=== PATIENT | female | born 1975 | race Caucasian/White ===

== ENCOUNTER 2018-06-08 06:22 | Inpatient (IN) | payer MEDICARE, OTHER ==
[2018-06-08] VITALS (9 sets, daily range): BP systolic 112–142; BP diastolic 70–86
[~2018-06-08] VITALS: Ht 154.9 cm; Wt 56.7 kg
[~2018-06-08 06:22] MED LIST: ERYT250C8 PO; FLUO40CA9 PO; HYDR-2761 PO; INSU100I13 SQ; INSU100I17 SQ; INSU100V11 IJ; INSU100V31 SQ; INSU100V8 SQ; LACT1CAP6 PO; LISI-334 PO; LORA-434 PO; LORA0.5T96 PO; METO5TAB55 PO; ONDA4TAB10 SL; ONDA4TAB7 PO; POTA10TA12 PO; RANI-376 PO; SIMV40TA3 PO
[2018-06-08] MEDS ORDERED: PIPERACILLIN/TAZOBACTAM 3.375 GM in IV NORMAL SALINE 50ML 50 ML IV ONE (08:15)
[2018-06-08] MEDS ORDERED: IV NORMAL SALINE 1000ML BAG 1,000 ML IV ONE (08:15)
[2018-06-08] MEDS ORDERED: ONDANSETRON PF 4 MG/2 ML VIAL. ONE ×2 (08:41→17:23)
[2018-06-08] MEDS ORDERED: ONDANSETRON PF 4 MG/2 ML VIAL. IV ONE (08:42)
[2018-06-08] MEDS ORDERED: VANCOMYCIN 1.5 GM in IV NORMAL SALINE 500ML BAG 500 ML IV ONE (08:45)
[2018-06-08] MEDS ORDERED: MORPHINE SULFATE 4 MG/ML VIAL. IV ONE (08:45)
[2018-06-08] MEDS ORDERED: ONDANSETRON ODT 4 MG TAB.RAPDIS. PO ONE (08:45)
[2018-06-08] MEDS ORDERED: IOHEXOL 300 MG/ML 100ML VIAL. IV ONE (08:45)
[2018-06-08 08:52] LABS: BASO # 0.1 x10^3/uL (0.0-0.2); BASO % 1 % (0-3); EOS # 0.2 x10^3/uL (0.0-0.7); EOS % 1 % (0-3); HEMATOCRIT 32.3 % (36.0-47.0); HEMOGLOBIN 10.7 g/dL (12.0-15.5); LYMPH # 2.1 x10^3/uL (1.0-4.8); LYMPH % 15 % (24-48); MEAN CORPUSCULAR HEMOGLOBIN 29 pg (25-35); MEAN CORPUSCULAR HGB CONC 33 g/dL (31-37); MEAN CORPUSCULAR VOLUME 88 fL (79-100); MONO # 1.2 x10^3/uL (0.0-1.1); MONO % 8 % (0-9); NEUT # 10.9 x10^3uL (1.8-7.7); NEUT % 75 % (31-73); PLATELET COUNT 490 x10^3/uL (140-400); RED BLOOD COUNT 3.68 x10^6/uL (3.50-5.40); RED CELL DISTRIBUTION WIDTH 14.1 % (11.5-14.5); WHITE BLOOD COUNT 14.4 x10^3/uL (4.0-11.0)
[2018-06-08 08:56] LABS: CREATININE 0.8 mg/dL (0.6-1.0); GFR 78.7
[2018-06-08] MEDS ORDERED: CONTRAST GIVEN. MC PRN (09:00)
--- NOTE | 2018-06-08 09:04 | PHYS DOC ---
Past Medical History Past Medical History: Anxiety, Cyclic Vomiting, Diabetes-Type I, High Cholesterol, Other Additional Past Medical Histor: gastroparesis, Past Surgical History: Cholecystectomy, Hysterectomy, Tubal ligation Alcohol Use: None Drug Use: Marijuana Adult General Chief Complaint Chief Complaint: ABSCESS HPI HPI Patient is a 43 year old female who presents with left thigh infection. This is been present for several weeks and seem to be responding to home, care with rihi-igy-yjrxyow medicines, but it became worse over the past 3 days. There is purulent drainage. Patient has been feeling a fever.[] Review of Systems Review of Systems Constitutional: History of present illness[] Eyes: Denies change in visual acuity, redness, or eye pain [] HENT: Denies nasal congestion or sore throat [] Respiratory: Denies cough or shortness of breath [] Cardiovascular: See history of present illness[] GI: Denies abdominal pain, nausea, vomiting, bloody stools or diarrhea [] : Denies dysuria or hematuria [] Musculoskeletal: Denies back pain or joint pain [] Integument: See history of present illness[] Neurologic: Denies headache, focal weakness or sensory changes [] Endocrine: Denies polyuria or polydipsia [] All other systems were reviewed and found to be within normal limits, except as documented in this note. Current Medications Current Medications Current Medications Medications (Trade) Dose Ordered Sig/Lori Start Time Stop Time Status Last Admin Dose Admin Info (CONTRAST GIVEN -- Rx MONITORING) 1 each PRN DAILY PRN 06/08/18 09:00 06/10/18 08:59 Iohexol (Omnipaque 300 Mg/ml) 75 ml 1X ONCE 06/08/18 08:45 06/08/18 08:46 DC 06/08/18 09:13 75 ML Morphine Sulfate (Morphine Sulfate) 4 mg 1X ONCE 06/08/18 08:45 06/08/18 08:46 DC 06/08/18 08:48 4 MG Ondansetron HCl (Zofran Odt) 4 mg 1X ONCE 06/08/18 08:45 06/08/18 09:32 DC Ondansetron HCl (Zofran) 4 mg 1X ONCE 06/08/18 08:42 06/08/18 09:34 DC 06/08/18 08:42 4 MG Piperacillin Sod/ Tazobactam Sod 3.375 gm/Sodium Chloride 50 ml @ 100 mls/hr 1X ONCE 06/08/18 08:15 06/08/18 08:44 DC 06/08/18 08:51 100 MLS/HR Sodium Chloride 1,000 ml @ 1,000 mls/hr 1X ONCE 06/08/18 08:15 06/08/18 09:14 DC 06/08/18 08:44 1,000 MLS/HR Vancomycin HCl 1.5 gm/Sodium Chloride 500 ml @ 250 mls/hr 1X ONCE 06/08/18 08:45 06/08/18 10:44 Allergies Allergies Allergies Coded Allergies Type Severity Reaction Last Updated Verified No Known Drug Allergies 03/10/13 No Physical Exam Physical Exam Constitutional: Well developed, well nourished, mild to moderate distress, ill- appearing. [] HENT: Normocephalic, atraumatic, bilateral external ears normal, oropharynx moist, no oral exudates, nose normal. [] Eyes: PERRLA, EOMI, conjunctiva normal, no discharge. [] Neck: Normal range of motion, no tenderness, supple, no stridor. [] Cardiovascular:Heart rate is tachycardic with a regular rhythm, no murmur [] Lungs & Thorax: Bilateral breath sounds clear to auscultation [] Abdomen: Bowel sounds normal, soft, no tenderness, no masses, no pulsatile masses. [] Skin: Warm, dry, erythema, induration, fluctuance medial to posterior left thigh approximately 15 cm in diameter. [] Back: No tenderness, no CVA tenderness. [] Extremities: No tenderness, no cyanosis, no clubbing, ROM intact, no edema. [] Neurologic: Alert and oriented X 3, normal motor function, normal sensory function, no focal deficits noted. [] Psychologic: Affect normal, judgement normal, mood normal. [] Current Patient Data Vital Signs Vital Signs Date Time Temp Pulse Resp B/P (MAP) Pulse Ox O2 Delivery O2 Flow Rate FiO2 06/08/18 08:48 20 97 Room Air 06/08/18 06:27 100.1 126 119/64 (82) 100.1 Lab Values Laboratory Tests Test 06/08/18 08:30 White Blood Count 14.4 x10^3/uL (4.0-11.0) H Red Blood Count 3.68 x10^6/uL (3.50-5.40) Hemoglobin 10.7 g/dL (12.0-15.5) L Hematocrit 32.3 % (36.0-47.0) L Mean Corpuscular Volume 88 fL (79-100) Mean Corpuscular Hemoglobin 29 pg (25-35) Mean Corpuscular Hemoglobin Concent 33 g/dL (31-37) Red Cell Distribution Width 14.1 % (11.5-14.5) Platelet Count 490 x10^3/uL (140-400) H Neutrophils (%) (Auto) 75 % (31-73) H Lymphocytes (%) (Auto) 15 % (24-48) L Monocytes (%) (Auto) 8 % (0-9) Eosinophils (%) (Auto) 1 % (0-3) Basophils (%) (Auto) 1 % (0-3) Neutrophils # (Auto) 10.9 x10^3uL (1.8-7.7) H Lymphocytes # (Auto) 2.1 x10^3/uL (1.0-4.8) Monocytes # (Auto) 1.2 x10^3/uL (0.0-1.1) H Eosinophils # (Auto) 0.2 x10^3/uL (0.0-0.7) Basophils # (Auto) 0.1 x10^3/uL (0.0-0.2) Sodium Level 133 mmol/L (136-145) L Potassium Level 4.0 mmol/L (3.5-5.1) Chloride Level 95 mmol/L (98-107) L Carbon Dioxide Level 26 mmol/L (21-32) Anion Gap 12 (6-14) Blood Urea Nitrogen 10 mg/dL (7-20) Creatinine 0.8 mg/dL (0.6-1.0) Estimated GFR (Cockcroft-Gault) 78.7 Glucose Level 208 mg/dL (70-99) H Lactic Acid Level 1.3 mmol/L (0.4-2.0) Calcium Level 9.0 mg/dL (8.5-10.1) Laboratory Tests 06/08/18 08:30 Laboratory Tests 06/08/18 08:30 EKG EKG [] Radiology/Procedures Radiology/Procedures CT pelvis with contrast. HISTORY: Abscess left upper thigh CT scan of the pelvis was done using 75 mL Omnipaque 300 contrast. Bowel pattern in the pelvis is normal. Appendix is normal. Patient's had surgery at the rectum. There is a 3.8 x 3.4 cm left ovarian cyst. Bony pelvis is unremarkable. There is soft tissue swelling of the lower buttocks and perineum on the left. A definitive abscess is not identified. IMPRESSION: 1. Soft tissue swelling and soft tissue inflammation of the buttocks and perineum on the left side without a defined abscess. 2. Left ovarian cyst[] Course & Med Decision Making Course & Med Decision Making Pertinent Labs and Imaging studies reviewed. (See chart for details) ED course: Patient arrived, was placed in bed, and tolerated exam well. She had IV access established was given IV fluids for the tachycardia as well as antibiotics due to concern for sepsis due to a skin source. The exam of her thigh was performed with network specialist due to proximity to her genitals. Patient was transported to and from [place] without any complications. Due to concern for early sepsis from a skin source, consultation was made with the hospitalist service for admission and they graciously admitted her. Laboratory and imaging findings were discussed with the patient who voiced understanding. Patient was admitted in improved condition. Medical decision making: While there does not appear to be a large abscess on CT scan, concerned about the infection/sepsis. This does not appear to be toxic epidermal necrolysis nor staph scalded skin syndrome. Patient is being admitted[ ] Dragon Disclaimer Dragon Disclaimer This electronic medical record was generated, in whole or in part, using a voice recognition dictation system. Departure Departure Impression: Primary Impression: Abrasion of thigh, left, infected Additional Impression: Sepsis Disposition: ADMITTED INPATIENT Admitting Physician: Zi Ashraf Condition: IMPROVED Referrals: NO PCP (PCP) Problem Qualifiers Primary Impression: Abrasion of thigh, left, infected Encounter type: initial encounter Qualified Codes: S70.312A - Abrasion, left thigh, initial encounter; L08.9 - Local infection of the skin and subcutaneous tissue, unspecified Additional Impression: Sepsis Sepsis type: sepsis due to unspecified organism Qualified Codes: A41.9 - Sepsis, unspecified organism SALO GIRON DO Jun 08, 2018 09:04
[2018-06-08 09:18] LABS: PROTHROMBIN TIME PATIENT 13.6 SEC (11.7-14.0)
--- NOTE | 2018-06-08 09:31 | RAD ---
CT pelvis with contrast. HISTORY: Abscess left upper thigh CT scan of the pelvis was done using 75 mL Omnipaque 300 contrast. Bowel pattern in the pelvis is normal. Appendix is normal. Patient's had surgery at the rectum. There is a 3.8 x 3.4 cm left ovarian cyst. Bony pelvis is unremarkable. There is soft tissue swelling of the lower buttocks and perineum on the left. A definitive abscess is not identified. IMPRESSION: 1. Soft tissue swelling and soft tissue inflammation of the buttocks and perineum on the left side without a defined abscess. 2. Left ovarian cyst Electronically signed by: Lucius Sandra MD (06/08/2018 9:28 AM) [facility]
[2018-06-08 10:13] LABS: BILIRUBIN,URINE NEGATIVE (NEG); CLARITY,URINE CLEAR; COLOR,URINE YELLOW; NITRITE,URINE NEGATIVE (NEG); PH,URINE 6.5; PROTEIN,URINE 30 mg/dL (NEG-TRACE); UROBILINOGEN,URINE 0.2 mg/dL (0.2 mg/dL)
[2018-06-08] MEDS ORDERED: ACETAMINOPHEN 325 MG TABLET. PO PRN (10:15)
[2018-06-08] MEDS ORDERED: ONDANSETRON PF 4 MG/2 ML VIAL. IV PRN ×2 (10:15→18:00)
[2018-06-08] MEDS: MORPHINE SULFATE 4 MG/ML VIAL. IV PRN ×3 (10:43→19:48)
[2018-06-08 10:49] LABS: BACTERIA,URINE 0 /HPF (0-FEW); RBC,URINE 0 /HPF (0-2); SQUAMOUS EPITHELIAL CELL,UR MOD /LPF; YEAST,URINE PRESENT /HPF
[2018-06-08] MEDS: FAMOTIDINE 20 MG TABLET. PO SCH (10:51)
[2018-06-08] MEDS: IV NORMAL SALINE 1000ML BAG 1,000 ML IV SCH ×3 (10:51→23:21)
[2018-06-08] MEDS: ERYTHROMYCIN BASE 250 MG TABLET PO SCH ×2 (11:03→16:30)
[2018-06-08] MEDS: INSULIN LISPRO 300 UNITS/3 ML INSULN.PEN. SQ SCH ×2 (12:00→17:00)
[2018-06-08] MEDS ORDERED: ONDANSETRON ODT 4 MG TAB.RAPDIS. PO SCH (12:00)
--- NOTE | 2018-06-08 12:03 | HP ---
ADMIT DATE: 06/08/2018 CHIEF COMPLAINT: Left buttock and left posterior thigh pain and abscess. HISTORY OF PRESENT ILLNESS: The patient is a pleasant middle-aged white female who presents with the above chief complaints. Basically, she has a large abscess on the left posterior aspect of her upper thigh right near the buttock, right near the perineal region as well. It is quite large, very painful, rated at 10/10. She has associated depression. She is crying. Tried to take some home meds, but that did not seem to work. It is worse with moving, better with sitting still. I discussed the case with ER physician. It appears she is also septic. We are going to admit the patient and give her IV antibiotics and consult General Surgery and Infectious Disease. PAST MEDICAL HISTORY: Anxiety, cyclic vomiting, hypertension, hyperlipidemia, gastroparesis, cholecystectomy, hysterectomy, tubal ligation. ALLERGIES: None. FAMILY HISTORY: Diabetes. SOCIAL HISTORY: She does not drink, smoke or take drugs. MEDICATIONS: Reviewed, please refer to the MRAD. She is on erythromycin, hydrocodone, Zofran, Zantac and NovoLog. REVIEW OF SYSTEMS: GENERAL: No history of weight change, weakness or fevers. SKIN: She complains of left upper posterior thigh severe pain from her abscess. EYES: No blurred, double or loss of vision. NOSE AND THROAT: No history of nosebleeds, hoarseness or sore throat. HEART: No history of palpitations, chest pain or shortness of breath on exertion. LUNGS: Denies cough, hemoptysis, wheezing or shortness of breath. GASTROINTESTINAL: Denies changes in appetite, nausea, vomiting, diarrhea or constipation. GENITOURINARY: No history of frequency, urgency, hesitancy or nocturia. NEUROLOGIC: Denies history of numbness, tingling, tremor or weakness. PSYCHIATRIC: No history of panic, anxiety or depression. ENDOCRINE: No history of heat or cold intolerance, polyuria or polydipsia. EXTREMITIES: Denies muscle weakness, joint pain, pain on walking or stiffness. PHYSICAL EXAMINATION: VITAL SIGNS: Temperature 100.1, pulse 105, respirations 20, blood pressure 119/84, O2 sat 96%. GENERAL: She is alert, crying, complaining of severe pain. HEART: Normal S1, S2. LUNGS: Clear. ABDOMEN: Soft. EXTREMITIES: No edema. ENDOCRINE: No thyromegaly. LYMPHATICS: No cervical nodes. HEMATOPOIETIC: No bruising. PSYCHIATRIC: She is depressed. SKIN: She has a large abscess in the left posterior aspect of her thigh, right near the buttocks and perineal region. LABORATORY DATA: White count is 14, hemoglobin 10.7, platelets 490. Electrolytes: Sodium 133, potassium 4.0, chloride 95, bicarbonate 26, BUN 10, creatinine 0.8, glucose 208. test is negative. INR is 1.1. Pelvic CT showed a soft tissue swelling and inflammation of the buttock and perineum and a left ovarian cyst. ASSESSMENT AND PLAN: Left perineal/buttock abscess. The patient will be admitted. We will start IV antibiotics. Consult ID, consult General Surgery. PRN morphine. Continue home medicines, frequent labs, deep vein thrombosis prophylaxis. Full code. PRN Emily. EVERTON PRICE DO DR: PARMINDER/ellie JOB#: [id number] / [id number]
[2018-06-08] MEDS: VANCOMYCIN PER PHARMACY MC PRN (12:20)
--- NOTE | 2018-06-08 12:25 | PDOC ---
Infectious Disease Note Vital Sign Vital Signs Vital Signs Date Time Temp Pulse Resp B/P (MAP) Pulse Ox O2 Delivery O2 Flow Rate FiO2 06/08/18 11:13 Room Air 06/08/18 10:00 108 118/60 (79) 97 06/08/18 08:48 20 06/08/18 06:27 100.1 100.1 Labs Lab Laboratory Tests Test 06/08/18 08:30 06/08/18 09:02 06/08/18 09:50 06/08/18 11:19 White Blood Count 14.4 x10^3/uL (4.0-11.0) Red Blood Count 3.68 x10^6/uL (3.50-5.40) Hemoglobin 10.7 g/dL (12.0-15.5) Hematocrit 32.3 % (36.0-47.0) Mean Corpuscular Volume 88 fL (79-100) Mean Corpuscular Hemoglobin 29 pg (25-35) Mean Corpuscular Hemoglobin Concent 33 g/dL (31-37) Red Cell Distribution Width 14.1 % (11.5-14.5) Platelet Count 490 x10^3/uL (140-400) Neutrophils (%) (Auto) 75 % (31-73) Lymphocytes (%) (Auto) 15 % (24-48) Monocytes (%) (Auto) 8 % (0-9) Eosinophils (%) (Auto) 1 % (0-3) Basophils (%) (Auto) 1 % (0-3) Neutrophils # (Auto) 10.9 x10^3uL (1.8-7.7) Lymphocytes # (Auto) 2.1 x10^3/uL (1.0-4.8) Monocytes # (Auto) 1.2 x10^3/uL (0.0-1.1) Eosinophils # (Auto) 0.2 x10^3/uL (0.0-0.7) Basophils # (Auto) 0.1 x10^3/uL (0.0-0.2) Prothrombin Time 13.6 SEC (11.7-14.0) Prothromb Time International Ratio 1.1 (0.8-1.1) Sodium Level 133 mmol/L (136-145) Potassium Level 4.0 mmol/L (3.5-5.1) Chloride Level 95 mmol/L (98-107) Carbon Dioxide Level 26 mmol/L (21-32) Anion Gap 12 (6-14) Blood Urea Nitrogen 10 mg/dL (7-20) Creatinine 0.8 mg/dL (0.6-1.0) Estimated GFR (Cockcroft-Gault) 78.7 Glucose Level 208 mg/dL (70-99) Lactic Acid Level 1.3 mmol/L (0.4-2.0) Calcium Level 9.0 mg/dL (8.5-10.1) Bedside Urine HCG, Qualitative Hcg negative (Negative) Urine Collection Type Unknown Urine Color Yellow Urine Clarity Clear Urine pH 6.5 Urine Specific [place] >=1.030 Urine Protein 30 mg/dL (NEG-TRACE) Urine Glucose (UA) 500 mg/dL (NEG) Urine Ketones (Stick) Negative mg/dL (NEG) Urine Blood Negative (NEG) Urine Nitrite Negative (NEG) Urine Bilirubin Negative (NEG) Urine Urobilinogen Dipstick 0.2 mg/dL (0.2 mg/dL) Urine Leukocyte Esterase Trace (NEG) Urine RBC 0 /HPF (0-2) Urine WBC 5-10 /HPF (0-4) Urine Squamous Epithelial Cells Mod /LPF Urine Bacteria 0 /HPF (0-FEW) Urine Yeast Present /HPF Glucose (Fingerstick) 228 mg/dL (70-99) CT scan of the pelvis was done using 75 mL Omnipaque 300 contrast. Bowel pattern in the pelvis is normal. Appendix is normal. Patient's had surgery at the rectum. There is a 3.8 x 3.4 cm left ovarian cyst. Bony pelvis is unremarkable. There is soft tissue swelling of the lower buttocks and perineum on the left. A definitive abscess is not identified. IMPRESSION: 1. Soft tissue swelling and soft tissue inflammation of the buttocks and perineum on the left side without a defined abscess. 2. Left ovarian cyst Objective Assessment Cellulitis left upper posterior thigh area Fever Leukocytosis Yeast in urine Type I diabetes. -Recently admitted to for DKA in May. h/o seizure HTN Plan Plan of Care Continue Zosyn and vanc, Micafungin d/w pharmacy f/u am labs and cultures Gen surg has been consulted Monitor progression Pain management per primary D/w RN Thank you [phone] Patient seen, examined, I agree with above. Assessment and plan was formulated with REGISTERED NURSE FIRST ASSISTANT. RACHEL SAHA APRN Jun 08, 2018 12:25 YESICA JUSTICE MD Jun 08, 2018 14:38
--- NOTE | 2018-06-08 12:30 | NUR ---
Pharmacy Vancomycin Dosing Note S:Consulted to monitor and dose vancomycin started 06/08/18. O:LATHA CHAVEZ is a 43 year old F with Abscess, poss Sepsis Height: 5 feet, 1 inches Weight: 56.7 kg [place] Body Weight: 47.80 Adjusted Body Weight: 51.40 Dosing Weight: Actual Other Antibiotics: Zosyn LABS: Last BUN: 10 Last Creatinine: 0.8 Creatinine Clearance: 74 mL/min Last WBC: 14.4 Last Procalcitonin: Tmax (past 24 hours): 100.1 Microbiology: - I/O: - Last dose given 06/08/18 at 0958 Vancomycin Dosing: Loading Dose: 1500 mg x1 Dosing Weight: Actual Target Trough: 15-20 A: Based on: weight and renal function P: 1. Begin Vancomycin 1000 mg IV q12hrs 2. Follow up Trough level on 06/09/18 at 2130 3. Pharmacy will continue to monitor, follow and adjust therapy as needed. Trini Wang Roney, 06/08/18 [id number]
[2018-06-08] MEDS: PIPERACILLIN/TAZOBACTAM 3.375 GM in IV NORMAL SALINE 50ML 50 ML IV SCH ×2 (13:15→19:09)
[2018-06-08] MEDS: HYDROcodone/APAP 5/325MG 1 TAB TABLET PO PRN ×2 (13:15→21:37)
--- NOTE | 2018-06-08 15:51 | PDOC2 ---
CONSULT Date of Consult Date of Consult DATE: 06/08/18 TIME: 15:44 Reason for Consult Reason for Consult: gluteal abscess Referring Physician Referring Physician: Dr Ashraf Identification/Chief Complaint Chief Complaint gluteal pain, drainage Source Source: Chart review, Patient History of Present Illness Reason for Visit: Pedro is a 43 yo diabetic female with a three to four days or pain, redness, swelling in her proximal left thigh and buttocks. No similar episodes Past Medical History GI: Other Hepatobiliary: Other Endocrine: Diabetes Past Surgical History Past Surgical History: Cholecystectomy, Hysterectomy Family History Family History: Chronic Bronchitis Social History <1 pack per day ALCOHOL: none Drugs: Marijuana Current Problem List Problem List Problems Medical Problems: (1) Sepsis Status: Acute Current Medications Current Medications Current Medications Sodium Chloride 1,000 ml @ 1,000 mls/hr 1X ONCE IV Last administered on at 08:44; Start 06/08/18 at 08:15; Stop 06/08/18 at 09:14; Status DC Piperacillin Sod/ Tazobactam Sod 3.375 gm/Sodium Chloride 50 ml @ 100 mls/hr 1X ONCE IV Last administered on 06/08/18at 08:51; Start 06/08/18 at 08:15; Stop 06/08/18 at 08:44; Status DC Vancomycin HCl 1.5 gm/Sodium Chloride 500 ml @ 250 mls/hr 1X ONCE IV Last administered on 06/08/18at 09:58; Start 06/08/18 at 08:45; Stop 06/08/18 at 10:44 ; Status DC Morphine Sulfate (Morphine Sulfate) 4 mg 1X ONCE IV Last administered on at 08:48; Start 06/08/18 at 08:45; Stop 06/08/18 at 08:46; Status DC Ondansetron HCl (Zofran Odt) 4 mg 1X ONCE PO ; Start 06/08/18 at 08:45; Stop at 09:32; Status DC Ondansetron HCl (Zofran) 4 mg STK-MED ONCE .ROUTE ; Start 06/08/18 at 08:41; Stop 06/08/18 at 08:42; Status DC Iohexol (Omnipaque 300 Mg/ml) 75 ml 1X ONCE IV Last administered on 06/08/18at 09:13; Start 06/08/18 at 08:45; Stop 06/08/18 at 08:46; Status DC Info (CONTRAST GIVEN -- Rx MONITORING) 1 each PRN DAILY PRN MC SEE COMMENTS; Start 06/08/18 at 09:00; Stop 06/10/18 at 08:59 Ondansetron HCl (Zofran) 4 mg 1X ONCE IV Last administered on 06/08/18at 08:42 ; Start 06/08/18 at 08:42; Stop 06/08/18 at 09:34; Status DC Ondansetron HCl (Zofran) 4 mg PRN Q8HRS PRN IV NAUSEA/VOMITING; Start 06/08/18 at 10:15; Stop 06/09/18 at 10:14 Morphine Sulfate (Morphine Sulfate) 4 mg PRN Q2HR PRN IV PAIN Last administered on 06/08/18at 14:51; Start 06/08/18 at 10:15; Stop 06/09/18 at 10:14 Sodium Chloride 1,000 ml @ 150 mls/hr Q6H40M IV Last administered on at 10:51; Start 06/08/18 at 10:01; Stop 06/09/18 at 10:00 Acetaminophen (Tylenol) 650 mg PRN Q4HRS PRN PO FEVER; Start 06/08/18 at 10:15 ; Stop 06/09/18 at 10:14 Piperacillin Sod/ Tazobactam Sod 3.375 gm/Sodium Chloride 50 ml @ 100 mls/hr Q6HRS IV Last administered on 06/08/18at 13:15; Start 06/08/18 at 13:00 Acetaminophen/ Hydrocodone Bitart (Lortab 5/325) 1 tab PRN Q4HRS PRN PO MODERATE PAIN Last administered on 06/08/18at 13:15; Start 06/08/18 at 10:30 Insulin Human Lispro (HumaLOG) 8 units TIDWMEALS SQ ; Start 06/08/18 at 12:00 Insulin Glargine (Lantus) 16 units QHS SQ ; Start 06/08/18 at 21:00 Ondansetron HCl (Zofran Odt) 4 mg Q6HRS PO ; Start 06/08/18 at 12:00; Stop 06/08 at 13:42; Status DC Famotidine (Pepcid) 20 mg DAILY PO ; Start 06/08/18 at 11:00 Erythromycin (E-Mycin) 250 mg TIDAC PO Last administered on 06/08/18at 11:03; Start 06/08/18 at 11:30 Vancomycin HCl (Vanco Per Pharmacy) 1 each PRN DAILY PRN MC SEE COMMENTS Last administered on 06/08/18at 12:20; Start 06/08/18 at 12:15 Vancomycin HCl 1 gm/Sodium Chloride 250 ml @ 250 mls/hr Q12H IV ; Start at 22:00 Vancomycin HCl (Vancomycin Trough Level) 1 each 1X ONCE MC ; Start 06/09/18 at 21:30; Stop 06/09/18 at 21:31 Ondansetron HCl (Zofran Odt) 4 mg PRN Q6HRS PRN PO NAUSEA; Start 06/08/18 at 13 :45 Active Scripts Active Reported Novolog Flexpen (Insulin Aspart) 100 Unit/1 Ml Insuln.pen 10 Unit SQ TIDWMEALS Lantus (Insulin Glargine,Hum.rec.anlog) 100 Unit/1 Ml Vial 26 Unit SQ HS Allergies Allergies: Coded Allergies: No Known Drug Allergies (Unverified , 03/10/13) ROS Review of System negative with exception of present complaints Physical Exam General: Alert, Oriented X3, No acute distress HEENT: Atraumatic Lungs: Normal air movement Heart: Regular rate Abdomen: Soft Skin: Other (redness, warmth and TTP over the proximal left thigh, left buttocks with some purulent drainage from the center) Neuro: Normal speech Vitals VITALS Vital Signs Date Time Temp Pulse Resp B/P (MAP) Pulse Ox O2 Delivery O2 Flow Rate FiO2 06/08/18 15:00 98.3 99 17 116/70 (85) 95 98.3 06/08/18 14:51 Room Air Labs Labs Laboratory Tests Test 06/08/18 08:30 06/08/18 09:02 06/08/18 09:50 06/08/18 11:19 White Blood Count 14.4 x10^3/uL (4.0-11.0) Red Blood Count 3.68 x10^6/uL (3.50-5.40) Hemoglobin 10.7 g/dL (12.0-15.5) Hematocrit 32.3 % (36.0-47.0) Mean Corpuscular Volume 88 fL (79-100) Mean Corpuscular Hemoglobin 29 pg (25-35) Mean Corpuscular Hemoglobin Concent 33 g/dL (31-37) Red Cell Distribution Width 14.1 % (11.5-14.5) Platelet Count 490 x10^3/uL (140-400) Neutrophils (%) (Auto) 75 % (31-73) Lymphocytes (%) (Auto) 15 % (24-48) Monocytes (%) (Auto) 8 % (0-9) Eosinophils (%) (Auto) 1 % (0-3) Basophils (%) (Auto) 1 % (0-3) Neutrophils # (Auto) 10.9 x10^3uL (1.8-7.7) Lymphocytes # (Auto) 2.1 x10^3/uL (1.0-4.8) Monocytes # (Auto) 1.2 x10^3/uL (0.0-1.1) Eosinophils # (Auto) 0.2 x10^3/uL (0.0-0.7) Basophils # (Auto) 0.1 x10^3/uL (0.0-0.2) Prothrombin Time 13.6 SEC (11.7-14.0) Prothromb Time International Ratio 1.1 (0.8-1.1) Sodium Level 133 mmol/L (136-145) Potassium Level 4.0 mmol/L (3.5-5.1) Chloride Level 95 mmol/L (98-107) Carbon Dioxide Level 26 mmol/L (21-32) Anion Gap 12 (6-14) Blood Urea Nitrogen 10 mg/dL (7-20) Creatinine 0.8 mg/dL (0.6-1.0) Estimated GFR (Cockcroft-Gault) 78.7 Glucose Level 208 mg/dL (70-99) Lactic Acid Level 1.3 mmol/L (0.4-2.0) Calcium Level 9.0 mg/dL (8.5-10.1) Bedside Urine HCG, Qualitative Hcg negative (Negative) Urine Collection Type Unknown Urine Color Yellow Urine Clarity Clear Urine pH 6.5 Urine Specific [place] >=1.030 Urine Protein 30 mg/dL (NEG-TRACE) Urine Glucose (UA) 500 mg/dL (NEG) Urine Ketones (Stick) Negative mg/dL (NEG) Urine Blood Negative (NEG) Urine Nitrite Negative (NEG) Urine Bilirubin Negative (NEG) Urine Urobilinogen Dipstick 0.2 mg/dL (0.2 mg/dL) Urine Leukocyte Esterase Trace (NEG) Urine RBC 0 /HPF (0-2) Urine WBC 5-10 /HPF (0-4) Urine Squamous Epithelial Cells Mod /LPF Urine Bacteria 0 /HPF (0-FEW) Urine Yeast Present /HPF Glucose (Fingerstick) 228 mg/dL (70-99) Laboratory Tests Test 06/08/18 08:30 06/08/18 09:02 06/08/18 09:50 06/08/18 11:19 White Blood Count 14.4 x10^3/uL (4.0-11.0) Red Blood Count 3.68 x10^6/uL (3.50-5.40) Hemoglobin 10.7 g/dL (12.0-15.5) Hematocrit 32.3 % (36.0-47.0) Mean Corpuscular Volume 88 fL (79-100) Mean Corpuscular Hemoglobin 29 pg (25-35) Mean Corpuscular Hemoglobin Concent 33 g/dL (31-37) Red Cell Distribution Width 14.1 % (11.5-14.5) Platelet Count 490 x10^3/uL (140-400) Neutrophils (%) (Auto) 75 % (31-73) Lymphocytes (%) (Auto) 15 % (24-48) Monocytes (%) (Auto) 8 % (0-9) Eosinophils (%) (Auto) 1 % (0-3) Basophils (%) (Auto) 1 % (0-3) Neutrophils # (Auto) 10.9 x10^3uL (1.8-7.7) Lymphocytes # (Auto) 2.1 x10^3/uL (1.0-4.8) Monocytes # (Auto) 1.2 x10^3/uL (0.0-1.1) Eosinophils # (Auto) 0.2 x10^3/uL (0.0-0.7) Basophils # (Auto) 0.1 x10^3/uL (0.0-0.2) Prothrombin Time 13.6 SEC (11.7-14.0) Prothromb Time International Ratio 1.1 (0.8-1.1) Sodium Level 133 mmol/L (136-145) Potassium Level 4.0 mmol/L (3.5-5.1) Chloride Level 95 mmol/L (98-107) Carbon Dioxide Level 26 mmol/L (21-32) Anion Gap 12 (6-14) Blood Urea Nitrogen 10 mg/dL (7-20) Creatinine 0.8 mg/dL (0.6-1.0) Estimated GFR (Cockcroft-Gault) 78.7 Glucose Level 208 mg/dL (70-99) Lactic Acid Level 1.3 mmol/L (0.4-2.0) Calcium Level 9.0 mg/dL (8.5-10.1) Bedside Urine HCG, Qualitative Hcg negative (Negative) Urine Collection Type Unknown Urine Color Yellow Urine Clarity Clear Urine pH 6.5 Urine Specific [place] >=1.030 Urine Protein 30 mg/dL (NEG-TRACE) Urine Glucose (UA) 500 mg/dL (NEG) Urine Ketones (Stick) Negative mg/dL (NEG) Urine Blood Negative (NEG) Urine Nitrite Negative (NEG) Urine Bilirubin Negative (NEG) Urine Urobilinogen Dipstick 0.2 mg/dL (0.2 mg/dL) Urine Leukocyte Esterase Trace (NEG) Urine RBC 0 /HPF (0-2) Urine WBC 5-10 /HPF (0-4) Urine Squamous Epithelial Cells Mod /LPF Urine Bacteria 0 /HPF (0-FEW) Urine Yeast Present /HPF Glucose (Fingerstick) 228 mg/dL (70-99) Images Images CT done on admission is reviewed Assessment/Plan Assessment/Plan left gluteal abscess/cellulitis to OR for I and D explained that she would have an open wound requiring dressing changes post op she understands and will proceed Thanks for consult IVONNE KNIGHT MD Jun 08, 2018 15:51
[2018-06-08] MEDS ORDERED: IV RINGERS,LACTATED 1000ML 1,000 ML IV SCH (15:58)
[2018-06-08] MEDS ORDERED: HYDROmorphone 2 MG/ML VIAL IV PRN ×2 (16:00→18:00)
[2018-06-08] MEDS ORDERED: PROCHLORPERAZINE 10 MG/2 ML VIAL. IV PRN (16:00)
[2018-06-08] MEDS ORDERED: LIDOCAINE 1% PF 2 ML VIAL. ID PRN (16:00)
[2018-06-08] MEDS ORDERED: LIDOCAINE 2% PF 5 ML VIAL. ONE (16:19)
[2018-06-08] MEDS ORDERED: PROPOFOL 20 ML IV ONE (16:19)
[2018-06-08] MEDS ORDERED: fentaNYL PF VIAL 100 MCG/2 ML VIAL ONE (16:19)
[2018-06-08] MEDS ORDERED: metroNIDAZOLE 500mg PREMIX 500 MG/100 ML BAG IV ONE (17:00)
[2018-06-08] MEDS ORDERED: DEXAMETHASONE SOD PHOS 20 MG/5 ML VIAL. ONE (17:23)
[2018-06-08] MEDS ORDERED: SEVOFLURANE 16 TO 30 MINUTES. IH ONE (17:23)
[2018-06-08] MEDS: MORPHINE SULFATE 2 MG/ML VIAL. IV PRN ×4 (17:55→18:48)
--- NOTE | 2018-06-08 17:56 | PDOC ---
BRIEF OPERATIVE NOTE Date: Jun 08, 2018 Pre-Op Diagnosis left gluteal abscess Post-Op Diagnosis same Procedure Performed Incision and drainage Surgeon Umesh Anesthesia Type: General Blood Loss 10cc IV Fluid 600cc Specimens Obtained cultures Findings abscess tracked superiorly toward mons Complications none Operative Note Wk # [id number] IVONNE KNIGHT MD Jun 08, 2018 17:56
[2018-06-08] MEDS ORDERED: 0.9 % SODIUM CHLORIDE 10 ML DISP.SYRIN. IV PRN (18:00)
[2018-06-08] MEDS ORDERED: MORPHINE SULFATE 2 MG/ML VIAL. ONE (18:16)
[2018-06-08] MEDS ORDERED: INSULIN LISPRO 100 UNIT/ML 3ML VIAL. SQ PRN (18:30)
[2018-06-08] MEDS ORDERED: POTASSIUM CL 20MEQ-0.45% NACL 1,000 ML IV SCH (21:00)
[2018-06-08] MEDS: VANCOMYCIN 1 GM in IV NORMAL SALINE 250ML 250 ML IV SCH (21:52)
[2018-06-08] MEDS: INSULIN GLARGINE 300 UNITS/3 ML INSULN.PEN. SQ SCH (21:58)
--- NOTE | 2018-06-08 22:30 | OP ---
DATE OF SURGERY: 06/08/2018 PREOPERATIVE DIAGNOSIS: Left gluteal abscess. POSTOPERATIVE DIAGNOSIS: Left gluteal abscess. PROCEDURE: Incision and drainage. SURGEON: Minor Knight MD ANESTHESIA: General LMA. ESTIMATED BLOOD LOSS: 10 mL. INTRAVENOUS: 600. INDICATIONS: The patient is a 43-year-old diabetic with pain, redness, tenderness and drainage of left buttocks brought for incision and drainage. DESCRIPTION OF PROCEDURE: The patient was brought to the operating suite, given a general LMA, placed in the dorsal lithotomy position and the perianal and simón-gluteal area was prepped and draped in the usual sterile fashion. The point of drainage was used as an entry point and opened slightly. Digital exploration broke up loculations and showed that the process moved superomedially toward the mons. A second incision was made superiorly and the wound was cultured and then irrigated with saline. A Laury drain was placed in the wound and secured with a silk stitch. Good hemostasis was present. Wound was dressed with 4 x 4s. The patient was taken out of lithotomy, awakened from her anesthetic and taken to the recovery room in satisfactory condition. MINOR KNIGHT MD DR: KEILA/ellie JOB#: [id number] / [id number]
[2018-06-09] MEDS: MORPHINE SULFATE 4 MG/ML VIAL. IV PRN ×3 (00:08→09:52)
[2018-06-09] MEDS: PIPERACILLIN/TAZOBACTAM 3.375 GM in IV NORMAL SALINE 50ML 50 ML IV SCH ×4 (00:08→17:12)
[2018-06-09 03:00] VITALS: BP 160/87
[2018-06-09] MEDS: oxyCODONE/APAP 5/325 1 TAB TABLET PO PRN ×4 (03:05→17:12)
[2018-06-09 06:00] LABS: BASO % 0 % (0-3); EOS % 0 % (0-3); HEMATOCRIT 31.8 % (36.0-47.0); HEMOGLOBIN 10.4 g/dL (12.0-15.5); LYMPH # 0.4 x10^3/uL (1.0-4.8); LYMPH % 4 % (24-48); MEAN CORPUSCULAR HEMOGLOBIN 30 pg (25-35); MEAN CORPUSCULAR HGB CONC 33 g/dL (31-37); MEAN CORPUSCULAR VOLUME 92 fL (79-100); MONO # 0.3 x10^3/uL (0.0-1.1); MONO % 3 % (0-9); NEUT # 8.7 x10^3uL (1.8-7.7); NEUT % 92 % (31-73); PLATELET COUNT 400 x10^3/uL (140-400); RED BLOOD COUNT 3.47 x10^6/uL (3.50-5.40); RED CELL DISTRIBUTION WIDTH 14.8 % (11.5-14.5); WHITE BLOOD COUNT 9.4 x10^3/uL (4.0-11.0)
[2018-06-09] MEDS: ERYTHROMYCIN BASE 250 MG TABLET PO SCH ×3 (06:22→15:33)
[2018-06-09] MEDS: HYDROcodone/APAP 5/325MG 1 TAB TABLET PO PRN ×3 (06:25→20:26)
[2018-06-09 06:47] LABS: CALCIUM 8.4 mg/dL (8.5-10.1); CREATININE 0.9 mg/dL (0.6-1.0); GFR 68.7; POTASSIUM 5.6 mmol/L (3.5-5.1)
[2018-06-09 07:00] VITALS: BP 153/72
[2018-06-09] MEDS ORDERED: DEXTROSE 50% 25 GM / 50ML DISP.SYRIN. IV PRN (07:00)
[2018-06-09] MEDS: IV NORMAL SALINE 1000ML BAG 1,000 ML IV SCH ×2 (07:06→20:27)
[2018-06-09] MEDS: NICOTINE 14MG PATCH. TD PRN (07:07)
[2018-06-09] MEDS ORDERED: INSULIN LISPRO 300 UNITS/3 ML INSULN.PEN. SQ ONE ×2 (07:30→08:00)
[2018-06-09 07:44] LABS: % BANDS 3 % (0-9); % LYMPHS 2 % (24-48); % MONOS 2 % (0-10); % SEGS 93 % (35-66); PLT ESTIMATE ADEQUATE (ADEQUATE)
[2018-06-09] MEDS: ENOXAPARIN 30 MG/0.3 ML SYRINGE. SQ SCH (08:05)
[2018-06-09] MEDS: FAMOTIDINE 20 MG TABLET. PO SCH (08:05)
[2018-06-09] MEDS ORDERED: IV NORMAL SALINE 1000ML BAG 1,000 ML IV SCH ×2 (08:06→08:09)
[2018-06-09] MEDS ORDERED: IV DEXTROSE 5 %-0.45 % NACL 1,000 ML IV SCH (08:09)
[2018-06-09] MEDS: INSULIN LISPRO 300 UNITS/3 ML INSULN.PEN. SQ SCH ×7 (08:13→21:17)
[2018-06-09] MEDS ORDERED: POTASSIUM CHLORIDE 10MEQ 100 ML IV PRN ×3 (08:15)
[2018-06-09] MEDS ORDERED: SODIUM PHOSPHATE 10 MMOL in IV DEXTROSE 5% 250 ML IV PRN (08:15)
[2018-06-09] MEDS ORDERED: SODIUM PHOSPHATE 20 MMOL in IV DEXTROSE 5% 250 ML IV PRN (08:15)
[2018-06-09] MEDS ORDERED: SODIUM PHOSPHATE 40 MMOL in IV NORMAL SALINE 500ML BAG 500 ML IV PRN (08:15)
[2018-06-09] MEDS ORDERED: INSULIN REGULAR VIAL 150 UNIT in 0.9 % SODIUM CHLORIDE 150ML 150 ML IV PRN (08:15)
[2018-06-09] MEDS ORDERED: ENOXAPARIN 40 MG/0.4 ML SYRINGE. SQ SCH (09:00)
[2018-06-09] MEDS ORDERED: MAGNESIUM SULFATE 4GM 100 ML IV PRN (09:00)
[2018-06-09 09:08] LABS: CALCIUM 8.1 mg/dL (8.5-10.1); CREATININE 1.1 mg/dL (0.6-1.0); GFR 54.5; POTASSIUM 4.2 mmol/L (3.5-5.1)
--- NOTE | 2018-06-09 09:19 | PDOC ---
LENCHO BALES [employer]INE[employer] 06/09/1819: SURGICAL PROGRESS NOTE Subjective some improvement in pain changing dressing as needed Vital Signs Vital Signs Date Time Temp Pulse Resp B/P (MAP) Pulse Ox O2 Delivery O2 Flow Rate FiO2 06/09/18 08:14 Room Air 06/09/18 07:27 20 97 06/09/18 07:00 97.7 87 153/72 (99) 97.7 06/09/18 04:47 2.0 I&O Intake and Output 06/09/18 07:00 Intake Total 1950 ml Output Total 10 ml Balance 1940 ml Intake IV Total 1950 ml Output Estimated Blood Loss 10 ml # Voids 7 General: Alert, Oriented X3, Cooperative, No acute distress Skin: Other (erythema to perineal area , drain in place, some drainage ) Labs Laboratory Tests Test 06/08/18 08:30 06/08/18 09:02 06/08/18 09:50 06/08/18 11:19 White Blood Count 14.4 x10^3/uL (4.0-11.0) Red Blood Count 3.68 x10^6/uL (3.50-5.40) Hemoglobin 10.7 g/dL (12.0-15.5) Hematocrit 32.3 % (36.0-47.0) Mean Corpuscular Volume 88 fL (79-100) Mean Corpuscular Hemoglobin 29 pg (25-35) Mean Corpuscular Hemoglobin Concent 33 g/dL (31-37) Red Cell Distribution Width 14.1 % (11.5-14.5) Platelet Count 490 x10^3/uL (140-400) Neutrophils (%) (Auto) 75 % (31-73) Lymphocytes (%) (Auto) 15 % (24-48) Monocytes (%) (Auto) 8 % (0-9) Eosinophils (%) (Auto) 1 % (0-3) Basophils (%) (Auto) 1 % (0-3) Neutrophils # (Auto) 10.9 x10^3uL (1.8-7.7) Lymphocytes # (Auto) 2.1 x10^3/uL (1.0-4.8) Monocytes # (Auto) 1.2 x10^3/uL (0.0-1.1) Eosinophils # (Auto) 0.2 x10^3/uL (0.0-0.7) Basophils # (Auto) 0.1 x10^3/uL (0.0-0.2) Prothrombin Time 13.6 SEC (11.7-14.0) Prothromb Time International Ratio 1.1 (0.8-1.1) Sodium Level 133 mmol/L (136-145) Potassium Level 4.0 mmol/L (3.5-5.1) Chloride Level 95 mmol/L (98-107) Carbon Dioxide Level 26 mmol/L (21-32) Anion Gap 12 (6-14) Blood Urea Nitrogen 10 mg/dL (7-20) Creatinine 0.8 mg/dL (0.6-1.0) Estimated GFR (Cockcroft-Gault) 78.7 Glucose Level 208 mg/dL (70-99) Lactic Acid Level 1.3 mmol/L (0.4-2.0) Calcium Level 9.0 mg/dL (8.5-10.1) Bedside Urine HCG, Qualitative Hcg negative (Negative) Urine Collection Type Unknown Urine Color Yellow Urine Clarity Clear Urine pH 6.5 Urine Specific [place] >=1.030 Urine Protein 30 mg/dL (NEG-TRACE) Urine Glucose (UA) 500 mg/dL (NEG) Urine Ketones (Stick) Negative mg/dL (NEG) Urine Blood Negative (NEG) Urine Nitrite Negative (NEG) Urine Bilirubin Negative (NEG) Urine Urobilinogen Dipstick 0.2 mg/dL (0.2 mg/dL) Urine Leukocyte Esterase Trace (NEG) Urine RBC 0 /HPF (0-2) Urine WBC 5-10 /HPF (0-4) Urine Squamous Epithelial Cells Mod /LPF Urine Bacteria 0 /HPF (0-FEW) Urine Yeast Present /HPF Glucose (Fingerstick) 228 mg/dL (70-99) Test 06/08/18 18:29 06/08/18 20:33 06/09/18 05:30 06/09/18 07:54 Glucose (Fingerstick) 310 mg/dL (70-99) 281 mg/dL (70-99) 523 mg/dL (70-99) White Blood Count 9.4 x10^3/uL (4.0-11.0) Red Blood Count 3.47 x10^6/uL (3.50-5.40) Hemoglobin 10.4 g/dL (12.0-15.5) Hematocrit 31.8 % (36.0-47.0) Mean Corpuscular Volume 92 fL (79-100) Mean Corpuscular Hemoglobin 30 pg (25-35) Mean Corpuscular Hemoglobin Concent 33 g/dL (31-37) Red Cell Distribution Width 14.8 % (11.5-14.5) Platelet Count 400 x10^3/uL (140-400) Neutrophils (%) (Auto) 92 % (31-73) Lymphocytes (%) (Auto) 4 % (24-48) Monocytes (%) (Auto) 3 % (0-9) Eosinophils (%) (Auto) 0 % (0-3) Basophils (%) (Auto) 0 % (0-3) Neutrophils # (Auto) 8.7 x10^3uL (1.8-7.7) Lymphocytes # (Auto) 0.4 x10^3/uL (1.0-4.8) Monocytes # (Auto) 0.3 x10^3/uL (0.0-1.1) Eosinophils # (Auto) 0.0 x10^3/uL (0.0-0.7) Basophils # (Auto) 0.0 x10^3/uL (0.0-0.2) Segmented Neutrophils % 93 % (35-66) Band Neutrophils % 3 % (0-9) Lymphocytes % 2 % (24-48) Monocytes % 2 % (0-10) Platelet Estimate Adequate (ADEQUATE) Sodium Level 129 mmol/L (136-145) Potassium Level 5.6 mmol/L (3.5-5.1) Chloride Level 92 mmol/L (98-107) Carbon Dioxide Level 18 mmol/L (21-32) Anion Gap 19 (6-14) Blood Urea Nitrogen 16 mg/dL (7-20) Creatinine 0.9 mg/dL (0.6-1.0) Estimated GFR (Cockcroft-Gault) 68.7 Glucose Level 677 mg/dL (70-99) Calcium Level 8.4 mg/dL (8.5-10.1) Phosphorus Level 3.9 mg/dL (2.6-4.7) Magnesium Level 2.3 mg/dL (1.8-2.4) Test 06/09/18 08:50 06/09/18 09:02 Sodium Level 128 mmol/L (136-145) Potassium Level 4.2 mmol/L (3.5-5.1) Chloride Level 93 mmol/L (98-107) Carbon Dioxide Level 16 mmol/L (21-32) Anion Gap 19 (6-14) Blood Urea Nitrogen 15 mg/dL (7-20) Creatinine 1.1 mg/dL (0.6-1.0) Estimated GFR (Cockcroft-Gault) 54.5 Glucose Level 424 mg/dL (70-99) Calcium Level 8.1 mg/dL (8.5-10.1) Glucose (Fingerstick) 334 mg/dL (70-99) Laboratory Tests Test 06/08/18 09:50 06/08/18 11:19 06/08/18 18:29 06/08/18 20:33 Urine Collection Type Unknown Urine Color Yellow Urine Clarity Clear Urine pH 6.5 Urine Specific [place] >=1.030 Urine Protein 30 mg/dL (NEG-TRACE) Urine Glucose (UA) 500 mg/dL (NEG) Urine Ketones (Stick) Negative mg/dL (NEG) Urine Blood Negative (NEG) Urine Nitrite Negative (NEG) Urine Bilirubin Negative (NEG) Urine Urobilinogen Dipstick 0.2 mg/dL (0.2 mg/dL) Urine Leukocyte Esterase Trace (NEG) Urine RBC 0 /HPF (0-2) Urine WBC 5-10 /HPF (0-4) Urine Squamous Epithelial Cells Mod /LPF Urine Bacteria 0 /HPF (0-FEW) Urine Yeast Present /HPF Glucose (Fingerstick) 228 mg/dL (70-99) 310 mg/dL (70-99) 281 mg/dL (70-99) Test 06/09/18 05:30 06/09/18 07:54 06/09/18 08:50 06/09/18 09:02 White Blood Count 9.4 x10^3/uL (4.0-11.0) Red Blood Count 3.47 x10^6/uL (3.50-5.40) Hemoglobin 10.4 g/dL (12.0-15.5) Hematocrit 31.8 % (36.0-47.0) Mean Corpuscular Volume 92 fL (79-100) Mean Corpuscular Hemoglobin 30 pg (25-35) Mean Corpuscular Hemoglobin Concent 33 g/dL (31-37) Red Cell Distribution Width 14.8 % (11.5-14.5) Platelet Count 400 x10^3/uL (140-400) Neutrophils (%) (Auto) 92 % (31-73) Lymphocytes (%) (Auto) 4 % (24-48) Monocytes (%) (Auto) 3 % (0-9) Eosinophils (%) (Auto) 0 % (0-3) Basophils (%) (Auto) 0 % (0-3) Neutrophils # (Auto) 8.7 x10^3uL (1.8-7.7) Lymphocytes # (Auto) 0.4 x10^3/uL (1.0-4.8) Monocytes # (Auto) 0.3 x10^3/uL (0.0-1.1) Eosinophils # (Auto) 0.0 x10^3/uL (0.0-0.7) Basophils # (Auto) 0.0 x10^3/uL (0.0-0.2) Segmented Neutrophils % 93 % (35-66) Band Neutrophils % 3 % (0-9) Lymphocytes % 2 % (24-48) Monocytes % 2 % (0-10) Platelet Estimate Adequate (ADEQUATE) Sodium Level 129 mmol/L (136-145) 128 mmol/L (136-145) Potassium Level 5.6 mmol/L (3.5-5.1) 4.2 mmol/L (3.5-5.1) Chloride Level 92 mmol/L (98-107) 93 mmol/L (98-107) Carbon Dioxide Level 18 mmol/L (21-32) 16 mmol/L (21-32) Anion Gap 19 (6-14) 19 (6-14) Blood Urea Nitrogen 16 mg/dL (7-20) 15 mg/dL (7-20) Creatinine 0.9 mg/dL (0.6-1.0) 1.1 mg/dL (0.6-1.0) Estimated GFR (Cockcroft-Gault) 68.7 54.5 Glucose Level 677 mg/dL (70-99) 424 mg/dL (70-99) Calcium Level 8.4 mg/dL (8.5-10.1) 8.1 mg/dL (8.5-10.1) Phosphorus Level 3.9 mg/dL (2.6-4.7) Magnesium Level 2.3 mg/dL (1.8-2.4) Glucose (Fingerstick) 523 mg/dL (70-99) 334 mg/dL (70-99) Problem List Problems Medical Problems: (1) Sepsis Status: Acute Assessment/Plan continue abx, kin drain, wound care IVONNE KNIGHT MD 06/09/18 1943: SURGICAL PROGRESS NOTE Assessment/Plan pt seen as above LENCHO BALES APRN Jun 09, 2018 09:19 IVONNE KNIGHT MD Jun 09, 2018 19:43
--- NOTE | 2018-06-09 09:45 | CONS ---
DATE OF CONSULTATION: 06/08/2018 Kt Valdes, nurse practitioner, dictating for Dr. Aury Justice, Infectious Disease. REFERRING PHYSICIAN: Dr. Barton. REASON FOR CONSULTATION: Sepsis and left thigh infection. HISTORY OF PRESENT ILLNESS: This patient is a 43-year-old female with a past medical history of type 1 diabetes who was admitted to a [facility] around the second week of May for diabetic ketoacidosis. She had developed a bedsore on the lower aspect of her left gluteal thigh area. She self-treated with bacitracin and an adhesive bandage. She says the wound was healing well. However, about 3 days ago, she developed a pimple nearby the wound. After taking a shower last night, it started to drain and since developed increased swelling, redness and pain associated with fevers and body aches. On arrival to the ER, she had a temperature of 100.1 and was tachycardic. She had an elevated white blood cell count of 14,400, with a lactic acid of 1.3. A pelvis CT revealed soft tissue swelling at the lower buttocks and perineum on the left. A definite abscess not identified. Blood cultures have been ordered. She was given a one-time dose of vancomycin and started on Zosyn. ID has been asked to consult for further evaluation and antibiotic management. The patient says she is not feeling well. She continues to complain of body aches, especially hip and lower back pain. She denies headache, nasal/sinus congestion or sore throat. Denies cough, shortness of air, chest discomfort. Denies nausea, vomiting or diarrhea. Denies dysuria or rash. The patient denies antibiotics within the last several months. PAST MEDICAL HISTORY: Type 1 diabetes. Gastroparesis. DKA. Hypertension, hypercholesterolemia, history of seizures, gastroesophageal reflux, depression, anxiety. PAST SURGICAL HISTORY: Cholecystectomy, tubal ligation, partial hysterectomy. SOCIAL HISTORY: Smokes marijuana. FAMILY HISTORY: Chronic bronchitis. ALLERGIES: No known drug allergies. MEDICATIONS: One time dose of vancomycin. Zosyn. Erythromycin base. Pepcid. Other medications are available and have been reviewed on the MAY. REVIEW OF SYSTEMS: Per HPI. Otherwise, all other review of systems are negative. PHYSICAL EXAMINATION: VITAL SIGNS: Temperature 100.0. Blood pressure 118/60, heart rate 108, respiratory rate 20, pulse oximetry is 97% on room air. GENERAL: The patient is propped up in bed, alert, no apparent distress. HEENT: Pupils equally round, reactive. Normal conjunctivae. Oral cavity: Pharynx pink and moist. NECK: Supple. LUNGS: Clear to auscultation. CARDIOVASCULAR: S1 and S2. ABDOMEN: Obese, soft and nontender with bowel sounds present. EXTREMITIES: No gross edema or cyanosis. SKIN: Warm without generalized rash. Tattoos. She has a fairly large inundated area, left lower buttock/posterior thigh with mild erythema and is tender. NEUROLOGIC: Alert and oriented x 3. LABORATORY DATA: Today, WBC 14.4, hemoglobin 10.7, platelets 490,000. Sodium 133, potassium 4.0, creatinine 0.8, BUN 10, glucose 208. Lactic acid 1.3. Urinalysis shows yeast. Urine and blood cultures pending. CT pelvis per HPI. IMPRESSION: 1. Cellulitis of left upper posterior thigh area. 2. Fever. 3. Leukocytosis. 4. Yeast in urine. 5. Type 1 diabetes. 6. History of seizure. 7. Hypertension. PLAN: Continue the vancomycin and Zosyn. Labs have been ordered for the morning. We will follow up on culture results. General Surgery has been consulted as well. Awaiting evaluation. Continue to monitor progression of the induration and redness. Discussed with nursing staff. Pain management per primary. Thank you Dr. Barton for asking us to participate in this patient's care. Should you have further questions or concerns, please call. AURY JUSTICE MD DR: MABEL/ellie JOB#: [id number] / [id number]
[2018-06-09] MEDS: VANCOMYCIN 1 GM in IV NORMAL SALINE 250ML 250 ML IV SCH ×2 (09:52→22:09)
--- NOTE | 2018-06-09 10:49 | PDOC ---
Infectious Disease Note Subjective Subjective Getting better. Less pain No F/C/S/N/V/D/SOA/Rash ROS ROS o/w neg Vital Sign Vital Signs Vital Signs Date Time Temp Pulse Resp B/P (MAP) Pulse Ox O2 Delivery O2 Flow Rate FiO2 06/09/18 09:52 Room Air 06/09/18 07:27 20 97 06/09/18 07:00 97.7 87 153/72 (99) 97.7 06/09/18 04:47 2.0 Physical Exam PHYSICAL EXAM GENERAL: The patient is propped up in bed, alert, no apparent distress. Was ambulating well. HEENT: Pupils equally round, reactive. Normal conjunctivae. Oral cavity: Pharynx pink and moist. NECK: Supple. LUNGS: Clear to auscultation. CARDIOVASCULAR: S1 and S2. ABDOMEN: Obese, soft and nontender with bowel sounds present. EXTREMITIES: No gross edema or cyanosis. SKIN: Warm without generalized rash. Tattoos. wound is dressed NEUROLOGIC: Alert and oriented x 3. Labs Lab Laboratory Tests Test 06/08/18 11:19 06/08/18 18:29 06/08/18 20:33 06/09/18 05:30 Glucose (Fingerstick) 228 mg/dL (70-99) 310 mg/dL (70-99) 281 mg/dL (70-99) White Blood Count 9.4 x10^3/uL (4.0-11.0) Red Blood Count 3.47 x10^6/uL (3.50-5.40) Hemoglobin 10.4 g/dL (12.0-15.5) Hematocrit 31.8 % (36.0-47.0) Mean Corpuscular Volume 92 fL (79-100) Mean Corpuscular Hemoglobin 30 pg (25-35) Mean Corpuscular Hemoglobin Concent 33 g/dL (31-37) Red Cell Distribution Width 14.8 % (11.5-14.5) Platelet Count 400 x10^3/uL (140-400) Neutrophils (%) (Auto) 92 % (31-73) Lymphocytes (%) (Auto) 4 % (24-48) Monocytes (%) (Auto) 3 % (0-9) Eosinophils (%) (Auto) 0 % (0-3) Basophils (%) (Auto) 0 % (0-3) Neutrophils # (Auto) 8.7 x10^3uL (1.8-7.7) Lymphocytes # (Auto) 0.4 x10^3/uL (1.0-4.8) Monocytes # (Auto) 0.3 x10^3/uL (0.0-1.1) Eosinophils # (Auto) 0.0 x10^3/uL (0.0-0.7) Basophils # (Auto) 0.0 x10^3/uL (0.0-0.2) Segmented Neutrophils % 93 % (35-66) Band Neutrophils % 3 % (0-9) Lymphocytes % 2 % (24-48) Monocytes % 2 % (0-10) Platelet Estimate Adequate (ADEQUATE) Sodium Level 129 mmol/L (136-145) Potassium Level 5.6 mmol/L (3.5-5.1) Chloride Level 92 mmol/L (98-107) Carbon Dioxide Level 18 mmol/L (21-32) Anion Gap 19 (6-14) Blood Urea Nitrogen 16 mg/dL (7-20) Creatinine 0.9 mg/dL (0.6-1.0) Estimated GFR (Cockcroft-Gault) 68.7 Glucose Level 677 mg/dL (70-99) Calcium Level 8.4 mg/dL (8.5-10.1) Phosphorus Level 3.9 mg/dL (2.6-4.7) Magnesium Level 2.3 mg/dL (1.8-2.4) Test 06/09/18 07:54 06/09/18 08:50 06/09/18 09:02 06/09/18 10:10 Glucose (Fingerstick) 523 mg/dL (70-99) 334 mg/dL (70-99) 322 mg/dL (70-99) Sodium Level 128 mmol/L (136-145) Potassium Level 4.2 mmol/L (3.5-5.1) Chloride Level 93 mmol/L (98-107) Carbon Dioxide Level 16 mmol/L (21-32) Anion Gap 19 (6-14) Blood Urea Nitrogen 15 mg/dL (7-20) Creatinine 1.1 mg/dL (0.6-1.0) Estimated GFR (Cockcroft-Gault) 54.5 Glucose Level 424 mg/dL (70-99) Calcium Level 8.1 mg/dL (8.5-10.1) Micro Microbiology 06/08/18 Blood Culture - Preliminary, Resulted NO GROWTH AFTER 1 DAY Objective Assessment Cellulitis/abscess left upper posterior thigh area s/p I and D 06/08 Fever - better Leukocytosis - better Yeast in urine Type I diabetes. -Recently admitted to for DKA in May. h/o seizure HTN Plan Plan of Care Continue Zosyn and vanc Add Fluconazole f/u am labs and cultures Pain management per primary LARA ROJAS MD Jun 09, 2018 10:49
[2018-06-09 11:00] VITALS: BP 103/52
[2018-06-09] MEDS: FLUCONAZOLE 100 MG TABLET. PO SCH (12:04)
[2018-06-09 12:18] LABS: CALCIUM 8.4 mg/dL (8.5-10.1); CREATININE 0.9 mg/dL (0.6-1.0); GFR 68.7; POTASSIUM 4.1 mmol/L (3.5-5.1)
[2018-06-09 15:00] VITALS: BP 137/73
--- NOTE | 2018-06-09 15:22 | NUR ---
SW following pt for anticipated dc needs. Chart reviewed and Discussed with RN. Pt lives at home with spouse. ID following pt. Per RN, pt is independent with ADL's. No dc recommendations noted at this time. SW will continue to follow pt to assess dc needs. Discussed with RN.
[2018-06-09 19:00] VITALS: BP 149/98
[2018-06-09] MEDS: MORPHINE SULFATE 2 MG/ML VIAL. IV PRN (19:01)
[2018-06-09] MEDS: INSULIN GLARGINE 300 UNITS/3 ML INSULN.PEN. SQ SCH (21:18)
--- NOTE | 2018-06-09 21:21 | PDOC ---
PROGRESS NOTES Chief Complaint Chief Complaint Cellulitis/abscess left upper posterior thigh area s/p I and D 06/08 Acute febrile illness Leukocytosis - better Yeast in urine Type I diabetes. -Recently admitted to for DKA in May. h/o seizure HTN Plan: Continue Zosyn and vanc Add Fluconazole f/u am labs and cultures supportive measures History of Present Illness History of Present Illness Patient with laboratory data concerning for dka but patent relates that she is a very brittle diabetic. She has a good appetitie no nausea or vomiting. Vitals Vitals Vital Signs Date Time Temp Pulse Resp B/P (MAP) Pulse Ox O2 Delivery O2 Flow Rate FiO2 06/09/18 20:26 18 98 Room Air 2.0 06/09/18 19:00 98.4 83 149/98 (115) 98.4 Physical Exam Physical Exam GENERAL: The patient is propped up in bed, alert, no apparent distress. Was ambulating well. HEENT: Pupils equally round, reactive. Normal conjunctivae. Oral cavity: Pharynx pink and moist. NECK: Supple. LUNGS: Clear to auscultation. CARDIOVASCULAR: S1 and S2. ABDOMEN: Obese, soft and nontender with bowel sounds present. EXTREMITIES: No gross edema or cyanosis. SKIN: Warm without generalized rash. Tattoos. wound is dressed NEUROLOGIC: Alert and oriented x 3. General: Alert, Oriented X3, Cooperative, No acute distress Heart: Regular rate Lungs: Clear, Other Abdomen: Soft Skin: Other (erythema to perineal area , drain in place, some drainage ) Labs LABS Laboratory Tests Test 06/09/18 05:30 06/09/18 07:54 06/09/18 08:50 06/09/18 09:02 White Blood Count 9.4 x10^3/uL (4.0-11.0) Red Blood Count 3.47 x10^6/uL (3.50-5.40) Hemoglobin 10.4 g/dL (12.0-15.5) Hematocrit 31.8 % (36.0-47.0) Mean Corpuscular Volume 92 fL (79-100) Mean Corpuscular Hemoglobin 30 pg (25-35) Mean Corpuscular Hemoglobin Concent 33 g/dL (31-37) Red Cell Distribution Width 14.8 % (11.5-14.5) Platelet Count 400 x10^3/uL (140-400) Neutrophils (%) (Auto) 92 % (31-73) Lymphocytes (%) (Auto) 4 % (24-48) Monocytes (%) (Auto) 3 % (0-9) Eosinophils (%) (Auto) 0 % (0-3) Basophils (%) (Auto) 0 % (0-3) Neutrophils # (Auto) 8.7 x10^3uL (1.8-7.7) Lymphocytes # (Auto) 0.4 x10^3/uL (1.0-4.8) Monocytes # (Auto) 0.3 x10^3/uL (0.0-1.1) Eosinophils # (Auto) 0.0 x10^3/uL (0.0-0.7) Basophils # (Auto) 0.0 x10^3/uL (0.0-0.2) Segmented Neutrophils % 93 % (35-66) Band Neutrophils % 3 % (0-9) Lymphocytes % 2 % (24-48) Monocytes % 2 % (0-10) Platelet Estimate Adequate (ADEQUATE) Sodium Level 129 mmol/L (136-145) 128 mmol/L (136-145) Potassium Level 5.6 mmol/L (3.5-5.1) 4.2 mmol/L (3.5-5.1) Chloride Level 92 mmol/L (98-107) 93 mmol/L (98-107) Carbon Dioxide Level 18 mmol/L (21-32) 16 mmol/L (21-32) Anion Gap 19 (6-14) 19 (6-14) Blood Urea Nitrogen 16 mg/dL (7-20) 15 mg/dL (7-20) Creatinine 0.9 mg/dL (0.6-1.0) 1.1 mg/dL (0.6-1.0) Estimated GFR (Cockcroft-Gault) 68.7 54.5 Glucose Level 677 mg/dL (70-99) 424 mg/dL (70-99) Calcium Level 8.4 mg/dL (8.5-10.1) 8.1 mg/dL (8.5-10.1) Phosphorus Level 3.9 mg/dL (2.6-4.7) Magnesium Level 2.3 mg/dL (1.8-2.4) Glucose (Fingerstick) 523 mg/dL (70-99) 334 mg/dL (70-99) Test 06/09/18 10:10 06/09/18 11:06 06/09/18 11:55 06/09/18 12:06 Glucose (Fingerstick) 322 mg/dL (70-99) 250 mg/dL (70-99) 217 mg/dL (70-99) Sodium Level 132 mmol/L (136-145) Potassium Level 4.1 mmol/L (3.5-5.1) Chloride Level 98 mmol/L (98-107) Carbon Dioxide Level 21 mmol/L (21-32) Anion Gap 13 (6-14) Blood Urea Nitrogen 13 mg/dL (7-20) Creatinine 0.9 mg/dL (0.6-1.0) Estimated GFR (Cockcroft-Gault) 68.7 Glucose Level 261 mg/dL (70-99) Lactic Acid Level 1.3 mmol/L (0.4-2.0) Calcium Level 8.4 mg/dL (8.5-10.1) Test 06/09/18 14:27 06/09/18 15:30 06/09/18 17:03 06/09/18 20:39 Glucose (Fingerstick) 195 mg/dL (70-99) 248 mg/dL (70-99) 201 mg/dL (70-99) Urine Ketones (Stick) 40 mg/dL (NEG) Assessment and Plan Assessmemt and Plan Problems Medical Problems: (1) Sepsis Status: Acute Comment Review of Relevant I have reviewed the following items sheryl (where applicable) has been applied. Labs Laboratory Tests Test 06/08/18 08:30 06/08/18 09:02 06/08/18 09:50 06/08/18 11:19 White Blood Count 14.4 x10^3/uL (4.0-11.0) Red Blood Count 3.68 x10^6/uL (3.50-5.40) Hemoglobin 10.7 g/dL (12.0-15.5) Hematocrit 32.3 % (36.0-47.0) Mean Corpuscular Volume 88 fL (79-100) Mean Corpuscular Hemoglobin 29 pg (25-35) Mean Corpuscular Hemoglobin Concent 33 g/dL (31-37) Red Cell Distribution Width 14.1 % (11.5-14.5) Platelet Count 490 x10^3/uL (140-400) Neutrophils (%) (Auto) 75 % (31-73) Lymphocytes (%) (Auto) 15 % (24-48) Monocytes (%) (Auto) 8 % (0-9) Eosinophils (%) (Auto) 1 % (0-3) Basophils (%) (Auto) 1 % (0-3) Neutrophils # (Auto) 10.9 x10^3uL (1.8-7.7) Lymphocytes # (Auto) 2.1 x10^3/uL (1.0-4.8) Monocytes # (Auto) 1.2 x10^3/uL (0.0-1.1) Eosinophils # (Auto) 0.2 x10^3/uL (0.0-0.7) Basophils # (Auto) 0.1 x10^3/uL (0.0-0.2) Prothrombin Time 13.6 SEC (11.7-14.0) Prothromb Time International Ratio 1.1 (0.8-1.1) Sodium Level 133 mmol/L (136-145) Potassium Level 4.0 mmol/L (3.5-5.1) Chloride Level 95 mmol/L (98-107) Carbon Dioxide Level 26 mmol/L (21-32) Anion Gap 12 (6-14) Blood Urea Nitrogen 10 mg/dL (7-20) Creatinine 0.8 mg/dL (0.6-1.0) Estimated GFR (Cockcroft-Gault) 78.7 Glucose Level 208 mg/dL (70-99) Lactic Acid Level 1.3 mmol/L (0.4-2.0) Calcium Level 9.0 mg/dL (8.5-10.1) Bedside Urine HCG, Qualitative Hcg negative (Negative) Urine Collection Type Unknown Urine Color Yellow Urine Clarity Clear Urine pH 6.5 Urine Specific [place] >=1.030 Urine Protein 30 mg/dL (NEG-TRACE) Urine Glucose (UA) 500 mg/dL (NEG) Urine Ketones (Stick) Negative mg/dL (NEG) Urine Blood Negative (NEG) Urine Nitrite Negative (NEG) Urine Bilirubin Negative (NEG) Urine Urobilinogen Dipstick 0.2 mg/dL (0.2 mg/dL) Urine Leukocyte Esterase Trace (NEG) Urine RBC 0 /HPF (0-2) Urine WBC 5-10 /HPF (0-4) Urine Squamous Epithelial Cells Mod /LPF Urine Bacteria 0 /HPF (0-FEW) Urine Yeast Present /HPF Glucose (Fingerstick) 228 mg/dL (70-99) Test 06/08/18 18:29 06/08/18 20:33 06/09/18 05:30 06/09/18 07:54 Glucose (Fingerstick) 310 mg/dL (70-99) 281 mg/dL (70-99) 523 mg/dL (70-99) White Blood Count 9.4 x10^3/uL (4.0-11.0) Red Blood Count 3.47 x10^6/uL (3.50-5.40) Hemoglobin 10.4 g/dL (12.0-15.5) Hematocrit 31.8 % (36.0-47.0) Mean Corpuscular Volume 92 fL (79-100) Mean Corpuscular Hemoglobin 30 pg (25-35) Mean Corpuscular Hemoglobin Concent 33 g/dL (31-37) Red Cell Distribution Width 14.8 % (11.5-14.5) Platelet Count 400 x10^3/uL (140-400) Neutrophils (%) (Auto) 92 % (31-73) Lymphocytes (%) (Auto) 4 % (24-48) Monocytes (%) (Auto) 3 % (0-9) Eosinophils (%) (Auto) 0 % (0-3) Basophils (%) (Auto) 0 % (0-3) Neutrophils # (Auto) 8.7 x10^3uL (1.8-7.7) Lymphocytes # (Auto) 0.4 x10^3/uL (1.0-4.8) Monocytes # (Auto) 0.3 x10^3/uL (0.0-1.1) Eosinophils # (Auto) 0.0 x10^3/uL (0.0-0.7) Basophils # (Auto) 0.0 x10^3/uL (0.0-0.2) Segmented Neutrophils % 93 % (35-66) Band Neutrophils % 3 % (0-9) Lymphocytes % 2 % (24-48) Monocytes % 2 % (0-10) Platelet Estimate Adequate (ADEQUATE) Sodium Level 129 mmol/L (136-145) Potassium Level 5.6 mmol/L (3.5-5.1) Chloride Level 92 mmol/L (98-107) Carbon Dioxide Level 18 mmol/L (21-32) Anion Gap 19 (6-14) Blood Urea Nitrogen 16 mg/dL (7-20) Creatinine 0.9 mg/dL (0.6-1.0) Estimated GFR (Cockcroft-Gault) 68.7 Glucose Level 677 mg/dL (70-99) Calcium Level 8.4 mg/dL (8.5-10.1) Phosphorus Level 3.9 mg/dL (2.6-4.7) Magnesium Level 2.3 mg/dL (1.8-2.4) Test 06/09/18 08:50 06/09/18 09:02 06/09/18 10:10 06/09/18 11:06 Sodium Level 128 mmol/L (136-145) Potassium Level 4.2 mmol/L (3.5-5.1) Chloride Level 93 mmol/L (98-107) Carbon Dioxide Level 16 mmol/L (21-32) Anion Gap 19 (6-14) Blood Urea Nitrogen 15 mg/dL (7-20) Creatinine 1.1 mg/dL (0.6-1.0) Estimated GFR (Cockcroft-Gault) 54.5 Glucose Level 424 mg/dL (70-99) Calcium Level 8.1 mg/dL (8.5-10.1) Glucose (Fingerstick) 334 mg/dL (70-99) 322 mg/dL (70-99) 250 mg/dL (70-99) Test 06/09/18 11:55 06/09/18 12:06 06/09/18 14:27 06/09/18 15:30 Sodium Level 132 mmol/L (136-145) Potassium Level 4.1 mmol/L (3.5-5.1) Chloride Level 98 mmol/L (98-107) Carbon Dioxide Level 21 mmol/L (21-32) Anion Gap 13 (6-14) Blood Urea Nitrogen 13 mg/dL (7-20) Creatinine 0.9 mg/dL (0.6-1.0) Estimated GFR (Cockcroft-Gault) 68.7 Glucose Level 261 mg/dL (70-99) Lactic Acid Level 1.3 mmol/L (0.4-2.0) Calcium Level 8.4 mg/dL (8.5-10.1) Glucose (Fingerstick) 217 mg/dL (70-99) 195 mg/dL (70-99) Urine Ketones (Stick) 40 mg/dL (NEG) Test 06/09/18 17:03 06/09/18 20:39 Glucose (Fingerstick) 248 mg/dL (70-99) 201 mg/dL (70-99) Laboratory Tests Test 06/09/18 05:30 06/09/18 07:54 06/09/18 08:50 06/09/18 09:02 White Blood Count 9.4 x10^3/uL (4.0-11.0) Red Blood Count 3.47 x10^6/uL (3.50-5.40) Hemoglobin 10.4 g/dL (12.0-15.5) Hematocrit 31.8 % (36.0-47.0) Mean Corpuscular Volume 92 fL (79-100) Mean Corpuscular Hemoglobin 30 pg (25-35) Mean Corpuscular Hemoglobin Concent 33 g/dL (31-37) Red Cell Distribution Width 14.8 % (11.5-14.5) Platelet Count 400 x10^3/uL (140-400) Neutrophils (%) (Auto) 92 % (31-73) Lymphocytes (%) (Auto) 4 % (24-48) Monocytes (%) (Auto) 3 % (0-9) Eosinophils (%) (Auto) 0 % (0-3) Basophils (%) (Auto) 0 % (0-3) Neutrophils # (Auto) 8.7 x10^3uL (1.8-7.7) Lymphocytes # (Auto) 0.4 x10^3/uL (1.0-4.8) Monocytes # (Auto) 0.3 x10^3/uL (0.0-1.1) Eosinophils # (Auto) 0.0 x10^3/uL (0.0-0.7) Basophils # (Auto) 0.0 x10^3/uL (0.0-0.2) Segmented Neutrophils % 93 % (35-66) Band Neutrophils % 3 % (0-9) Lymphocytes % 2 % (24-48) Monocytes % 2 % (0-10) Platelet Estimate Adequate (ADEQUATE) Sodium Level 129 mmol/L (136-145) 128 mmol/L (136-145) Potassium Level 5.6 mmol/L (3.5-5.1) 4.2 mmol/L (3.5-5.1) Chloride Level 92 mmol/L (98-107) 93 mmol/L (98-107) Carbon Dioxide Level 18 mmol/L (21-32) 16 mmol/L (21-32) Anion Gap 19 (6-14) 19 (6-14) Blood Urea Nitrogen 16 mg/dL (7-20) 15 mg/dL (7-20) Creatinine 0.9 mg/dL (0.6-1.0) 1.1 mg/dL (0.6-1.0) Estimated GFR (Cockcroft-Gault) 68.7 54.5 Glucose Level 677 mg/dL (70-99) 424 mg/dL (70-99) Calcium Level 8.4 mg/dL (8.5-10.1) 8.1 mg/dL (8.5-10.1) Phosphorus Level 3.9 mg/dL (2.6-4.7) Magnesium Level 2.3 mg/dL (1.8-2.4) Glucose (Fingerstick) 523 mg/dL (70-99) 334 mg/dL (70-99) Test 06/09/18 10:10 06/09/18 11:06 06/09/18 11:55 06/09/18 12:06 Glucose (Fingerstick) 322 mg/dL (70-99) 250 mg/dL (70-99) 217 mg/dL (70-99) Sodium Level 132 mmol/L (136-145) Potassium Level 4.1 mmol/L (3.5-5.1) Chloride Level 98 mmol/L (98-107) Carbon Dioxide Level 21 mmol/L (21-32) Anion Gap 13 (6-14) Blood Urea Nitrogen 13 mg/dL (7-20) Creatinine 0.9 mg/dL (0.6-1.0) Estimated GFR (Cockcroft-Gault) 68.7 Glucose Level 261 mg/dL (70-99) Lactic Acid Level 1.3 mmol/L (0.4-2.0) Calcium Level 8.4 mg/dL (8.5-10.1) Test 06/09/18 14:27 06/09/18 15:30 06/09/18 17:03 06/09/18 20:39 Glucose (Fingerstick) 195 mg/dL (70-99) 248 mg/dL (70-99) 201 mg/dL (70-99) Urine Ketones (Stick) 40 mg/dL (NEG) Microbiology 06/08/18 Blood Culture - Preliminary, Resulted NO GROWTH AFTER 1 DAY Medications Current Medications Sodium Chloride 1,000 ml @ 1,000 mls/hr 1X ONCE IV Last administered on at 08:44; Start 06/08/18 at 08:15; Stop 06/08/18 at 09:14; Status DC Piperacillin Sod/ Tazobactam Sod 3.375 gm/Sodium Chloride 50 ml @ 100 mls/hr 1X ONCE IV Last administered on 06/08/18at 08:51; Start 06/08/18 at 08:15; Stop 06/08/18 at 08:44; Status DC Vancomycin HCl 1.5 gm/Sodium Chloride 500 ml @ 250 mls/hr 1X ONCE IV Last administered on 06/08/18at 09:58; Start 06/08/18 at 08:45; Stop 06/08/18 at 10:44 ; Status DC Morphine Sulfate (Morphine Sulfate) 4 mg 1X ONCE IV Last administered on at 08:48; Start 06/08/18 at 08:45; Stop 06/08/18 at 08:46; Status DC Ondansetron HCl (Zofran Odt) 4 mg 1X ONCE PO ; Start 06/08/18 at 08:45; Stop at 09:32; Status DC Ondansetron HCl (Zofran) 4 mg STK-MED ONCE .ROUTE ; Start 06/08/18 at 08:41; Stop 06/08/18 at 08:42; Status DC Iohexol (Omnipaque 300 Mg/ml) 75 ml 1X ONCE IV Last administered on 06/08/18at 09:13; Start 06/08/18 at 08:45; Stop 06/08/18 at 08:46; Status DC Info (CONTRAST GIVEN -- Rx MONITORING) 1 each PRN DAILY PRN MC SEE COMMENTS; Start 06/08/18 at 09:00; Stop 06/10/18 at 08:59 Ondansetron HCl (Zofran) 4 mg 1X ONCE IV Last administered on 06/08/18at 08:42 ; Start 06/08/18 at 08:42; Stop 06/08/18 at 09:34; Status DC Ondansetron HCl (Zofran) 4 mg PRN Q8HRS PRN IV NAUSEA/VOMITING; Start 06/08/18 at 10:15; Stop 06/08/18 at 18:15; Status DC Morphine Sulfate (Morphine Sulfate) 4 mg PRN Q2HR PRN IV PAIN Last administered on 06/09/18at 09:52; Start 06/08/18 at 10:15; Stop 06/09/18 at 10:14 ; Status DC Sodium Chloride 1,000 ml @ 150 mls/hr Q6H40M IV Last administered on at 10:51; Start 06/08/18 at 10:01; Stop 06/09/18 at 07:11; Status DC Acetaminophen (Tylenol) 650 mg PRN Q4HRS PRN PO FEVER; Start 06/08/18 at 10:15 ; Stop 06/09/18 at 10:14; Status DC Piperacillin Sod/ Tazobactam Sod 3.375 gm/Sodium Chloride 50 ml @ 100 mls/hr Q6HRS IV Last administered on 06/09/18at 17:12; Start 06/08/18 at 13:00 Acetaminophen/ Hydrocodone Bitart (Lortab 5/325) 1 tab PRN Q4HRS PRN PO MODERATE PAIN Last administered on 06/09/18at 20:26; Start 06/08/18 at 10:30 Insulin Human Lispro (HumaLOG) 8 units TIDWMEALS SQ Last administered on at 17:25; Start 06/08/18 at 12:00 Insulin Glargine (Lantus) 16 units QHS SQ Last administered on 06/09/18at 21:18 ; Start 06/08/18 at 21:00 Ondansetron HCl (Zofran Odt) 4 mg Q6HRS PO ; Start 06/08/18 at 12:00; Stop 06/08 at 13:42; Status DC Famotidine (Pepcid) 20 mg DAILY PO Last administered on 06/09/18at 08:05; Start 06/08/18 at 11:00 Erythromycin (E-Mycin) 250 mg TIDAC PO Last administered on 06/09/18at 15:33; Start 06/08/18 at 11:30 Vancomycin HCl (Vanco Per Pharmacy) 1 each PRN DAILY PRN MC SEE COMMENTS Last administered on 06/08/18at 12:20; Start 06/08/18 at 12:15 Vancomycin HCl 1 gm/Sodium Chloride 250 ml @ 250 mls/hr Q12H IV Last administered on 06/09/18at 09:52; Start 06/08/18 at 22:00 Vancomycin HCl (Vancomycin Trough Level) 1 each 1X ONCE MC ; Start 06/09/18 at 21:30; Stop 06/09/18 at 21:31 Ondansetron HCl (Zofran Odt) 4 mg PRN Q6HRS PRN PO NAUSEA; Start 06/08/18 at 13 :45 Morphine Sulfate (Morphine Sulfate) 1 mg PRN Q10MIN PRN IV SEVERE PAIN Last administered on 06/08/18at 18:48; Start 06/08/18 at 16:00; Stop 06/08/18 at 22:00 ; Status DC Ringer's Solution 1,000 ml @ 30 mls/hr Q24H IV ; Start 06/08/18 at 15:58; Stop 06/09/18 at 03:57; Status DC Lidocaine HCl (Xylocaine-Mpf 1% 2ml Vial) 2 ml PRN 1X PRN ID PRIOR TO IV START ; Start 06/08/18 at 16:00; Stop 06/08/18 at 22:00; Status DC Hydromorphone HCl (Dilaudid) 0.5 mg PRN Q10MIN PRN IV SEV PAIN, Second choice; Start 06/08/18 at 16:00; Stop 06/08/18 at 22:00; Status DC Prochlorperazine Edisylate (Compazine) 5 mg PACU PRN PRN IV NAUSEA, MRX1 Last administered on 06/08/18at 18:23; Start 06/08/18 at 16:00; Stop 06/08/18 at 22:00 ; Status DC Propofol 20 ml @ As Directed STK-MED ONCE IV ; Start 06/08/18 at 16:19; Stop 01/17 at 16:20; Status DC Lidocaine HCl (Lidocaine Pf 2% Vial) 5 ml STK-MED ONCE .ROUTE ; Start 06/08/18 at 16:19; Stop 06/08/18 at 16:20; Status DC Fentanyl Citrate (Fentanyl 2ml Vial) 100 mcg STK-MED ONCE .ROUTE ; Start at 16:19; Stop 06/08/18 at 16:20; Status DC Metronidazole 100 ml @ 100 mls/hr 1X ONCE IV ; Start 06/08/18 at 16:30; Stop 06/08/18 at 17:29; Status DC Dexamethasone Sodium Phosphate (Decadron) 20 mg STK-MED ONCE .ROUTE ; Start 01/17 at 17:23; Stop 06/08/18 at 17:24; Status DC Ondansetron HCl (Zofran) 4 mg STK-MED ONCE .ROUTE ; Start 06/08/18 at 17:23; Stop 06/08/18 at 17:24; Status DC Sevoflurane (Ultane) 15 ml STK-MED ONCE IH ; Start 06/08/18 at 17:23; Stop 06/08 at 17:24; Status DC Diphenhydramine HCl (Benadryl) 25 mg PRN Q6HRS PRN PO ITCHING; Start 06/08/18 at 18:00 Enoxaparin Sodium (Lovenox 40mg Syringe) 40 mg Q24H SQ ; Start 06/09/18 at 09:00 ; Status Cancel Sodium Chloride (Normal Saline Flush) 3 ml QSHIFT PRN IV AFTER MEDS AND BLOOD DRAWS; Start 06/08/18 at 18:00 Potassium Chloride/Sodium Chloride 1,000 ml @ 50 mls/hr Q20H IV Last administered on 06/08/18at 21:38; Start 06/08/18 at 21:00; Stop 06/09/18 at 07:11 ; Status DC Oxycodone/ Acetaminophen (Percocet 5/325) 1 tab PRN Q4HRS PRN PO MILD PAIN, 1ST CHOICE Last administered on 06/09/18at 17:12; Start 06/08/18 at 18:00 Hydromorphone HCl (Dilaudid) 0.5 mg PRN Q3HRS PRN IV PAIN; Start 06/08/18 at 18 :00 Ondansetron HCl (Zofran) 4 mg PRN Q6HRS PRN IV NAUESA, 1ST CHOICE; Start at 18:00 Enoxaparin Sodium (Lovenox 30mg Syringe) 30 mg Q24H SQ Last administered on 02/17at 08:05; Start 06/09/18 at 09:00 Morphine Sulfate (Morphine Sulfate) 2 mg STK-MED ONCE .ROUTE ; Start 06/08/18 at 18:16; Stop 06/08/18 at 18:17; Status DC Insulin Human Lispro (HumaLOG VIAL) 0-10 units SSI PRN SQ PER PROTOCOL Last administered on 06/08/18at 18:39; Start 06/08/18 at 18:30; Stop 06/08/18 at 21:00 ; Status DC Sodium Chloride 1,000 ml @ 75 mls/hr [id number] IV Last administered on at 20:27; Start 06/09/18 at 07:30 Insulin Human Lispro (HumaLOG) 30 units 1X ONCE SQ Last administered on at 07:06; Start 06/09/18 at 07:30; Stop 06/09/18 at 07:31; Status DC Insulin Human Lispro (HumaLOG) 0-9 UNITS QIDACHS SQ Last administered on at 21:17; Start 06/09/18 at 07:30 Dextrose (Dextrose 50%-Water Syringe) 12.5 gm PRN Q15MIN PRN IV SEE COMMENTS; Start 06/09/18 at 07:00 Nicotine (Nicoderm Cq 14mg) 1 patch PRN DAILY PRN TD SMOKING CESSATION Last administered on 06/09/18at 07:07; Start 06/09/18 at 07:15 Morphine Sulfate (Morphine Sulfate) 2 mg PRN Q2HR PRN IV PAIN Last administered on 06/09/18at 19:01; Start 06/09/18 at 07:30 Insulin Human Lispro (HumaLOG) 12 units 1X ONCE SQ Last administered on at 08:13; Start 06/09/18 at 08:00; Stop 06/09/18 at 08:02; Status DC Sodium Chloride 1,000 ml @ 1,000 mls/hr Q1H IV ; Start 06/09/18 at 08:06; Stop 06/09/18 at 08:16; Status DC Sodium Chloride 1,000 ml @ 250 mls/hr Q4H IV ; Start 06/09/18 at 08:09; Stop at 08:16; Status DC Dextrose/Sodium Chloride 1,000 ml @ 250 mls/hr Q4H IV ; Start 06/09/18 at 08:09 ; Stop 06/09/18 at 08:16; Status DC Insulin Human Regular 150 unit/ Sodium Chloride 151.5 ml @ 0 mls/hr CONT PRN PRN IV PER PROTOCOL; Start 06/09/18 at 08:15 Potassium Chloride/Water 100 ml @ 100 mls/hr PRN Q1HR PRN IV SEE COMMENTS; Start 06/09/18 at 08:15 Potassium Chloride/Water 100 ml @ 100 mls/hr PRN Q1HR PRN IV SEE COMMENTS; Start 06/09/18 at 08:15 Potassium Chloride/Water 100 ml @ 100 mls/hr PRN Q1HR PRN IV SEE COMMENTS; Start 06/09/18 at 08:15 Magnesium Sulfate/ Dextrose 100 ml @ 25 mls/hr PRN DAILY PRN IV SEE COMMENTS; Start 06/09/18 at 09:00 Sodium Phosphate 40 mmol/Sodium Chloride 513.3333 ml @ 83.3 mls/hr 1X PRN PRN IV SEE COMMENTS; Start 06/09/18 at 08:15 Sodium Phosphate 20 mmol/Dextrose 256.6667 ml @ 62.5 mls/hr 1X PRN PRN IV SEE COMMENTS; Start 06/09/18 at 08:15 Sodium Phosphate 10 mmol/Dextrose 253.3333 ml @ 62.5 mls/hr 1X PRN PRN IV SEE COMMENTS; Start 06/09/18 at 08:15 Metronidazole (FLAGYL 500Mmg PREMIX) 500 mg STK-MED ONCE IV ; Start 06/08/18 at 17:00; Stop 06/09/18 at 08:16; Status DC Fluconazole (Diflucan) 200 mg DAILY PO Last administered on 06/09/18at 12:04; Start 06/09/18 at 12:00 Active Scripts Active Reported Novolog Flexpen (Insulin Aspart) 100 Unit/1 Ml Insuln.pen 10 Unit SQ TIDWMEALS Lantus (Insulin Glargine,Hum.rec.anlog) 100 Unit/1 Ml Vial 26 Unit SQ HS Vitals/I & O Vital Sign - Last 24 Hours 06/08/18 06/08/18 06/08/18 06/09/18 21:37 22:37 23:00 00:08 Temp 98.0 98.0 Pulse 75 Resp 20 20 18 20 B/P (MAP) 119/70 (86) Pulse Ox 100 97 97 97 O2 Delivery Nasal Cannula Room Air Room Air 06/09/18 06/09/18 06/09/18 06/09/18 00:38 03:00 03:05 04:05 Temp 97.8 97.8 Pulse 78 Resp 18 20 20 B/P (MAP) 160/87 (111) Pulse Ox 99 97 97 O2 Delivery Room Air O2 Flow Rate 2.0 06/09/18 06/09/18 06/09/18 06/09/18 04:47 05:17 06:25 07:00 Temp 97.7 97.7 Pulse 87 Resp 20 20 18 B/P (MAP) 153/72 (99) Pulse Ox 97 97 97 99 O2 Delivery Room Air Room Air Room Air O2 Flow Rate 2.0 06/09/18 06/09/18 06/09/18 06/09/18 07:27 08:00 09:52 11:00 Temp 98.2 98.2 Pulse 92 Resp 20 20 B/P (MAP) 103/52 (69) Pulse Ox 97 97 O2 Delivery Room Air Room Air Room Air Room Air 06/09/18 06/09/18 06/09/18 06/09/18 12:04 13:04 15:00 15:33 Temp 98.1 98.1 Pulse 90 Resp 20 B/P (MAP) 137/73 (94) Pulse Ox 98 O2 Delivery Room Air Room Air Room Air Room Air O2 Flow Rate 2.0 06/09/18 06/09/18 06/09/18 06/09/18 16:33 17:12 19:00 19:01 Temp 98.4 98.4 Pulse 83 Resp 16 B/P (MAP) 149/98 (115) Pulse Ox 99 O2 Delivery Room Air Room Air Room Air Room Air 06/09/18 06/09/18 19:32 20:26 Resp 18 18 Pulse Ox 98 98 O2 Delivery Room Air Room Air O2 Flow Rate 2.0 2.0 Intake and Output 06/08/18 06/08/18 06/09/18 15:00 23:00 07:00 Intake Total 1050 ml 900 ml Output Total 10 ml Balance 1050 ml 890 ml TOAN TENA MD Jun 09, 2018 21:21
[2018-06-09 21:44] LABS: VANC TR 10.7 mcg/mL (10.0-20.0)
[2018-06-09] MEDS: VANCOMYCIN PER PHARMACY MC PRN ×2 (22:13→22:20)
--- NOTE | 2018-06-09 22:22 | NUR ---
Pharmacy Vancomycin Dosing Note S: Consulted to monitor and dose vancomycin started 06/08/18. O: LATHA CHAVEZ is a 43 year old F with Abscess Cellulitis, . Other Antibiotics: Zosyn 3/375GM IV Q6H Fluconazole 200mg po daily LABS: Last BUN: 15 Last Creatinine: 1.1 Creatinine Clearance: 66 mL/min Last WBC: 9.4 Last Procalcitonin: Tmax (past 24 hours): 100.1 Microbiology: - I/O: Drug Levels: Last Trough level: 10.7 on 06/09/18 at 2130 Last dose given 06/09/18 at 0958 Vancomycin Dosing: Dosing Weight: Actual Target Trough: 10-20 A: Based on: Trough, Actual Wt and CrCl P: 1. 06/09/18 Continue Vancomycin 1000 mg IV q12h 2. Follow up Trough level in 5 to 7 days as needed 3. Pharmacy will continue to monitor, follow and adjust therapy as needed. ARIADNE MARTIN RPH, 06/09/182221 Signed: 06/09/18 at 2223 by ARIADNE MARTIN RPH PHA
[2018-06-09 22:54] VITALS: BP 136/83
[2018-06-10] MEDS: PIPERACILLIN/TAZOBACTAM 3.375 GM in IV NORMAL SALINE 50ML 50 ML IV SCH ×2 (02:08→05:55)
[2018-06-10] MEDS: MORPHINE SULFATE 2 MG/ML VIAL. IV PRN ×3 (02:08→16:06)
[2018-06-10] MEDS: diphenhydrAMINE HCL 25 MG CAPSULE PO PRN ×2 (02:21→08:18)
[2018-06-10 03:00] VITALS: BP 139/80
[2018-06-10] MEDS: HYDROcodone/APAP 5/325MG 1 TAB TABLET PO PRN ×3 (03:13→21:06)
[2018-06-10 03:28] LABS: CALCIUM 8.6 mg/dL (8.5-10.1); CREATININE 0.8 mg/dL (0.6-1.0); GFR 78.7; POTASSIUM 4.5 mmol/L (3.5-5.1)
[2018-06-10] MEDS: ERYTHROMYCIN BASE 250 MG TABLET PO SCH ×3 (05:56→16:05)
[2018-06-10 07:00] VITALS: BP 180/101
[2018-06-10] MEDS: ONDANSETRON ODT 4 MG TAB.RAPDIS. PO PRN (08:17)
[2018-06-10] MEDS: ENOXAPARIN 30 MG/0.3 ML SYRINGE. SQ SCH (08:17)
[2018-06-10] MEDS: oxyCODONE/APAP 5/325 1 TAB TABLET PO PRN ×4 (08:18→23:33)
[2018-06-10] MEDS: FLUCONAZOLE 100 MG TABLET. PO SCH (08:18)
[2018-06-10] MEDS: FAMOTIDINE 20 MG TABLET. PO SCH (08:18)
[2018-06-10] MEDS: IV NORMAL SALINE 1000ML BAG 1,000 ML IV SCH (08:19)
[2018-06-10] MEDS: INSULIN LISPRO 300 UNITS/3 ML INSULN.PEN. SQ SCH ×7 (08:39→21:35)
--- NOTE | 2018-06-10 08:48 | PDOC ---
Infectious Disease Note Subjective Subjective Better but didn't sleep as was having IV issues. Less pain No F/C/S/N/V/D/SOA/Rash ROS ROS o/w neg Vital Sign Vital Signs Vital Signs Date Time Temp Pulse Resp B/P (MAP) Pulse Ox O2 Delivery O2 Flow Rate FiO2 06/10/18 08:18 Room Air 06/10/18 06:26 18 99 2.0 06/10/18 03:00 98.8 90 139/80 (99) 98.8 Physical Exam PHYSICAL EXAM GENERAL: The patient is propped up in bed, alert, no apparent distress. Was ambulating well. HEENT: Pupils equally round, reactive. Normal conjunctivae. Oral cavity: Pharynx pink and moist. NECK: Supple. LUNGS: Clear to auscultation. CARDIOVASCULAR: S1 and S2. ABDOMEN: Obese, soft and nontender with bowel sounds present. EXTREMITIES: No gross edema or cyanosis. SKIN: Warm without generalized rash. Tattoos. wound is clean. no surrounding eythema. kin in place NEUROLOGIC: Alert and oriented x 3. Labs Lab Laboratory Tests Test 06/09/18 08:50 06/09/18 09:02 06/09/18 10:10 06/09/18 11:06 Sodium Level 128 mmol/L (136-145) Potassium Level 4.2 mmol/L (3.5-5.1) Chloride Level 93 mmol/L (98-107) Carbon Dioxide Level 16 mmol/L (21-32) Anion Gap 19 (6-14) Blood Urea Nitrogen 15 mg/dL (7-20) Creatinine 1.1 mg/dL (0.6-1.0) Estimated GFR (Cockcroft-Gault) 54.5 Glucose Level 424 mg/dL (70-99) Calcium Level 8.1 mg/dL (8.5-10.1) Glucose (Fingerstick) 334 mg/dL (70-99) 322 mg/dL (70-99) 250 mg/dL (70-99) Test 06/09/18 11:55 06/09/18 12:06 06/09/18 14:27 06/09/18 15:30 Sodium Level 132 mmol/L (136-145) Potassium Level 4.1 mmol/L (3.5-5.1) Chloride Level 98 mmol/L (98-107) Carbon Dioxide Level 21 mmol/L (21-32) Anion Gap 13 (6-14) Blood Urea Nitrogen 13 mg/dL (7-20) Creatinine 0.9 mg/dL (0.6-1.0) Estimated GFR (Cockcroft-Gault) 68.7 Glucose Level 261 mg/dL (70-99) Lactic Acid Level 1.3 mmol/L (0.4-2.0) Calcium Level 8.4 mg/dL (8.5-10.1) Glucose (Fingerstick) 217 mg/dL (70-99) 195 mg/dL (70-99) Urine Ketones (Stick) 40 mg/dL (NEG) Test 06/09/18 17:03 06/09/18 20:39 06/09/18 21:20 06/10/18 02:50 Glucose (Fingerstick) 248 mg/dL (70-99) 201 mg/dL (70-99) Vancomycin Level Trough 10.7 mcg/mL (10.0-20.0) Vancomycin Last Dose Date Vancomycin Last Dose Time 1000 Sodium Level 135 mmol/L (136-145) Potassium Level 4.5 mmol/L (3.5-5.1) Chloride Level 100 mmol/L (98-107) Carbon Dioxide Level 23 mmol/L (21-32) Anion Gap 12 (6-14) Blood Urea Nitrogen 11 mg/dL (7-20) Creatinine 0.8 mg/dL (0.6-1.0) Estimated GFR (Cockcroft-Gault) 78.7 Glucose Level 393 mg/dL (70-99) Calcium Level 8.6 mg/dL (8.5-10.1) Procalcitonin 0.33 ng/mL (0.00-0.10) Test 06/10/18 07:28 Glucose (Fingerstick) 366 mg/dL (70-99) Micro Microbiology 06/08/18 Blood Culture - Preliminary, Resulted NO GROWTH AFTER 1 DAY Objective Assessment Cellulitis/abscess left upper posterior thigh area s/p I and D 06/08 Fever - better Leukocytosis - better Yeast in urine Type I diabetes. -Recently admitted to for DKA in May. h/o seizure HTN Plan Plan of Care Discontinue Zosyn and vanc Po Augmentin/Doxy for 7 days Cont Fluconazole for 6 more days Ok to d/c from ID standpoint F/u Gen surgery LARA ROJAS MD Jun 10, 2018 08:48
--- NOTE | 2018-06-10 09:11 | PDOC ---
LENCHO BALES [employer]EF[employer] COUNSELOR 06/10/1811: SURGICAL PROGRESS NOTE Subjective feels better less pain Vital Signs Vital Signs Date Time Temp Pulse Resp B/P (MAP) Pulse Ox O2 Delivery O2 Flow Rate FiO2 06/10/18 08:18 Room Air 06/10/18 06:26 18 99 2.0 06/10/18 03:00 98.8 90 139/80 (99) 98.8 I&O Intake and Output 06/10/18 06:59 Intake Total 1580 ml Balance 1580 ml Intake Oral 1280 ml IV Total 300 ml # Voids 4 General: Alert, Oriented X3, Cooperative, No acute distress Skin: Other (wound clean, less erythema, drain in place) Labs Laboratory Tests Test 06/08/18 09:50 06/08/18 11:19 06/08/18 18:29 06/08/18 20:33 Urine Collection Type Unknown Urine Color Yellow Urine Clarity Clear Urine pH 6.5 Urine Specific [place] >=1.030 Urine Protein 30 mg/dL (NEG-TRACE) Urine Glucose (UA) 500 mg/dL (NEG) Urine Ketones (Stick) Negative mg/dL (NEG) Urine Blood Negative (NEG) Urine Nitrite Negative (NEG) Urine Bilirubin Negative (NEG) Urine Urobilinogen Dipstick 0.2 mg/dL (0.2 mg/dL) Urine Leukocyte Esterase Trace (NEG) Urine RBC 0 /HPF (0-2) Urine WBC 5-10 /HPF (0-4) Urine Squamous Epithelial Cells Mod /LPF Urine Bacteria 0 /HPF (0-FEW) Urine Yeast Present /HPF Glucose (Fingerstick) 228 mg/dL (70-99) 310 mg/dL (70-99) 281 mg/dL (70-99) Test 06/09/18 05:30 06/09/18 07:54 06/09/18 08:50 06/09/18 09:02 White Blood Count 9.4 x10^3/uL (4.0-11.0) Red Blood Count 3.47 x10^6/uL (3.50-5.40) Hemoglobin 10.4 g/dL (12.0-15.5) Hematocrit 31.8 % (36.0-47.0) Mean Corpuscular Volume 92 fL (79-100) Mean Corpuscular Hemoglobin 30 pg (25-35) Mean Corpuscular Hemoglobin Concent 33 g/dL (31-37) Red Cell Distribution Width 14.8 % (11.5-14.5) Platelet Count 400 x10^3/uL (140-400) Neutrophils (%) (Auto) 92 % (31-73) Lymphocytes (%) (Auto) 4 % (24-48) Monocytes (%) (Auto) 3 % (0-9) Eosinophils (%) (Auto) 0 % (0-3) Basophils (%) (Auto) 0 % (0-3) Neutrophils # (Auto) 8.7 x10^3uL (1.8-7.7) Lymphocytes # (Auto) 0.4 x10^3/uL (1.0-4.8) Monocytes # (Auto) 0.3 x10^3/uL (0.0-1.1) Eosinophils # (Auto) 0.0 x10^3/uL (0.0-0.7) Basophils # (Auto) 0.0 x10^3/uL (0.0-0.2) Segmented Neutrophils % 93 % (35-66) Band Neutrophils % 3 % (0-9) Lymphocytes % 2 % (24-48) Monocytes % 2 % (0-10) Platelet Estimate Adequate (ADEQUATE) Sodium Level 129 mmol/L (136-145) 128 mmol/L (136-145) Potassium Level 5.6 mmol/L (3.5-5.1) 4.2 mmol/L (3.5-5.1) Chloride Level 92 mmol/L (98-107) 93 mmol/L (98-107) Carbon Dioxide Level 18 mmol/L (21-32) 16 mmol/L (21-32) Anion Gap 19 (6-14) 19 (6-14) Blood Urea Nitrogen 16 mg/dL (7-20) 15 mg/dL (7-20) Creatinine 0.9 mg/dL (0.6-1.0) 1.1 mg/dL (0.6-1.0) Estimated GFR (Cockcroft-Gault) 68.7 54.5 Glucose Level 677 mg/dL (70-99) 424 mg/dL (70-99) Calcium Level 8.4 mg/dL (8.5-10.1) 8.1 mg/dL (8.5-10.1) Phosphorus Level 3.9 mg/dL (2.6-4.7) Magnesium Level 2.3 mg/dL (1.8-2.4) Glucose (Fingerstick) 523 mg/dL (70-99) 334 mg/dL (70-99) Test 06/09/18 10:10 06/09/18 11:06 06/09/18 11:55 06/09/18 12:06 Glucose (Fingerstick) 322 mg/dL (70-99) 250 mg/dL (70-99) 217 mg/dL (70-99) Sodium Level 132 mmol/L (136-145) Potassium Level 4.1 mmol/L (3.5-5.1) Chloride Level 98 mmol/L (98-107) Carbon Dioxide Level 21 mmol/L (21-32) Anion Gap 13 (6-14) Blood Urea Nitrogen 13 mg/dL (7-20) Creatinine 0.9 mg/dL (0.6-1.0) Estimated GFR (Cockcroft-Gault) 68.7 Glucose Level 261 mg/dL (70-99) Lactic Acid Level 1.3 mmol/L (0.4-2.0) Calcium Level 8.4 mg/dL (8.5-10.1) Test 06/09/18 14:27 06/09/18 15:30 06/09/18 17:03 06/09/18 20:39 Glucose (Fingerstick) 195 mg/dL (70-99) 248 mg/dL (70-99) 201 mg/dL (70-99) Urine Ketones (Stick) 40 mg/dL (NEG) Test 06/09/18 21:20 06/10/18 02:50 06/10/18 07:28 Vancomycin Level Trough 10.7 mcg/mL (10.0-20.0) Vancomycin Last Dose Date Vancomycin Last Dose Time 1000 Sodium Level 135 mmol/L (136-145) Potassium Level 4.5 mmol/L (3.5-5.1) Chloride Level 100 mmol/L (98-107) Carbon Dioxide Level 23 mmol/L (21-32) Anion Gap 12 (6-14) Blood Urea Nitrogen 11 mg/dL (7-20) Creatinine 0.8 mg/dL (0.6-1.0) Estimated GFR (Cockcroft-Gault) 78.7 Glucose Level 393 mg/dL (70-99) Calcium Level 8.6 mg/dL (8.5-10.1) Procalcitonin 0.33 ng/mL (0.00-0.10) Glucose (Fingerstick) 366 mg/dL (70-99) Laboratory Tests Test 06/09/18 10:10 06/09/18 11:06 06/09/18 11:55 06/09/18 12:06 Glucose (Fingerstick) 322 mg/dL (70-99) 250 mg/dL (70-99) 217 mg/dL (70-99) Sodium Level 132 mmol/L (136-145) Potassium Level 4.1 mmol/L (3.5-5.1) Chloride Level 98 mmol/L (98-107) Carbon Dioxide Level 21 mmol/L (21-32) Anion Gap 13 (6-14) Blood Urea Nitrogen 13 mg/dL (7-20) Creatinine 0.9 mg/dL (0.6-1.0) Estimated GFR (Cockcroft-Gault) 68.7 Glucose Level 261 mg/dL (70-99) Lactic Acid Level 1.3 mmol/L (0.4-2.0) Calcium Level 8.4 mg/dL (8.5-10.1) Test 06/09/18 14:27 06/09/18 15:30 06/09/18 17:03 06/09/18 20:39 Glucose (Fingerstick) 195 mg/dL (70-99) 248 mg/dL (70-99) 201 mg/dL (70-99) Urine Ketones (Stick) 40 mg/dL (NEG) Test 06/09/18 21:20 06/10/18 02:50 06/10/18 07:28 Vancomycin Level Trough 10.7 mcg/mL (10.0-20.0) Vancomycin Last Dose Date [id number] Vancomycin Last Dose Time 1000 Sodium Level 135 mmol/L (136-145) Potassium Level 4.5 mmol/L (3.5-5.1) Chloride Level 100 mmol/L (98-107) Carbon Dioxide Level 23 mmol/L (21-32) Anion Gap 12 (6-14) Blood Urea Nitrogen 11 mg/dL (7-20) Creatinine 0.8 mg/dL (0.6-1.0) Estimated GFR (Cockcroft-Gault) 78.7 Glucose Level 393 mg/dL (70-99) Calcium Level 8.6 mg/dL (8.5-10.1) Procalcitonin 0.33 ng/mL (0.00-0.10) Glucose (Fingerstick) 366 mg/dL (70-99) Problem List Problems Medical Problems: (1) Sepsis Status: Acute Assessment/Plan ok to dc, abx per ID leave drain in place, FU in clinic next week for removal IVONNE KNIGHT MD 06/10/18 1250: SURGICAL PROGRESS NOTE Assessment/Plan as above no new surg recs home with drain when on po abx LENCHO BALES APRN Jun 10, 2018 09:11 IVONNE KNIGHT MD Jun 10, 2018 12:50
[2018-06-10] MEDS: DOXYCYCLINE HYCLATE 100 MG TABLET PO SCH ×2 (09:37→21:07)
[2018-06-10] MEDS: AMOXICILLIN/K CLAV 875/125MG TABLET. PO SCH ×2 (09:37→21:07)
[2018-06-10 11:00] VITALS: BP 134/72
[2018-06-10] MEDS ORDERED: LISINOPRIL 5 MG TABLET. PO SCH (11:30)
[2018-06-10 15:00] VITALS: BP 151/95
[2018-06-10 19:00] VITALS: BP 139/82
[2018-06-10] MEDS: INSULIN GLARGINE 300 UNITS/3 ML INSULN.PEN. SQ SCH (21:15)
--- NOTE | 2018-06-10 21:22 | PDOC ---
PROGRESS NOTES Chief Complaint Chief Complaint Cellulitis/abscess left upper posterior thigh area s/p I and D 06/08 Acute febrile illness Leukocytosis - better Yeast in urine Type I diabetes. -Recently admitted to for DKA in May. h/o seizure HTN Plan: Continue oral antibiotics as per cycle consultant reassess in the am supportive measures Hopefully discharge in the am History of Present Illness History of Present Illness No new complaints glycemia has improved,she was transitioned to oral meications , she did have a reaction to vancomycin. She will remain in the hospital until the morning monitoring for late drug adverse effects Vitals Vitals Vital Signs Date Time Temp Pulse Resp B/P (MAP) Pulse Ox O2 Delivery O2 Flow Rate FiO2 06/10/18 21:06 20 100 Room Air 06/10/18 19:00 98.6 85 139/82 (101) 98.6 06/10/18 06:26 2.0 Physical Exam Physical Exam GENERAL: The patient is propped up in bed, alert, no apparent distress. Was ambulating well. HEENT: Pupils equally round, reactive. Normal conjunctivae. Oral cavity: Pharynx pink and moist. NECK: Supple. LUNGS: Clear to auscultation. CARDIOVASCULAR: S1 and S2. ABDOMEN: Obese, soft and nontender with bowel sounds present. EXTREMITIES: No gross edema or cyanosis. SKIN: Warm without generalized rash. Tattoos. wound is clean. no surrounding eythema. kin in place NEUROLOGIC: Alert and oriented x 3. General: Alert, Oriented X3, Cooperative, No acute distress Heart: Regular rate Lungs: Clear, Other Abdomen: Soft Skin: Other (wound clean, less erythema, drain in place) Labs LABS Laboratory Tests Test 06/10/18 02:50 06/10/18 07:28 06/10/18 11:45 06/10/18 16:15 Sodium Level 135 mmol/L (136-145) Potassium Level 4.5 mmol/L (3.5-5.1) Chloride Level 100 mmol/L (98-107) Carbon Dioxide Level 23 mmol/L (21-32) Anion Gap 12 (6-14) Blood Urea Nitrogen 11 mg/dL (7-20) Creatinine 0.8 mg/dL (0.6-1.0) Estimated GFR (Cockcroft-Gault) 78.7 Glucose Level 393 mg/dL (70-99) Calcium Level 8.6 mg/dL (8.5-10.1) Procalcitonin 0.33 ng/mL (0.00-0.10) Glucose (Fingerstick) 366 mg/dL (70-99) 97 mg/dL (70-99) 67 mg/dL (70-99) Test 06/10/18 20:47 Glucose (Fingerstick) 217 mg/dL (70-99) Assessment and Plan Assessmemt and Plan Problems Medical Problems: (1) Sepsis Status: Acute Comment Review of Relevant I have reviewed the following items sheryl (where applicable) has been applied. Labs Laboratory Tests Test 06/09/18 05:30 06/09/18 07:54 06/09/18 08:50 06/09/18 09:02 White Blood Count 9.4 x10^3/uL (4.0-11.0) Red Blood Count 3.47 x10^6/uL (3.50-5.40) Hemoglobin 10.4 g/dL (12.0-15.5) Hematocrit 31.8 % (36.0-47.0) Mean Corpuscular Volume 92 fL (79-100) Mean Corpuscular Hemoglobin 30 pg (25-35) Mean Corpuscular Hemoglobin Concent 33 g/dL (31-37) Red Cell Distribution Width 14.8 % (11.5-14.5) Platelet Count 400 x10^3/uL (140-400) Neutrophils (%) (Auto) 92 % (31-73) Lymphocytes (%) (Auto) 4 % (24-48) Monocytes (%) (Auto) 3 % (0-9) Eosinophils (%) (Auto) 0 % (0-3) Basophils (%) (Auto) 0 % (0-3) Neutrophils # (Auto) 8.7 x10^3uL (1.8-7.7) Lymphocytes # (Auto) 0.4 x10^3/uL (1.0-4.8) Monocytes # (Auto) 0.3 x10^3/uL (0.0-1.1) Eosinophils # (Auto) 0.0 x10^3/uL (0.0-0.7) Basophils # (Auto) 0.0 x10^3/uL (0.0-0.2) Segmented Neutrophils % 93 % (35-66) Band Neutrophils % 3 % (0-9) Lymphocytes % 2 % (24-48) Monocytes % 2 % (0-10) Platelet Estimate Adequate (ADEQUATE) Sodium Level 129 mmol/L (136-145) 128 mmol/L (136-145) Potassium Level 5.6 mmol/L (3.5-5.1) 4.2 mmol/L (3.5-5.1) Chloride Level 92 mmol/L (98-107) 93 mmol/L (98-107) Carbon Dioxide Level 18 mmol/L (21-32) 16 mmol/L (21-32) Anion Gap 19 (6-14) 19 (6-14) Blood Urea Nitrogen 16 mg/dL (7-20) 15 mg/dL (7-20) Creatinine 0.9 mg/dL (0.6-1.0) 1.1 mg/dL (0.6-1.0) Estimated GFR (Cockcroft-Gault) 68.7 54.5 Glucose Level 677 mg/dL (70-99) 424 mg/dL (70-99) Calcium Level 8.4 mg/dL (8.5-10.1) 8.1 mg/dL (8.5-10.1) Phosphorus Level 3.9 mg/dL (2.6-4.7) Magnesium Level 2.3 mg/dL (1.8-2.4) Glucose (Fingerstick) 523 mg/dL (70-99) 334 mg/dL (70-99) Test 06/09/18 10:10 06/09/18 11:06 06/09/18 11:55 06/09/18 12:06 Glucose (Fingerstick) 322 mg/dL (70-99) 250 mg/dL (70-99) 217 mg/dL (70-99) Sodium Level 132 mmol/L (136-145) Potassium Level 4.1 mmol/L (3.5-5.1) Chloride Level 98 mmol/L (98-107) Carbon Dioxide Level 21 mmol/L (21-32) Anion Gap 13 (6-14) Blood Urea Nitrogen 13 mg/dL (7-20) Creatinine 0.9 mg/dL (0.6-1.0) Estimated GFR (Cockcroft-Gault) 68.7 Glucose Level 261 mg/dL (70-99) Lactic Acid Level 1.3 mmol/L (0.4-2.0) Calcium Level 8.4 mg/dL (8.5-10.1) Test 06/09/18 14:27 06/09/18 15:30 06/09/18 17:03 06/09/18 20:39 Glucose (Fingerstick) 195 mg/dL (70-99) 248 mg/dL (70-99) 201 mg/dL (70-99) Urine Ketones (Stick) 40 mg/dL (NEG) Test 06/09/18 21:20 06/10/18 02:50 06/10/18 07:28 06/10/18 11:45 Vancomycin Level Trough 10.7 mcg/mL (10.0-20.0) Vancomycin Last Dose Date [id number] Vancomycin Last Dose Time 1000 Sodium Level 135 mmol/L (136-145) Potassium Level 4.5 mmol/L (3.5-5.1) Chloride Level 100 mmol/L (98-107) Carbon Dioxide Level 23 mmol/L (21-32) Anion Gap 12 (6-14) Blood Urea Nitrogen 11 mg/dL (7-20) Creatinine 0.8 mg/dL (0.6-1.0) Estimated GFR (Cockcroft-Gault) 78.7 Glucose Level 393 mg/dL (70-99) Calcium Level 8.6 mg/dL (8.5-10.1) Procalcitonin 0.33 ng/mL (0.00-0.10) Glucose (Fingerstick) 366 mg/dL (70-99) 97 mg/dL (70-99) Test 06/10/18 16:15 06/10/18 20:47 Glucose (Fingerstick) 67 mg/dL (70-99) 217 mg/dL (70-99) Laboratory Tests Test 06/10/18 02:50 06/10/18 07:28 06/10/18 11:45 06/10/18 16:15 Sodium Level 135 mmol/L (136-145) Potassium Level 4.5 mmol/L (3.5-5.1) Chloride Level 100 mmol/L (98-107) Carbon Dioxide Level 23 mmol/L (21-32) Anion Gap 12 (6-14) Blood Urea Nitrogen 11 mg/dL (7-20) Creatinine 0.8 mg/dL (0.6-1.0) Estimated GFR (Cockcroft-Gault) 78.7 Glucose Level 393 mg/dL (70-99) Calcium Level 8.6 mg/dL (8.5-10.1) Procalcitonin 0.33 ng/mL (0.00-0.10) Glucose (Fingerstick) 366 mg/dL (70-99) 97 mg/dL (70-99) 67 mg/dL (70-99) Test 06/10/18 20:47 Glucose (Fingerstick) 217 mg/dL (70-99) Microbiology 06/08/18 Blood Culture - Preliminary, Resulted NO GROWTH AFTER 2 DAYS 06/08/18 Anaerobic/Aerobic Culture, Resulted Pending 06/08/18 Anaerobic Culture Result 1 (LESLYE), Resulted Pending 06/08/18 Aerobic Culture, Resulted Pending 06/08/18 Aerobic Culture Result 1 (LESLYE), Resulted Pending 06/08/18 Gram Stain - Final, Resulted 06/08/18 Gram Stain Result 1 (LESLYE) - Final, Resulted 06/08/18 Gram Stain Result 2 (LESLYE) - Final, Resulted Medications Current Medications Sodium Chloride 1,000 ml @ 1,000 mls/hr 1X ONCE IV Last administered on at 08:44; Start 06/08/18 at 08:15; Stop 06/08/18 at 09:14; Status DC Piperacillin Sod/ Tazobactam Sod 3.375 gm/Sodium Chloride 50 ml @ 100 mls/hr 1X ONCE IV Last administered on 06/08/18at 08:51; Start 06/08/18 at 08:15; Stop 06/08/18 at 08:44; Status DC Vancomycin HCl 1.5 gm/Sodium Chloride 500 ml @ 250 mls/hr 1X ONCE IV Last administered on 06/08/18at 09:58; Start 06/08/18 at 08:45; Stop 06/08/18 at 10:44 ; Status DC Morphine Sulfate (Morphine Sulfate) 4 mg 1X ONCE IV Last administered on at 08:48; Start 06/08/18 at 08:45; Stop 06/08/18 at 08:46; Status DC Ondansetron HCl (Zofran Odt) 4 mg 1X ONCE PO ; Start 06/08/18 at 08:45; Stop at 09:32; Status DC Ondansetron HCl (Zofran) 4 mg STK-MED ONCE .ROUTE ; Start 06/08/18 at 08:41; Stop 06/08/18 at 08:42; Status DC Iohexol (Omnipaque 300 Mg/ml) 75 ml 1X ONCE IV Last administered on 06/08/18at 09:13; Start 06/08/18 at 08:45; Stop 06/08/18 at 08:46; Status DC Info (CONTRAST GIVEN -- Rx MONITORING) 1 each PRN DAILY PRN MC SEE COMMENTS; Start 06/08/18 at 09:00; Stop 06/10/18 at 08:59; Status DC Ondansetron HCl (Zofran) 4 mg 1X ONCE IV Last administered on 06/08/18at 08:42 ; Start 06/08/18 at 08:42; Stop 06/08/18 at 09:34; Status DC Ondansetron HCl (Zofran) 4 mg PRN Q8HRS PRN IV NAUSEA/VOMITING; Start 06/08/18 at 10:15; Stop 06/08/18 at 18:15; Status DC Morphine Sulfate (Morphine Sulfate) 4 mg PRN Q2HR PRN IV PAIN Last administered on 06/09/18at 09:52; Start 06/08/18 at 10:15; Stop 06/09/18 at 10:14 ; Status DC Sodium Chloride 1,000 ml @ 150 mls/hr Q6H40M IV Last administered on at 10:51; Start 06/08/18 at 10:01; Stop 06/09/18 at 07:11; Status DC Acetaminophen (Tylenol) 650 mg PRN Q4HRS PRN PO FEVER; Start 06/08/18 at 10:15 ; Stop 06/09/18 at 10:14; Status DC Piperacillin Sod/ Tazobactam Sod 3.375 gm/Sodium Chloride 50 ml @ 100 mls/hr Q6HRS IV Last administered on 06/10/18at 05:55; Start 06/08/18 at 13:00; Stop at 08:48; Status DC Acetaminophen/ Hydrocodone Bitart (Lortab 5/325) 1 tab PRN Q4HRS PRN PO MODERATE PAIN Last administered on 06/10/18 21:06; Start 06/08/18 at 10:30 Insulin Human Lispro (HumaLOG) 8 units TIDWMEALS SQ Last administered on 12:38; Start 06/08/18 at 12:00 Insulin Glargine (Lantus) 16 units QHS SQ Last administered on 06/10/18 21:15 ; Start 06/08/18 at 21:00 Ondansetron HCl (Zofran Odt) 4 mg Q6HRS PO ; Start 06/08/18 at 12:00; Stop 06/08 at 13:42; Status DC Famotidine (Pepcid) 20 mg DAILY PO Last administered on 06/10/18 08:18; Start 06/08/18 at 11:00 Erythromycin (E-Mycin) 250 mg TIDAC PO Last administered on 06/10/18 16:05; Start 06/08/18 at 11:30 Vancomycin HCl (Vanco Per Pharmacy) 1 each PRN DAILY PRN MC SEE COMMENTS Last administered on 06/09/18 22:20; Start 06/08/18 at 12:15; Stop 06/10/18 at 08:48 ; Status DC Vancomycin HCl 1 gm/Sodium Chloride 250 ml @ 250 mls/hr Q12H IV Last administered on 06/09/18 22:09; Start 06/08/18 at 22:00; Stop 06/10/18 at 08:48 ; Status DC Vancomycin HCl (Vancomycin Trough Level) 1 each 1X ONCE MC Last administered on 06/09/18 21:30; Start 06/09/18 at 21:30; Stop 06/09/18 at 21:31; Status DC Ondansetron HCl (Zofran Odt) 4 mg PRN Q6HRS PRN PO NAUSEA Last administered on 06/10/18 08:17; Start 06/08/18 at 13:45 Morphine Sulfate (Morphine Sulfate) 1 mg PRN Q10MIN PRN IV SEVERE PAIN Last administered on 06/08/18 18:48; Start 06/08/18 at 16:00; Stop 06/08/18 at 22:00 ; Status DC Ringer's Solution 1,000 ml @ 30 mls/hr Q24H IV ; Start 06/08/18 at 15:58; Stop 06/09/18 at 03:57; Status DC Lidocaine HCl (Xylocaine-Mpf 1% 2ml Vial) 2 ml PRN 1X PRN ID PRIOR TO IV START ; Start 06/08/18 at 16:00; Stop 06/08/18 at 22:00; Status DC Hydromorphone HCl (Dilaudid) 0.5 mg PRN Q10MIN PRN IV SEV PAIN, Second choice; Start 06/08/18 at 16:00; Stop 06/08/18 at 22:00; Status DC Prochlorperazine Edisylate (Compazine) 5 mg PACU PRN PRN IV NAUSEA, MRX1 Last administered on 06/08/18at 18:23; Start 06/08/18 at 16:00; Stop 06/08/18 at 22:00 ; Status DC Propofol 20 ml @ As Directed STK-MED ONCE IV ; Start 06/08/18 at 16:19; Stop 01/17 at 16:20; Status DC Lidocaine HCl (Lidocaine Pf 2% Vial) 5 ml STK-MED ONCE .ROUTE ; Start 06/08/18 at 16:19; Stop 06/08/18 at 16:20; Status DC Fentanyl Citrate (Fentanyl 2ml Vial) 100 mcg STK-MED ONCE .ROUTE ; Start at 16:19; Stop 06/08/18 at 16:20; Status DC Metronidazole 100 ml @ 100 mls/hr 1X ONCE IV ; Start 06/08/18 at 16:30; Stop 06/08/18 at 17:29; Status DC Dexamethasone Sodium Phosphate (Decadron) 20 mg STK-MED ONCE .ROUTE ; Start 01/17 at 17:23; Stop 06/08/18 at 17:24; Status DC Ondansetron HCl (Zofran) 4 mg STK-MED ONCE .ROUTE ; Start 06/08/18 at 17:23; Stop 06/08/18 at 17:24; Status DC Sevoflurane (Ultane) 15 ml STK-MED ONCE IH ; Start 06/08/18 at 17:23; Stop 06/08 at 17:24; Status DC Diphenhydramine HCl (Benadryl) 25 mg PRN Q6HRS PRN PO ITCHING Last administered on 06/10/18at 08:18; Start 06/08/18 at 18:00 Enoxaparin Sodium (Lovenox 40mg Syringe) 40 mg Q24H SQ ; Start 06/09/18 at 09:00 ; Status Cancel Sodium Chloride (Normal Saline Flush) 3 ml QSHIFT PRN IV AFTER MEDS AND BLOOD DRAWS; Start 06/08/18 at 18:00 Potassium Chloride/Sodium Chloride 1,000 ml @ 50 mls/hr Q20H IV Last administered on 06/08/18at 21:38; Start 06/08/18 at 21:00; Stop 06/09/18 at 07:11 ; Status DC Oxycodone/ Acetaminophen (Percocet 5/325) 1 tab PRN Q4HRS PRN PO MILD PAIN, 1ST CHOICE Last administered on 06/10/18at 19:07; Start 06/08/18 at 18:00 Hydromorphone HCl (Dilaudid) 0.5 mg PRN Q3HRS PRN IV PAIN; Start 06/08/18 at 18 :00 Ondansetron HCl (Zofran) 4 mg PRN Q6HRS PRN IV NAUESA, 1ST CHOICE; Start at 18:00 Enoxaparin Sodium (Lovenox 30mg Syringe) 30 mg Q24H SQ Last administered on 03/19at 08:17; Start 06/09/18 at 09:00 Morphine Sulfate (Morphine Sulfate) 2 mg STK-MED ONCE .ROUTE ; Start 06/08/18 at 18:16; Stop 06/08/18 at 18:17; Status DC Insulin Human Lispro (HumaLOG VIAL) 0-10 units SSI PRN SQ PER PROTOCOL Last administered on 06/08/18at 18:39; Start 06/08/18 at 18:30; Stop 06/08/18 at 21:00 ; Status DC Sodium Chloride 1,000 ml @ 75 mls/hr [id number] IV Last administered on at 08:19; Start 06/09/18 at 07:30; Stop 06/10/18 at 17:46; Status DC Insulin Human Lispro (HumaLOG) 30 units 1X ONCE SQ Last administered on at 07:06; Start 06/09/18 at 07:30; Stop 06/09/18 at 07:31; Status DC Insulin Human Lispro (HumaLOG) 0-9 UNITS QIDACHS SQ Last administered on at 08:40; Start 06/09/18 at 07:30 Dextrose (Dextrose 50%-Water Syringe) 12.5 gm PRN Q15MIN PRN IV SEE COMMENTS; Start 06/09/18 at 07:00 Nicotine (Nicoderm Cq 14mg) 1 patch PRN DAILY PRN TD SMOKING CESSATION Last administered on 06/09/18at 07:07; Start 06/09/18 at 07:15 Morphine Sulfate (Morphine Sulfate) 2 mg PRN Q2HR PRN IV PAIN Last administered on 06/10/18at 16:06; Start 06/09/18 at 07:30; Stop 06/10/18 at 17:45 ; Status DC Insulin Human Lispro (HumaLOG) 12 units 1X ONCE SQ Last administered on at 08:13; Start 06/09/18 at 08:00; Stop 06/09/18 at 08:02; Status DC Sodium Chloride 1,000 ml @ 1,000 mls/hr Q1H IV ; Start 06/09/18 at 08:06; Stop 06/09/18 at 08:16; Status DC Sodium Chloride 1,000 ml @ 250 mls/hr Q4H IV ; Start 06/09/18 at 08:09; Stop at 08:16; Status DC Dextrose/Sodium Chloride 1,000 ml @ 250 mls/hr Q4H IV ; Start 06/09/18 at 08:09 ; Stop 06/09/18 at 08:16; Status DC Insulin Human Regular 150 unit/ Sodium Chloride 151.5 ml @ 0 mls/hr CONT PRN PRN IV PER PROTOCOL; Start 06/09/18 at 08:15 Potassium Chloride/Water 100 ml @ 100 mls/hr PRN Q1HR PRN IV SEE COMMENTS; Start 06/09/18 at 08:15 Potassium Chloride/Water 100 ml @ 100 mls/hr PRN Q1HR PRN IV SEE COMMENTS; Start 06/09/18 at 08:15 Potassium Chloride/Water 100 ml @ 100 mls/hr PRN Q1HR PRN IV SEE COMMENTS; Start 06/09/18 at 08:15 Magnesium Sulfate/ Dextrose 100 ml @ 25 mls/hr PRN DAILY PRN IV SEE COMMENTS; Start 06/09/18 at 09:00 Sodium Phosphate 40 mmol/Sodium Chloride 513.3333 ml @ 83.3 mls/hr 1X PRN PRN IV SEE COMMENTS; Start 06/09/18 at 08:15 Sodium Phosphate 20 mmol/Dextrose 256.6667 ml @ 62.5 mls/hr 1X PRN PRN IV SEE COMMENTS; Start 06/09/18 at 08:15 Sodium Phosphate 10 mmol/Dextrose 253.3333 ml @ 62.5 mls/hr 1X PRN PRN IV SEE COMMENTS; Start 06/09/18 at 08:15 Metronidazole (FLAGYL 500Mmg PREMIX) 500 mg STK-MED ONCE IV ; Start 06/08/18 at 17:00; Stop 06/09/18 at 08:16; Status DC Fluconazole (Diflucan) 200 mg DAILY PO Last administered on 06/10/18at 08:18; Start 06/09/18 at 12:00 Doxycycline Hyclate (Vibra-Tab) 100 mg BID PO Last administered on 06/10/18at 21 :07; Start 06/10/18 at 09:00 Amoxicillin/ Clavulanate Potassium (Augmentin 875/ 125mg) 1 tab BID PO Last administered on 06/10/18at 21:07; Start 06/10/18 at 09:00 Lisinopril (Prinivil) 5 mg DAILY PO ; Start 06/10/18 at 11:30; Status Cancel Lisinopril (Prinivil) 20 mg DAILY PO ; Start 06/11/18 at 09:00 Active Scripts Active Reported Novolog Flexpen (Insulin Aspart) 100 Unit/1 Ml Insuln.pen 10 Unit SQ TIDWMEALS Lantus (Insulin Glargine,Hum.rec.anlog) 100 Unit/1 Ml Vial 26 Unit SQ HS Vitals/I & O Vital Sign - Last 24 Hours 06/09/18 06/09/18 06/10/18 06/10/18 21:26 22:54 02:08 03:00 Temp 98.4 98.8 98.4 98.8 Pulse 90 90 Resp 16 18 14 B/P (MAP) 136/83 (100) 139/80 (99) Pulse Ox 100 100 99 O2 Delivery Room Air Room Air Room Air O2 Flow Rate 2.0 06/10/18 06/10/18 06/10/18 06/10/18 03:13 04:13 05:56 06:26 Resp 18 18 18 Pulse Ox 99 99 99 99 O2 Delivery Room Air Room Air O2 Flow Rate 2.0 2.0 2.0 06/10/18 06/10/18 06/10/18 06/10/18 07:00 08:00 08:18 11:00 Temp 98.1 98.5 98.1 98.5 Pulse 75 92 Resp 18 18 B/P (MAP) 180/101 (127) 134/72 (92) Pulse Ox 100 98 O2 Delivery Room Air Room Air Room Air Room Air 06/10/18 06/10/18 06/10/18 06/10/18 12:35 13:40 15:00 16:00 Temp 98.6 98.6 Pulse 88 Resp 18 B/P (MAP) 151/95 (113) Pulse Ox 92 O2 Delivery Room Air Room Air Room Air Room Air 06/10/18 06/10/18 06/10/18 06/10/18 16:06 16:38 17:00 19:00 Temp 98.6 98.6 Pulse 85 Resp 18 B/P (MAP) 139/82 (101) Pulse Ox 100 O2 Delivery Room Air Room Air Room Air Room Air 06/10/18 06/10/18 19:07 21:06 Resp 20 Pulse Ox 100 O2 Delivery Room Air Room Air Intake and Output 06/09/18 06/09/18 06/10/18 15:00 23:00 07:00 Intake Total 360 ml 200 ml 1020 ml Balance 360 ml 200 ml 1020 ml TOAN TENA MD Jun 10, 2018 21:22
[2018-06-10 23:00] VITALS: BP 128/81
[2018-06-11] MEDS: HYDROcodone/APAP 5/325MG 1 TAB TABLET PO PRN ×2 (01:50→10:24)
[2018-06-11 03:00] VITALS: BP 139/89
[2018-06-11] MEDS: oxyCODONE/APAP 5/325 1 TAB TABLET PO PRN ×3 (05:08→13:33)
[2018-06-11] MEDS: ERYTHROMYCIN BASE 250 MG TABLET PO SCH ×2 (07:07→13:32)
[2018-06-11] MEDS: INSULIN LISPRO 300 UNITS/3 ML INSULN.PEN. SQ SCH ×4 (07:30→12:00)
[2018-06-11 07:47] VITALS: BP 132/85
[2018-06-11] MEDS: AMOXICILLIN/K CLAV 875/125MG TABLET. PO SCH (08:19)
[2018-06-11] MEDS: ENOXAPARIN 30 MG/0.3 ML SYRINGE. SQ SCH (08:19)
[2018-06-11] MEDS: NICOTINE 14MG PATCH. TD PRN (08:19)
[2018-06-11 08:20] VITALS: BP 132/85
[2018-06-11] MEDS: DOXYCYCLINE HYCLATE 100 MG TABLET PO SCH (08:20)
[2018-06-11] MEDS: FAMOTIDINE 20 MG TABLET. PO SCH (08:20)
[2018-06-11] MEDS: FLUCONAZOLE 100 MG TABLET. PO SCH (08:20)
[2018-06-11] MEDS: ONDANSETRON ODT 4 MG TAB.RAPDIS. PO PRN (08:32)
[2018-06-11] MEDS ORDERED: LISINOPRIL 20 MG TABLET PO SCH (09:00)
--- NOTE | 2018-06-11 10:04 | PDOC ---
Infectious Disease Note Subjective Subjective had episode of hypoglycemia much better now ROS ROS no n/v/d/sob Vital Sign Vital Signs Vital Signs Date Time Temp Pulse Resp B/P (MAP) Pulse Ox O2 Delivery O2 Flow Rate FiO2 06/11/18 08:21 18 100 Room Air 2.0 06/11/18 08:20 70 132/85 06/11/18 07:47 98.5 98.5 Physical Exam PHYSICAL EXAM GENERAL: The patient is propped up in bed, alert, no apparent distress. Was ambulating well. HEENT: Pupils equally round, reactive. Normal conjunctivae. Oral cavity: Pharynx pink and moist. NECK: Supple. LUNGS: Clear to auscultation. CARDIOVASCULAR: S1 and S2. ABDOMEN: Obese, soft and nontender with bowel sounds present. EXTREMITIES: No gross edema or cyanosis. SKIN: Warm without generalized rash. Tattoos. wound is clean. no surrounding eythema. kin in place NEUROLOGIC: Alert and oriented x 3. Labs Lab Laboratory Tests Test 06/10/18 11:45 06/10/18 16:15 06/10/18 20:47 06/11/18 07:22 Glucose (Fingerstick) 97 mg/dL (70-99) 67 mg/dL (70-99) 217 mg/dL (70-99) 67 mg/dL (70-99) Test 06/11/18 09:46 06/11/18 09:50 Glucose (Fingerstick) 19 mg/dL (70-99) 18 mg/dL (70-99) Micro ANAEROBIC-AEROBIC CULTURE PENDING ANAEROBIC RES 1 PENDING AEROBIC CULT PENDING AEROBIC RES 1 PENDING GRAM STAIN Final Final report GRAM STAIN RES 1 Final Comment No white blood cells seen. GRAM STAIN RES 2 Final Comment Few gram positive cocci Performed at: DA - [facility] [id number] [facility] [address], [place], [place] [id number] Objective Assessment Cellulitis/abscess left upper posterior thigh area s/p I and D 06/08 Fever - better Leukocytosis - better Yeast in urine Type I diabetes. -Recently admitted to for DKA in May. h/o seizure HTN Plan Plan of Care Po Augmentin/Doxy for 7 days Cont Fluconazole for 6 more days G + cocci id pending F/u Gen surgery ANDRIA JUSTICE MD Jun 11, 2018 10:04
[2018-06-11] MEDS ORDERED: DEXTROSE ORAL GEL 15 GM TUBE. PO PRN (10:15)
[2018-06-11] MEDS ORDERED: DEXTROSE ORAL GEL 15 GM TUBE. PO ONE (10:15)
--- NOTE | 2018-06-11 12:04 | PDOC ---
SURGICAL PROGRESS NOTE Subjective adequate pain control had some erythema below her wound, left thigh last noc, resolved now Vital Signs Vital Signs Date Time Temp Pulse Resp B/P (MAP) Pulse Ox O2 Delivery O2 Flow Rate FiO2 06/11/18 10:24 18 100 Room Air 06/11/18 09:21 2.0 06/11/18 08:20 70 132/85 06/11/18 07:47 98.5 98.5 I&O Intake and Output 06/11/18 06:59 Intake Total 1040 ml Balance 1040 ml Intake Oral 1040 ml # Voids 6 PATIENT HAS A HARRIS: No Labs Laboratory Tests Test 06/09/18 12:06 06/09/18 14:27 06/09/18 15:30 06/09/18 17:03 Glucose (Fingerstick) 217 mg/dL (70-99) 195 mg/dL (70-99) 248 mg/dL (70-99) Urine Ketones (Stick) 40 mg/dL (NEG) Test 06/09/18 20:39 06/09/18 21:20 06/10/18 02:50 06/10/18 07:28 Glucose (Fingerstick) 201 mg/dL (70-99) 366 mg/dL (70-99) Vancomycin Level Trough 10.7 mcg/mL (10.0-20.0) Vancomycin Last Dose Date Vancomycin Last Dose Time 1000 Sodium Level 135 mmol/L (136-145) Potassium Level 4.5 mmol/L (3.5-5.1) Chloride Level 100 mmol/L (98-107) Carbon Dioxide Level 23 mmol/L (21-32) Anion Gap 12 (6-14) Blood Urea Nitrogen 11 mg/dL (7-20) Creatinine 0.8 mg/dL (0.6-1.0) Estimated GFR (Cockcroft-Gault) 78.7 Glucose Level 393 mg/dL (70-99) Calcium Level 8.6 mg/dL (8.5-10.1) Procalcitonin 0.33 ng/mL (0.00-0.10) Test 06/10/18 11:45 06/10/18 16:15 06/10/18 20:47 06/11/18 07:22 Glucose (Fingerstick) 97 mg/dL (70-99) 67 mg/dL (70-99) 217 mg/dL (70-99) 67 mg/dL (70-99) Test 06/11/18 09:46 06/11/18 09:50 06/11/18 10:04 06/11/18 10:19 Glucose (Fingerstick) 19 mg/dL (70-99) 18 mg/dL (70-99) 35 mg/dL (70-99) 52 mg/dL (70-99) Test 06/11/18 11:15 Glucose (Fingerstick) 120 mg/dL (70-99) Laboratory Tests Test 06/10/18 16:15 06/10/18 20:47 06/11/18 07:22 06/11/18 09:46 Glucose (Fingerstick) 67 mg/dL (70-99) 217 mg/dL (70-99) 67 mg/dL (70-99) 19 mg/dL (70-99) Test 06/11/18 09:50 06/11/18 10:04 06/11/18 10:19 06/11/18 11:15 Glucose (Fingerstick) 18 mg/dL (70-99) 35 mg/dL (70-99) 52 mg/dL (70-99) 120 mg/dL (70-99) Problem List Problems Medical Problems: (1) Sepsis Status: Acute Assessment/Plan s/p I and D home today f/u Saturday for drain removal IVONNE KNIGHT MD Jun 11, 2018 12:04
[2018-06-11] MEDS ORDERED: AMOX1TAB11 PO (13:33)
[2018-06-11] MEDS ORDERED: ERYT250T14 PO (13:33)
[2018-06-11] MEDS ORDERED: LISI-130 PO (13:33)
[2018-06-11] MEDS ORDERED: DOXY100T PO (13:33)
[2018-06-11] MEDS ORDERED: Fluconazole PO (13:33)
[2018-06-11] MEDS ORDERED: FAMO20TA5 PO (13:33)
--- NOTE | 2018-06-11 13:36 | PDOC3 ---
Discharge Summary Visit Information Date of Admission: Jun 08, 2018 Date of Discharge: Jun 11, 2018 Admitting Diagnosis Comment: Cellulitis/abscess left upper posterior thigh area s/p I and D 06/08 Acute febrile illness Leukocytosis - better Yeast in urine Type I diabetes. -Recently admitted to for DKA in May. h/o seizure HTN Final Diagnosis Problems Medical Problems: (1) Sepsis Status: Acute Brief Hospital Course Allergies Allergies Coded Allergies Type Severity Reaction Last Updated Verified No Known Drug Allergies 03/10/13 No Vital Signs Vital Signs Date Time Temp Pulse Resp B/P (MAP) Pulse Ox O2 Delivery O2 Flow Rate FiO2 06/11/18 13:33 18 Room Air 2.0 06/11/18 10:24 100 06/11/18 08:20 70 132/85 06/11/18 07:47 98.5 98.5 Lab Results Laboratory Tests Test 06/09/18 14:27 06/09/18 15:30 06/09/18 17:03 06/09/18 20:39 Glucose (Fingerstick) 195 mg/dL (70-99) 248 mg/dL (70-99) 201 mg/dL (70-99) Urine Ketones (Stick) 40 mg/dL (NEG) Test 06/09/18 21:20 06/10/18 02:50 06/10/18 07:28 06/10/18 11:45 Vancomycin Level Trough 10.7 mcg/mL (10.0-20.0) Vancomycin Last Dose Date [id number] Vancomycin Last Dose Time 1000 Sodium Level 135 mmol/L (136-145) Potassium Level 4.5 mmol/L (3.5-5.1) Chloride Level 100 mmol/L (98-107) Carbon Dioxide Level 23 mmol/L (21-32) Anion Gap 12 (6-14) Blood Urea Nitrogen 11 mg/dL (7-20) Creatinine 0.8 mg/dL (0.6-1.0) Estimated GFR (Cockcroft-Gault) 78.7 Glucose Level 393 mg/dL (70-99) Calcium Level 8.6 mg/dL (8.5-10.1) Procalcitonin 0.33 ng/mL (0.00-0.10) Glucose (Fingerstick) 366 mg/dL (70-99) 97 mg/dL (70-99) Test 06/10/18 16:15 06/10/18 20:47 06/11/18 07:22 06/11/18 09:46 Glucose (Fingerstick) 67 mg/dL (70-99) 217 mg/dL (70-99) 67 mg/dL (70-99) 19 mg/dL (70-99) Test 06/11/18 09:50 06/11/18 10:04 06/11/18 10:19 06/11/18 11:15 Glucose (Fingerstick) 18 mg/dL (70-99) 35 mg/dL (70-99) 52 mg/dL (70-99) 120 mg/dL (70-99) Laboratory Tests Test 06/10/18 16:15 06/10/18 20:47 06/11/18 07:22 06/11/18 09:46 Glucose (Fingerstick) 67 mg/dL (70-99) 217 mg/dL (70-99) 67 mg/dL (70-99) 19 mg/dL (70-99) Test 06/11/18 09:50 06/11/18 10:04 06/11/18 10:19 06/11/18 11:15 Glucose (Fingerstick) 18 mg/dL (70-99) 35 mg/dL (70-99) 52 mg/dL (70-99) 120 mg/dL (70-99) Brief Hospital Course Ms. Garcia is a 43 old white female with diabetes and cyclic vomiting and chronic abdominal pain, frequent flyer. Admitted to ICU because of DKA and also left posterior thigh abscess that needed IND on 06/08/18. Comanage with ID. To go home by mouth fluconazole for 6 more days and Doxy and Augmentin for 7 more days, she requests some Percocet. She is a frail diabetes H ONK on admission but now hypoglycemic in the teens. She knows how to manage her sugars at home. She already has insulin. So I only Rx pain medicines anti-fungal and antibiotic but no more insulin. consults performed GS, infectious disease Procedures performed I and D, left posterior thigh 06/08/18 Discharge disposition home independent Discharge Information Condition at Discharge: Improved, Stable Follow Up: Weeks (FRi DR Cedeño) Disposition/Orders: D/C to Home Scheduled Amoxicillin/Potassium Clav (Amox Tr-K Clv 875-125 Mg Tab) 1 Each Tablet, 1 TAB PO BID for indfectgion MDD 1 for 7 Days, #14 Prescribed by: LUBA LINDQUIST on 06/11/18 133 Doxycycline Hyclate (Doxycycline Hyclate) 100 Mg Tablet, 100 MG PO BID for infgectiomn MDD 1 for 7 Days, #14 Prescribed by: LUBA LINDQUIST on 06/11/18 1333 Erythromycin Base (Erythromycin) 250 Mg Tablet, 250 MG PO TIDAC for gastroparesis MDD 1 for 7 Days, #21 Prescribed by: LUBA LINDQUIST on 06/11/18 1333 Famotidine (Famotidine) 20 Mg Tablet, 20 MG PO DAILY for gerd MDD 1, #30 Prescribed by: LUBA LINDQUIST on 06/11/181332 Insulin Aspart (Novolog Flexpen) 100 Unit/1 Ml Insuln.pen, 10 UNIT SQ TIDWMEALS for dm, (Reported) Entered as Reported by: HAILEY SNOW on 01/11/15 1035 Last Action: Edited on 06/08/18 1140 by REYNA SUTTON Insulin Glargine,Hum.rec.anlog (Lantus) 100 Unit/1 Ml Vial, 26 UNIT SQ HS for dm , (Reported) Entered as Reported by: LILIAN VALENZUELA on 03/10/13 0038 Last Action: Edited on 06/08/18 1140 by REYNA SUTTON Lisinopril (Lisinopril) 40 Mg Tablet, 20 MG PO DAILY for htn MDD 1, #30 Prescribed by: LUBA LINDQUIST on 06/11/181332 [Fluconazole] 100 MG TABLET, 200 MG PO DAILY for infection MDD 1 for 6 Days, #12 Prescribed by: LUBA LINDQUIST on 06/11/181332 LUBA LINDQUIST MD Jun 11, 2018 13:36
--- NOTE | 2018-06-11 14:08 | NUR ---
Discharge Note: LATHA CHAVEZ [address] [place] [address] Discharge instructions and discharge home medications reviewed with Patient and a copy given. All questions have been answered and understanding verbalized. The following instructions and handouts were given: cellulitis, ABT Discontinued lines and drains: peripheral line. Patient discharged to Home or Self Care with Family Member via [facility]
[2018-06-11] MEDS ORDERED: INSULIN GLARGINE 300 UNITS/3 ML INSULN.PEN. SQ SCH (21:00)
== END 2018-06-11 14:09 | disposition home or self-care (01) | DRG 871 ==
LOC: ER 06:22 → 5 NORTH 09:40
PROVIDERS: ADMIT Internal Medicine; ATTEND Internal Medicine
PROC: 0Y910ZZ Drainage of Left Buttock, Open Approach (ICD-10-PCS; principal; 2018-06-08 16:46)
DX: A41.9 Sepsis, unspecified organism (principal); E10.10 Type 1 diabetes mellitus with ketoacidosis without coma; L03.116 Cellulitis of left lower limb; L02.31 Cutaneous abscess of buttock; L02.416 Cutaneous abscess of left lower limb; B37.49 Other urogenital candidiasis; E78.00 Pure hypercholesterolemia, unspecified; F41.9 Anxiety disorder, unspecified; F12.90 Cannabis use, unspecified, uncomplicated; I10 Essential (primary) hypertension; K21.9 Gastro-esophageal reflux disease without esophagitis; G89.29 Other chronic pain; F32.9 Major depressive disorder, single episode, unspecified; Z79.4 Long term (current) use of insulin; Z82.5 Family history of asthma and other chronic lower respiratory diseases; Z98.51 Tubal ligation status; Z90.710 Acquired absence of both cervix and uterus; Z90.711 Acquired absence of uterus with remaining cervical stump; Z83.3 Family history of diabetes mellitus; E10.649 Type 1 diabetes mellitus with hypoglycemia without coma
CPT/HCPCS: 36415; 74170; 80048; 80202; 81001; 81002; 81025; 82962; 83605; 83735; 84100; 84145; 85007; 85025; 85610; 87040; 87071; 87075; 87086; 87186; 96365; 96368; 96375; A7015; J0780; J1100; J1650; J1815; J2001; J2270; J2405; J2543; J2704; J3010; J3370; J3490; J7030; J7040; J7050; Q0162; Q0163; Q9967; 99285-25; A4461

== ENCOUNTER 2018-06-12 06:17 | Emergency (ER) | payer OTHER ==
[~2018-06-12] VITALS: Ht 154.9 cm; Wt 56.7 kg
[~2018-06-12 06:17] MED LIST changes: +AMOX1TAB11 PO; +DOXY100T PO; +ERYT250T14 PO; +FAMO20TA5 PO; +Fluconazole PO; +LISI-130 PO
--- NOTE | 2018-06-12 06:34 | PHYS DOC ---
Past Medical History Past Medical History: Anxiety, Cyclic Vomiting, Diabetes-Type I, High Cholesterol, Other Additional Past Medical Histor: gastroparesis, Past Surgical History: Cholecystectomy, Hysterectomy, Tubal ligation Alcohol Use: None Drug Use: Marijuana Adult General Chief Complaint Chief Complaint: ALTERED MENTAL STATUS HPI HPI Patient is a 43-year-old female who presents to the emergency department for evaluation. EMS reports that they found the patient, who was apparently staying at a friend's house, lethargic and unresponsive. They checked her blood sugar which read "low". They administered glucagon and then oral glucose, as they were unable to obtain IV access, with improvement in the patient's blood sugar. The patient is somewhat more awake now, she is able to tell me her name, but is a very limited historian. She is uncertain why she is in the hospital. Review of her records reveals that she was just discharged from this facility yesterday apparently, after being treated for an abscess in her left groin. She does have a history of diabetes, which has been difficult to control. She denies any focal pain at this time. There are no alleviating or exacerbating factors to her symptoms. Review of Systems Review of Systems Unable to obtain, as the patient is not providing any meaningful history. Current Medications Current Medications Current Medications Medications (Trade) Dose Ordered Sig/Lori Start Time Stop Time Status Last Admin Dose Admin Dextrose/Sodium Chloride 1,000 ml @ 125 mls/hr 1X ONCE 06/12/18 07:00 06/12/18 14:59 06/12/18 07:32 125 MLS/HR Allergies Allergies Allergies Coded Allergies Type Severity Reaction Last Updated Verified No Known Drug Allergies 03/10/13 No Physical Exam Physical Exam PHYSICAL EXAM: CONSTITUTIONAL: Well developed, well nourished HEAD: normocephalic, atraumatic EENT: PERRL, EOMI. Conjunctivae normal color, sclerae non-icteric; moist mucous membranes. NECK: Supple, non-tender; no meningismus. LUNGS: Lungs CTA, breathing even and unlabored. Normal air movement. HEART: Regular rate and rhythm, no murmur CHEST: No deformity; non-tender ABDOMEN: The abdomen is soft, and non-tender, no masses or bruits. EXTREM: Normal ROM; no deformity, no calf tenderness. Normal pulses palpable in all extremities. There is no pedal edema. There are incisions in the left upper medial thigh with packing in place. SKIN: No rash; no diaphoresis. The skin is cool to touch. NEURO: Patient is alert, but somewhat lethargic, moves all extremities. BACK: No CVA TTP. Current Patient Data Vital Signs Vital Signs Date Time Temp Pulse Resp B/P (MAP) Pulse Ox O2 Delivery O2 Flow Rate FiO2 06/12/18 09:18 97.2 97.2 06/12/18 06:20 67 16 147/94 (111) 100 Room Air Lab Values Laboratory Tests Test 06/12/18 06:24 06/12/18 06:26 06/12/18 06:28 06/12/18 06:35 Urine Collection Type U cath Urine Color Yellow Urine Clarity Clear Urine pH 7.5 Urine Specific [place] 1.010 Urine Protein Negative mg/dL (NEG-TRACE) Urine Glucose (UA) Negative mg/dL (NEG) Urine Ketones (Stick) Negative mg/dL (NEG) Urine Blood Negative (NEG) Urine Nitrite Negative (NEG) Urine Bilirubin Negative (NEG) Urine Urobilinogen Dipstick 0.2 mg/dL (0.2 mg/dL) Urine Leukocyte Esterase Trace (NEG) Urine RBC 0 /HPF (0-2) Urine WBC 1-4 /HPF (0-4) Urine Squamous Epithelial Cells Mod /LPF Urine Bacteria Few /HPF (0-FEW) Glucose (Fingerstick) 170 mg/dL (70-99) H POC Urine HCG, Qualitative Hcg negative (Negative) White Blood Count 8.5 x10^3/uL (4.0-11.0) Red Blood Count 3.65 x10^6/uL (3.50-5.40) Hemoglobin 10.8 g/dL (12.0-15.5) L Hematocrit 32.3 % (36.0-47.0) L Mean Corpuscular Volume 89 fL (79-100) Mean Corpuscular Hemoglobin 30 pg (25-35) Mean Corpuscular Hemoglobin Concent 33 g/dL (31-37) Red Cell Distribution Width 14.5 % (11.5-14.5) Platelet Count 525 x10^3/uL (140-400) H Neutrophils (%) (Auto) 61 % (31-73) Lymphocytes (%) (Auto) 27 % (24-48) Monocytes (%) (Auto) 6 % (0-9) Eosinophils (%) (Auto) 6 % (0-3) H Basophils (%) (Auto) 0 % (0-3) Neutrophils # (Auto) 5.2 x10^3uL (1.8-7.7) Lymphocytes # (Auto) 2.3 x10^3/uL (1.0-4.8) Monocytes # (Auto) 0.5 x10^3/uL (0.0-1.1) Eosinophils # (Auto) 0.5 x10^3/uL (0.0-0.7) Basophils # (Auto) 0.0 x10^3/uL (0.0-0.2) Prothrombin Time 11.4 SEC (11.7-14.0) L Prothrombin Time INR 0.9 (0.8-1.1) Sodium Level 141 mmol/L (136-145) Potassium Level 3.6 mmol/L (3.5-5.1) Chloride Level 103 mmol/L (98-107) Carbon Dioxide Level 29 mmol/L (21-32) Anion Gap 9 (6-14) Blood Urea Nitrogen 6 mg/dL (7-20) L Creatinine 0.6 mg/dL (0.6-1.0) Estimated GFR (Cockcroft-Gault) 109.6 BUN/Creatinine Ratio 10 (6-20) Glucose Level 218 mg/dL (70-99) H Calcium Level 9.4 mg/dL (8.5-10.1) Magnesium Level 2.0 mg/dL (1.8-2.4) Total Bilirubin 0.1 mg/dL (0.2-1.0) L Aspartate Amino Transferase (AST) 105 U/L (15-37) H Alanine Aminotransferase (ALT) 255 U/L (14-59) H Alkaline Phosphatase 476 U/L (46-116) H Creatine Kinase 35 U/L (26-192) Creatine Kinase MB (Mass) 0.6 ng/mL (0.0-3.6) Creatine Kinase MB Relative Index % (0-4) Troponin I Quantitative < 0.017 ng/mL (0.000-0.055) TY-Phr-N-Type Natriuretic Peptide 1095 pg/mL (0-124) H Total Protein 6.2 g/dL (6.4-8.2) L Albumin 2.7 g/dL (3.4-5.0) L Albumin/Globulin Ratio 0.8 (1.0-1.7) L Lipase 42 U/L (73-393) L Thyroid Stimulating Hormone (TSH) 4.251 uIU/mL (0.358-3.74) H Free Thyroxine 1.16 ng/dL (0.76-1.46) Test 06/12/18 07:32 06/12/18 08:33 Glucose (Fingerstick) 362 mg/dL (70-99) H 293 mg/dL (70-99) H Laboratory Tests 06/12/18 06:35 Laboratory Tests 06/12/18 06:35 EKG EKG [Normal sinus rhythm at a rate of 55 bpm, normal axis, normal intervals, QTC 481 ms, there are no acute ischemic ST/T changes, early transition pattern is present.] Radiology/Procedures Radiology/Procedures [PROCEDURE: CHEST AP ONLY CHEST AP ONLY History: AMS. No prior for comparison. The heart size is not enlarged. No evidence of pneumothorax. No pleural effusion. No focal airspace consolidation. IMPRESSION: No consolidating infiltrate. ] PROCEDURE: CT HEAD WO CONTRAST PQRS Compliance Statement: One or more of the following individualized dose reduction techniques were utilized for this examination: 1. Automated exposure control 2. Adjustment of the mA and/or kV according to patient size 3. Use of iterative reconstruction technique CT HEAD WITHOUT CONTRAST History: ams LOW BG DIABETIC LETHARGIC, RECENT HOSPITALIZATION FOR PELVIC WOUND Comparison: None. Procedure: Axial images are obtained of the head from the skull base through the vertex without IV contrast. Findings: The ventricles and sulci are normal for the patient's age. No mass-effect, midline shift, hemorrhage, extra-axial fluid collection, or obvious acute infarction is identified. Basilar cisterns are patent. Bone windows demonstrate no acute calvarial abnormality. The visualized paranasal sinuses are clear. Mastoid air cells are well aerated. IMPRESSION: No acute intracranial abnormality. Course & Med Decision Making Course & Med Decision Making Pertinent Labs and Imaging studies reviewed. (See chart for details) [The patient's condition remains stable at this time, she is feeling much better , her temperature is 97 orally, and she is ambulatory without significant difficulty. She is currently taking antibiotics, and she does have insulin at home. Her mental status has returned to normal and she is coherent. I discussed test results including the elevated liver function tests (the patient has had elevated LFTs in the past, although has not had any recent tests run) the need for close outpatient follow-up, glycemic monitoring at home, and return precautions.] Dragon Disclaimer Dragon Disclaimer This electronic medical record was generated, in whole or in part, using a voice recognition dictation system. Departure Departure Impression: Primary Impression: Hypoglycemia Additional Impression: Elevated liver enzymes Disposition: HOME, SELF-CARE Condition: STABLE Patient Instructions: Hypoglycemia (Low Blood Sugar) Additional Instructions: Your liver function tests were noted to be elevated today. Please use the provided resources to schedule an outpatient follow-up for further evaluation. Problem Qualifiers ABEL CONNER MD Jun 12, 2018 06:34
[2018-06-12 06:59] LABS: BASO % 0 % (0-3); EOS # 0.5 x10^3/uL (0.0-0.7); EOS % 6 % (0-3); HEMATOCRIT 32.3 % (36.0-47.0); HEMOGLOBIN 10.8 g/dL (12.0-15.5); LYMPH # 2.3 x10^3/uL (1.0-4.8); LYMPH % 27 % (24-48); MEAN CORPUSCULAR HEMOGLOBIN 30 pg (25-35); MEAN CORPUSCULAR HGB CONC 33 g/dL (31-37); MEAN CORPUSCULAR VOLUME 89 fL (79-100); MONO # 0.5 x10^3/uL (0.0-1.1); MONO % 6 % (0-9); NEUT # 5.2 x10^3uL (1.8-7.7); NEUT % 61 % (31-73); PLATELET COUNT 525 x10^3/uL (140-400); RED BLOOD COUNT 3.65 x10^6/uL (3.50-5.40); RED CELL DISTRIBUTION WIDTH 14.5 % (11.5-14.5); WHITE BLOOD COUNT 8.5 x10^3/uL (4.0-11.0)
[2018-06-12 07:01] LABS: CALCIUM 9.4 mg/dL (8.5-10.1); CREATININE 0.6 mg/dL (0.6-1.0); GFR 109.6; POTASSIUM 3.6 mmol/L (3.5-5.1)
[2018-06-12 07:07] LABS: ALBUMIN 2.7 g/dL (3.4-5.0); ALBUMIN/GLOBULIN RATIO 0.8 (1.0-1.7); TOTAL BILIRUBIN 0.1 mg/dL (0.2-1.0); TOTAL PROTEIN 6.2 g/dL (6.4-8.2)
[2018-06-12 07:07] LABS: BILIRUBIN,URINE NEGATIVE (NEG); CLARITY,URINE CLEAR; COLOR,URINE YELLOW; NITRITE,URINE NEGATIVE (NEG); PH,URINE 7.5; PROTEIN,URINE NEGATIVE (NEG-TRACE); UROBILINOGEN,URINE 0.2 mg/dL (0.2 mg/dL)
[2018-06-12 07:11] LABS: PROTHROMBIN TIME PATIENT 11.4 SEC (11.7-14.0)
[2018-06-12 07:15] LABS: BACTERIA,URINE FEW /HPF (0-FEW); RBC,URINE 0 /HPF (0-2); SQUAMOUS EPITHELIAL CELL,UR MOD /LPF
[2018-06-12 07:16] LABS: CREATINE KINASE 35 U/L (26-192); FREE T4 1.16 ng/dL (0.76-1.46); THYROID STIM HORMONE (TSH) 4.251 uIU/mL (0.358-3.74)
[2018-06-12] MEDS: IV DEXTROSE 5% - 0.9 % NACL 1,000 ML IV ONE (07:32)
--- NOTE | 2018-06-12 08:03 | RAD ---
CHEST AP ONLY History: AMS. No prior for comparison. The heart size is not enlarged. No evidence of pneumothorax. No pleural effusion. No focal airspace consolidation. IMPRESSION: No consolidating infiltrate. Electronically signed by: Fabio Johnston MD (06/12/2018 8:00 AM) [id number]
--- NOTE | 2018-06-12 08:17 | RAD ---
PQRS Compliance Statement: One or more of the following individualized dose reduction techniques were utilized for this examination: 1. Automated exposure control 2. Adjustment of the mA and/or kV according to patient size 3. Use of iterative reconstruction technique CT HEAD WITHOUT CONTRAST History: ams LOW BG DIABETIC LETHARGIC, RECENT HOSPITALIZATION FOR PELVIC WOUND Comparison: None. Procedure: Axial images are obtained of the head from the skull base through the vertex without IV contrast. Findings: The ventricles and sulci are normal for the patient's age. No mass-effect, midline shift, hemorrhage, extra-axial fluid collection, or obvious acute infarction is identified. Basilar cisterns are patent. Bone windows demonstrate no acute calvarial abnormality. The visualized paranasal sinuses are clear. Mastoid air cells are well aerated. IMPRESSION: No acute intracranial abnormality. Electronically signed by: Nils Garcia MD (06/12/2018 8:14 AM) [id number]
--- NOTE | 2018-06-12 08:56 | EKG ---
[facility] [address] [place] [address] Test Date: 2018-06-12 Test Time: 07:26:09 Pat Name: LATHA CHAVEZ Department: Room: Gender: F Roundsman: : 1975 Requested By: ABEL CONNER Order Number: [id number] Reading MD: Chino Oneill MD Measurements Intervals [place] Rate: 55 P: 57 RI: 130 QRS: 73 QRSD: 98 T: 73 QT: 500 QTc: 481 Interpretive Statements SINUS RHYTHM PROLONGED QT DIFFUSE J POINT ELEVATION Electronically Signed On 06-19-2018 9:54:19 CDT by Chino Oneill MD
[2018-06-12 09:47] VITALS: BP 119/73
== END 2018-06-12 09:55 | disposition home or self-care (01) ==
LOC: ER 06:17
DX: E10.649 Type 1 diabetes mellitus with hypoglycemia without coma (principal); R74.8 Abnormal levels of other serum enzymes; F41.9 Anxiety disorder, unspecified; E78.00 Pure hypercholesterolemia, unspecified; Z90.49 Acquired absence of other specified parts of digestive tract; Z90.710 Acquired absence of both cervix and uterus; Z98.51 Tubal ligation status
CPT/HCPCS: 36415; 70450; 71045; 80053; 81001; 81025; 82553; 82962; 83690; 83735; 83880; 84439; 84443; 84484; 85025; 85610; 87086; 93005; J7042; 99284-25

== ENCOUNTER 2018-08-21 10:32 | Inpatient (IN) | payer OTHER ==
[2018-08-21] VITALS (7 sets, daily range): BP systolic 111–141; BP diastolic 57–77
[~2018-08-21] VITALS: Ht 154.9 cm; Wt 57.2 kg
[2018-08-21] MEDS ORDERED: IV NORMAL SALINE 1000ML BAG 1,000 ML IV SCH (10:47)
[2018-08-21] MEDS ORDERED: INSULIN REGULAR 100 UNIT/ML 3ML VIAL. IV ONE (11:00)
[2018-08-21] MEDS ORDERED: IV NORMAL SALINE 1000ML BAG 1,000 ML IV ONE (11:00)
[2018-08-21] MEDS ORDERED: fentaNYL PF VIAL 100 MCG/2 ML VIAL IV ONE (11:00)
[2018-08-21] MEDS ORDERED: ONDANSETRON PF 4 MG/2 ML VIAL. IV ONE (11:00)
--- NOTE | 2018-08-21 11:17 | PHYS DOC ---
Past Medical History Past Medical History: Anxiety, Cyclic Vomiting, Diabetes-Type I, High Cholesterol, Other Additional Past Medical Histor: gastroparesis, Past Surgical History: Cholecystectomy, Hysterectomy, Tubal ligation Alcohol Use: None Drug Use: Marijuana Adult General Chief Complaint Chief Complaint: NAUSEA/VOMITING/DIARRHA HPI HPI Patient is a 43 year old female with type 1 diabetes and history of cyclic vomiting syndrome who presents with complaining of nausea and vomiting. Patient complaining of episode of nausea and vomiting for the last 3 days that getting worse today. Patient complaining of epigastric constant pain at the same time and rated her pain 10 over 10. Patient states her blood sugar this morning was more than 400. Patient had blood sugar of high at arrival to ER. Patient is very anxious and asking for pain medication and nausea medicine. Review of Systems Review of Systems Constitutional: Denies fever or chills [] Eyes: Denies change in visual acuity, redness, or eye pain [] HENT: Denies nasal congestion or sore throat [] Respiratory: Denies cough or shortness of breath [] Cardiovascular: No additional information not addressed in HPI [] GI: Reports abdominal pain, nausea, vomiting, denies bloody stools or diarrhea [] : Denies dysuria or hematuria [] Musculoskeletal: Denies back pain or joint pain [] Integument: Denies rash or skin lesions [] Neurologic: Denies headache, focal weakness or sensory changes [] Endocrine: Denies polyuria or polydipsia [] All other systems were reviewed and found to be within normal limits, except as documented in this note. Current Medications Current Medications Current Medications Medications (Trade) Dose Ordered Sig/Lori Start Time Stop Time Status Last Admin Dose Admin Ceftriaxone Sodium (Rocephin) 1 gm 1X ONCE 08/21/18 12:00 08/21/18 12:01 DC 08/21/18 12:43 1 GM Fentanyl Citrate (Fentanyl 2ml Vial) 50 mcg 1X ONCE 08/21/18 11:00 08/21/18 11:01 DC 08/21/18 11:18 50 MCG Hydromorphone HCl (Dilaudid) 2 mg STK-MED ONCE 08/21/18 11:52 08/21/18 11:53 DC Insulin Human Regular 150 ml @ 5.6 mls/hr 1X ONCE 08/21/18 12:00 08/22/18 14:27 Insulin Human Regular (HumuLIN R VIAL) 10 unit 1X ONCE 08/21/18 11:00 08/21/18 11:01 DC 08/21/18 11:14 10 UNIT Insulin Human Regular 150 unit/ Sodium Chloride 151.5 ml @ 0 mls/hr CONT PRN 08/21/18 12:00 Metoclopramide HCl (Reglan Vial) 10 mg STK-MED ONCE 08/21/18 11:52 08/21/18 11:53 DC Ondansetron HCl (Zofran) 4 mg 1X ONCE 08/21/18 11:00 08/21/18 11:01 DC 08/21/18 11:15 4 MG Sodium Chloride 1,000 ml @ 200 mls/hr Q5H 08/21/18 11:54 08/22/18 11:53 Allergies Allergies Allergies Coded Allergies Type Severity Reaction Last Updated Verified I S O L A T I O N *CONTACT* Allergy Unknown 06/16/18 Yes No Known Medication Allergies Allergy Unknown 06/16/18 Yes Physical Exam Physical Exam Constitutional: Well developed, well nourished, moderate distress, non-toxic appearance. [] HENT: Normocephalic, atraumatic, oropharynx dry, no oral exudates, nose normal. [] Eyes: PERRLA, EOMI, conjunctiva normal, no discharge. [] Neck: Normal range of motion, no tenderness, supple, no stridor. [] Cardiovascular: Cardiac, no murmur [] Lungs & Thorax: Bilateral breath sounds clear to auscultation [] Abdomen: Bowel sounds normal, soft, no tenderness, no masses, no pulsatile masses. [] Skin: Warm, dry, no erythema, no rash. [] Back: No tenderness, no CVA tenderness. [] Extremities: No tenderness, no cyanosis, no clubbing, ROM intact, no edema. [] Neurologic: Alert and oriented X 3, normal motor function, normal sensory function, no focal deficits noted. [] Psychologic: Affect anxious, judgement normal, mood normal. [] Current Patient Data Vital Signs Vital Signs Date Time Temp Pulse Resp B/P (MAP) Pulse Ox O2 Delivery O2 Flow Rate FiO2 08/21/18 11:00 97.5 93 22 222/98 (139) 100 Room Air 97.5 Lab Values Laboratory Tests Test 08/21/18 10:25 08/21/18 10:47 08/21/18 12:00 08/21/18 12:31 White Blood Count 10.8 x10^3/uL (4.0-11.0) Red Blood Count 4.65 x10^6/uL (3.50-5.40) Hemoglobin 13.6 g/dL (12.0-15.5) Hematocrit 40.7 % (36.0-47.0) Mean Corpuscular Volume 88 fL (79-100) Mean Corpuscular Hemoglobin 29 pg (25-35) Mean Corpuscular Hemoglobin Concent 34 g/dL (31-37) Red Cell Distribution Width 15.9 % (11.5-14.5) H Platelet Count 496 x10^3/uL (140-400) H Neutrophils (%) (Auto) 70 % (31-73) Lymphocytes (%) (Auto) 21 % (24-48) L Monocytes (%) (Auto) 8 % (0-9) Eosinophils (%) (Auto) 0 % (0-3) Basophils (%) (Auto) 0 % (0-3) Neutrophils # (Auto) 7.6 x10^3uL (1.8-7.7) Lymphocytes # (Auto) 2.3 x10^3/uL (1.0-4.8) Monocytes # (Auto) 0.9 x10^3/uL (0.0-1.1) Eosinophils # (Auto) 0.0 x10^3/uL (0.0-0.7) Basophils # (Auto) 0.0 x10^3/uL (0.0-0.2) Sodium Level 133 mmol/L (136-145) L Potassium Level 3.8 mmol/L (3.5-5.1) Chloride Level 84 mmol/L (98-107) L Carbon Dioxide Level 31 mmol/L (21-32) Anion Gap 18 (6-14) H Blood Urea Nitrogen 19 mg/dL (7-20) Creatinine 1.3 mg/dL (0.6-1.0) H Estimated GFR (Cockcroft-Gault) 44.9 BUN/Creatinine Ratio 15 (6-20) Glucose Level 605 mg/dL (70-99) *H Lactic Acid Level 2.8 mmol/L (0.4-2.0) H Calcium Level 9.7 mg/dL (8.5-10.1) Phosphorus Level 5.4 mg/dL (2.6-4.7) H Magnesium Level 2.0 mg/dL (1.8-2.4) Total Bilirubin 0.5 mg/dL (0.2-1.0) Aspartate Amino Transferase (AST) 35 U/L (15-37) Alanine Aminotransferase (ALT) 36 U/L (14-59) Alkaline Phosphatase 113 U/L (46-116) Creatine Kinase 46 U/L (26-192) Total Protein 7.6 g/dL (6.4-8.2) Albumin 4.1 g/dL (3.4-5.0) Albumin/Globulin Ratio 1.2 (1.0-1.7) Lipase 62 U/L (73-393) L Acetone Level Sm pos (NEG) O2 Saturation 97 % (92-99) Arterial Blood pH 7.49 (7.35-7.45) H Arterial Blood pCO2 at Patient Temp 36 mmHg (35-46) Arterial Blood pO2 at Patient Temp 90 mmHg (75-108) Arterial Blood HCO3 27 mmol/L (21-28) Arterial Blood Base Excess 4 mmol/L (-3-3) H FiO2 21 Urine Collection Type Unknown Urine Color Yellow Urine Clarity Clear Urine pH 6.5 Urine Specific [place] >=1.030 Urine Protein Negative mg/dL (NEG-TRACE) Urine Glucose (UA) >=1000 mg/dL (NEG) Urine Ketones (Stick) >=80 mg/dL (NEG) Urine Blood Negative (NEG) Urine Nitrite Negative (NEG) Urine Bilirubin Negative (NEG) Urine Urobilinogen Dipstick 0.2 mg/dL (0.2 mg/dL) Urine Leukocyte Esterase Negative (NEG) Urine RBC 0 /HPF (0-2) Urine WBC 0 /HPF (0-4) Urine Squamous Epithelial Cells Few /LPF Urine Bacteria 0 /HPF (0-FEW) Urine Yeast Present /HPF Urine Opiates Screen Neg (NEG) Urine Methadone Screen Neg (NEG) Urine Barbiturates Neg (NEG) Urine Phencyclidine Screen Neg (NEG) Urine Amphetamine/Methamphetamine Neg (NEG) Urine Benzodiazepines Screen Neg (NEG) Urine Cocaine Screen Neg (NEG) Urine Cannabinoids Screen Pos (NEG) Urine Ethyl Alcohol Neg (NEG) Glucose (Fingerstick) 286 mg/dL (70-99) H Laboratory Tests 08/21/18 10:25 Laboratory Tests 08/21/18 10:25 EKG EKG [] Radiology/Procedures Radiology/Procedures [] Course & Med Decision Making Course & Med Decision Making Pertinent Labs and Imaging studies reviewed. (See chart for details) Evaluation of patient in ER showed 43-year-old male patient with history of type 1 diabetes on insulin and episodes of cyclic vomiting syndrome presented to ER with complaining of abdominal pain and nausea and vomiting. Patient was very anxious at arrival to ER. Patient had active vomiting. Blood sugar was high. Patient treated with IV fluid, IV insulin, Zofran, Reglan, fentanyl and Dilaudid with improvement of her condition and drop of blood sugar gradually to 288. Patient had elevation of lactic acid and tachycardia and one dose of antibiotic was given. Plan to admit patient with diagnosis of cyclic vomiting syndrome. Patient ABG did not show sign of DKA.Patient requiring admission for further evaluation and treatment. Discussed with Dr. Ashraf who is in agreement with admission. Discussed findings and plan with patient and family, who acknowledge understanding and agreement. Dragon Disclaimer Dragon Disclaimer This electronic medical record was generated, in whole or in part, using a voice recognition dictation system. Departure Departure Impression: Primary Impression: Intractable nausea and vomiting Additional Impressions: Hyperglycemia Diabetes mellitus out of control Anxiety Renal insufficiency Lactic acidemia Marijuana abuse Disposition: 09 ADMITTED INPATIENT (at 1141 ) Admitting Physician: Zi Ashraf (accepted admission at 1140) Condition: GUARDED Referrals: NO PCP (PCP) Critical Care Time Critical care time was 60 minutes exclusive of procedures. Problem Qualifiers Primary Impression: Intractable nausea and vomiting Vomiting type: cyclical vomiting Qualified Codes: G43.A1 - Cyclical vomiting, intractable Additional Impressions: Diabetes mellitus out of control Diabetes mellitus type: type 1 Glycemic state: with hyperglycemia Qualified Codes: E10.65 - Type 1 diabetes mellitus with hyperglycemia CHINO DAMON MD August 21, 2018 11:17
[2018-08-21 11:34] LABS: BASE EXCESS ABG 4 mmol/L (-3-3); HCO3 ABG 27 mmol/L (21-28); PCO2 ABG 36 mmHg (35-46); PO2 ABG 90 mmHg (75-108); SAT O2 ABG 97 % (92-99)
[2018-08-21 11:36] LABS: FIO2 ABG 21
[2018-08-21 11:38] LABS: BASO % 0 % (0-3); EOS % 0 % (0-3); HEMATOCRIT 40.7 % (36.0-47.0); HEMOGLOBIN 13.6 g/dL (12.0-15.5); LYMPH # 2.3 x10^3/uL (1.0-4.8); LYMPH % 21 % (24-48); MEAN CORPUSCULAR HEMOGLOBIN 29 pg (25-35); MEAN CORPUSCULAR HGB CONC 34 g/dL (31-37); MEAN CORPUSCULAR VOLUME 88 fL (79-100); MONO # 0.9 x10^3/uL (0.0-1.1); MONO % 8 % (0-9); NEUT # 7.6 x10^3uL (1.8-7.7); NEUT % 70 % (31-73); PLATELET COUNT 496 x10^3/uL (140-400); RED BLOOD COUNT 4.65 x10^6/uL (3.50-5.40); RED CELL DISTRIBUTION WIDTH 15.9 % (11.5-14.5); WHITE BLOOD COUNT 10.8 x10^3/uL (4.0-11.0)
[2018-08-21 11:45] LABS: ALBUMIN 4.1 g/dL (3.4-5.0); ALBUMIN/GLOBULIN RATIO 1.2 (1.0-1.7); CALCIUM 9.7 mg/dL (8.5-10.1); CREATININE 1.3 mg/dL (0.6-1.0); GFR 44.9; PHOSPHORUS 5.4 mg/dL (2.6-4.7); POTASSIUM 3.8 mmol/L (3.5-5.1); TOTAL BILIRUBIN 0.5 mg/dL (0.2-1.0); TOTAL PROTEIN 7.6 g/dL (6.4-8.2)
[2018-08-21] MEDS ORDERED: HYDROmorphone 2 MG/ML VIAL IV ONE (11:45)
[2018-08-21] MEDS ORDERED: METOCLOPRAMIDE HCL 10 MG/2 ML VIAL. IV ONE (11:45)
[2018-08-21] MEDS ORDERED: METOCLOPRAMIDE HCL 10 MG/2 ML VIAL. ONE (11:52)
[2018-08-21] MEDS ORDERED: HYDROmorphone 2 MG/ML VIAL ONE (11:52)
[2018-08-21] MEDS ORDERED: cefTRIAXone IV Push 1 GM VIAL. IVP ONE (12:00)
[2018-08-21] MEDS ORDERED: INSULIN,REGULAR 150 UNIT DRIP 150 ML IV ONE (12:00)
[2018-08-21] MEDS ORDERED: INSULIN REGULAR VIAL 150 UNIT in 0.9 % SODIUM CHLORIDE 150ML 150 ML IV PRN (12:00)
[2018-08-21 12:15] LABS: BILIRUBIN,URINE NEGATIVE (NEG); CLARITY,URINE CLEAR; COLOR,URINE YELLOW; NITRITE,URINE NEGATIVE (NEG); PH,URINE 6.5; PROTEIN,URINE NEGATIVE (NEG-TRACE); UROBILINOGEN,URINE 0.2 mg/dL (0.2 mg/dL)
[2018-08-21 12:19] LABS: BARBITURATES NEG (NEG); BENZODIAZEPINES NEG (NEG); CANNABINOIDS POS (NEG); COCAINE NEG (NEG); METHADONE NEG (NEG); OPIATES NEG (NEG); PHENCYCLIDINE NEG (NEG)
[2018-08-21 12:20] LABS: AMPHETAMINE/METHAMPHETAMINE NEG (NEG)
[2018-08-21 12:25] LABS: SQUAMOUS EPITHELIAL CELL,UR FEW /LPF
[2018-08-21 12:26] LABS: BACTERIA,URINE 0 /HPF (0-FEW); RBC,URINE 0 /HPF (0-2); WBC,URINE 0 /HPF (0-4); YEAST,URINE PRESENT /HPF
--- NOTE | 2018-08-21 13:18 | PDOC1 ---
History and Physical Date of Admission: Date of Admission DATE: 08/21/18 TIME: 13:15 Chief Complaint: Problems: (1) DKA (diabetic ketoacidoses) (2) DM (diabetes mellitus) (3) Upper GI bleed (4) DKA (diabetic ketoacidoses) (5) Nausea & vomiting (6) Abdominal pain (7) Gastroparesis (8) Abrasion of thigh, left, infected (9) Diabetes (10) Tobacco abuse (11) Abscess, gluteal, left (12) Anxiety (13) Renal insufficiency (14) Lactic acidemia (15) Hyperglycemia (16) Diabetes mellitus out of control (17) Intractable nausea and vomiting (18) Hyperglycemia (19) Cyclic vomiting syndrome Chief Complain: Abdominal cramps nausea vomiting History of Present Illness: HPI: This is a young female well-known to my service who has cyclic vomiting syndrome Today she presents with abdominal cramps She has associated nausea vomiting Rated at 10 out 10 She tried increasing her home meds with that and work Describes as agonizing Worse with food I discussed case with ER physician were going to admit the patient give her when necessary anti-medics and consult GI Past Medical/Surgical History: PMH/PSH: Past Medical History: Anxiety, Cyclic Vomiting, Diabetes-Type I, High Cholesterol, Other Additional Past Medical Histor: gastroparesis, Past Surgical History: Cholecystectomy, Hysterectomy, Tubal ligation Alcohol Use: None Drug Use: Marijuana Allergies: Allergies: Coded Allergies: I S O L A T I O N *CONTACT* (Verified Allergy, Unknown, 06/16/18) mrsa No Known Medication Allergies (Verified Allergy, Unknown, 06/16/18) Family History: Family History: Diabetes Social History: Social Hisoty: She does not drink smoke or take drugs Current Medications: Current Medications Current Medications Sodium Chloride 1,000 ml @ 1,000 mls/hr Q1H IV Last administered on 08/21/18at 11:15; Start 08/21/18 at 10:47; Stop 08/21/18 at 11:46; Status DC Fentanyl Citrate (Fentanyl 2ml Vial) 50 mcg 1X ONCE IV Last administered on 08/21/18at 11:18; Start 08/21/18 at 11:00; Stop 08/21/18 at 11:01; Status DC Ondansetron HCl (Zofran) 4 mg 1X ONCE IV Last administered on 08/21/18at 11:15; Start 08/21/18 at 11:00; Stop 08/21/18 at 11:01; Status DC Insulin Human Regular (HumuLIN R VIAL) 10 unit 1X ONCE IV Last administered on 08/21/18at 11:14; Start 08/21/18 at 11:00; Stop 08/21/18 at 11:01; Status DC Sodium Chloride 1,000 ml @ 1,000 mls/hr 1X ONCE IV Last administered on 08/21/18at 11:15; Start 08/21/18 at 11:00; Stop 08/21/18 at 11:59; Status DC Metoclopramide HCl (Reglan Vial) 10 mg 1X ONCE IV Last administered on 9at 12:05; Start 08/21/18 at 11:45; Stop 08/21/18 at 11:51; Status DC Hydromorphone HCl (Dilaudid) 1 mg 1X ONCE IV Last administered on 08/21/18at 12:05; Start 08/21/18 at 11:45; Stop 08/21/18 at 11:51; Status DC Ceftriaxone Sodium (Rocephin) 1 gm 1X ONCE IVP Last administered on 08/21/18at 12:43; Start 08/21/18 at 12:00; Stop 08/21/18 at 12:01; Status DC Metoclopramide HCl (Reglan Vial) 10 mg STK-MED ONCE .ROUTE ; Start 08/21/18 at 11:52; Stop 08/21/18 at 11:53; Status DC Hydromorphone HCl (Dilaudid) 2 mg STK-MED ONCE .ROUTE ; Start 08/21/18 at 11:52; Stop 08/21/18 at 11:53; Status DC Sodium Chloride 1,000 ml @ 200 mls/hr Q5H IV ; Start 08/21/18 at 11:54; Stop 08/22/18 at 11:53 Insulin Human Regular 150 unit/ Sodium Chloride 151.5 ml @ 0 mls/hr CONT PRN IV SEE I/O RECORD; Start 08/21/18 at 12:00 Insulin Human Regular 150 ml @ 5.6 mls/hr 1X ONCE IV ; Start 08/21/18 at 12: 00; Stop 08/22/18 at 14:27 Active Scripts Active Famotidine 20 Mg Tablet 20 Mg PO DAILY MDD 1 Lisinopril 40 Mg Tablet 20 Mg PO DAILY MDD 1 Erythromycin (Erythromycin Base) 250 Mg Tablet 250 Mg PO TIDAC MDD 1 7 Days [Fluconazole] 100 MG Tablet 200 Mg PO DAILY MDD 1 6 Days Doxycycline Hyclate 100 Mg Tablet 100 Mg PO BID MDD 1 7 Days Amox Tr-K Clv 875-125 Mg Tab (Amoxicillin/Potassium Clav) 1 Each Tablet 1 Tab PO BID MDD 1 7 Days Reported Novolog Flexpen (Insulin Aspart) 100 Unit/1 Ml Insuln.pen 10 Unit SQ TIDWMEALS Lantus (Insulin Glargine,Hum.rec.anlog) 100 Unit/1 Ml Vial 26 Unit SQ HS ROS: Review of Systems Review of System REVIEW OF SYSTEMS: GENERAL: Denies weakness SKIN: No bruising, hair changes or rashes. EYES: No blurred, double or loss of vision. NOSE AND THROAT: No history of nosebleeds, hoarseness or sore throat. HEART: No history of palpitations, chest pain or shortness of breath on exertion. LUNGS: Denies cough, hemoptysis, wheezing or shortness of breath. GASTROINTESTINAL: Denies changes in appetite, nausea, vomiting, diarrhea or constipation. GENITOURINARY: Constantine of severe abdominal cramping and nausea vomiting NEUROLOGIC: Denies history of numbness, tingling, tremor or weakness. PSYCHIATRIC: No history of panic, anxiety or depression. ENDOCRINE: No history of heat or cold intolerance, polyuria or polydipsia. EXTREMITIES: Denies muscle weakness, joint pain, pain on walking or stiffness. Physical Exam: Vital Signs: Vital Signs Date Time Temp Pulse Resp B/P (MAP) Pulse Ox O2 Delivery O2 Flow Rate FiO2 08/21/18 11:00 97.5 93 22 222/98 (139) 100 Room Air 97.5 Physcial Exam: GEN.: No apparent distress. Alert and oriented. HEENT: Head is normocephalic, atraumatic NECK: Supple, no JVD LUNGS: Clear to auscultation without rhonchi or wheezing HEART: RRR, S1, S2 present. Peripheral pulses intact ABDOMEN: Tender to palpation decreased bowel sounds EXTREMITIES: Without any cyanosis, clubbing, or edema. Pedal pulses intact NEUROLOGIC: Normal speech, normal tone. A&O x 3 PSYCHIATRIC: Normal affect, normal mood. Stable SKIN: No ulcerations or rashes VASCULAR: Good capillary refill Labs: Labs: Laboratory Tests Test 08/21/18 10:25 08/21/18 10:47 08/21/18 12:00 08/21/18 12:31 White Blood Count 10.8 x10^3/uL (4.0-11.0) Red Blood Count 4.65 x10^6/uL (3.50-5.40) Hemoglobin 13.6 g/dL (12.0-15.5) Hematocrit 40.7 % (36.0-47.0) Mean Corpuscular Volume 88 fL (79-100) Mean Corpuscular Hemoglobin 29 pg (25-35) Mean Corpuscular Hemoglobin Concent 34 g/dL (31-37) Red Cell Distribution Width 15.9 % (11.5-14.5) Platelet Count 496 x10^3/uL (140-400) Neutrophils (%) (Auto) 70 % (31-73) Lymphocytes (%) (Auto) 21 % (24-48) Monocytes (%) (Auto) 8 % (0-9) Eosinophils (%) (Auto) 0 % (0-3) Basophils (%) (Auto) 0 % (0-3) Neutrophils # (Auto) 7.6 x10^3uL (1.8-7.7) Lymphocytes # (Auto) 2.3 x10^3/uL (1.0-4.8) Monocytes # (Auto) 0.9 x10^3/uL (0.0-1.1) Eosinophils # (Auto) 0.0 x10^3/uL (0.0-0.7) Basophils # (Auto) 0.0 x10^3/uL (0.0-0.2) Sodium Level 133 mmol/L (136-145) Potassium Level 3.8 mmol/L (3.5-5.1) Chloride Level 84 mmol/L (98-107) Carbon Dioxide Level 31 mmol/L (21-32) Anion Gap 18 (6-14) Blood Urea Nitrogen 19 mg/dL (7-20) Creatinine 1.3 mg/dL (0.6-1.0) Estimated GFR (Cockcroft-Gault) 44.9 BUN/Creatinine Ratio 15 (6-20) Glucose Level 605 mg/dL (70-99) Lactic Acid Level 2.8 mmol/L (0.4-2.0) Calcium Level 9.7 mg/dL (8.5-10.1) Phosphorus Level 5.4 mg/dL (2.6-4.7) Magnesium Level 2.0 mg/dL (1.8-2.4) Total Bilirubin 0.5 mg/dL (0.2-1.0) Aspartate Amino Transf (AST/SGOT) 35 U/L (15-37) Alanine Aminotransferase (ALT/SGPT) 36 U/L (14-59) Alkaline Phosphatase 113 U/L (46-116) Creatine Kinase 46 U/L (26-192) Total Protein 7.6 g/dL (6.4-8.2) Albumin 4.1 g/dL (3.4-5.0) Albumin/Globulin Ratio 1.2 (1.0-1.7) Lipase 62 U/L (73-393) Acetone Level Sm pos (NEG) O2 Saturation 97 % (92-99) Arterial Blood pH 7.49 (7.35-7.45) Arterial Blood pCO2 at Patient Temp 36 mmHg (35-46) Arterial Blood pO2 at Patient Temp 90 mmHg (75-108) Arterial Blood HCO3 27 mmol/L (21-28) Arterial Blood Base Excess 4 mmol/L (-3-3) FiO2 21 Urine Collection Type Unknown Urine Color Yellow Urine Clarity Clear Urine pH 6.5 Urine Specific [place] >=1.030 Urine Protein Negative mg/dL (NEG-TRACE) Urine Glucose (UA) >=1000 mg/dL (NEG) Urine Ketones (Stick) >=80 mg/dL (NEG) Urine Blood Negative (NEG) Urine Nitrite Negative (NEG) Urine Bilirubin Negative (NEG) Urine Urobilinogen Dipstick 0.2 mg/dL (0.2 mg/dL) Urine Leukocyte Esterase Negative (NEG) Urine RBC 0 /HPF (0-2) Urine WBC 0 /HPF (0-4) Urine Squamous Epithelial Cells Few /LPF Urine Bacteria 0 /HPF (0-FEW) Urine Yeast Present /HPF Urine Opiates Screen Neg (NEG) Urine Methadone Screen Neg (NEG) Urine Barbiturates Neg (NEG) Urine Phencyclidine Screen Neg (NEG) Urine Amphetamine/Methamphetamine Neg (NEG) Urine Benzodiazepines Screen Neg (NEG) Urine Cocaine Screen Neg (NEG) Urine Cannabinoids Screen Pos (NEG) Urine Ethyl Alcohol Neg (NEG) Glucose (Fingerstick) 286 mg/dL (70-99) Laboratory Tests Test 08/21/18 10:25 08/21/18 10:47 08/21/18 12:00 08/21/18 12:31 White Blood Count 10.8 x10^3/uL (4.0-11.0) Red Blood Count 4.65 x10^6/uL (3.50-5.40) Hemoglobin 13.6 g/dL (12.0-15.5) Hematocrit 40.7 % (36.0-47.0) Mean Corpuscular Volume 88 fL (79-100) Mean Corpuscular Hemoglobin 29 pg (25-35) Mean Corpuscular Hemoglobin Concent 34 g/dL (31-37) Red Cell Distribution Width 15.9 % (11.5-14.5) Platelet Count 496 x10^3/uL (140-400) Neutrophils (%) (Auto) 70 % (31-73) Lymphocytes (%) (Auto) 21 % (24-48) Monocytes (%) (Auto) 8 % (0-9) Eosinophils (%) (Auto) 0 % (0-3) Basophils (%) (Auto) 0 % (0-3) Neutrophils # (Auto) 7.6 x10^3uL (1.8-7.7) Lymphocytes # (Auto) 2.3 x10^3/uL (1.0-4.8) Monocytes # (Auto) 0.9 x10^3/uL (0.0-1.1) Eosinophils # (Auto) 0.0 x10^3/uL (0.0-0.7) Basophils # (Auto) 0.0 x10^3/uL (0.0-0.2) Sodium Level 133 mmol/L (136-145) Potassium Level 3.8 mmol/L (3.5-5.1) Chloride Level 84 mmol/L (98-107) Carbon Dioxide Level 31 mmol/L (21-32) Anion Gap 18 (6-14) Blood Urea Nitrogen 19 mg/dL (7-20) Creatinine 1.3 mg/dL (0.6-1.0) Estimated GFR (Cockcroft-Gault) 44.9 BUN/Creatinine Ratio 15 (6-20) Glucose Level 605 mg/dL (70-99) Lactic Acid Level 2.8 mmol/L (0.4-2.0) Calcium Level 9.7 mg/dL (8.5-10.1) Phosphorus Level 5.4 mg/dL (2.6-4.7) Magnesium Level 2.0 mg/dL (1.8-2.4) Total Bilirubin 0.5 mg/dL (0.2-1.0) Aspartate Amino Transf (AST/SGOT) 35 U/L (15-37) Alanine Aminotransferase (ALT/SGPT) 36 U/L (14-59) Alkaline Phosphatase 113 U/L (46-116) Creatine Kinase 46 U/L (26-192) Total Protein 7.6 g/dL (6.4-8.2) Albumin 4.1 g/dL (3.4-5.0) Albumin/Globulin Ratio 1.2 (1.0-1.7) Lipase 62 U/L (73-393) Acetone Level Sm pos (NEG) O2 Saturation 97 % (92-99) Arterial Blood pH 7.49 (7.35-7.45) Arterial Blood pCO2 at Patient Temp 36 mmHg (35-46) Arterial Blood pO2 at Patient Temp 90 mmHg (75-108) Arterial Blood HCO3 27 mmol/L (21-28) Arterial Blood Base Excess 4 mmol/L (-3-3) FiO2 21 Urine Collection Type Unknown Urine Color Yellow Urine Clarity Clear Urine pH 6.5 Urine Specific [place] >=1.030 Urine Protein Negative mg/dL (NEG-TRACE) Urine Glucose (UA) >=1000 mg/dL (NEG) Urine Ketones (Stick) >=80 mg/dL (NEG) Urine Blood Negative (NEG) Urine Nitrite Negative (NEG) Urine Bilirubin Negative (NEG) Urine Urobilinogen Dipstick 0.2 mg/dL (0.2 mg/dL) Urine Leukocyte Esterase Negative (NEG) Urine RBC 0 /HPF (0-2) Urine WBC 0 /HPF (0-4) Urine Squamous Epithelial Cells Few /LPF Urine Bacteria 0 /HPF (0-FEW) Urine Yeast Present /HPF Urine Opiates Screen Neg (NEG) Urine Methadone Screen Neg (NEG) Urine Barbiturates Neg (NEG) Urine Phencyclidine Screen Neg (NEG) Urine Amphetamine/Methamphetamine Neg (NEG) Urine Benzodiazepines Screen Neg (NEG) Urine Cocaine Screen Neg (NEG) Urine Cannabinoids Screen Pos (NEG) Urine Ethyl Alcohol Neg (NEG) Glucose (Fingerstick) 286 mg/dL (70-99) Images: Images Pending Assessment/Plan Assessment/Plan Cyclic vomiting syndrome with severe abdominal pain cramps hyperglycemia greater than 600 Plan IV insulin IV fluids ICU monitoring Consult GI When necessary narcotics When necessary Zofran DVT prophylaxis Full code Home meds if possible PT OT when possible Prognosis guarded Total time 31 minutes EVERTON PRICE III DO August 21, 2018 13:18
[2018-08-21] MEDS ORDERED: C.DIFF MED SCREEN BY RX. MC ONE (15:00)
[2018-08-21] MEDS ORDERED: PANT20TA2 PO (17:04)
[2018-08-21] MEDS ORDERED: LISI-130 PO (17:04)
[2018-08-21] MEDS ORDERED: INSU100V13 SQ (17:04)
[2018-08-21] MEDS ORDERED: INSU100C4 SQ (17:04)
[2018-08-21] MEDS ORDERED: DEXTROSE 50% 25 GM / 50ML DISP.SYRIN. IV PRN ×2 (17:45)
[2018-08-21] MEDS ORDERED: ACETAMINOPHEN 500 MG TABLET PO PRN (17:45)
[2018-08-21] MEDS: ONDANSETRON PF 4 MG/2 ML VIAL. IV PRN (17:50)
[2018-08-21] MEDS: fentaNYL PF VIAL 100 MCG/2 ML VIAL IV PRN ×2 (17:52→22:41)
[2018-08-21] MEDS: INSULIN LISPRO 300 UNITS/3 ML INSULN.PEN. SQ SCH ×2 (18:00→18:13)
[2018-08-21] MEDS: MAG HYDROX/ALUMINUM HYD/SIMETH 30 ML ORAL.SUSP PO PRN ×2 (18:10→20:59)
[2018-08-21] MEDS: IV NORMAL SALINE 1000ML BAG 1,000 ML IV SCH (19:33)
[2018-08-21] MEDS: INSULIN GLARGINE 300 UNITS/3 ML INSULN.PEN. SQ SCH (20:34)
--- NOTE | 2018-08-21 22:25 | NUR ---
RN received report from [facility] and patient was transferred from ICU to room 440 via wheelchair. RN performed a head to toe assessment at that time and patient stated pain was an 8/10 at that time. Bed is in lowest locked position and call light is within reach. RN will continue to monitor patient closely.
[2018-08-22] MEDS: IV NORMAL SALINE 1000ML BAG 1,000 ML IV SCH ×6 (00:46→20:21)
[2018-08-22] MEDS: ONDANSETRON PF 4 MG/2 ML VIAL. IV PRN ×4 (00:46→20:21)
[2018-08-22 04:00] VITALS: BP 119/69
[2018-08-22 07:00] VITALS: BP 131/68
[2018-08-22] MEDS: INSULIN LISPRO 300 UNITS/3 ML INSULN.PEN. SQ SCH ×6 (07:21→16:57)
[2018-08-22] MEDS: fentaNYL PF VIAL 100 MCG/2 ML VIAL IV PRN ×6 (07:28→22:20)
[2018-08-22] MEDS ORDERED: PANTOPRAZOLE 40 MG TABLET.DR. PO SCH (07:30)
[2018-08-22] MEDS ORDERED: INSULIN LISPRO 300 UNITS/3 ML INSULN.PEN. SQ SCH (08:00)
[2018-08-22] MEDS: oxyCODONE/APAP 5/325 1 TAB TABLET PO PRN (08:49)
[2018-08-22] MEDS ORDERED: FAMOTIDINE 20 MG TABLET. PO SCH (09:00)
--- NOTE | 2018-08-22 09:04 | NUR ---
Pt. ate small amount of breakfast, vomited x 1, states Reglan has helped nausea in the past. Dr. Partida notified, orders received.
--- NOTE | 2018-08-22 09:18 | NUR ---
IP: Pt has a hx of buttock abscess with +mrsa on 06/08/18. Pt to be in contact precautions until there is a mrsa screen verified and no open wounds.
--- NOTE | 2018-08-22 09:24 | PDOC2 ---
GI CONSULT Reason For Consult: Cyclic vomiting HPI: HPI: 43 y/o female who we have seen before. Long GI history. Tells me this morning she usually goes to and follows w/ a voice pathologist there - can't remember her name. This time ill x 4 days w/ n/v and pain ("just really hurts") in the upper center of abdomen. Denies precipitating events. Carries diagnosis of cyclic vomiting and gastroparesis. Additional h/o GERD and uncontrolled DM (says type 1 and glucose is usually in 200s at home though >600 here). Takes Protonix QD, e-mycin TID every other week, and Reglan and/or Zofran PRN. Thinks had an unremarkable EGD ~6 months ago @ and reports previous GES and colonoscopy within the past couple years there as well. Doesn't recall previous SBS but did have "intestine resection where they took two feet out for inflammation and blockage" @ in 2016. Denies weight loss, dysphagia, hematemesis, diarrhea, constipation, hematochezia, and melena. S/p cholecystectomy (denies stones). Can document EGD at this facility in 2014 w/ mild reflux esophagitis. MRCP around that time showed mild dilatation of CBD post-cholecystectomy. GES was normal here that year (I believe on e-mycin and Reglan). Denies pancreas or liver history. No NSAIDs. + cannabinoids 7/8 times here since 2014. Hepatitis panel negative in 2016. Doesn't have an director of sustainability. PMH: PMH: depression/anxiety, ?seizure, HLD, HTN, TL, hysterectomy, cholecystectomy, SBR, left gluteal I&D FH: Family History: No pertinent hx Social History: ALCOHOL: none Drugs: Marijuana ROS: GEN: Denies fevers, chills, sweats HEENT: Denies blurred vision, sore throat CV: Denies chest pain RESP: Denies shortness of air, cough GI: Per HPI : Denies hematuria, dysuria ENDO: Denies weight changes NEURO: Denies confusion, dizziness MSK: Denies weakness, joint pain/swelling SKIN: Denies jaundice, pruritus Vitals: Vitals: Vital Signs Date Time Temp Pulse Resp B/P (MAP) Pulse Ox O2 Delivery O2 Flow Rate FiO2 08/22/18 08:49 Room Air 08/22/18 07:00 98.2 79 18 131/68 (89) 97 98.2 Labs: Labs: Laboratory Tests Test 08/21/18 10:25 08/21/18 10:47 08/21/18 12:00 08/21/18 12:31 White Blood Count 10.8 x10^3/uL (4.0-11.0) Red Blood Count 4.65 x10^6/uL (3.50-5.40) Hemoglobin 13.6 g/dL (12.0-15.5) Hematocrit 40.7 % (36.0-47.0) Mean Corpuscular Volume 88 fL (79-100) Mean Corpuscular Hemoglobin 29 pg (25-35) Mean Corpuscular Hemoglobin Concent 34 g/dL (31-37) Red Cell Distribution Width 15.9 % (11.5-14.5) Platelet Count 496 x10^3/uL (140-400) Neutrophils (%) (Auto) 70 % (31-73) Lymphocytes (%) (Auto) 21 % (24-48) Monocytes (%) (Auto) 8 % (0-9) Eosinophils (%) (Auto) 0 % (0-3) Basophils (%) (Auto) 0 % (0-3) Neutrophils # (Auto) 7.6 x10^3uL (1.8-7.7) Lymphocytes # (Auto) 2.3 x10^3/uL (1.0-4.8) Monocytes # (Auto) 0.9 x10^3/uL (0.0-1.1) Eosinophils # (Auto) 0.0 x10^3/uL (0.0-0.7) Basophils # (Auto) 0.0 x10^3/uL (0.0-0.2) Sodium Level 133 mmol/L (136-145) Potassium Level 3.8 mmol/L (3.5-5.1) Chloride Level 84 mmol/L (98-107) Carbon Dioxide Level 31 mmol/L (21-32) Anion Gap 18 (6-14) Blood Urea Nitrogen 19 mg/dL (7-20) Creatinine 1.3 mg/dL (0.6-1.0) Estimated GFR (Cockcroft-Gault) 44.9 BUN/Creatinine Ratio 15 (6-20) Glucose Level 605 mg/dL (70-99) Lactic Acid Level 2.8 mmol/L (0.4-2.0) Calcium Level 9.7 mg/dL (8.5-10.1) Phosphorus Level 5.4 mg/dL (2.6-4.7) Magnesium Level 2.0 mg/dL (1.8-2.4) Total Bilirubin 0.5 mg/dL (0.2-1.0) Aspartate Amino Transf (AST/SGOT) 35 U/L (15-37) Alanine Aminotransferase (ALT/SGPT) 36 U/L (14-59) Alkaline Phosphatase 113 U/L (46-116) Creatine Kinase 46 U/L (26-192) Total Protein 7.6 g/dL (6.4-8.2) Albumin 4.1 g/dL (3.4-5.0) Albumin/Globulin Ratio 1.2 (1.0-1.7) Lipase 62 U/L (73-393) Acetone Level Sm pos (NEG) O2 Saturation 97 % (92-99) Arterial Blood pH 7.49 (7.35-7.45) Arterial Blood pCO2 at Patient Temp 36 mmHg (35-46) Arterial Blood pO2 at Patient Temp 90 mmHg (75-108) Arterial Blood HCO3 27 mmol/L (21-28) Arterial Blood Base Excess 4 mmol/L (-3-3) FiO2 21 Urine Collection Type Unknown Urine Color Yellow Urine Clarity Clear Urine pH 6.5 Urine Specific [place] >=1.030 Urine Protein Negative mg/dL (NEG-TRACE) Urine Glucose (UA) >=1000 mg/dL (NEG) Urine Ketones (Stick) >=80 mg/dL (NEG) Urine Blood Negative (NEG) Urine Nitrite Negative (NEG) Urine Bilirubin Negative (NEG) Urine Urobilinogen Dipstick 0.2 mg/dL (0.2 mg/dL) Urine Leukocyte Esterase Negative (NEG) Urine RBC 0 /HPF (0-2) Urine WBC 0 /HPF (0-4) Urine Squamous Epithelial Cells Few /LPF Urine Bacteria 0 /HPF (0-FEW) Urine Yeast Present /HPF Urine Opiates Screen Neg (NEG) Urine Methadone Screen Neg (NEG) Urine Barbiturates Neg (NEG) Urine Phencyclidine Screen Neg (NEG) Urine Amphetamine/Methamphetamine Neg (NEG) Urine Benzodiazepines Screen Neg (NEG) Urine Cocaine Screen Neg (NEG) Urine Cannabinoids Screen Pos (NEG) Urine Ethyl Alcohol Neg (NEG) Glucose (Fingerstick) 286 mg/dL (70-99) Test 08/21/18 14:35 08/21/18 17:30 08/21/18 20:13 08/21/18 22:34 Lactic Acid Level 3.4 mmol/L (0.4-2.0) Glucose (Fingerstick) 412 mg/dL (70-99) 136 mg/dL (70-99) 226 mg/dL (70-99) Test 08/22/18 07:20 Glucose (Fingerstick) 99 mg/dL (70-99) Allergies: Coded Allergies: I S O L A T I O N *CONTACT* (Verified Allergy, Unknown, 06/16/18) mrsa No Known Medication Allergies (Verified Allergy, Unknown, 06/16/18) Medications: Current Medications Medications (Trade) Dose Ordered Sig/Lori Route PRN Reason Start Time Stop Time Status Last Admin Dose Admin Sodium Chloride 1,000 ml @ 1,000 mls/hr Q1H IV 08/21/18 10:47 08/21/18 11:46 DC 08/21/18 11:15 Fentanyl Citrate (Fentanyl 2ml Vial) 50 mcg 1X ONCE IV 08/21/18 11:00 08/21/18 11:01 DC 08/21/18 11:18 Ondansetron HCl (Zofran) 4 mg 1X ONCE IV 08/21/18 11:00 08/21/18 11:01 DC 08/21/18 11:15 Insulin Human Regular (HumuLIN R VIAL) 10 unit 1X ONCE IV 08/21/18 11:00 08/21/18 11:01 DC 08/21/18 11:14 Sodium Chloride 1,000 ml @ 1,000 mls/hr 1X ONCE IV 08/21/18 11:00 08/21/18 11:59 DC 08/21/18 11:15 Metoclopramide HCl (Reglan Vial) 10 mg 1X ONCE IV 08/21/18 11:45 08/21/18 11:51 DC 08/21/18 12:05 Hydromorphone HCl (Dilaudid) 1 mg 1X ONCE IV 08/21/18 11:45 08/21/18 11:51 DC 08/21/18 12:05 Ceftriaxone Sodium (Rocephin) 1 gm 1X ONCE IVP 08/21/18 12:00 08/21/18 12:01 DC 08/21/18 12:43 Sodium Chloride 1,000 ml @ 200 mls/hr Q5H IV 08/21/18 11:54 08/22/18 11:53 08/22/18 06:27 Pharmacy Consult (C.diff Med Screen By Rx) 1 each 1X ONCE 08/21/18 15:00 08/21/18 15:01 DC 08/21/18 15:00 Fentanyl Citrate (Fentanyl 2ml Vial) 50 mcg PRN Q2HR PRN IV PAIN 08/21/18 17:30 08/22/18 07:28 Ondansetron HCl (Zofran) 4 mg PRN Q6HRS PRN IV NAUSEA/VOMITING 08/21/18 17:30 08/22/18 07:27 Al Hydroxide/Mg Hydroxide (Mylanta Plus Xs) 30 ml PRN Q2HR PRN PO HEARTBURN / GAS 08/21/18 17:30 08/21/18 20:59 Famotidine (Pepcid) 20 mg DAILY PO 08/22/18 09:00 08/22/18 08:49 Insulin Human Lispro (HumaLOG) 8 units TIDWMEALS SQ 08/21/18 18:00 08/21/18 18:00 Pantoprazole Sodium (Protonix) 40 mg DAILYAC PO 08/22/18 07:30 08/22/18 06:26 Insulin Glargine (Lantus) 16 units QHS SQ 08/21/18 21:00 08/21/18 20:34 Insulin Human Lispro (HumaLOG) 0-9 UNITS TIDWMEALS SQ 08/21/18 18:00 08/21/18 18:13 Oxycodone/ Acetaminophen (Percocet 5/325) 1 tab PRN Q4HRS PRN PO SEVERE PAIN 08/21/18 17:45 08/22/18 08:49 PE: GEN: uncomfortable, moaning in pain HEENT: Atraumatic, PERRL LUNGS: CTAB HEART: RRR ABD: quiet, vaguely tender epigastrium EXTREMITY: No edema SKIN: No rashes, no jaundice NEURO/PSYCH: A & O 3 A/P: A/P: Recurrent n/v, abd pain H/o GERD, gastroparesis, "[facility]" - goes to [facility] Uncontrolled DM CRC screen - reports having colonoscopy within 2 years ?h/o SBR S/p cholecystectomy +cannabinoids -- Symptoms probably multi-factorial. Continue support. 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 Didn't have any abdominal imaging - will check x-ray. Has ADA diet ordered - might be a good idea to back off and then advance as tolerated. ?Elavil Would benefit from director of sustainability. DC per primary, follow-up w/ [facility]. ANGELA RIVERO August 22, 2018 09:24
[2018-08-22] MEDS ORDERED: POLYETHYLENE GLYCOL 3350 17 GM PACKET. PO PRN (10:30)
--- NOTE | 2018-08-22 10:31 | PDOC ---
PROGRESS NOTES History of Present Illness History of Present Illness Assessment/Plan Assessment/Plan Cyclic vomiting syndrome with severe abdominal pain cramps hyperglycemia greater than 600 thc abuse vomiting not improved acute renal injury, vasomoror nephropathy Plan IV insulin IV fluid support tele monitoring Consult GI When necessary narcotics When necessary Zofran DVT prophylaxis Full code Home meds PT OT when possible Prognosis guarded add iv reglan Total time 27 minutes pt exam, chart review, > 50% of time spent with exam, chart review, pt care coordination Vitals Vitals Vital Signs Date Time Temp Pulse Resp B/P (MAP) Pulse Ox O2 Delivery O2 Flow Rate FiO2 08/22/18 10:01 Room Air 08/22/18 07:00 98.2 79 18 131/68 (89) 97 98.2 Physical Exam Physical Exam Physcial Exam: GEN.: No apparent distress. Alert and oriented. HEENT: Head is normocephalic, atraumatic NECK: Supple, no JVD LUNGS: Clear to auscultation without rhonchi or wheezing HEART: RRR, S1, S2 present. Peripheral pulses intact ABDOMEN: Tender to palpation decreased bowel sounds EXTREMITIES: Without any cyanosis, clubbing, or edema. Pedal pulses intact NEUROLOGIC: Normal speech, normal tone. A&O x 3 PSYCHIATRIC: Normal affect, normal mood. Stable SKIN: No ulcerations or rashes VASCULAR: Good capillary refill Lungs: Clear, Other Labs LABS EX: F EXAM STATUS: ADM IN ORD. PHYSICIAN: ANGELA RIVERO REASON: NAUSEA AND VOMITING PROCEDURE: ACUTE ABDOMEN SERIES Acute abdomen series with chest, 3 views, 08/22/2018: HISTORY: Nausea and vomiting There is a small amount of gas in the GI tract without significant bowel distention. No free air is seen in the abdomen. Surgical clips are present right upper quadrant. There is no evidence organomegaly. Pelvic calcifications are probably vascular. The heart size is normal. The lungs are clear. There is no evidence of pleural fluid. IMPRESSION: No acute abdominal abnormality is detected. Electronically signed by: Lalito Larson MD (08/22/2018 1:13 PM) [facility] Laboratory Tests Test 08/21/18 10:47 08/21/18 12:00 08/21/18 12:31 08/21/18 14:35 O2 Saturation 97 % (92-99) Arterial Blood pH 7.49 (7.35-7.45) Arterial Blood pCO2 at Patient Temp 36 mmHg (35-46) Arterial Blood pO2 at Patient Temp 90 mmHg (75-108) Arterial Blood HCO3 27 mmol/L (21-28) Arterial Blood Base Excess 4 mmol/L (-3-3) FiO2 21 Urine Collection Type Unknown Urine Color Yellow Urine Clarity Clear Urine pH 6.5 Urine Specific [place] >=1.030 Urine Protein Negative mg/dL (NEG-TRACE) Urine Glucose (UA) >=1000 mg/dL (NEG) Urine Ketones (Stick) >=80 mg/dL (NEG) Urine Blood Negative (NEG) Urine Nitrite Negative (NEG) Urine Bilirubin Negative (NEG) Urine Urobilinogen Dipstick 0.2 mg/dL (0.2 mg/dL) Urine Leukocyte Esterase Negative (NEG) Urine RBC 0 /HPF (0-2) Urine WBC 0 /HPF (0-4) Urine Squamous Epithelial Cells Few /LPF Urine Bacteria 0 /HPF (0-FEW) Urine Yeast Present /HPF Urine Opiates Screen Neg (NEG) Urine Methadone Screen Neg (NEG) Urine Barbiturates Neg (NEG) Urine Phencyclidine Screen Neg (NEG) Urine Amphetamine/Methamphetamine Neg (NEG) Urine Benzodiazepines Screen Neg (NEG) Urine Cocaine Screen Neg (NEG) Urine Cannabinoids Screen Pos (NEG) Urine Ethyl Alcohol Neg (NEG) Glucose (Fingerstick) 286 mg/dL (70-99) Lactic Acid Level 3.4 mmol/L (0.4-2.0) Test 08/21/18 17:30 08/21/18 20:13 08/21/18 22:34 08/22/18 07:20 Glucose (Fingerstick) 412 mg/dL (70-99) 136 mg/dL (70-99) 226 mg/dL (70-99) 99 mg/dL (70-99) Assessment and Plan Assessmemt and Plan Problems Medical Problems: (1) Anxiety Status: Acute (2) Diabetes mellitus out of control Status: Acute (3) Hyperglycemia Status: Acute (4) Intractable nausea and vomiting Status: Acute (5) Lactic acidemia Status: Acute (6) Marijuana abuse Status: Acute (7) Renal insufficiency Status: Acute Comment Review of Relevant I have reviewed the following items sheryl (where applicable) has been applied. Labs Laboratory Tests Test 08/21/18 10:25 08/21/18 10:47 08/21/18 12:00 08/21/18 12:31 White Blood Count 10.8 x10^3/uL (4.0-11.0) Red Blood Count 4.65 x10^6/uL (3.50-5.40) Hemoglobin 13.6 g/dL (12.0-15.5) Hematocrit 40.7 % (36.0-47.0) Mean Corpuscular Volume 88 fL (79-100) Mean Corpuscular Hemoglobin 29 pg (25-35) Mean Corpuscular Hemoglobin Concent 34 g/dL (31-37) Red Cell Distribution Width 15.9 % (11.5-14.5) Platelet Count 496 x10^3/uL (140-400) Neutrophils (%) (Auto) 70 % (31-73) Lymphocytes (%) (Auto) 21 % (24-48) Monocytes (%) (Auto) 8 % (0-9) Eosinophils (%) (Auto) 0 % (0-3) Basophils (%) (Auto) 0 % (0-3) Neutrophils # (Auto) 7.6 x10^3uL (1.8-7.7) Lymphocytes # (Auto) 2.3 x10^3/uL (1.0-4.8) Monocytes # (Auto) 0.9 x10^3/uL (0.0-1.1) Eosinophils # (Auto) 0.0 x10^3/uL (0.0-0.7) Basophils # (Auto) 0.0 x10^3/uL (0.0-0.2) Sodium Level 133 mmol/L (136-145) Potassium Level 3.8 mmol/L (3.5-5.1) Chloride Level 84 mmol/L (98-107) Carbon Dioxide Level 31 mmol/L (21-32) Anion Gap 18 (6-14) Blood Urea Nitrogen 19 mg/dL (7-20) Creatinine 1.3 mg/dL (0.6-1.0) Estimated GFR (Cockcroft-Gault) 44.9 BUN/Creatinine Ratio 15 (6-20) Glucose Level 605 mg/dL (70-99) Lactic Acid Level 2.8 mmol/L (0.4-2.0) Calcium Level 9.7 mg/dL (8.5-10.1) Phosphorus Level 5.4 mg/dL (2.6-4.7) Magnesium Level 2.0 mg/dL (1.8-2.4) Total Bilirubin 0.5 mg/dL (0.2-1.0) Aspartate Amino Transf (AST/SGOT) 35 U/L (15-37) Alanine Aminotransferase (ALT/SGPT) 36 U/L (14-59) Alkaline Phosphatase 113 U/L (46-116) Creatine Kinase 46 U/L (26-192) Total Protein 7.6 g/dL (6.4-8.2) Albumin 4.1 g/dL (3.4-5.0) Albumin/Globulin Ratio 1.2 (1.0-1.7) Lipase 62 U/L (73-393) Acetone Level Sm pos (NEG) O2 Saturation 97 % (92-99) Arterial Blood pH 7.49 (7.35-7.45) Arterial Blood pCO2 at Patient Temp 36 mmHg (35-46) Arterial Blood pO2 at Patient Temp 90 mmHg (75-108) Arterial Blood HCO3 27 mmol/L (21-28) Arterial Blood Base Excess 4 mmol/L (-3-3) FiO2 21 Urine Collection Type Unknown Urine Color Yellow Urine Clarity Clear Urine pH 6.5 Urine Specific [place] >=1.030 Urine Protein Negative mg/dL (NEG-TRACE) Urine Glucose (UA) >=1000 mg/dL (NEG) Urine Ketones (Stick) >=80 mg/dL (NEG) Urine Blood Negative (NEG) Urine Nitrite Negative (NEG) Urine Bilirubin Negative (NEG) Urine Urobilinogen Dipstick 0.2 mg/dL (0.2 mg/dL) Urine Leukocyte Esterase Negative (NEG) Urine RBC 0 /HPF (0-2) Urine WBC 0 /HPF (0-4) Urine Squamous Epithelial Cells Few /LPF Urine Bacteria 0 /HPF (0-FEW) Urine Yeast Present /HPF Urine Opiates Screen Neg (NEG) Urine Methadone Screen Neg (NEG) Urine Barbiturates Neg (NEG) Urine Phencyclidine Screen Neg (NEG) Urine Amphetamine/Methamphetamine Neg (NEG) Urine Benzodiazepines Screen Neg (NEG) Urine Cocaine Screen Neg (NEG) Urine Cannabinoids Screen Pos (NEG) Urine Ethyl Alcohol Neg (NEG) Glucose (Fingerstick) 286 mg/dL (70-99) Test 08/21/18 14:35 08/21/18 17:30 08/21/18 20:13 08/21/18 22:34 Lactic Acid Level 3.4 mmol/L (0.4-2.0) Glucose (Fingerstick) 412 mg/dL (70-99) 136 mg/dL (70-99) 226 mg/dL (70-99) Test 08/22/18 07:20 Glucose (Fingerstick) 99 mg/dL (70-99) Laboratory Tests Test 08/21/18 10:47 08/21/18 12:00 08/21/18 12:31 08/21/18 14:35 O2 Saturation 97 % (92-99) Arterial Blood pH 7.49 (7.35-7.45) Arterial Blood pCO2 at Patient Temp 36 mmHg (35-46) Arterial Blood pO2 at Patient Temp 90 mmHg (75-108) Arterial Blood HCO3 27 mmol/L (21-28) Arterial Blood Base Excess 4 mmol/L (-3-3) FiO2 21 Urine Collection Type Unknown Urine Color Yellow Urine Clarity Clear Urine pH 6.5 Urine Specific [place] >=1.030 Urine Protein Negative mg/dL (NEG-TRACE) Urine Glucose (UA) >=1000 mg/dL (NEG) Urine Ketones (Stick) >=80 mg/dL (NEG) Urine Blood Negative (NEG) Urine Nitrite Negative (NEG) Urine Bilirubin Negative (NEG) Urine Urobilinogen Dipstick 0.2 mg/dL (0.2 mg/dL) Urine Leukocyte Esterase Negative (NEG) Urine RBC 0 /HPF (0-2) Urine WBC 0 /HPF (0-4) Urine Squamous Epithelial Cells Few /LPF Urine Bacteria 0 /HPF (0-FEW) Urine Yeast Present /HPF Urine Opiates Screen Neg (NEG) Urine Methadone Screen Neg (NEG) Urine Barbiturates Neg (NEG) Urine Phencyclidine Screen Neg (NEG) Urine Amphetamine/Methamphetamine Neg (NEG) Urine Benzodiazepines Screen Neg (NEG) Urine Cocaine Screen Neg (NEG) Urine Cannabinoids Screen Pos (NEG) Urine Ethyl Alcohol Neg (NEG) Glucose (Fingerstick) 286 mg/dL (70-99) Lactic Acid Level 3.4 mmol/L (0.4-2.0) Test 08/21/18 17:30 08/21/18 20:13 08/21/18 22:34 08/22/18 07:20 Glucose (Fingerstick) 412 mg/dL (70-99) 136 mg/dL (70-99) 226 mg/dL (70-99) 99 mg/dL (70-99) Medications Current Medications Sodium Chloride 1,000 ml @ 1,000 mls/hr Q1H IV Last administered on 08/21/18 11:15; Start 08/21/18 at 10:47; Stop 08/21/18 at 11:46; Status DC Fentanyl Citrate (Fentanyl 2ml Vial) 50 mcg 1X ONCE IV Last administered on 08/21/18 11:18; Start 08/21/18 at 11:00; Stop 08/21/18 at 11:01; Status DC Ondansetron HCl (Zofran) 4 mg 1X ONCE IV Last administered on 08/21/18 11:15; Start 08/21/18 at 11:00; Stop 08/21/18 at 11:01; Status DC Insulin Human Regular (HumuLIN R VIAL) 10 unit 1X ONCE IV Last administered on 08/21/18 11:14; Start 08/21/18 at 11:00; Stop 08/21/18 at 11:01; Status DC Sodium Chloride 1,000 ml @ 1,000 mls/hr 1X ONCE IV Last administered on 08/21/18 11:15; Start 08/21/18 at 11:00; Stop 08/21/18 at 11:59; Status DC Metoclopramide HCl (Reglan Vial) 10 mg 1X ONCE IV Last administered on 08/21/18 12:05; Start 08/21/18 at 11:45; Stop 08/21/18 at 11:51; Status DC Hydromorphone HCl (Dilaudid) 1 mg 1X ONCE IV Last administered on 08/21/18 12:05; Start 08/21/18 at 11:45; Stop 08/21/18 at 11:51; Status DC Ceftriaxone Sodium (Rocephin) 1 gm 1X ONCE IVP Last administered on 08/21/18 12:43; Start 08/21/18 at 12:00; Stop 08/21/18 at 12:01; Status DC Metoclopramide HCl (Reglan Vial) 10 mg STK-MED ONCE .ROUTE ; Start 08/21/18 at 11:52; Stop 08/21/18 at 11:53; Status DC Hydromorphone HCl (Dilaudid) 2 mg STK-MED ONCE .ROUTE ; Start 08/21/18 at 11:52; Stop 08/21/18 at 11:53; Status DC Sodium Chloride 1,000 ml @ 200 mls/hr Q5H IV Last administered on 08/22/18at 06:27; Start 08/21/18 at 11:54; Stop 08/22/18 at 11:53 Insulin Human Regular 150 unit/ Sodium Chloride 151.5 ml @ 0 mls/hr CONT PRN IV SEE I/O RECORD; Start 08/21/18 at 12:00 Insulin Human Regular 150 ml @ 5.6 mls/hr 1X ONCE IV ; Start 08/21/18 at 12:00; Stop 08/22/18 at 14:27 Pharmacy Consult (C.diff Med Screen By Rx) 1 each 1X ONCE MC Last administered on 08/21/18at 15:00; Start 08/21/18 at 15:00; Stop 08/21/18 at 15:01; Status DC Fentanyl Citrate (Fentanyl 2ml Vial) 50 mcg PRN Q2HR PRN IV PAIN Last administered on 08/22/18at 07:28; Start 08/21/18 at 17:30 Ondansetron HCl (Zofran) 4 mg PRN Q6HRS PRN IV NAUSEA/VOMITING Last administered on 08/22/18at 07:27; Start 08/21/18 at 17:30 Al Hydroxide/Mg Hydroxide (Mylanta Plus Xs) 30 ml PRN Q2HR PRN PO HEARTBURN / GAS Last administered on 08/21/18at 20:59; Start 08/21/18 at 17:30 Famotidine (Pepcid) 20 mg DAILY PO Last administered on 08/22/18at 08:49; Start 08/22/18 at 09:00; Stop 08/22/18 at 10:26; Status DC Insulin Human Lispro (HumaLOG) 8 units TIDWMEALS SQ Last administered on 08/21/18at 18:00; Start 08/21/18 at 18:00 Pantoprazole Sodium (Protonix) 40 mg DAILYAC PO Last administered on 5/24/19at 06:26; Start 08/22/18 at 07:30; Stop 08/22/18 at 10:26; Status DC Insulin Glargine (Lantus) 16 units QHS SQ Last administered on 08/21/18at 20:34; Start 08/21/18 at 21:00 Insulin Human Lispro (HumaLOG) 0-5 UNITS TIDWMEALS SQ ; Start 08/22/18 at 08:00; Status Cancel Dextrose (Dextrose 50%-Water Syringe) 12.5 gm PRN Q15MIN PRN IV SEE COMMENTS; Start 08/21/18 at 17:45; Status Cancel Acetaminophen (Tylenol) 500 mg PRN Q6HRS PRN PO MILD PAIN / TEMP; Start 08/21/18 at 17:45 Insulin Human Lispro (HumaLOG) 0-9 UNITS TIDWMEALS SQ Last administered on 08/21/18at 18:13; Start 08/21/18 at 18:00 Dextrose (Dextrose 50%-Water Syringe) 12.5 gm PRN Q15MIN PRN IV SEE COMMENTS; Start 08/21/18 at 17:45 Oxycodone/ Acetaminophen (Percocet 5/325) 1 tab PRN Q4HRS PRN PO SEVERE PAIN Last administered on 08/22/18at 08:49; Start 08/21/18 at 17:45 Zolpidem Tartrate (Ambien) 5 mg PRN QHS PRN PO INSOMNIA; Start 08/21/18 at 17:45 Metoclopramide HCl (Reglan Vial) 10 mg PRN Q6HRS PRN IV NAUSEA/VOMITING; Start 08/22/18 at 09:15 Famotidine (Pepcid Vial) 20 mg BID IVP ; Start 08/22/18 at 21:00 Polyethylene Glycol (miraLAX PACKET) 17 gm PRN DAILY PRN PO CONSTIPATION; Start 08/22/18 at 10:30 Active Scripts Active Famotidine 20 Mg Tablet 20 Mg PO DAILY MDD 1 Lisinopril 40 Mg Tablet 20 Mg PO DAILY MDD 1 Erythromycin (Erythromycin Base) 250 Mg Tablet 250 Mg PO TIDAC MDD 1 7 Days [Fluconazole] 100 MG Tablet 200 Mg PO DAILY MDD 1 6 Days Doxycycline Hyclate 100 Mg Tablet 100 Mg PO BID MDD 1 7 Days Amox Tr-K Clv 875-125 Mg Tab (Amoxicillin/Potassium Clav) 1 Each Tablet 1 Tab PO BID MDD 1 7 Days Reported Protonix (Pantoprazole Sodium) 20 Mg Tablet.dr 20 Mg PO DAILY Lisinopril 40 Mg Tablet 1 Tab PO DAILY Novolog (Insulin Aspart) 100 Unit/1 Ml Cartridge 8 Unit SQ MEAL PRN Vitals/I & O Vital Sign - Last 24 Hours 08/21/18 08/21/18 08/21/18 08/21/18 10:42 11:00 11:41 12:41 Temp 97.5 97.5 Pulse 96 93 86 88 Resp 22 B/P (MAP) 222/98 (139) 222/98 (139) 186/87 (120) 113/63 (80) Pulse Ox 99 100 99 96 O2 Delivery Room Air Room Air Room Air Room Air 08/21/18 08/21/18 08/21/18 08/21/18 13:41 14:49 15:00 16:48 Pulse 94 90 Resp 29 B/P (MAP) 111/59 (76) 140/75 (96) Pulse Ox 96 100 O2 Delivery Room Air Room Air Room Air Room Air 08/21/18 08/21/18 08/21/18 08/21/18 17:00 17:52 18:00 18:55 Pulse 90 90 Resp 21 14 B/P (MAP) 136/67 (90) 141/77 (98) Pulse Ox 100 100 100 O2 Delivery Room Air Room Air Room Air 08/21/18 08/21/18 08/21/18 08/21/18 19:00 20:00 20:00 21:00 Temp 98.9 98.9 Pulse 86 90 101 B/P (MAP) 131/71 (91) 117/57 (77) 111/69 (83) Pulse Ox 100 99 95 O2 Delivery Room Air Room Air Room Air Room Air 08/21/18 08/21/18 08/21/18 08/22/18 22:10 22:41 23:00 04:00 Temp 98.8 97.9 98.8 97.9 Pulse 96 79 B/P (MAP) 123/63 (83) 119/69 (86) Pulse Ox 90 98 O2 Delivery Room Air Room Air Room Air Room Air 08/22/18 08/22/18 08/22/18 08/22/18 07:00 07:15 07:28 08:17 Temp 98.2 98.2 Pulse 79 Resp 18 B/P (MAP) 131/68 (89) Pulse Ox 97 O2 Delivery Room Air Room Air Room Air Room Air 08/22/18 08/22/18 08:49 10:01 O2 Delivery Room Air Room Air Intake and Output 08/21/18 08/21/18 08/22/18 15:00 23:00 07:00 Intake Total 810 ml 540 ml Balance 810 ml 540 ml DEEPTI ZHAO MD August 22, 2018 10:31
[2018-08-22] MEDS: METOCLOPRAMIDE HCL 10 MG/2 ML VIAL. IV PRN ×3 (10:43→23:51)
[2018-08-22 11:00] VITALS: BP 180/94
--- NOTE | 2018-08-22 12:15 | NUR ---
SW following for discharge planning. Discussed with RN, pt is from home with family, gets around fine. RN advised no SW needs at this time. SW will continue to follow.
--- NOTE | 2018-08-22 13:16 | RAD ---
Acute abdomen series with chest, 3 views, 08/22/2018: HISTORY: Nausea and vomiting There is a small amount of gas in the GI tract without significant bowel distention. No free air is seen in the abdomen. Surgical clips are present right upper quadrant. There is no evidence organomegaly. Pelvic calcifications are probably vascular. The heart size is normal. The lungs are clear. There is no evidence of pleural fluid. IMPRESSION: No acute abdominal abnormality is detected. Electronically signed by: Lalito Larson MD (08/22/2018 1:13 PM) [facility]
--- NOTE | 2018-08-22 13:55 | NUR ---
Pt. vomiting, IVF from ER not longer on MAY. Dr. Partida notified, orders received.
[2018-08-22 15:00] VITALS: BP 132/76
--- NOTE | 2018-08-22 16:51 | NUR ---
BS 57, assymptomatic. Apple juice given with dinner.
[2018-08-22] MEDS: NICOTINE 14MG PATCH. TD PRN (17:36)
--- NOTE | 2018-08-22 17:40 | NUR ---
BS rechecked, 64. Pt. c/o pain to abd and tightness in chest. pt. states she feels anxious as well. denies SOB. Pt. also vomiting. BP 160/91, HR 94
[2018-08-22 19:00] VITALS: BP 147/81
[2018-08-22] MEDS: FAMOTIDINE 20 MG/2 ML VIAL IVP SCH (20:22)
[2018-08-22] MEDS: INSULIN GLARGINE 300 UNITS/3 ML INSULN.PEN. SQ SCH (20:30)
[2018-08-22 22:30] VITALS: BP 152/89
[2018-08-22] MEDS: ZOLPIDEM 5 MG TABLET. PO PRN (23:51)
[2018-08-23] MEDS: fentaNYL PF VIAL 100 MCG/2 ML VIAL IV PRN ×8 (00:38→23:52)
[2018-08-23] MEDS: ONDANSETRON PF 4 MG/2 ML VIAL. IV PRN ×3 (05:24→21:35)
[2018-08-23] MEDS: IV NORMAL SALINE 1000ML BAG 1,000 ML IV SCH ×3 (05:25→18:24)
[2018-08-23 05:28] VITALS: BP 145/86
[2018-08-23 05:55] LABS: BASO % 1 % (0-3); EOS # 0.3 x10^3/uL (0.0-0.7); EOS % 5 % (0-3); HEMOGLOBIN 12.1 g/dL (12.0-15.5); LYMPH # 3.5 x10^3/uL (1.0-4.8); LYMPH % 57 % (24-48); MEAN CORPUSCULAR HEMOGLOBIN 30 pg (25-35); MEAN CORPUSCULAR HGB CONC 34 g/dL (31-37); MEAN CORPUSCULAR VOLUME 89 fL (79-100); MONO # 0.4 x10^3/uL (0.0-1.1); MONO % 6 % (0-9); NEUT % 32 % (31-73); PLATELET COUNT 316 x10^3/uL (140-400); RED BLOOD COUNT 4.06 x10^6/uL (3.50-5.40); RED CELL DISTRIBUTION WIDTH 15.6 % (11.5-14.5); WHITE BLOOD COUNT 6.2 x10^3/uL (4.0-11.0)
[2018-08-23 06:08] LABS: ALBUMIN 2.9 g/dL (3.4-5.0); CALCIUM 7.9 mg/dL (8.5-10.1); CREATININE 0.8 mg/dL (0.6-1.0); GFR 78.7; POTASSIUM 3.7 mmol/L (3.5-5.1); TOTAL BILIRUBIN 0.1 mg/dL (0.2-1.0); TOTAL PROTEIN 5.7 g/dL (6.4-8.2)
[2018-08-23 07:00] VITALS: BP 154/92
[2018-08-23] MEDS: INSULIN LISPRO 300 UNITS/3 ML INSULN.PEN. SQ SCH ×6 (08:00→17:01)
[2018-08-23] MEDS: FAMOTIDINE 20 MG/2 ML VIAL IVP SCH ×2 (09:05→21:35)
[2018-08-23] MEDS: METOCLOPRAMIDE HCL 10 MG/2 ML VIAL. IV PRN ×2 (09:05→16:54)
--- NOTE | 2018-08-23 10:09 | PDOC ---
PROGRESS NOTES History of Present Illness History of Present Illness Assessment/Plan Assessment/Plan Cyclic vomiting syndrome with severe abdominal pain cramps hyperglycemia greater than 600 thc abuse vomiting not improved acute renal injury, vasomoror nephropathy Plan IV insulin IV fluid support tele monitoring Consult GI When necessary narcotics When necessary Zofran DVT prophylaxis Full code Home meds PT OT when possible Prognosis guarded add iv reglan Total time 24 minutes pt exam, chart review, > 50% of time spent with exam, chart review, pt care coordination Vitals Vitals Vital Signs Date Time Temp Pulse Resp B/P (MAP) Pulse Ox O2 Delivery O2 Flow Rate FiO2 08/23/18 09:36 Room Air 08/23/18 07:00 98.5 79 18 154/92 (112) 99 98.5 Physical Exam Physical Exam Physcial Exam: GEN.: No apparent distress. Alert and oriented. HEENT: Head is normocephalic, atraumatic NECK: Supple, no JVD LUNGS: Clear to auscultation without rhonchi or wheezing HEART: RRR, S1, S2 present. Peripheral pulses intact ABDOMEN: Tender to palpation decreased bowel sounds EXTREMITIES: Without any cyanosis, clubbing, or edema. Pedal pulses intact NEUROLOGIC: Normal speech, normal tone. A&O x 3 PSYCHIATRIC: Normal affect, normal mood. Stable SKIN: No ulcerations or rashes VASCULAR: Good capillary refill General: Alert, Oriented X3, Cooperative, mild distress Heart: Regular rate, No murmurs Lungs: Clear, Other Abdomen: Soft Extremities: No cyanosis Labs LABS Laboratory Tests Test 08/22/18 11:51 08/22/18 16:44 08/22/18 17:28 08/22/18 20:24 Glucose (Fingerstick) 287 mg/dL (70-99) 57 mg/dL (70-99) 69 mg/dL (70-99) 176 mg/dL (70-99) Test 08/23/18 04:56 08/23/18 07:48 White Blood Count 6.2 x10^3/uL (4.0-11.0) Red Blood Count 4.06 x10^6/uL (3.50-5.40) Hemoglobin 12.1 g/dL (12.0-15.5) Hematocrit 36.0 % (36.0-47.0) Mean Corpuscular Volume 89 fL (79-100) Mean Corpuscular Hemoglobin 30 pg (25-35) Mean Corpuscular Hemoglobin Concent 34 g/dL (31-37) Red Cell Distribution Width 15.6 % (11.5-14.5) Platelet Count 316 x10^3/uL (140-400) Neutrophils (%) (Auto) 32 % (31-73) Lymphocytes (%) (Auto) 57 % (24-48) Monocytes (%) (Auto) 6 % (0-9) Eosinophils (%) (Auto) 5 % (0-3) Basophils (%) (Auto) 1 % (0-3) Neutrophils # (Auto) 2.0 x10^3uL (1.8-7.7) Lymphocytes # (Auto) 3.5 x10^3/uL (1.0-4.8) Monocytes # (Auto) 0.4 x10^3/uL (0.0-1.1) Eosinophils # (Auto) 0.3 x10^3/uL (0.0-0.7) Basophils # (Auto) 0.0 x10^3/uL (0.0-0.2) Sodium Level 140 mmol/L (136-145) Potassium Level 3.7 mmol/L (3.5-5.1) Chloride Level 106 mmol/L (98-107) Carbon Dioxide Level 25 mmol/L (21-32) Anion Gap 9 (6-14) Blood Urea Nitrogen 2 mg/dL (7-20) Creatinine 0.8 mg/dL (0.6-1.0) Estimated GFR (Cockcroft-Gault) 78.7 BUN/Creatinine Ratio 3 (6-20) Glucose Level 202 mg/dL (70-99) Calcium Level 7.9 mg/dL (8.5-10.1) Total Bilirubin 0.1 mg/dL (0.2-1.0) Aspartate Amino Transf (AST/SGOT) 52 U/L (15-37) Alanine Aminotransferase (ALT/SGPT) 45 U/L (14-59) Alkaline Phosphatase 93 U/L (46-116) Total Protein 5.7 g/dL (6.4-8.2) Albumin 2.9 g/dL (3.4-5.0) Albumin/Globulin Ratio 1.0 (1.0-1.7) Glucose (Fingerstick) 181 mg/dL (70-99) Assessment and Plan Assessmemt and Plan Problems Medical Problems: (1) Anxiety Status: Acute (2) Diabetes mellitus out of control Status: Acute (3) Hyperglycemia Status: Acute (4) Intractable nausea and vomiting Status: Acute (5) Lactic acidemia Status: Acute (6) Marijuana abuse Status: Acute (7) Renal insufficiency Status: Acute Comment Review of Relevant I have reviewed the following items sheryl (where applicable) has been applied. Labs Laboratory Tests Test 08/21/18 10:25 08/21/18 10:47 08/21/18 12:00 08/21/18 12:31 White Blood Count 10.8 x10^3/uL (4.0-11.0) Red Blood Count 4.65 x10^6/uL (3.50-5.40) Hemoglobin 13.6 g/dL (12.0-15.5) Hematocrit 40.7 % (36.0-47.0) Mean Corpuscular Volume 88 fL (79-100) Mean Corpuscular Hemoglobin 29 pg (25-35) Mean Corpuscular Hemoglobin Concent 34 g/dL (31-37) Red Cell Distribution Width 15.9 % (11.5-14.5) Platelet Count 496 x10^3/uL (140-400) Neutrophils (%) (Auto) 70 % (31-73) Lymphocytes (%) (Auto) 21 % (24-48) Monocytes (%) (Auto) 8 % (0-9) Eosinophils (%) (Auto) 0 % (0-3) Basophils (%) (Auto) 0 % (0-3) Neutrophils # (Auto) 7.6 x10^3uL (1.8-7.7) Lymphocytes # (Auto) 2.3 x10^3/uL (1.0-4.8) Monocytes # (Auto) 0.9 x10^3/uL (0.0-1.1) Eosinophils # (Auto) 0.0 x10^3/uL (0.0-0.7) Basophils # (Auto) 0.0 x10^3/uL (0.0-0.2) Sodium Level 133 mmol/L (136-145) Potassium Level 3.8 mmol/L (3.5-5.1) Chloride Level 84 mmol/L (98-107) Carbon Dioxide Level 31 mmol/L (21-32) Anion Gap 18 (6-14) Blood Urea Nitrogen 19 mg/dL (7-20) Creatinine 1.3 mg/dL (0.6-1.0) Estimated GFR (Cockcroft-Gault) 44.9 BUN/Creatinine Ratio 15 (6-20) Glucose Level 605 mg/dL (70-99) Lactic Acid Level 2.8 mmol/L (0.4-2.0) Calcium Level 9.7 mg/dL (8.5-10.1) Phosphorus Level 5.4 mg/dL (2.6-4.7) Magnesium Level 2.0 mg/dL (1.8-2.4) Total Bilirubin 0.5 mg/dL (0.2-1.0) Aspartate Amino Transf (AST/SGOT) 35 U/L (15-37) Alanine Aminotransferase (ALT/SGPT) 36 U/L (14-59) Alkaline Phosphatase 113 U/L (46-116) Creatine Kinase 46 U/L (26-192) Total Protein 7.6 g/dL (6.4-8.2) Albumin 4.1 g/dL (3.4-5.0) Albumin/Globulin Ratio 1.2 (1.0-1.7) Lipase 62 U/L (73-393) Acetone Level Sm pos (NEG) O2 Saturation 97 % (92-99) Arterial Blood pH 7.49 (7.35-7.45) Arterial Blood pCO2 at Patient Temp 36 mmHg (35-46) Arterial Blood pO2 at Patient Temp 90 mmHg (75-108) Arterial Blood HCO3 27 mmol/L (21-28) Arterial Blood Base Excess 4 mmol/L (-3-3) FiO2 21 Urine Collection Type Unknown Urine Color Yellow Urine Clarity Clear Urine pH 6.5 Urine Specific [place] >=1.030 Urine Protein Negative mg/dL (NEG-TRACE) Urine Glucose (UA) >=1000 mg/dL (NEG) Urine Ketones (Stick) >=80 mg/dL (NEG) Urine Blood Negative (NEG) Urine Nitrite Negative (NEG) Urine Bilirubin Negative (NEG) Urine Urobilinogen Dipstick 0.2 mg/dL (0.2 mg/dL) Urine Leukocyte Esterase Negative (NEG) Urine RBC 0 /HPF (0-2) Urine WBC 0 /HPF (0-4) Urine Squamous Epithelial Cells Few /LPF Urine Bacteria 0 /HPF (0-FEW) Urine Yeast Present /HPF Urine Opiates Screen Neg (NEG) Urine Methadone Screen Neg (NEG) Urine Barbiturates Neg (NEG) Urine Phencyclidine Screen Neg (NEG) Urine Amphetamine/Methamphetamine Neg (NEG) Urine Benzodiazepines Screen Neg (NEG) Urine Cocaine Screen Neg (NEG) Urine Cannabinoids Screen Pos (NEG) Urine Ethyl Alcohol Neg (NEG) Glucose (Fingerstick) 286 mg/dL (70-99) Test 08/21/18 14:35 08/21/18 17:30 08/21/18 20:13 08/21/18 22:34 Lactic Acid Level 3.4 mmol/L (0.4-2.0) Glucose (Fingerstick) 412 mg/dL (70-99) 136 mg/dL (70-99) 226 mg/dL (70-99) Test 08/22/18 07:20 08/22/18 11:51 08/22/18 16:44 08/22/18 17:28 Glucose (Fingerstick) 99 mg/dL (70-99) 287 mg/dL (70-99) 57 mg/dL (70-99) 69 mg/dL (70-99) Test 08/22/18 20:24 08/23/18 04:56 08/23/18 07:48 Glucose (Fingerstick) 176 mg/dL (70-99) 181 mg/dL (70-99) White Blood Count 6.2 x10^3/uL (4.0-11.0) Red Blood Count 4.06 x10^6/uL (3.50-5.40) Hemoglobin 12.1 g/dL (12.0-15.5) Hematocrit 36.0 % (36.0-47.0) Mean Corpuscular Volume 89 fL (79-100) Mean Corpuscular Hemoglobin 30 pg (25-35) Mean Corpuscular Hemoglobin Concent 34 g/dL (31-37) Red Cell Distribution Width 15.6 % (11.5-14.5) Platelet Count 316 x10^3/uL (140-400) Neutrophils (%) (Auto) 32 % (31-73) Lymphocytes (%) (Auto) 57 % (24-48) Monocytes (%) (Auto) 6 % (0-9) Eosinophils (%) (Auto) 5 % (0-3) Basophils (%) (Auto) 1 % (0-3) Neutrophils # (Auto) 2.0 x10^3uL (1.8-7.7) Lymphocytes # (Auto) 3.5 x10^3/uL (1.0-4.8) Monocytes # (Auto) 0.4 x10^3/uL (0.0-1.1) Eosinophils # (Auto) 0.3 x10^3/uL (0.0-0.7) Basophils # (Auto) 0.0 x10^3/uL (0.0-0.2) Sodium Level 140 mmol/L (136-145) Potassium Level 3.7 mmol/L (3.5-5.1) Chloride Level 106 mmol/L (98-107) Carbon Dioxide Level 25 mmol/L (21-32) Anion Gap 9 (6-14) Blood Urea Nitrogen 2 mg/dL (7-20) Creatinine 0.8 mg/dL (0.6-1.0) Estimated GFR (Cockcroft-Gault) 78.7 BUN/Creatinine Ratio 3 (6-20) Glucose Level 202 mg/dL (70-99) Calcium Level 7.9 mg/dL (8.5-10.1) Total Bilirubin 0.1 mg/dL (0.2-1.0) Aspartate Amino Transf (AST/SGOT) 52 U/L (15-37) Alanine Aminotransferase (ALT/SGPT) 45 U/L (14-59) Alkaline Phosphatase 93 U/L (46-116) Total Protein 5.7 g/dL (6.4-8.2) Albumin 2.9 g/dL (3.4-5.0) Albumin/Globulin Ratio 1.0 (1.0-1.7) Laboratory Tests Test 08/22/18 11:51 08/22/18 16:44 08/22/18 17:28 08/22/18 20:24 Glucose (Fingerstick) 287 mg/dL (70-99) 57 mg/dL (70-99) 69 mg/dL (70-99) 176 mg/dL (70-99) Test 08/23/18 04:56 08/23/18 07:48 White Blood Count 6.2 x10^3/uL (4.0-11.0) Red Blood Count 4.06 x10^6/uL (3.50-5.40) Hemoglobin 12.1 g/dL (12.0-15.5) Hematocrit 36.0 % (36.0-47.0) Mean Corpuscular Volume 89 fL (79-100) Mean Corpuscular Hemoglobin 30 pg (25-35) Mean Corpuscular Hemoglobin Concent 34 g/dL (31-37) Red Cell Distribution Width 15.6 % (11.5-14.5) Platelet Count 316 x10^3/uL (140-400) Neutrophils (%) (Auto) 32 % (31-73) Lymphocytes (%) (Auto) 57 % (24-48) Monocytes (%) (Auto) 6 % (0-9) Eosinophils (%) (Auto) 5 % (0-3) Basophils (%) (Auto) 1 % (0-3) Neutrophils # (Auto) 2.0 x10^3uL (1.8-7.7) Lymphocytes # (Auto) 3.5 x10^3/uL (1.0-4.8) Monocytes # (Auto) 0.4 x10^3/uL (0.0-1.1) Eosinophils # (Auto) 0.3 x10^3/uL (0.0-0.7) Basophils # (Auto) 0.0 x10^3/uL (0.0-0.2) Sodium Level 140 mmol/L (136-145) Potassium Level 3.7 mmol/L (3.5-5.1) Chloride Level 106 mmol/L (98-107) Carbon Dioxide Level 25 mmol/L (21-32) Anion Gap 9 (6-14) Blood Urea Nitrogen 2 mg/dL (7-20) Creatinine 0.8 mg/dL (0.6-1.0) Estimated GFR (Cockcroft-Gault) 78.7 BUN/Creatinine Ratio 3 (6-20) Glucose Level 202 mg/dL (70-99) Calcium Level 7.9 mg/dL (8.5-10.1) Total Bilirubin 0.1 mg/dL (0.2-1.0) Aspartate Amino Transf (AST/SGOT) 52 U/L (15-37) Alanine Aminotransferase (ALT/SGPT) 45 U/L (14-59) Alkaline Phosphatase 93 U/L (46-116) Total Protein 5.7 g/dL (6.4-8.2) Albumin 2.9 g/dL (3.4-5.0) Albumin/Globulin Ratio 1.0 (1.0-1.7) Glucose (Fingerstick) 181 mg/dL (70-99) Medications Current Medications Sodium Chloride 1,000 ml @ 1,000 mls/hr Q1H IV Last administered on 08/21/18 11:15; Start 08/21/18 at 10:47; Stop 08/21/18 at 11:46; Status DC Fentanyl Citrate (Fentanyl 2ml Vial) 50 mcg 1X ONCE IV Last administered on 08/21/18 11:18; Start 08/21/18 at 11:00; Stop 08/21/18 at 11:01; Status DC Ondansetron HCl (Zofran) 4 mg 1X ONCE IV Last administered on 08/21/18 11:15; Start 08/21/18 at 11:00; Stop 08/21/18 at 11:01; Status DC Insulin Human Regular (HumuLIN R VIAL) 10 unit 1X ONCE IV Last administered on 08/21/18 11:14; Start 08/21/18 at 11:00; Stop 08/21/18 at 11:01; Status DC Sodium Chloride 1,000 ml @ 1,000 mls/hr 1X ONCE IV Last administered on 11:15; Start 08/21/18 at 11:00; Stop 08/21/18 at 11:59; Status DC Metoclopramide HCl (Reglan Vial) 10 mg 1X ONCE IV Last administered on 08/21/18 12:05; Start 08/21/18 at 11:45; Stop 08/21/18 at 11:51; Status DC Hydromorphone HCl (Dilaudid) 1 mg 1X ONCE IV Last administered on 08/21/18 12:05; Start 08/21/18 at 11:45; Stop 08/21/18 at 11:51; Status DC Ceftriaxone Sodium (Rocephin) 1 gm 1X ONCE IVP Last administered on 08/21/18 12:43; Start 08/21/18 at 12:00; Stop 08/21/18 at 12:01; Status DC Metoclopramide HCl (Reglan Vial) 10 mg STK-MED ONCE .ROUTE ; Start 08/21/18 at 11:52; Stop 08/21/18 at 11:53; Status DC Hydromorphone HCl (Dilaudid) 2 mg STK-MED ONCE .ROUTE ; Start 08/21/18 at 11:52; Stop 08/21/18 at 11:53; Status DC Sodium Chloride 1,000 ml @ 200 mls/hr Q5H IV Last administered on 08/22/18at 06:27; Start 08/21/18 at 11:54; Stop 08/22/18 at 11:53; Status DC Insulin Human Regular 150 unit/ Sodium Chloride 151.5 ml @ 0 mls/hr CONT PRN IV SEE I/O RECORD; Start 08/21/18 at 12:00 Insulin Human Regular 150 ml @ 5.6 mls/hr 1X ONCE IV ; Start 08/21/18 at 12:00; Stop 08/22/18 at 14:27; Status DC Pharmacy Consult (C.diff Med Screen By Rx) 1 each 1X ONCE MC Last administered on 08/21/18at 15:00; Start 08/21/18 at 15:00; Stop 08/21/18 at 15:01; Status DC Fentanyl Citrate (Fentanyl 2ml Vial) 50 mcg PRN Q2HR PRN IV PAIN Last administered on 08/23/18at 09:06; Start 08/21/18 at 17:30 Ondansetron HCl (Zofran) 4 mg PRN Q6HRS PRN IV NAUSEA/VOMITING Last administered on 08/23/18at 05:24; Start 08/21/18 at 17:30 Al Hydroxide/Mg Hydroxide (Mylanta Plus Xs) 30 ml PRN Q2HR PRN PO HEARTBURN / GAS Last administered on 08/21/18at 20:59; Start 08/21/18 at 17:30 Famotidine (Pepcid) 20 mg DAILY PO Last administered on 08/22/18at 08:49; Start 08/22/18 at 09:00; Stop 08/22/18 at 10:26; Status DC Insulin Human Lispro (HumaLOG) 8 units TIDWMEALS SQ Last administered on 08/23/18 08:21; Start 08/21/18 at 18:00 Pantoprazole Sodium (Protonix) 40 mg DAILYAC PO Last administered on 08/22/18 06:26; Start 08/22/18 at 07:30; Stop 08/22/18 at 10:26; Status DC Insulin Glargine (Lantus) 16 units QHS SQ Last administered on 08/22/18 20:30; Start 08/21/18 at 21:00 Insulin Human Lispro (HumaLOG) 0-5 UNITS TIDWMEALS SQ ; Start 08/22/18 at 08:00; Status Cancel Dextrose (Dextrose 50%-Water Syringe) 12.5 gm PRN Q15MIN PRN IV SEE COMMENTS; Start 08/21/18 at 17:45; Status Cancel Acetaminophen (Tylenol) 500 mg PRN Q6HRS PRN PO MILD PAIN / TEMP; Start 08/21/18 at 17:45 Insulin Human Lispro (HumaLOG) 0-9 UNITS TIDWMEALS SQ Last administered on 08/22/18at 12:03; Start 08/21/18 at 18:00 Dextrose (Dextrose 50%-Water Syringe) 12.5 gm PRN Q15MIN PRN IV SEE COMMENTS; Start 08/21/18 at 17:45 Oxycodone/ Acetaminophen (Percocet 5/325) 1 tab PRN Q4HRS PRN PO SEVERE PAIN Last administered on 08/22/18 08:49; Start 08/21/18 at 17:45 Zolpidem Tartrate (Ambien) 5 mg PRN QHS PRN PO INSOMNIA Last administered on 08/22/18 23:51; Start 08/21/18 at 17:45 Metoclopramide HCl (Reglan Vial) 10 mg PRN Q6HRS PRN IV NAUSEA/VOMITING Last administered on 08/23/18 09:05; Start 08/22/18 at 09:15 Famotidine (Pepcid Vial) 20 mg BID IVP Last administered on 08/23/18 09:05; Start 08/22/18 at 21:00 Polyethylene Glycol (miraLAX PACKET) 17 gm PRN DAILY PRN PO CONSTIPATION; Start 08/22/18 at 10:30 Sodium Chloride 1,000 ml @ 150 mls/hr Q6H40M IV Last administered on 08/23/18at 05:25; Start 08/22/18 at 14:00 Nicotine (Nicoderm Cq 14mg) 1 patch PRN DAILY PRN TD SMOKING CESSATION Last administered on 08/22/18at 17:36; Start 08/22/18 at 16:45 Active Scripts Active Famotidine 20 Mg Tablet 20 Mg PO DAILY MDD 1 Lisinopril 40 Mg Tablet 20 Mg PO DAILY MDD 1 Erythromycin (Erythromycin Base) 250 Mg Tablet 250 Mg PO TIDAC MDD 1 7 Days [Fluconazole] 100 MG Tablet 200 Mg PO DAILY MDD 1 6 Days Doxycycline Hyclate 100 Mg Tablet 100 Mg PO BID MDD 1 7 Days Amox Tr-K Clv 875-125 Mg Tab (Amoxicillin/Potassium Clav) 1 Each Tablet 1 Tab PO BID MDD 1 7 Days Reported Protonix (Pantoprazole Sodium) 20 Mg Tablet.dr 20 Mg PO DAILY Lisinopril 40 Mg Tablet 1 Tab PO DAILY Novolog (Insulin Aspart) 100 Unit/1 Ml Cartridge 8 Unit SQ MEAL PRN Vitals/I & O Vital Sign - Last 24 Hours 08/22/18 08/22/18 08/22/18 08/22/18 10:43 11:00 13:16 15:00 Temp 98.1 98.2 98.1 98.2 Pulse 84 88 Resp 20 20 B/P (MAP) 180/94 (122) 132/76 (94) Pulse Ox 94 97 O2 Delivery Room Air Room Air Room Air Room Air 08/22/18 08/22/18 08/22/18 08/22/18 17:36 19:00 20:00 20:16 Temp 98.2 98.2 Pulse 81 Resp 20 20 B/P (MAP) 147/81 (103) Pulse Ox 98 O2 Delivery Room Air Room Air Room Air Room Air 08/22/18 08/22/18 08/23/18 08/23/18 22:20 22:30 00:38 05:23 Temp 98.3 98.3 Pulse 86 Resp 20 20 18 20 B/P (MAP) 152/89 (110) Pulse Ox 98 O2 Delivery Room Air Room Air Room Air Room Air 08/23/18 08/23/18 08/23/18 08/23/18 05:28 05:53 07:00 08:00 Temp 98.2 98.5 98.2 98.5 Pulse 74 79 Resp 18 18 18 B/P (MAP) 145/86 (105) 154/92 (112) Pulse Ox 95 99 O2 Delivery Room Air Room Air Room Air 08/23/18 08/23/18 09:06 09:36 O2 Delivery Room Air Room Air Intake and Output 08/22/18 08/22/18 08/23/18 14:59 22:59 06:59 Intake Total 480 ml 1240 ml 1000 ml Output Total 590 ml 240 ml Balance -110 ml 1000 ml 1000 ml DEEPTI ZHAO MD August 23, 2018 10:09
[2018-08-23 11:00] VITALS: BP 135/73
--- NOTE | 2018-08-23 12:59 | NUR ---
Pharmacy Medication Review S: Consulted for medication review re: C.diff Risk Assessment score of 4 O: LATHA CHAVEZ is a 43 year old with: Previous C.diff infection: >1yr ago Previous hospitalization: Within 60 days Recent antibiotics: Within 60 days Use of gastric acid suppressor: Yes Transfer from [place]/[facility]: No Current antibiotic regimen: NONE Current acid suppression regimen: FAMOTIDINE A: Patient has been identified as having risk factors for C.diff infection as noted above. P: Antibiotic Regimen recommendation made: N/A Probiotic ordered: N/A PPI changed to H1tjugonh: already on Famotidine KAYA MARCOS RPH, 08/23/18 1300
[2018-08-23 15:00] VITALS: BP 156/96
--- NOTE | 2018-08-23 15:57 | PDOC ---
Subjective: Subjective: Feels better. Tolerating solids Objective: Vital Signs: Vital Signs Date Time Temp Pulse Resp B/P (MAP) Pulse Ox O2 Delivery O2 Flow Rate FiO2 08/23/18 15:00 98.7 82 20 156/96 (116) 98 Room Air 98.7 Labs: Laboratory Tests Test 08/22/18 16:44 08/22/18 17:28 08/22/18 20:24 08/23/18 04:56 Glucose (Fingerstick) 57 mg/dL (70-99) 69 mg/dL (70-99) 176 mg/dL (70-99) White Blood Count 6.2 x10^3/uL (4.0-11.0) Red Blood Count 4.06 x10^6/uL (3.50-5.40) Hemoglobin 12.1 g/dL (12.0-15.5) Hematocrit 36.0 % (36.0-47.0) Mean Corpuscular Volume 89 fL (79-100) Mean Corpuscular Hemoglobin 30 pg (25-35) Mean Corpuscular Hemoglobin Concent 34 g/dL (31-37) Red Cell Distribution Width 15.6 % (11.5-14.5) Platelet Count 316 x10^3/uL (140-400) Neutrophils (%) (Auto) 32 % (31-73) Lymphocytes (%) (Auto) 57 % (24-48) Monocytes (%) (Auto) 6 % (0-9) Eosinophils (%) (Auto) 5 % (0-3) Basophils (%) (Auto) 1 % (0-3) Neutrophils # (Auto) 2.0 x10^3uL (1.8-7.7) Lymphocytes # (Auto) 3.5 x10^3/uL (1.0-4.8) Monocytes # (Auto) 0.4 x10^3/uL (0.0-1.1) Eosinophils # (Auto) 0.3 x10^3/uL (0.0-0.7) Basophils # (Auto) 0.0 x10^3/uL (0.0-0.2) Sodium Level 140 mmol/L (136-145) Potassium Level 3.7 mmol/L (3.5-5.1) Chloride Level 106 mmol/L (98-107) Carbon Dioxide Level 25 mmol/L (21-32) Anion Gap 9 (6-14) Blood Urea Nitrogen 2 mg/dL (7-20) Creatinine 0.8 mg/dL (0.6-1.0) Estimated GFR (Cockcroft-Gault) 78.7 BUN/Creatinine Ratio 3 (6-20) Glucose Level 202 mg/dL (70-99) Calcium Level 7.9 mg/dL (8.5-10.1) Total Bilirubin 0.1 mg/dL (0.2-1.0) Aspartate Amino Transf (AST/SGOT) 52 U/L (15-37) Alanine Aminotransferase (ALT/SGPT) 45 U/L (14-59) Alkaline Phosphatase 93 U/L (46-116) Total Protein 5.7 g/dL (6.4-8.2) Albumin 2.9 g/dL (3.4-5.0) Albumin/Globulin Ratio 1.0 (1.0-1.7) Test 08/23/18 07:48 08/23/18 11:27 Glucose (Fingerstick) 181 mg/dL (70-99) 168 mg/dL (70-99) Physical Exam: Physical Exam: PE: GEN: uncomfortable, moaning in pain HEENT: Atraumatic, PERRL LUNGS: CTAB HEART: RRR ABD: quiet, vaguely tender epigastrium EXTREMITY: No edema SKIN: No rashes, no jaundice NEURO/PSYCH: A & O 3 Assessment & Plan: Assessment : Recurrent n/v, abd pain H/o GERD, gastroparesis, "[facility]" - goes to [facility] Uncontrolled DM CRC screen - reports having colonoscopy within 2 years ?h/o SBR S/p cholecystectomy +cannabinoids Plan: -- Symptoms probably multi-factorial. Continue support. 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 Didn't have any abdominal imaging - will check x-ray. Has ADA diet ordered - might be a good idea to back off and then advance as tolerated. ?Elavil Would benefit from crop consultant. DC per primary, follow-up w/ [facility]. EDWARD KAPOOR MD August 23, 2018 15:57
[2018-08-23] MEDS ORDERED: ASA/APAP/CAFFEINE 250/250/65MG TABLET. PO PRN (16:00)
[2018-08-23] MEDS: MAG HYDROX/ALUMINUM HYD/SIMETH 30 ML ORAL.SUSP PO PRN (17:01)
[2018-08-23] MEDS: NICOTINE 14MG PATCH. TD PRN (18:24)
[2018-08-23 19:00] VITALS: BP 147/101
[2018-08-23] MEDS: INSULIN GLARGINE 300 UNITS/3 ML INSULN.PEN. SQ SCH (22:35)
[2018-08-23 23:00] VITALS: BP 158/89
[2018-08-23] MEDS: ZOLPIDEM 5 MG TABLET. PO PRN (23:51)
[2018-08-24] MEDS: fentaNYL PF VIAL 100 MCG/2 ML VIAL IV PRN ×2 (02:08→05:39)
[2018-08-24 03:00] VITALS: BP 170/88
[2018-08-24] MEDS ORDERED: INSULIN LISPRO 300 UNITS/3 ML INSULN.PEN. SQ ONE (03:30)
[2018-08-24] MEDS: ONDANSETRON PF 4 MG/2 ML VIAL. IV PRN (03:53)
[2018-08-24] MEDS: IV NORMAL SALINE 1000ML BAG 1,000 ML IV SCH (05:38)
[2018-08-24 07:00] VITALS: BP 179/89
[2018-08-24] MEDS: FAMOTIDINE 20 MG/2 ML VIAL IVP SCH (07:53)
[2018-08-24] MEDS: METOCLOPRAMIDE HCL 10 MG/2 ML VIAL. IV PRN (07:53)
[2018-08-24] MEDS: oxyCODONE/APAP 5/325 1 TAB TABLET PO PRN (07:53)
[2018-08-24 08:00] VITALS: BP 176/89
[2018-08-24] MEDS: INSULIN LISPRO 300 UNITS/3 ML INSULN.PEN. SQ SCH ×4 (08:00→11:16)
--- NOTE | 2018-08-24 10:58 | PDOC ---
Subjective: Subjective: Tolerating diet. Ready top dc Objective: Vital Signs: Vital Signs Date Time Temp Pulse Resp B/P (MAP) Pulse Ox O2 Delivery O2 Flow Rate FiO2 08/24/18 08:55 Room Air 08/24/18 08:00 98.9 66 17 176/89 (118) 96 98.9 Labs: Laboratory Tests Test 08/23/18 11:27 08/23/18 16:48 08/23/18 21:10 08/23/18 22:25 Glucose (Fingerstick) 168 mg/dL (70-99) 396 mg/dL (70-99) 54 mg/dL (70-99) 166 mg/dL (70-99) Test 08/24/18 02:54 08/24/18 07:19 Glucose (Fingerstick) 326 mg/dL (70-99) 338 mg/dL (70-99) Physical Exam: Physical Exam: GEN: NAD HEENT: OP clear CV: S1S2 without murmurs, rubs, or gallops RESP: CTAB without wheezing, rhonchi, or crackles ABD: NABS, SNT/ND EXT: No edema NEURO: AAO x 3 Assessment & Plan: Assessment : Recurrent n/v, abd pain H/o GERD, gastroparesis, "CVS" - goes to Uncontrolled DM CRC screen - reports having colonoscopy within 2 years ?h/o SBR S/p cholecystectomy +cannabinoids Plan: -- Symptoms probably multi-factorial. Continue support. 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 Didn't have any abdominal imaging - will check x-ray. Has ADA diet ordered - might be a good idea to back off and then advance as tolerated. ?Vall Would benefit from outreach nurse. DC per primary, follow-up w/ [facility]. EDWARD KAPOOR MD August 24, 2018 10:58
[2018-08-24 11:00] VITALS: BP 146/89
--- NOTE | 2018-08-24 11:52 | PDOC ---
PROGRESS NOTES History of Present Illness History of Present Illness Assessment/Plan Assessment/Plan Cyclic vomiting syndrome with severe abdominal pain cramps hyperglycemia greater than 600 thc abuse vomiting improved Recurrent n/v, abd pain acute renal injury, vasomotor nephropathy 08/24 mariah diet well today, home, no thc, d/c planning 25 min Plan IV insulin IV fluid support tele monitoring Consult GI When necessary narcotics When necessary Zofran DVT prophylaxis Full code Home meds PT OT when possible Prognosis guarded add iv reglan Total time 25 minutes pt exam, chart review d/c planning , > 50% of time spent with exam, chart review, pt care coordination Vitals Vitals Vital Signs Date Time Temp Pulse Resp B/P (MAP) Pulse Ox O2 Delivery O2 Flow Rate FiO2 08/24/18 11:00 98.9 88 17 146/89 (108) 98 Room Air 98.9 Physical Exam Physical Exam Physcial Exam: GEN.: No apparent distress. Alert and oriented. HEENT: Head is normocephalic, atraumatic NECK: Supple, no JVD LUNGS: Clear to auscultation without rhonchi or wheezing HEART: RRR, S1, S2 present. Peripheral pulses intact ABDOMEN: Tender to palpation decreased bowel sounds EXTREMITIES: Without any cyanosis, clubbing, or edema. Pedal pulses intact NEUROLOGIC: Normal speech, normal tone. A&O x 3 PSYCHIATRIC: Normal affect, normal mood. Stable SKIN: No ulcerations or rashes VASCULAR: Good capillary refill General: Alert, Oriented X3, Cooperative, No acute distress Heart: Regular rate, Normal S1, No murmurs Lungs: Clear, Other Abdomen: Normal bowel sounds, Soft Extremities: No clubbing, No cyanosis, No edema Skin: No significant lesion Labs LABS Laboratory Tests Test 08/23/18 16:48 08/23/18 21:10 08/23/18 22:25 08/24/18 02:54 Glucose (Fingerstick) 396 mg/dL (70-99) 54 mg/dL (70-99) 166 mg/dL (70-99) 326 mg/dL (70-99) Test 08/24/18 07:19 08/24/18 11:08 08/24/18 11:47 Glucose (Fingerstick) 338 mg/dL (70-99) 42 mg/dL (70-99) 94 mg/dL (70-99) Assessment and Plan Assessmemt and Plan Problems Medical Problems: (1) Anxiety Status: Acute (2) Diabetes mellitus out of control Status: Acute (3) Hyperglycemia Status: Acute (4) Intractable nausea and vomiting Status: Acute (5) Lactic acidemia Status: Acute (6) Marijuana abuse Status: Acute (7) Renal insufficiency Status: Acute Comment Review of Relevant I have reviewed the following items sheryl (where applicable) has been applied. Labs Laboratory Tests Test 08/22/18 11:51 08/22/18 16:44 08/22/18 17:28 08/22/18 20:24 Glucose (Fingerstick) 287 mg/dL (70-99) 57 mg/dL (70-99) 69 mg/dL (70-99) 176 mg/dL (70-99) Test 08/23/18 04:56 08/23/18 07:48 08/23/18 11:27 08/23/18 16:48 White Blood Count 6.2 x10^3/uL (4.0-11.0) Red Blood Count 4.06 x10^6/uL (3.50-5.40) Hemoglobin 12.1 g/dL (12.0-15.5) Hematocrit 36.0 % (36.0-47.0) Mean Corpuscular Volume 89 fL (79-100) Mean Corpuscular Hemoglobin 30 pg (25-35) Mean Corpuscular Hemoglobin Concent 34 g/dL (31-37) Red Cell Distribution Width 15.6 % (11.5-14.5) Platelet Count 316 x10^3/uL (140-400) Neutrophils (%) (Auto) 32 % (31-73) Lymphocytes (%) (Auto) 57 % (24-48) Monocytes (%) (Auto) 6 % (0-9) Eosinophils (%) (Auto) 5 % (0-3) Basophils (%) (Auto) 1 % (0-3) Neutrophils # (Auto) 2.0 x10^3uL (1.8-7.7) Lymphocytes # (Auto) 3.5 x10^3/uL (1.0-4.8) Monocytes # (Auto) 0.4 x10^3/uL (0.0-1.1) Eosinophils # (Auto) 0.3 x10^3/uL (0.0-0.7) Basophils # (Auto) 0.0 x10^3/uL (0.0-0.2) Sodium Level 140 mmol/L (136-145) Potassium Level 3.7 mmol/L (3.5-5.1) Chloride Level 106 mmol/L (98-107) Carbon Dioxide Level 25 mmol/L (21-32) Anion Gap 9 (6-14) Blood Urea Nitrogen 2 mg/dL (7-20) Creatinine 0.8 mg/dL (0.6-1.0) Estimated GFR (Cockcroft-Gault) 78.7 BUN/Creatinine Ratio 3 (6-20) Glucose Level 202 mg/dL (70-99) Calcium Level 7.9 mg/dL (8.5-10.1) Total Bilirubin 0.1 mg/dL (0.2-1.0) Aspartate Amino Transf (AST/SGOT) 52 U/L (15-37) Alanine Aminotransferase (ALT/SGPT) 45 U/L (14-59) Alkaline Phosphatase 93 U/L (46-116) Total Protein 5.7 g/dL (6.4-8.2) Albumin 2.9 g/dL (3.4-5.0) Albumin/Globulin Ratio 1.0 (1.0-1.7) Glucose (Fingerstick) 181 mg/dL (70-99) 168 mg/dL (70-99) 396 mg/dL (70-99) Test 08/23/18 21:10 08/23/18 22:25 08/24/18 02:54 08/24/18 07:19 Glucose (Fingerstick) 54 mg/dL (70-99) 166 mg/dL (70-99) 326 mg/dL (70-99) 338 mg/dL (70-99) Test 08/24/18 11:08 08/24/18 11:47 Glucose (Fingerstick) 42 mg/dL (70-99) 94 mg/dL (70-99) Laboratory Tests Test 08/23/18 16:48 08/23/18 21:10 08/23/18 22:25 08/24/18 02:54 Glucose (Fingerstick) 396 mg/dL (70-99) 54 mg/dL (70-99) 166 mg/dL (70-99) 326 mg/dL (70-99) Test 08/24/18 07:19 08/24/18 11:08 08/24/18 11:47 Glucose (Fingerstick) 338 mg/dL (70-99) 42 mg/dL (70-99) 94 mg/dL (70-99) Medications Current Medications Sodium Chloride 1,000 ml @ 1,000 mls/hr Q1H IV Last administered on 08/21/18 11:15; Start 08/21/18 at 10:47; Stop 08/21/18 at 11:46; Status DC Fentanyl Citrate (Fentanyl 2ml Vial) 50 mcg 1X ONCE IV Last administered on 08/21/18 11:18; Start 08/21/18 at 11:00; Stop 08/21/18 at 11:01; Status DC Ondansetron HCl (Zofran) 4 mg 1X ONCE IV Last administered on 08/21/18 11:15; Start 08/21/18 at 11:00; Stop 08/21/18 at 11:01; Status DC Insulin Human Regular (HumuLIN R VIAL) 10 unit 1X ONCE IV Last administered on 08/21/18 11:14; Start 08/21/18 at 11:00; Stop 08/21/18 at 11:01; Status DC Sodium Chloride 1,000 ml @ 1,000 mls/hr 1X ONCE IV Last administered on 11:15; Start 08/21/18 at 11:00; Stop 08/21/18 at 11:59; Status DC Metoclopramide HCl (Reglan Vial) 10 mg 1X ONCE IV Last administered on 08/21/18 12:05; Start 08/21/18 at 11:45; Stop 08/21/18 at 11:51; Status DC Hydromorphone HCl (Dilaudid) 1 mg 1X ONCE IV Last administered on 08/21/18 12:05; Start 08/21/18 at 11:45; Stop 08/21/18 at 11:51; Status DC Ceftriaxone Sodium (Rocephin) 1 gm 1X ONCE IVP Last administered on 08/21/18 12:43; Start 08/21/18 at 12:00; Stop 08/21/18 at 12:01; Status DC Metoclopramide HCl (Reglan Vial) 10 mg STK-MED ONCE .ROUTE ; Start 08/21/18 at 11:52; Stop 08/21/18 at 11:53; Status DC Hydromorphone HCl (Dilaudid) 2 mg STK-MED ONCE .ROUTE ; Start 08/21/18 at 11:52; Stop 08/21/18 at 11:53; Status DC Sodium Chloride 1,000 ml @ 200 mls/hr Q5H IV Last administered on 08/22/18at 06:27; Start 08/21/18 at 11:54; Stop 08/22/18 at 11:53; Status DC Insulin Human Regular 150 unit/ Sodium Chloride 151.5 ml @ 0 mls/hr CONT PRN IV SEE I/O RECORD; Start 08/21/18 at 12:00 Insulin Human Regular 150 ml @ 5.6 mls/hr 1X ONCE IV ; Start 08/21/18 at 12:00; Stop 08/22/18 at 14:27; Status DC Pharmacy Consult (C.diff Med Screen By Rx) 1 each 1X ONCE [facility] Last administered on 08/21/18at 15:00; Start 08/21/18 at 15:00; Stop 08/21/18 at 15:01; Status DC Fentanyl Citrate (Fentanyl 2ml Vial) 50 mcg PRN Q2HR PRN IV PAIN Last administered on 08/24/18at 05:39; Start 08/21/18 at 17:30 Ondansetron HCl (Zofran) 4 mg PRN Q6HRS PRN IV NAUSEA/VOMITING, 1st CHOICE Last administered on 08/24/18at 03:53; Start 08/21/18 at 17:30 Al Hydroxide/Mg Hydroxide (Mylanta Plus Xs) 30 ml PRN Q2HR PRN PO HEARTBURN / GAS Last administered on 08/23/18at 17:01; Start 08/21/18 at 17:30 Famotidine (Pepcid) 20 mg DAILY PO Last administered on 08/22/18at 08:49; Start 08/22/18 at 09:00; Stop 08/22/18 at 10:26; Status DC Insulin Human Lispro (HumaLOG) 8 units TIDWMEALS SQ Last administered on at 08:00; Start 08/21/18 at 18:00 Pantoprazole Sodium (Protonix) 40 mg DAILYAC PO Last administered on 08/22/18 06:26; Start 08/22/18 at 07:30; Stop 08/22/18 at 10:26; Status DC Insulin Glargine (Lantus) 16 units QHS SQ Last administered on 08/23/18at 22:35; Start 08/21/18 at 21:00 Insulin Human Lispro (HumaLOG) 0-5 UNITS TIDWMEALS SQ ; Start 08/22/18 at 08:00; Status Cancel Dextrose (Dextrose 50%-Water Syringe) 12.5 gm PRN Q15MIN PRN IV SEE COMMENTS; Start 08/21/18 at 17:45; Status Cancel Acetaminophen (Tylenol) 500 mg PRN Q6HRS PRN PO MILD PAIN / TEMP Last administered on 08/23/18at 15:08; Start 08/21/18 at 17:45 Insulin Human Lispro (HumaLOG) 0-9 UNITS TIDWMEALS SQ Last administered on 08/24/18at 08:00; Start 08/21/18 at 18:00 Dextrose (Dextrose 50%-Water Syringe) 12.5 gm PRN Q15MIN PRN IV SEE COMMENTS; Start 08/21/18 at 17:45 Oxycodone/ Acetaminophen (Percocet 5/325) 1 tab PRN Q4HRS PRN PO MODERATE TO SEVERE PAIN Last administered on 08/24/18 07:53; Start 08/21/18 at 17:45 Zolpidem Tartrate (Ambien) 5 mg PRN QHS PRN PO INSOMNIA Last administered on 08/23/18at 23:51; Start 08/21/18 at 17:45 Metoclopramide HCl (Reglan Vial) 10 mg PRN Q6HRS PRN IV NAUSEA/VOMITING, 2nd CHOICE Last administered on 08/24/18 07:53; Start 08/22/18 at 09:15 Famotidine (Pepcid Vial) 20 mg BID IVP Last administered on 08/24/18 07:53; Start 08/22/18 at 21:00 Polyethylene Glycol (miraLAX PACKET) 17 gm PRN DAILY PRN PO CONSTIPATION; Start 08/22/18 at 10:30 Sodium Chloride 1,000 ml @ 75 mls/hr [id number] IV Last administered on 5/26/19at 05:38; Start 08/22/18 at 14:00 Nicotine (Nicoderm Cq 14mg) 1 patch PRN DAILY PRN TD SMOKING CESSATION Last administered on 08/23/18 18:24; Start 08/22/18 at 16:45 Acetaminophen/ Aspirin/Caffeine (Excedrin Migraine) 2 tab PRN Q6HRS PRN PO MIGRAINE HEADACHE Last administered on 08/23/18 16:25; Start 08/23/18 at 16:00 Insulin Human Lispro (HumaLOG) 5 units 1X ONCE SQ Last administered on 08/24/18 03:58; Start 08/24/18 at 03:30; Stop 08/24/18 at 03:31; Status DC Active Scripts Active Famotidine 20 Mg Tablet 20 Mg PO DAILY MDD 1 Lisinopril 40 Mg Tablet 20 Mg PO DAILY MDD 1 Erythromycin (Erythromycin Base) 250 Mg Tablet 250 Mg PO TIDAC MDD 1 7 Days [Fluconazole] 100 MG Tablet 200 Mg PO DAILY MDD 1 6 Days Doxycycline Hyclate 100 Mg Tablet 100 Mg PO BID MDD 1 7 Days Amox Tr-K Clv 875-125 Mg Tab (Amoxicillin/Potassium Clav) 1 Each Tablet 1 Tab PO BID MDD 1 7 Days Reported Protonix (Pantoprazole Sodium) 20 Mg Tablet.dr 20 Mg PO DAILY Lisinopril 40 Mg Tablet 1 Tab PO DAILY Novolog (Insulin Aspart) 100 Unit/1 Ml Cartridge 8 Unit SQ MEAL PRN Vitals/I & O Vital Sign - Last 24 Hours 08/23/18 08/23/18 08/23/18 08/23/18 12:53 15:00 16:54 19:00 Temp 98.7 99.3 98.7 99.3 Pulse 82 90 Resp 20 20 B/P (MAP) 156/96 (116) 147/101 (116) Pulse Ox 98 99 O2 Delivery Nasal Cannula Room Air Room Air Room Air 08/23/18 08/23/18 08/23/18 08/23/18 19:24 19:45 21:37 23:00 Temp 99.1 99.1 Pulse 87 Resp 18 18 B/P (MAP) 158/89 (112) Pulse Ox 98 O2 Delivery Room Air Room Air Room Air Room Air 08/23/18 08/24/18 08/24/18 08/24/18 23:52 02:08 03:00 05:39 Temp 98.6 98.6 Pulse 68 Resp 16 20 16 18 B/P (MAP) 170/88 (115) Pulse Ox 96 O2 Delivery Room Air Room Air Room Air Room Air 08/24/18 08/24/18 08/24/18 08/24/18 06:25 07:00 07:53 08:00 Temp 98.9 98.9 Pulse 66 Resp 16 17 B/P (MAP) 179/89 (119) Pulse Ox 96 O2 Delivery Room Air Room Air Room Air Room Air 08/24/18 08/24/18 08/24/18 08:00 08:55 11:00 Temp 98.9 98.9 98.9 98.9 Pulse 66 88 Resp 17 17 B/P (MAP) 176/89 (118) 146/89 (108) Pulse Ox 96 98 O2 Delivery Room Air Room Air Room Air Intake and Output 08/23/18 08/23/18 08/24/18 15:00 23:00 07:00 Intake Total 360 ml 400 ml Balance 360 ml 400 ml DEEPTI ZHAO MD August 24, 2018 11:52
--- NOTE | 2018-08-24 12:46 | PDOC3 ---
Discharge Summary Date of Admission: August 21, 2018 Date of Discharge: August 24, 2018 Follow-Up: 3-5 days Admitting Diagnosis comment: discharge dx Cyclic vomiting syndrome with severe abdominal pain cramps hyperglycemia greater than 600, POA thc abuse vomiting improved Recurrent n/v, abd pain RESOLVED acute renal injury, vasomotor nephropathy 08/24 mariah diet well today, home, no thc, d/c planning 25 min Plan IV insulin IV fluid support tele monitoring Consult GI When necessary narcotics When necessary Zofran DVT prophylaxis Full code Home meds PT OT when possible Prognosis guarded add iv reglan Total time 25 minutes pt exam, chart review d/c planning , > 50% of time spent with exam, chart review, pt care coordination Vitals Vitals Vital Signs Date Time Temp Pulse Resp B/P (MAP) Pulse Ox O2 Delivery O2 Flow Rate FiO2 08/24/18 11:00 98.9 88 17 146/89 (108) 98 Room Air 98.9 Physical Exam Physical Exam Physcial Exam: GEN.: No apparent distress. Alert and oriented. HEENT: Head is normocephalic, atraumatic NECK: Supple, no JVD LUNGS: Clear to auscultation without rhonchi or wheezing HEART: RRR, S1, S2 present. Peripheral pulses intact ABDOMEN: Tender to palpation decreased bowel sounds EXTREMITIES: Without any cyanosis, clubbing, or edema. Pedal pulses intact NEUROLOGIC: Normal speech, normal tone. A&O x 3 PSYCHIATRIC: Normal affect, normal mood. Stable SKIN: No ulcerations or rashes VASCULAR: Good capillary refill General: Alert, Oriented X3, Cooperative, No acute distress Heart: Regular rate, Normal S1, No murmurs Lungs: Clear, Other Abdomen: Normal bowel sounds, Soft Extremities: No clubbing, No cyanosis, No edema Skin: No significant lesion FINAL DIAGNOSIS Problems Medical Problems: (1) Anxiety Status: Acute (2) Diabetes mellitus out of control Status: Acute (3) Hyperglycemia Status: Acute (4) Intractable nausea and vomiting Status: Acute (5) Lactic acidemia Status: Acute (6) Marijuana abuse Status: Acute (7) Renal insufficiency Status: Acute Brief Hospital Course Ms. Garcia is a 43 old [sex] who presented with [ INTRACTABLE VOMITING] CONDITION AT DISCHARGE: Improved Discharge Medications Current Medications Sodium Chloride 1,000 ml @ 1,000 mls/hr Q1H IV Last administered on 08/21/18 11:15; Start 08/21/18 at 10:47; Stop 08/21/18 at 11:46; Status DC Fentanyl Citrate (Fentanyl 2ml Vial) 50 mcg 1X ONCE IV Last administered on 08/21/18 11:18; Start 08/21/18 at 11:00; Stop 08/21/18 at 11:01; Status DC Ondansetron HCl (Zofran) 4 mg 1X ONCE IV Last administered on 08/21/18at 11:15; Start 08/21/18 at 11:00; Stop 08/21/18 at 11:01; Status DC Insulin Human Regular (HumuLIN R VIAL) 10 unit 1X ONCE IV Last administered on 08/21/18 11:14; Start 08/21/18 at 11:00; Stop 08/21/18 at 11:01; Status DC Sodium Chloride 1,000 ml @ 1,000 mls/hr 1X ONCE IV Last administered on 08/21/18 11:15; Start 08/21/18 at 11:00; Stop 08/21/18 at 11:59; Status DC Metoclopramide HCl (Reglan Vial) 10 mg 1X ONCE IV Last administered on 08/21/18 12:05; Start 08/21/18 at 11:45; Stop 08/21/18 at 11:51; Status DC Hydromorphone HCl (Dilaudid) 1 mg 1X ONCE IV Last administered on 08/21/18at 12:05; Start 08/21/18 at 11:45; Stop 08/21/18 at 11:51; Status DC Ceftriaxone Sodium (Rocephin) 1 gm 1X ONCE IVP Last administered on 08/21/18at 12:43; Start 08/21/18 at 12:00; Stop 08/21/18 at 12:01; Status DC Metoclopramide HCl (Reglan Vial) 10 mg STK-MED ONCE .ROUTE ; Start 08/21/18 at 11:52; Stop 08/21/18 at 11:53; Status DC Hydromorphone HCl (Dilaudid) 2 mg STK-MED ONCE .ROUTE ; Start 08/21/18 at 11:52; Stop 08/21/18 at 11:53; Status DC Sodium Chloride 1,000 ml @ 200 mls/hr Q5H IV Last administered on 08/22/18at 06:27; Start 08/21/18 at 11:54; Stop 08/22/18 at 11:53; Status DC Insulin Human Regular 150 unit/ Sodium Chloride 151.5 ml @ 0 mls/hr CONT PRN IV SEE I/O RECORD; Start 08/21/18 at 12:00 Insulin Human Regular 150 ml @ 5.6 mls/hr 1X ONCE IV ; Start 08/21/18 at 12:00; Stop 08/22/18 at 14:27; Status DC Pharmacy Consult (C.diff Med Screen By Rx) 1 each 1X ONCE [facility] Last administered on 08/21/18at 15:00; Start 08/21/18 at 15:00; Stop 08/21/18 at 15:01; Status DC Fentanyl Citrate (Fentanyl 2ml Vial) 50 mcg PRN Q2HR PRN IV PAIN Last administered on 08/24/18at 05:39; Start 08/21/18 at 17:30 Ondansetron HCl (Zofran) 4 mg PRN Q6HRS PRN IV NAUSEA/VOMITING, 1st CHOICE Last administered on 08/24/18at 03:53; Start 08/21/18 at 17:30 Al Hydroxide/Mg Hydroxide (Mylanta Plus Xs) 30 ml PRN Q2HR PRN PO HEARTBURN / GAS Last administered on 08/23/18at 17:01; Start 08/21/18 at 17:30 Famotidine (Pepcid) 20 mg DAILY PO Last administered on 08/22/18at 08:49; Start 08/22/18 at 09:00; Stop 08/22/18 at 10:26; Status DC Insulin Human Lispro (HumaLOG) 8 units TIDWMEALS SQ Last administered on 08/24/18at 08:00; Start 08/21/18 at 18:00 Pantoprazole Sodium (Protonix) 40 mg DAILYAC PO Last administered on 08/22/18at 06:26; Start 08/22/18 at 07:30; Stop 08/22/18 at 10:26; Status DC Insulin Glargine (Lantus) 16 units QHS SQ Last administered on 08/23/18at 22:35; Start 08/21/18 at 21:00 Insulin Human Lispro (HumaLOG) 0-5 UNITS TIDWMEALS SQ ; Start 08/22/18 at 08:00; Status Cancel Dextrose (Dextrose 50%-Water Syringe) 12.5 gm PRN Q15MIN PRN IV SEE COMMENTS; Start 08/21/18 at 17:45; Status Cancel Acetaminophen (Tylenol) 500 mg PRN Q6HRS PRN PO MILD PAIN / TEMP Last administered on 08/23/18at 15:08; Start 08/21/18 at 17:45 Insulin Human Lispro (HumaLOG) 0-9 UNITS TIDWMEALS SQ Last administered on 08/24/18at 08:00; Start 08/21/18 at 18:00 Dextrose (Dextrose 50%-Water Syringe) 12.5 gm PRN Q15MIN PRN IV SEE COMMENTS; Start 08/21/18 at 17:45 Oxycodone/ Acetaminophen (Percocet 5/325) 1 tab PRN Q4HRS PRN PO MODERATE TO SEVERE PAIN Last administered on 08/24/18at 07:53; Start 08/21/18 at 17:45 Zolpidem Tartrate (Ambien) 5 mg PRN QHS PRN PO INSOMNIA Last administered on 08/23/18at 23:51; Start 08/21/18 at 17:45 Metoclopramide HCl (Reglan Vial) 10 mg PRN Q6HRS PRN IV NAUSEA/VOMITING, 2nd CHOICE Last administered on 08/24/18at 07:53; Start 08/22/18 at 09:15 Famotidine (Pepcid Vial) 20 mg BID IVP Last administered on 08/24/18at 07:53; Start 08/22/18 at 21:00 Polyethylene Glycol (miraLAX PACKET) 17 gm PRN DAILY PRN PO CONSTIPATION; Start 08/22/18 at 10:30 Sodium Chloride 1,000 ml @ 75 mls/hr [id number] IV Last administered on 08/24/18at 05:38; Start 08/22/18 at 14:00 Nicotine (Nicoderm Cq 14mg) 1 patch PRN DAILY PRN TD SMOKING CESSATION Last administered on 08/23/18 18:24; Start 08/22/18 at 16:45 Acetaminophen/ Aspirin/Caffeine (Excedrin Migraine) 2 tab PRN Q6HRS PRN PO MIGR LISHA HEADACHE Last administered on 08/23/18at 16:25; Start 08/23/18 at 16:00 Insulin Human Lispro (HumaLOG) 5 units 1X ONCE SQ Last administered on 08/24/18at 03:58; Start 08/24/18 at 03:30; Stop 08/24/18 at 03:31; Status DC Active Scripts Active Famotidine 20 Mg Tablet 20 Mg PO DAILY MDD 1 Lisinopril 40 Mg Tablet 20 Mg PO DAILY MDD 1 Erythromycin (Erythromycin Base) 250 Mg Tablet 250 Mg PO TIDAC MDD 1 7 Days [Fluconazole] 100 MG Tablet 200 Mg PO DAILY MDD 1 6 Days Doxycycline Hyclate 100 Mg Tablet 100 Mg PO BID MDD 1 7 Days Amox Tr-K Clv 875-125 Mg Tab (Amoxicillin/Potassium Clav) 1 Each Tablet 1 Tab PO BID MDD 1 7 Days Reported Protonix (Pantoprazole Sodium) 20 Mg Tablet.dr 20 Mg PO DAILY Lisinopril 40 Mg Tablet 1 Tab PO DAILY Novolog (Insulin Aspart) 100 Unit/1 Ml Cartridge 8 Unit SQ MEAL PRN Vital Signs Vital Signs Date Time Temp Pulse Resp B/P (MAP) Pulse Ox O2 Delivery O2 Flow Rate FiO2 08/24/18 11:00 98.9 88 17 146/89 (108) 98 Room Air 98.9 Labs Laboratory Tests Test 08/22/18 16:44 08/22/18 17:28 08/22/18 20:24 08/23/18 04:56 Glucose (Fingerstick) 57 mg/dL (70-99) 69 mg/dL (70-99) 176 mg/dL (70-99) White Blood Count 6.2 x10^3/uL (4.0-11.0) Red Blood Count 4.06 x10^6/uL (3.50-5.40) Hemoglobin 12.1 g/dL (12.0-15.5) Hematocrit 36.0 % (36.0-47.0) Mean Corpuscular Volume 89 fL (79-100) Mean Corpuscular Hemoglobin 30 pg (25-35) Mean Corpuscular Hemoglobin Concent 34 g/dL (31-37) Red Cell Distribution Width 15.6 % (11.5-14.5) Platelet Count 316 x10^3/uL (140-400) Neutrophils (%) (Auto) 32 % (31-73) Lymphocytes (%) (Auto) 57 % (24-48) Monocytes (%) (Auto) 6 % (0-9) Eosinophils (%) (Auto) 5 % (0-3) Basophils (%) (Auto) 1 % (0-3) Neutrophils # (Auto) 2.0 x10^3uL (1.8-7.7) Lymphocytes # (Auto) 3.5 x10^3/uL (1.0-4.8) Monocytes # (Auto) 0.4 x10^3/uL (0.0-1.1) Eosinophils # (Auto) 0.3 x10^3/uL (0.0-0.7) Basophils # (Auto) 0.0 x10^3/uL (0.0-0.2) Sodium Level 140 mmol/L (136-145) Potassium Level 3.7 mmol/L (3.5-5.1) Chloride Level 106 mmol/L (98-107) Carbon Dioxide Level 25 mmol/L (21-32) Anion Gap 9 (6-14) Blood Urea Nitrogen 2 mg/dL (7-20) Creatinine 0.8 mg/dL (0.6-1.0) Estimated GFR (Cockcroft-Gault) 78.7 BUN/Creatinine Ratio 3 (6-20) Glucose Level 202 mg/dL (70-99) Calcium Level 7.9 mg/dL (8.5-10.1) Total Bilirubin 0.1 mg/dL (0.2-1.0) Aspartate Amino Transf (AST/SGOT) 52 U/L (15-37) Alanine Aminotransferase (ALT/SGPT) 45 U/L (14-59) Alkaline Phosphatase 93 U/L (46-116) Total Protein 5.7 g/dL (6.4-8.2) Albumin 2.9 g/dL (3.4-5.0) Albumin/Globulin Ratio 1.0 (1.0-1.7) Test 08/23/18 07:48 08/23/18 11:27 08/23/18 16:48 08/23/18 21:10 Glucose (Fingerstick) 181 mg/dL (70-99) 168 mg/dL (70-99) 396 mg/dL (70-99) 54 mg/dL (70-99) Test 08/23/18 22:25 08/24/18 02:54 08/24/18 07:19 08/24/18 11:08 Glucose (Fingerstick) 166 mg/dL (70-99) 326 mg/dL (70-99) 338 mg/dL (70-99) 42 mg/dL (70-99) Test 08/24/18 11:47 Glucose (Fingerstick) 94 mg/dL (70-99) Laboratory Tests Test 08/23/18 16:48 08/23/18 21:10 08/23/18 22:25 08/24/18 02:54 Glucose (Fingerstick) 396 mg/dL (70-99) 54 mg/dL (70-99) 166 mg/dL (70-99) 326 mg/dL (70-99) Test 08/24/18 07:19 08/24/18 11:08 08/24/18 11:47 Glucose (Fingerstick) 338 mg/dL (70-99) 42 mg/dL (70-99) 94 mg/dL (70-99) Allergies Allergies Coded Allergies Type Severity Reaction Last Updated Verified I S O L A T I O N *CONTACT* Allergy Unknown 06/16/18 Yes No Known Medication Allergies Allergy Unknown 06/16/18 Yes Disposition/Orders: D/C to Home Patient Instructions D/C PLANNING 25 MIN DEEPTI ZHAO MD August 24, 2018 12:46
[2018-08-24] MEDS ORDERED: INSU100I13 SQ (12:49)
[2018-08-24] MEDS ORDERED: POLY17PO28 PO (12:49)
[2018-08-24] MEDS ORDERED: ASPI1TAB62 PO (12:49)
[2018-08-24] MEDS ORDERED: AMLO5TAB4 PO (12:50)
--- NOTE | 2018-08-24 12:51 | DISCH ---
DISCHARGE INSTRUCTIONS Condition on Discharge Condition on Discharge: Stable Activity After Discharge Activity Instructions for Disc: Activity as tolerated Lifting Instructions after Dis: No heavy lifting Exercise Instruction after Dis: Progress as tolerated Driving Instructions after Dis: Do not drive today Weight Bearing Status after Di: As tolerated Diet after Discharge Diet after Discharge: No Added Sugar Diet Texture: Regular Liquid Texture: Thin Liquid Swallowing Supervision: None needed Wound Incision Care Wound/Incision Care: Change dressing, May get incision wet, Routine catheter care Wound Care Equipment: Dressings Checks after Discharge Checks after discharge: Check blood press - daily, Check blood sugar, ac/hs Contacting the DR. after DC Call your doctor for: If your condition worsens Treatment/Equipment after DC Adaptive Equipment Issued: None DEEPTI ZHAO MD August 24, 2018 12:51
--- NOTE | 2018-08-24 13:26 | NUR ---
Pt discharged home with self care. Discharge instructions and prescriptions discussed. Pt verbalized understanding. IV removed without complications. Pt belongings were packed and carried by her. She ambulated to ED entrance where her significant other will be meeting her.
== END 2018-08-24 13:15 | disposition home or self-care (01) | DRG 391 ==
LOC: ER 10:32 → 1 WEST ICU 12:42 → 4 NORTH 22:28
PROVIDERS: ADMIT Internal Medicine; ATTEND Internal Medicine
DX: K31.89 Other diseases of stomach and duodenum (principal); N17.0 Acute kidney failure with tubular necrosis; E10.69 Type 1 diabetes mellitus with other specified complication; E78.00 Pure hypercholesterolemia, unspecified; F41.9 Anxiety disorder, unspecified; R11.2 Nausea with vomiting, unspecified; K21.9 Gastro-esophageal reflux disease without esophagitis; E78.5 Hyperlipidemia, unspecified; I10 Essential (primary) hypertension; F32.9 Major depressive disorder, single episode, unspecified; F12.10 Cannabis abuse, uncomplicated; Z90.49 Acquired absence of other specified parts of digestive tract; Z90.710 Acquired absence of both cervix and uterus; Z98.51 Tubal ligation status; Z83.3 Family history of diabetes mellitus; Z79.4 Long term (current) use of insulin; E10.65 Type 1 diabetes mellitus with hyperglycemia; R11.10 Vomiting, unspecified
CPT/HCPCS: 36415; 36600; 74022; 80053; 80307; 81001; 82010; 82550; 82805; 82962; 83605; 83690; 83735; 84100; 85025; 96361; 96374; 96375; J0696; J1170; J1815; J2405; J2765; J3010; J3490; J7030; 99285-25

== ENCOUNTER 2018-11-14 02:34 | Emergency (ER) | payer OTHER ==
[~2018-11-14] VITALS: Ht 157.5 cm; Wt 51.7 kg
[~2018-11-14 02:34] MED LIST changes: +AMLO5TAB4 PO; +ASPI1TAB62 PO; +HYDR-2769 PO; +INSU100C4 SQ; +INSU100V13 SQ; +IPRA3AMP29 NEB; +LINE600T PO; +PANT20TA2 PO; +POLY17PO28 PO
--- NOTE | 2018-11-14 03:05 | PHYS DOC ---
Past Medical History Past Medical History: Anxiety, Cyclic Vomiting, Diabetes-Type I, High Cholesterol, Other Additional Past Medical Histor: gastroparesis, Past Surgical History: Cholecystectomy, Hysterectomy, Tubal ligation Smoking: Cigarettes Alcohol Use: None Drug Use: Marijuana Adult General Chief Complaint Chief Complaint: HYPOGLYCEMIA HPI HPI 43-year-old female presents via EMS with report of low blood sugar. Patient was out with friends and reports that her blood sugar dropped. Reports associated diaphoresis and dizziness. Patient reports she checked her blood sugar at 0200 and it was 29. Patient reports drinking a can of soda and called EMS. EMS reports patient's blood sugar was 233. Patient reports some generalized fatigue and weakness. Denies headache. Reports some increased anxiety. Denies dysuria. Patient does report some chronic cough. Patient reports taking her 10 units of insulin as directed. Patient denies eating dinner this evening. Review of Systems Review of Systems Constitutional: Denies fever or chills Eyes: Denies redness or eye pain HENT: Denies nasal congestion or sore throat Respiratory: Denies cough or shortness of breath Cardiovascular: Denies chest pain or palpitations GI: Denies abdominal pain, nausea, or vomiting : Denies dysuria or hematuria Musculoskeletal: Denies back pain or joint pain Integument: Denies rash or skin lesions; reports diaphoresis Neurologic: Denies headache, focal weakness or sensory changes; reports dizziness Complete systems were reviewed and found to be within normal limits, except as documented in this note. Allergies Allergies Allergies Coded Allergies Type Severity Reaction Last Updated Verified No Known Medication Allergies Allergy Unknown 06/16/18 Yes Physical Exam Physical Exam Constitutional: Well developed, well nourished, no acute distress, non-toxic appearance HENT: Normocephalic, atraumatic, oropharynx moist Eyes: PERRL, EOMI, conjunctiva normal, no discharge Neck: Normal range of motion, no tenderness, supple Cardiovascular: Heart rate normal, regular rhythm Lungs & Thorax: Bilateral breath sounds clear to auscultation, no wheezing Abdomen: Soft, no tenderness Skin: Warm, dry, no erythema, no rash Extremities: No tenderness, ROM intact, no edema Neurologic: Alert and oriented X 3, normal motor function, normal sensory function, no focal deficits noted Psychologic: Affect anxious, judgement normal Current Patient Data Vital Signs Vital Signs Date Time Temp Pulse Resp B/P (MAP) Pulse Ox O2 Delivery O2 Flow Rate FiO2 11/14/18 02:35 96.3 77 16 94/58 (70) 98 Room Air 96.3 Lab Values Laboratory Tests Test 11/14/18 02:42 11/14/18 03:30 11/14/18 04:30 11/14/18 04:35 Glucose (Fingerstick) 218 mg/dL (70-99) H 137 mg/dL (70-99) H White Blood Count 14.1 x10^3/uL (4.0-11.0) H Red Blood Count 4.16 x10^6/uL (3.50-5.40) Hemoglobin 12.0 g/dL (12.0-15.5) Hematocrit 35.6 % (36.0-47.0) L Mean Corpuscular Volume 86 fL (79-100) Mean Corpuscular Hemoglobin 29 pg (25-35) Mean Corpuscular Hemoglobin Concent 34 g/dL (31-37) Red Cell Distribution Width 14.3 % (11.5-14.5) Platelet Count 468 x10^3/uL (140-400) H Neutrophils (%) (Auto) 71 % (31-73) Lymphocytes (%) (Auto) 20 % (24-48) L Monocytes (%) (Auto) 8 % (0-9) Eosinophils (%) (Auto) 1 % (0-3) Basophils (%) (Auto) 1 % (0-3) Neutrophils # (Auto) 10.0 x10^3/uL (1.8-7.7) H Lymphocytes # (Auto) 2.8 x10^3/uL (1.0-4.8) Monocytes # (Auto) 1.1 x10^3/uL (0.0-1.1) Eosinophils # (Auto) 0.1 x10^3/uL (0.0-0.7) Basophils # (Auto) 0.1 x10^3/uL (0.0-0.2) Sodium Level 136 mmol/L (136-145) Potassium Level 3.7 mmol/L (3.5-5.1) Chloride Level 98 mmol/L (98-107) Carbon Dioxide Level 27 mmol/L (21-32) Anion Gap 11 (6-14) Blood Urea Nitrogen 10 mg/dL (7-20) Creatinine 1.1 mg/dL (0.6-1.0) H Estimated GFR (Cockcroft-Gault) 54.5 BUN/Creatinine Ratio 9 (6-20) Glucose Level 148 mg/dL (70-99) H Calcium Level 9.5 mg/dL (8.5-10.1) Magnesium Level 2.0 mg/dL (1.8-2.4) Total Bilirubin 0.2 mg/dL (0.2-1.0) Aspartate Amino Transferase (AST) 25 U/L (15-37) Alanine Aminotransferase (ALT) 33 U/L (14-59) Alkaline Phosphatase 107 U/L (46-116) Creatine Kinase 60 U/L (26-192) Creatine Kinase MB (Mass) 0.7 ng/mL (0.0-3.6) Creatine Kinase MB Relative Index % (0-4) Troponin I Quantitative < 0.017 ng/mL (0.000-0.055) Total Protein 6.7 g/dL (6.4-8.2) Albumin 3.6 g/dL (3.4-5.0) Albumin/Globulin Ratio 1.2 (1.0-1.7) Urine Collection Type Clean catch Urine Color Yellow Urine Clarity Clear Urine pH 5.5 Urine Specific [place] >=1.030 Urine Protein Negative mg/dL (NEG-TRACE) Urine Glucose (UA) >=1000 mg/dL (NEG) Urine Ketones (Stick) Negative mg/dL (NEG) Urine Blood Negative (NEG) Urine Nitrite Negative (NEG) Urine Bilirubin Negative (NEG) Urine Urobilinogen Dipstick 0.2 mg/dL (0.2 mg/dL) Urine Leukocyte Esterase Negative (NEG) Urine RBC 0 /HPF (0-2) Urine WBC Occ /HPF (0-4) Urine Squamous Epithelial Cells Few /LPF Urine Bacteria 0 /HPF (0-FEW) Urine Mucus Slight /LPF Laboratory Tests 11/14/18 03:30 Laboratory Tests 11/14/18 03:30 EKG EKG @0250 NSR at 71bpm, NO ST elevation, QRS 94ms, QT/QTc 446/485ms. Radiology/Procedures Radiology/Procedures PROCEDURE: CHEST PA & LATERAL Two-view chest dated 11/14/2018. Comparison made to 09/25/2018. CLINICAL INDICATION: Hypoglycemia. FINDINGS: PA and lateral views obtained. Heart and mediastinal contours are stable. Lungs are somewhat hyperinflated but otherwise clear. No consolidation or pleural effusion. No pneumothorax. IMPRESSION: No acute radiographic abnormality. Electronically signed by: Jaime Mayberry MD (11/14/2018 3:53 AM) [facility] Course & Med Decision Making Course & Med Decision Making Pertinent Labs and Imaging studies reviewed. (See chart for details) Anxious female with hx of DM presents with report of hypoglycemia down to 29. Reports drinking a soda before EMS arrival. EMS notes BS up to 233. Labs obtained and posted to chart. Glucose now 148. Troponin WNL. UA without signs of infection. EKG stable. CXR without acute process. Repeat blood sugar obtained and continued to be stable at 137. Patient stable for discharge with outpatient follow-up with PCP. Discussed findings and plan with patient, who acknowledges understanding and agreement. Dragon Disclaimer Dragon Disclaimer This electronic medical record was generated, in whole or in part, using a voice recognition dictation system. Departure Departure Impression: Primary Impression: Hypoglycemia Disposition: 01 HOME, SELF-CARE Condition: IMPROVED Referrals: UNKNOWN PCP NAME (PCP) Patient Instructions: Hypoglycemia, [id number] JAIME TIPTON DO Nov 14, 2018 03:05
[2018-11-14 03:39] LABS: BASO # 0.1 x10^3/uL (0.0-0.2); BASO % 1 % (0-3); EOS # 0.1 x10^3/uL (0.0-0.7); EOS % 1 % (0-3); HEMATOCRIT 35.6 % (36.0-47.0); LYMPH # 2.8 x10^3/uL (1.0-4.8); LYMPH % 20 % (24-48); MEAN CORPUSCULAR HEMOGLOBIN 29 pg (25-35); MEAN CORPUSCULAR HGB CONC 34 g/dL (31-37); MEAN CORPUSCULAR VOLUME 86 fL (79-100); MONO # 1.1 x10^3/uL (0.0-1.1); MONO % 8 % (0-9); NEUT % 71 % (31-73); PLATELET COUNT 468 x10^3/uL (140-400); RED BLOOD COUNT 4.16 x10^6/uL (3.50-5.40); RED CELL DISTRIBUTION WIDTH 14.3 % (11.5-14.5); WHITE BLOOD COUNT 14.1 x10^3/uL (4.0-11.0)
[2018-11-14 03:54] LABS: CALCIUM 9.5 mg/dL (8.5-10.1); CREATININE 1.1 mg/dL (0.6-1.0); GFR 54.5; POTASSIUM 3.7 mmol/L (3.5-5.1)
--- NOTE | 2018-11-14 03:56 | RAD ---
Two-view chest dated 11/14/2018. Comparison made to 09/25/2018. CLINICAL INDICATION: Hypoglycemia. FINDINGS: PA and lateral views obtained. Heart and mediastinal contours are stable. Lungs are somewhat hyperinflated but otherwise clear. No consolidation or pleural effusion. No pneumothorax. IMPRESSION: No acute radiographic abnormality. Electronically signed by: Fabio Mayberry MD (11/14/2018 3:53 AM) [facility]
[2018-11-14 04:00] LABS: ALBUMIN 3.6 g/dL (3.4-5.0); ALBUMIN/GLOBULIN RATIO 1.2 (1.0-1.7); TOTAL BILIRUBIN 0.2 mg/dL (0.2-1.0); TOTAL PROTEIN 6.7 g/dL (6.4-8.2)
[2018-11-14 04:08] LABS: CREATINE KINASE 60 U/L (26-192)
[2018-11-14 04:40] LABS: BILIRUBIN,URINE NEGATIVE (NEG); CLARITY,URINE CLEAR; COLOR,URINE YELLOW; NITRITE,URINE NEGATIVE (NEG); PH,URINE 5.5; PROTEIN,URINE NEGATIVE (NEG-TRACE); UROBILINOGEN,URINE 0.2 mg/dL (0.2 mg/dL)
[2018-11-14 05:00] VITALS: BP 105/62
[2018-11-14 05:00] LABS: BACTERIA,URINE 0 /HPF (0-FEW); RBC,URINE 0 /HPF (0-2); SQUAMOUS EPITHELIAL CELL,UR FEW /LPF; WBC,URINE OCC /HPF (0-4)
[2018-11-14] MEDS ORDERED: MULTIVIT INFUSN,ADULT 4,VIT K 10 ML, THIAMINE INJ 100 MG, FOLIC ACID INJ 1 MG in IV NOR... IV ONE (05:15)
--- NOTE | 2018-11-14 07:32 | EKG ---
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
== END 2018-11-14 05:10 | disposition home or self-care (01) ==
LOC: ER 02:34
DX: E10.649 Type 1 diabetes mellitus with hypoglycemia without coma (principal); R42 Dizziness and giddiness; F41.9 Anxiety disorder, unspecified; E78.00 Pure hypercholesterolemia, unspecified; F17.210 Nicotine dependence, cigarettes, uncomplicated; Z90.49 Acquired absence of other specified parts of digestive tract; Z90.710 Acquired absence of both cervix and uterus; Z98.51 Tubal ligation status
CPT/HCPCS: 36415; 71046; 80053; 81001; 82553; 82962; 83735; 84484; 85025; 93005; 99285

== ENCOUNTER 2018-11-20 12:57 | Emergency (ER) | payer OTHER ==
[~2018-11-20] VITALS: Ht 167.6 cm; Wt 51.7 kg
[2018-11-20] MEDS ORDERED: IV NORMAL SALINE 1000ML BAG 1,000 ML IV SCH (13:23)
[2018-11-20] MEDS ORDERED: IV NORMAL SALINE 1000ML BAG 1,000 ML IV ONE (13:30)
[2018-11-20] MEDS ORDERED: PROCHLORPERAZINE 10 MG/2 ML VIAL. IV ONE (13:30)
[2018-11-20] MEDS ORDERED: INSULIN REGULAR 100 UNIT/ML 3ML VIAL. IV ONE (13:30)
[2018-11-20] MEDS ORDERED: HALOPERIDOL LACTATE 5 MG/ML VIAL. IVP ONE (13:30)
[2018-11-20 13:36] LABS: BASO % 1 % (0-3); EOS % 0 % (0-3); HEMATOCRIT 36.9 % (36.0-47.0); HEMOGLOBIN 12.3 g/dL (12.0-15.5); LYMPH # 1.7 x10^3/uL (1.0-4.8); LYMPH % 21 % (24-48); MEAN CORPUSCULAR HEMOGLOBIN 29 pg (25-35); MEAN CORPUSCULAR HGB CONC 33 g/dL (31-37); MEAN CORPUSCULAR VOLUME 87 fL (79-100); MONO # 0.3 x10^3/uL (0.0-1.1); MONO % 3 % (0-9); NEUT # 6.2 x10^3/uL (1.8-7.7); NEUT % 75 % (31-73); PLATELET COUNT 410 x10^3/uL (140-400); RED BLOOD COUNT 4.25 x10^6/uL (3.50-5.40); RED CELL DISTRIBUTION WIDTH 14.5 % (11.5-14.5); WHITE BLOOD COUNT 8.3 x10^3/uL (4.0-11.0)
--- NOTE | 2018-11-20 13:40 | PHYS DOC ---
Past Medical History Past Medical History: Anxiety, Cyclic Vomiting, Diabetes-Type I, High Cholesterol, Other Additional Past Medical Histor: gastroparesis, Past Surgical History: Cholecystectomy, Hysterectomy, Tubal ligation Alcohol Use: None Drug Use: Marijuana Adult General Chief Complaint Chief Complaint: NAUSEA/VOMITING/DIARRHA HPI HPI Patient is a 43-year-old female, with a past history of brittle diabetes, cyclic vomiting, marijuana abuse, as well as other medical problems, who presents to the emergency department for evaluation. She states "I think it's my cyclic vomiting again." She states that just prior to arrival, she began experiencing numerous episodes of vomiting. She also reports epigastric abdominal pain. She has not had any fevers or chills. He has not had any diarrhea. She has not had any chest pain. She has not had any bloody emesis or stools. There are no alleviating or exacerbating factors to her symptoms otherwise. Patient states she checked her blood sugar at about 9:30 this morning and was in the 200s, and she took insulin at that time according to her sliding scale. Accu-Chek upon arrival in the emergency departmenthis nearly 500. Review of Systems Review of Systems Constitutional: Denies fever or chills [] Eyes: Denies change in visual acuity, redness, or eye pain [] HENT: Denies nasal congestion or sore throat [] Respiratory: Denies cough or shortness of breath [] Cardiovascular: The patient denies any shortness of breath, chest pain, palpitations, or orthopnea [] GI: No additional information not addressed in HPI [] : Denies dysuria or hematuria [] Musculoskeletal: Denies back pain or joint pain [] Integument: Denies rash or skin lesions [] Neurologic: Denies headache, focal weakness or sensory changes [] Endocrine: Denies polyuria or polydipsia [] All other systems were reviewed and found to be within normal limits, except as documented in this note. Current Medications Current Medications Current Medications Medications (Trade) Dose Ordered Sig/Lori Start Time Stop Time Status Last Admin Dose Admin Haloperidol Lactate (Haldol Inj) 5 mg 1X ONCE 11/20/18 13:30 11/20/18 13:34 DC 11/20/18 13:40 5 MG Insulin Human Regular (HumuLIN R VIAL) 10 unit 1X ONCE 11/20/18 13:30 11/20/18 13:34 DC 11/20/18 13:40 10 UNIT Lorazepam (Ativan Inj) 1 mg 1X ONCE 11/20/18 13:30 11/20/18 13:34 DC 11/20/18 13:40 1 MG Prochlorperazine Edisylate (Compazine) 10 mg 1X ONCE 11/20/18 13:30 11/20/18 13:34 DC 11/20/18 13:40 10 MG Sodium Chloride 1,000 ml @ 1,000 mls/hr 1X ONCE 11/20/18 13:30 11/20/18 14:29 DC 11/20/18 13:36 1,000 MLS/HR Allergies Allergies Allergies Coded Allergies Type Severity Reaction Last Updated Verified No Known Medication Allergies Allergy Unknown 06/16/18 Yes Physical Exam Physical Exam PHYSICAL EXAM: CONSTITUTIONAL: Well developed, well nourished HEAD: normocephalic, atraumatic EENT: PERRL, EOMI. Conjunctivae normal color, sclerae non-icteric; moist mucous membranes. NECK: Supple, non-tender; no meningismus. LUNGS: Lungs CTA, breathing even and unlabored. Normal air movement. HEART: Regular rate and rhythm, no murmur CHEST: No deformity; non-tender ABDOMEN: The abdomen is soft, there is epigastric tenderness to palpation, without rebound or guarding, the remainder the abdomen is soft and non-tender, no masses or bruits. EXTREM: Normal ROM; no deformity, no calf tenderness. Normal pulses palpable in all extremities. There is no pedal edema. SKIN: No rash; no diaphoresis NEURO: Alert; normal speech and cognition; CN's grossly intact; strength grossly intact without focal deficit. BACK: No CVA TTP. PSYCHIATRIC: The patient appears moderately anxious. Current Patient Data Vital Signs Vital Signs Date Time Temp Pulse Resp B/P (MAP) Pulse Ox O2 Delivery O2 Flow Rate FiO2 11/20/18 14:08 94 26 191/95 (127) 98 Room Air 11/20/18 13:00 98.0 98.0 Lab Values Laboratory Tests Test 11/20/18 13:18 11/20/18 13:29 11/20/18 14:39 11/20/18 15:30 Glucose (Fingerstick) 497 mg/dL (70-99) H 305 mg/dL (70-99) H 235 mg/dL (70-99) H White Blood Count 8.3 x10^3/uL (4.0-11.0) Red Blood Count 4.25 x10^6/uL (3.50-5.40) Hemoglobin 12.3 g/dL (12.0-15.5) Hematocrit 36.9 % (36.0-47.0) Mean Corpuscular Volume 87 fL (79-100) Mean Corpuscular Hemoglobin 29 pg (25-35) Mean Corpuscular Hemoglobin Concent 33 g/dL (31-37) Red Cell Distribution Width 14.5 % (11.5-14.5) Platelet Count 410 x10^3/uL (140-400) H Neutrophils (%) (Auto) 75 % (31-73) H Lymphocytes (%) (Auto) 21 % (24-48) L Monocytes (%) (Auto) 3 % (0-9) Eosinophils (%) (Auto) 0 % (0-3) Basophils (%) (Auto) 1 % (0-3) Neutrophils # (Auto) 6.2 x10^3/uL (1.8-7.7) Lymphocytes # (Auto) 1.7 x10^3/uL (1.0-4.8) Monocytes # (Auto) 0.3 x10^3/uL (0.0-1.1) Eosinophils # (Auto) 0.0 x10^3/uL (0.0-0.7) Basophils # (Auto) 0.0 x10^3/uL (0.0-0.2) Sodium Level 134 mmol/L (136-145) L Potassium Level 4.7 mmol/L (3.5-5.1) Chloride Level 95 mmol/L (98-107) L Carbon Dioxide Level 25 mmol/L (21-32) Anion Gap 14 (6-14) Blood Urea Nitrogen 16 mg/dL (7-20) Creatinine 1.0 mg/dL (0.6-1.0) Estimated GFR (Cockcroft-Gault) 60.8 BUN/Creatinine Ratio 16 (6-20) Glucose Level 526 mg/dL (70-99) *H Calcium Level 9.5 mg/dL (8.5-10.1) Magnesium Level 1.8 mg/dL (1.8-2.4) Total Bilirubin 0.3 mg/dL (0.2-1.0) Aspartate Amino Transferase (AST) 40 U/L (15-37) H Alanine Aminotransferase (ALT) 33 U/L (14-59) Alkaline Phosphatase 104 U/L (46-116) Troponin I Quantitative < 0.017 ng/mL (0.000-0.055) Total Protein 7.4 g/dL (6.4-8.2) Albumin 3.9 g/dL (3.4-5.0) Albumin/Globulin Ratio 1.1 (1.0-1.7) Lipase 34 U/L (73-393) L Acetone Level Neg (NEG) Laboratory Tests 11/20/18 13:29 Laboratory Tests 11/20/18 13:29 EKG EKG []Normal sinus rhythm at a rate of 92 beats for minute, normal axis, QTC of 505 ms, with otherwise normal intervals. There are no acute ischemic ST/T changes. Radiology/Procedures Radiology/Procedures [] Course & Med Decision Making Course & Med Decision Making Pertinent Labs and Imaging studies reviewed. (See chart for details) [] 4:00 PM: Patient's condition remains stable at this time. She has not had any further vomiting. I discussed test results, the need for marijuana cessation, the need for close PCP follow-up, and return precautions. Dragon Disclaimer Dragon Disclaimer This electronic medical record was generated, in whole or in part, using a voice recognition dictation system. Departure Departure Impression: Primary Impression: Cyclic vomiting syndrome Disposition: 01 HOME, SELF-CARE Condition: IMPROVED Referrals: UNKNOWN PCP NAME (PCP) Patient Instructions: Cyclic Vomiting Syndrome, Marijuana Abuse and Chemical Dependency Scripts Promethazine Hcl (PROMETHAZINE HCL) 25 Mg Tablet 1 TAB PO PRN Q6HRS, #10 TAB Prov: ABEL CONNER MD 11/20/18 ABEL CONNER MD Nov 20, 2018 13:40
[2018-11-20 13:52] LABS: ALBUMIN 3.9 g/dL (3.4-5.0); ALBUMIN/GLOBULIN RATIO 1.1 (1.0-1.7); CALCIUM 9.5 mg/dL (8.5-10.1); GFR 60.8; MAGNESIUM 1.8 mg/dL (1.8-2.4); POTASSIUM 4.7 mmol/L (3.5-5.1); TOTAL BILIRUBIN 0.3 mg/dL (0.2-1.0); TOTAL PROTEIN 7.4 g/dL (6.4-8.2)
--- NOTE | 2018-11-20 14:03 | EKG ---
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
[2018-11-20 16:02] VITALS: BP 158/89
[2018-11-20] MEDS ORDERED: PROM25TA10 PO (16:05)
[2018-11-20 16:14] LABS: BILIRUBIN,URINE NEGATIVE (NEG); CLARITY,URINE CLEAR; COLOR,URINE YELLOW; NITRITE,URINE NEGATIVE (NEG); PROTEIN,URINE NEGATIVE (NEG-TRACE); UROBILINOGEN,URINE 0.2 mg/dL (0.2 mg/dL)
[2018-11-20 16:29] LABS: BACTERIA,URINE 0 /HPF (0-FEW); RBC,URINE 0 /HPF (0-2); SQUAMOUS EPITHELIAL CELL,UR MOD /LPF; WBC,URINE OCC /HPF (0-4)
== END 2018-11-20 16:47 | disposition home or self-care (01) ==
LOC: ER 12:57
DX: G43.A0 Cyclical vomiting, in migraine, not intractable (principal); R10.13 Epigastric pain; E10.43 Type 1 diabetes mellitus with diabetic autonomic (poly)neuropathy; K31.84 Gastroparesis; Z79.4 Long term (current) use of insulin; E78.00 Pure hypercholesterolemia, unspecified; Z90.49 Acquired absence of other specified parts of digestive tract; Z90.710 Acquired absence of both cervix and uterus; Z98.51 Tubal ligation status
CPT/HCPCS: 36415; 80053; 81001; 82010; 82962; 83690; 83735; 84484; 85025; 93005; 96361; 96374; 96375; 99285; J0780; J1630; J1815; J2060; J7030

== ENCOUNTER 2018-12-22 06:22 | Inpatient (IN) | payer OTHER ==
[~2018-12-22] VITALS: Ht 154.9 cm; Wt 59.5 kg
[2018-12-22] VITALS (16 sets, daily range): BP systolic 85–141; BP diastolic 42–75
[~2018-12-22 06:22] MED LIST changes: -LINE600T PO; +LINE600T12 PO; +PROM25TA10 PO; +SIMV40TA18 PO; -SIMV40TA3 PO
--- NOTE | 2018-12-22 06:36 | PHYS DOC ---
Past Medical History Past Medical History: Anxiety, Cyclic Vomiting, Diabetes-Type I, High Cholesterol, Other Additional Past Medical Histor: gastroparesis, Past Surgical History: Cholecystectomy, Hysterectomy, Tubal ligation Alcohol Use: None Drug Use: Marijuana Adult General Chief Complaint Chief Complaint: SHORTNESS OF BREATH HPI HPI Patient is a 43 year old female with history of type 1 diabetes on insulin, cyclic vomiting syndrome and anxiety who presents POV with complaining of vomiting blood. Patient states she had multiple episodes of vomiting for the last 2-3 hours and the last episode of vomiting was really dark blood. Patient complaining of generalized abdominal pain and rated her pain 10 over 10. Patient complaining of shortness of breath and unable to talk with hyperventilation. Patient states she took insulin 2 hours ago but unable to tell if she checked her blood sugar or not and missing insulin yesterday. Patient is anxious and has tachypnea and hyperventilation and unable to give history. Review of Systems Review of Systems Constitutional: Denies fever or chills [] Eyes: Denies change in visual acuity, redness, or eye pain [] HENT: Denies nasal congestion or sore throat [] Respiratory: Denies cough or shortness of breath [] Cardiovascular: No additional information not addressed in HPI [] GI: Reports abdominal pain, nausea, vomiting, denies bloody stools or diarrhea [] : Denies dysuria or hematuria [] Musculoskeletal: Denies back pain or joint pain [] Integument: Denies rash or skin lesions [] Neurologic: Denies headache, focal weakness or sensory changes [] Endocrine: Denies polyuria or polydipsia [] All other systems were reviewed and found to be within normal limits, except as documented in this note. Current Medications Current Medications Current Medications Medications (Trade) Dose Ordered Sig/[facility] Start Time Stop Time Status Last Admin Dose Admin Fentanyl Citrate (Fentanyl 2ml Vial) 50 mcg 1X ONCE 12/22/18 07:00 12/22/18 07:01 DC 12/22/18 07:24 50 MCG Insulin Human Regular 150 ml @ 0 mls/hr 1X ONCE 12/22/18 07:00 12/22/18 07:01 DC 12/22/18 07:41 26.9 MLS/HR Insulin Human Regular (HumuLIN R VIAL) 10 unit 1X ONCE 12/22/18 06:45 12/22/18 06:46 DC 12/22/18 07:24 10 UNIT Ondansetron HCl (Zofran) 4 mg 1X ONCE 12/22/18 06:45 12/22/18 06:46 DC 12/22/18 07:24 4 MG Pantoprazole Sodium (PROTONIX VIAL for IV PUSH) 40 mg 1X ONCE 12/22/18 06:45 12/22/18 06:46 DC 12/22/18 07:24 40 MG Potassium Chloride/Water 100 ml @ 100 mls/hr PRN Q1HR PRN 12/22/18 07:31 Sodium Chloride 1,000 ml @ 1,000 mls/hr Q1H 12/22/18 07:31 12/22/18 08:30 DC Allergies Allergies Allergies Coded Allergies Type Severity Reaction Last Updated Verified No Known Medication Allergies Allergy Unknown 06/16/18 Yes Physical Exam Physical Exam Constitutional: Moderate distress, non-toxic appearance, anxious, talking in a few words.[] HENT: Normocephalic, atraumatic, oropharynx dry. Eyes: PERRLA, EOMI, conjunctiva normal, no discharge. [] Neck: Normal range of motion, no tenderness, supple, no stridor. [] Cardiovascular: Tachycardia, no murmur [] Lungs & Thorax: Hyperventilation, bilateral breath sounds clear to auscultation [] Abdomen: Bowel sounds normal, soft, no tenderness, no masses, no pulsatile masses. [] Skin: Warm, dry, no erythema, no rash. [] Back: No tenderness, no CVA tenderness. [] Extremities: No tenderness, no cyanosis, no clubbing, ROM intact, no edema. [] Neurologic: Alert and oriented X 3, no focal deficits noted. [] Psychologic: Affect anxious, mood normal. [] Current Patient Data Vital Signs Vital Signs Date Time Temp Pulse Resp B/P (MAP) Pulse Ox O2 Delivery O2 Flow Rate FiO2 12/22/18 07:25 96 32 99/57 (71) 99 Room Air 12/22/18 06:22 97.8 97.8 Lab Values Laboratory Tests Test 12/22/18 06:40 12/22/18 06:53 White Blood Count 27.7 x10^3/uL (4.0-11.0) H Red Blood Count 3.92 x10^6/uL (3.50-5.40) Hemoglobin 11.1 g/dL (12.0-15.5) L Hematocrit 40.4 % (36.0-47.0) Mean Corpuscular Volume 103 fL (79-100) H Mean Corpuscular Hemoglobin 28 pg (25-35) Mean Corpuscular Hemoglobin Concent 27 g/dL (31-37) L Red Cell Distribution Width 15.9 % (11.5-14.5) H Platelet Count 528 x10^3/uL (140-400) H Neutrophils (%) (Auto) 82 % (31-73) H Lymphocytes (%) (Auto) 13 % (24-48) L Monocytes (%) (Auto) 5 % (0-9) Eosinophils (%) (Auto) 0 % (0-3) Basophils (%) (Auto) 0 % (0-3) Neutrophils # (Auto) 22.7 x10^3/uL (1.8-7.7) H Lymphocytes # (Auto) 3.5 x10^3/uL (1.0-4.8) Monocytes # (Auto) 1.5 x10^3/uL (0.0-1.1) H Eosinophils # (Auto) 0.0 x10^3/uL (0.0-0.7) Basophils # (Auto) 0.1 x10^3/uL (0.0-0.2) Prothrombin Time 14.4 SEC (11.7-14.0) H Prothrombin Time INR 1.2 (0.8-1.1) H Activated Partial Thromboplast Time 26 SEC (24-38) Sodium Level 113 mmol/L (136-145) *L Potassium Level 6.6 mmol/L (3.5-5.1) *H Chloride Level 64 mmol/L (98-107) L Carbon Dioxide Level < 5 mmol/L (21-32) *L Anion Gap 44 (6-14) H Blood Urea Nitrogen 43 mg/dL (7-20) H Creatinine 2.6 mg/dL (0.6-1.0) H Estimated GFR (Cockcroft-Gault) 20.2 BUN/Creatinine Ratio 17 (6-20) Glucose Level 1405 mg/dL (70-99) *H Calcium Level 9.1 mg/dL (8.5-10.1) Phosphorus Level 13.2 mg/dL (2.6-4.7) H Magnesium Level 2.5 mg/dL (1.8-2.4) H Total Bilirubin 0.7 mg/dL (0.2-1.0) Aspartate Amino Transferase (AST) 17 U/L (15-37) Alanine Aminotransferase (ALT) 21 U/L (14-59) Alkaline Phosphatase 121 U/L (46-116) H Total Protein 6.8 g/dL (6.4-8.2) Albumin 3.3 g/dL (3.4-5.0) L Albumin/Globulin Ratio 0.9 (1.0-1.7) L Lipase 77 U/L (73-393) Acetone Level Mod pos (NEG) O2 Saturation 97 % (92-99) Arterial Blood pH 7.10 (7.35-7.45) *L Arterial Blood pCO2 at Patient Temp < 15 mmHg (35-46) *L Arterial Blood pO2 at Patient Temp 143 mmHg (75-108) H Arterial Blood HCO3 3 mmol/L (21-28) L Arterial Blood Base Excess -24 mmol/L (-3-3) L FiO2 21 Laboratory Tests 12/22/18 06:40 Laboratory Tests 12/22/18 06:40 EKG EKG EKG interpreted by me. EKG at 0 632 showed sinus rhythm at rate of 100 right atrial enlargement, prolonged QTc at 483, no acute ST and T-wave abnormalities. Radiology/Procedures Radiology/Procedures [] Course & Med Decision Making Course & Med Decision Making Pertinent Labs reviewed. (See chart for details) Evaluation of patient in ER showed 43-year-old female patient with history of type 1 diabetes with frequent hospitalization for DKA and cyclic vomiting syndrome presented with symptoms of acute DKA. Patient had blood sugar of more than 1400 and treated with IV fluid and bolus and drip of insulin with partial improvement of her condition.Patient requiring admission for further evaluation and treatment. Discussed with Dr. Waters who is in agreement with admission. Discussed findings and plan with patient and family, who acknowledge understanding and agreement. Dragon Disclaimer Dragon Disclaimer This electronic medical record was generated, in whole or in part, using a voice recognition dictation system. Departure Departure Impression: Primary Impression: DKA (diabetic ketoacidoses) Additional Impressions: Cyclic vomiting syndrome Gastroparesis Hyperglycemia Hyperkalemia Acute renal insufficiency Anemia Leukocytosis Hyperphosphatemia Hypermagnesemia Hyponatremia Hypochloremia Metabolic acidosis Hypoalbuminemia Noncompliance with diabetes treatment Prolonged Q-T interval on ECG Disposition: ADMITTED INPATIENT (at 0730) Admitting Physician: DEVAUGHN (Dr Waters accepted admission at 0730) Condition: GUARDED Referrals: UNKNOWN PCP NAME (PCP) Critical Care Time Critical care time was 70 minutes exclusive of procedures. Problem Qualifiers Primary Impression: DKA (diabetic ketoacidoses) Diabetes mellitus type: type 1 Diabetes mellitus complication detail: without coma Qualified Codes: E10.10 - Type 1 diabetes mellitus with ketoacidosis without coma Additional Impressions: Cyclic vomiting syndrome Vomiting Intractability: non-intractable Nausea presence: with nausea Qualified Codes: G43.A0 - Cyclical vomiting, not intractable Anemia Anemia type: unspecified type Qualified Codes: D64.9 - Anemia, unspecified Leukocytosis Leukocytosis type: unspecified Qualified Codes: D72.829 - Elevated white blood cell count, unspecified CHINO DAMON MD Dec 22, 2018 06:36
[2018-12-22] MEDS ORDERED: IV NORMAL SALINE 1000ML BAG 1,000 ML IV SCH ×3 (06:45→08:30)
[2018-12-22] MEDS ORDERED: INSULIN REGULAR 100 UNIT/ML 3ML VIAL. IV ONE (06:45)
[2018-12-22] MEDS ORDERED: IV NORMAL SALINE 1000ML BAG 1,000 ML IV ONE ×4 (06:45→11:45)
[2018-12-22] MEDS ORDERED: PANTOPRAZOLE IV PUSH 40 MG VIAL. IVP ONE (06:45)
[2018-12-22] MEDS ORDERED: ONDANSETRON PF 4 MG/2 ML VIAL. IV ONE (06:45)
[2018-12-22 06:51] LABS: BASE EXCESS ABG -24 mmol/L (-3-3); HCO3 ABG 3 mmol/L (21-28); PO2 ABG 143 mmHg (75-108); SAT O2 ABG 97 % (92-99)
[2018-12-22 06:53] LABS: FIO2 ABG 21; PCO2 ABG < 15 mmHg (35-46)
[2018-12-22 06:58] LABS: BASO # 0.1 x10^3/uL (0.0-0.2); BASO % 0 % (0-3); EOS % 0 % (0-3); HEMATOCRIT 40.4 % (36.0-47.0); HEMOGLOBIN 11.1 g/dL (12.0-15.5); LYMPH # 3.5 x10^3/uL (1.0-4.8); LYMPH % 13 % (24-48); MEAN CORPUSCULAR HEMOGLOBIN 28 pg (25-35); MEAN CORPUSCULAR HGB CONC 27 g/dL (31-37); MEAN CORPUSCULAR VOLUME 103 fL (79-100); MONO # 1.5 x10^3/uL (0.0-1.1); MONO % 5 % (0-9); NEUT # 22.7 x10^3/uL (1.8-7.7); NEUT % 82 % (31-73); PLATELET COUNT 528 x10^3/uL (140-400); RED BLOOD COUNT 3.92 x10^6/uL (3.50-5.40); RED CELL DISTRIBUTION WIDTH 15.9 % (11.5-14.5); WHITE BLOOD COUNT 27.7 x10^3/uL (4.0-11.0)
[2018-12-22] MEDS ORDERED: INSULIN,REGULAR 150 UNIT DRIP 150 ML IV ONE (07:00)
[2018-12-22] MEDS ORDERED: fentaNYL PF VIAL 100 MCG/2 ML VIAL IV ONE (07:00)
[2018-12-22 07:12] LABS: PROTHROMBIN TIME PATIENT 14.4 SEC (11.7-14.0)
[2018-12-22 07:14] LABS: ALBUMIN 3.3 g/dL (3.4-5.0); ALBUMIN/GLOBULIN RATIO 0.9 (1.0-1.7); ALK PHOS 121 U/L (46-116); ALT (SGPT) 21 U/L (14-59); AST (SGOT) 17 U/L (15-37); BLOOD UREA NITROGEN 43 mg/dL (7-20); BUN/CREATININE RATIO 17 (6-20); CALCIUM 9.1 mg/dL (8.5-10.1); CHLORIDE 64 mmol/L (98-107); CREATININE 2.6 mg/dL (0.6-1.0); GFR 20.2; LIPASE 77 U/L (73-393); MAGNESIUM 2.5 mg/dL (1.8-2.4); TOTAL BILIRUBIN 0.7 mg/dL (0.2-1.0); TOTAL PROTEIN 6.8 g/dL (6.4-8.2)
[2018-12-22 07:31] LABS: ANION GAP 44 (6-14); CARBON DIOXIDE < 5 mmol/L (21-32); POTASSIUM 6.6 mmol/L (3.5-5.1); SODIUM 113 mmol/L (136-145)
[2018-12-22] MEDS ORDERED: POTASSIUM CHLORIDE 10MEQ 100 ML IV PRN (07:31)
--- NOTE | 2018-12-22 07:31 | EKG ---
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
[2018-12-22 07:32] LABS: GLUCOSE 1405 mg/dL (70-99); PHOSPHORUS 13.2 mg/dL (2.6-4.7)
[2018-12-22] MEDS ORDERED: ASA/APAP/CAFFEINE 250/250/65MG TABLET. PO PRN (08:30)
[2018-12-22] MEDS ORDERED: DEXTROSE 50% 25 GM / 50ML DISP.SYRIN. IV PRN (08:30)
[2018-12-22] MEDS ORDERED: ONDANSETRON ODT 4 MG TAB.RAPDIS. PO PRN (08:30)
[2018-12-22] MEDS ORDERED: ALBUTEROL SULFATE 2.5 MG/3 ML NEBU. NEB PRN (08:30)
[2018-12-22] MEDS ORDERED: INSULIN REGULAR VIAL 150 UNIT in 0.9 % SODIUM CHLORIDE 150ML 150 ML IV PRN (08:30)
--- NOTE | 2018-12-22 08:30 | PDOC1 ---
History and Physical Date of Admission Date of Admission DATE: 12/22/18 TIME: 08:21 Identification/Chief Complaint Chief Complaint vomiting, multiple times Source Source: Caregiver, Chart review, Patient History of Present Illness History of Present Illness 43 female, freq filer for dka, comes in bec of dka gap 44, pH 7.1 bicarb < 10, tachypneic, SIRS, mottled legs, very dry, shaky,. COncentrated urine, Sick x 2 days, last EGD within the yr, our group, multiple episodes emesis no resolve with zofran, no diarrhea, BS > 1400, Na 113, K 6,.6, CReat 2.6, Platelets 526, phosphorus elevated 13. 2, mag elevated 2.5. ICU bed, DKA protocol, GOt 2 L bolus at ER, Will order 3 more L, then NS 250cc maintainance, q4 bmp till gap closes, CAn eat ADA once numbers better. Other supportive anti nausea meds, HOld off bicarb (ph is > 6.9) Full code Past Medical History Cardiovascular: Hyperlipidemia Pulmonary: No pertinent hx GI: Other Heme/Onc: No pertinent hx Hepatobiliary: Other Psych: Addictions Endocrine: Diabetes Past Surgical History Past Surgical History: Cholecystectomy, Hysterectomy Family History Family History: Chronic Bronchitis, High Cholestrol Social History Smoke: No ALCOHOL: none Drugs: Marijuana Current Problem List Problem List Problems Medical Problems: (1) Acute renal insufficiency Status: Acute (2) Anemia Status: Acute (3) DKA (diabetic ketoacidoses) Status: Acute (4) Gastroparesis Status: Acute (5) Hyperkalemia Status: Acute (6) Hypermagnesemia Status: Acute (7) Hyperphosphatemia Status: Acute (8) Hypoalbuminemia Status: Acute (9) Hypochloremia Status: Acute (10) Hyponatremia Status: Acute (11) Leukocytosis Status: Acute (12) Metabolic acidosis Status: Acute (13) Noncompliance with diabetes treatment Status: Acute Current Medications Current Medications Current Medications Sodium Chloride 1,000 ml @ 1,000 mls/hr Q1H IV Last administered on 12/22/18at 06:56; Start 12/22/18 at 06:45; Stop 12/22/18 at 07:44; Status DC Ondansetron HCl (Zofran) 4 mg 1X ONCE IV Last administered on 12/22/18at 07:24; Start 12/22/18 at 06:45; Stop 12/22/18 at 06:46; Status DC Pantoprazole Sodium (PROTONIX VIAL for IV PUSH) 40 mg 1X ONCE IVP Last administered on 12/22/18at 07:24; Start 12/22/18 at 06:45; Stop 12/22/18 at 06:46; Status DC Insulin Human Regular (HumuLIN R VIAL) 10 unit 1X ONCE IV Last administered on 12/22/18at 07:24; Start 12/22/18 at 06:45; Stop 12/22/18 at 06:46; Status DC Sodium Chloride 1,000 ml @ 1,000 mls/hr 1X ONCE IV Last administered on 12/22/18at 06:56; Start 12/22/18 at 06:45; Stop 12/22/18 at 07:44; Status DC Insulin Human Regular 150 ml @ 0 mls/hr 1X ONCE IV Last administered on 12/22/18at 07:41; Start 12/22/18 at 07:00; Stop 12/22/18 at 07:01; Status DC Fentanyl Citrate (Fentanyl 2ml Vial) 50 mcg 1X ONCE IV Last administered on 12/22/18at 07:24; Start 12/22/18 at 07:00; Stop 12/22/18 at 07:01; Status DC Sodium Chloride 1,000 ml @ 1,000 mls/hr Q1H IV ; Start 12/22/18 at 07:31; Stop 12/22/18 at 08:30 Potassium Chloride/Water 100 ml @ 100 mls/hr PRN Q1HR PRN IV SEE COMMENT; Start 12/22/18 at 07:31 Pantoprazole Sodium 80 mg/ Sodium Chloride 100 ml @ 10 mls/hr Q10H IV ; Start 12/22/18 at 08:00 Ondansetron HCl (Zofran) 4 mg PRN Q6HRS PRN IV NAUSEA/VOMITING; Start 12/22/18 at 08:30 Ondansetron HCl (Zofran Odt) 4 mg PRN Q6HRS PRN PO NAUSEA/VOMITING; Start 12/22/18 at 08:30 Fentanyl Citrate (Fentanyl 2ml Vial) 50 mcg PRN Q2HR PRN IV PAIN; Start 12/22/18 at 08:30 Prochlorperazine Edisylate (Compazine) 10 mg PRN Q6HRS PRN IV NAUSEA/VOMITING; Start 12/22/18 at 08:30 Sodium Chloride 1,000 ml @ 250 mls/hr Q4H IV ; Start 12/22/18 at 08:30 Sodium Chloride 1,000 ml @ 1,000 mls/hr 1X ONCE IV ; Start 12/22/18 at 08:30; Stop 12/22/18 at 09:29 Insulin Human Regular 150 unit/ Sodium Chloride 151.5 ml @ 0 mls/hr CONT PRN IV SEE I/O RECORD; Start 12/22/18 at 08:30 Dextrose (Dextrose 50%-Water Syringe) 12.5 gm PRN Q15MIN PRN IV LOW BLOOD SUGAR; Start 12/22/18 at 08:30; Status UNV Active Scripts Active Promethazine Hcl 25 Mg Tablet 1 Tab PO PRN Q6HRS Hydrocodone-Apap 10-325 (Hydrocodone Bit/Acetaminophen) 1 Tab Tablet 1 Tab PO PRN Q6HRS PRN 7 Days Duoneb 0.5-3(2.5) Mg/3 Ml (Albuterol/Ipratropium) 3 Ml Ampul.neb 3 Ml NEB RTQID 30 Days Amox Tr-K Clv 875-125 Mg Tab (Amoxicillin/Potassium Clav) 1 Each Tablet 1 Tab PO BID 14 Days Lantus Solostar (Insulin Glargine,Hum.rec.anlog) 100 Unit/1 Ml Insuln.pen 16 Units SQ QHS 30 Days Novolog (Insulin Aspart) 100 Unit/1 Ml Cartridge 8 Unit SQ MEAL PRN 30 Days Norvasc (Amlodipine Besylate) 5 Mg Tablet 5 Mg PO DAILY 30 Days Polyethylene Glycol 3350 17 Gm Powd.pack 17 Gm PO PRN DAILY PRN 14 Days Pain Reliever Plus Tablet (Aspirin/Acetaminophen/Caffeine) 1 Each Tablet 2 Tab PO PRN Q6HRS PRN 10 Days Famotidine 20 Mg Tablet 20 Mg PO DAILY MDD 1 Reported Protonix (Pantoprazole Sodium) 20 Mg Tablet.dr 20 Mg PO DAILY Allergies Allergies: Coded Allergies: No Known Medication Allergies (Verified Allergy, Unknown, 06/16/18) ROS Review of System sick nauseated, emesis, shaky, no cp, some soa, abd cramps, no diarrhea, all esle 14 pt neg, positive for feeling fatigued Physical Exam General: mild distress, Other (VERY DRY< POSITIVE SKIN TEST, motlled skin, legs, shaky, cold to touch) HEENT: PERRLA Lungs: Clear to auscultation, Normal air movement Heart: S1S2, RRR, no thrills, no rubs, other (sinus tachy) Rectal Exam: not examined PELVIC: Nml ext genitalia Extremities: No clubbing, No cyanosis, No edema Skin: No breakdown Neuro: Normal gait, Normal speech, Strength at 5/5 X4 ext, Normal tone, Sensation intact, Cranial nerves 3-12 NL, Reflexes 2+ Psych/Mental Status: Mental status NL, Mood NL Vitals Vitals Vital Signs Date Time Temp Pulse Resp B/P (MAP) Pulse Ox O2 Delivery O2 Flow Rate FiO2 12/22/18 07:55 106 28 110/56 (74) 100 Room Air 12/22/18 06:22 97.8 97.8 Labs Labs Laboratory Tests Test 12/22/18 06:40 12/22/18 06:53 White Blood Count 27.7 x10^3/uL (4.0-11.0) Red Blood Count 3.92 x10^6/uL (3.50-5.40) Hemoglobin 11.1 g/dL (12.0-15.5) Hematocrit 40.4 % (36.0-47.0) Mean Corpuscular Volume 103 fL (79-100) Mean Corpuscular Hemoglobin 28 pg (25-35) Mean Corpuscular Hemoglobin Concent 27 g/dL (31-37) Red Cell Distribution Width 15.9 % (11.5-14.5) Platelet Count 528 x10^3/uL (140-400) Neutrophils (%) (Auto) 82 % (31-73) Lymphocytes (%) (Auto) 13 % (24-48) Monocytes (%) (Auto) 5 % (0-9) Eosinophils (%) (Auto) 0 % (0-3) Basophils (%) (Auto) 0 % (0-3) Neutrophils # (Auto) 22.7 x10^3/uL (1.8-7.7) Lymphocytes # (Auto) 3.5 x10^3/uL (1.0-4.8) Monocytes # (Auto) 1.5 x10^3/uL (0.0-1.1) Eosinophils # (Auto) 0.0 x10^3/uL (0.0-0.7) Basophils # (Auto) 0.1 x10^3/uL (0.0-0.2) Prothrombin Time 14.4 SEC (11.7-14.0) Prothromb Time International Ratio 1.2 (0.8-1.1) Activated Partial Thromboplast Time 26 SEC (24-38) Sodium Level 113 mmol/L (136-145) Potassium Level 6.6 mmol/L (3.5-5.1) Chloride Level 64 mmol/L (98-107) Carbon Dioxide Level < 5 mmol/L (21-32) Anion Gap 44 (6-14) Blood Urea Nitrogen 43 mg/dL (7-20) Creatinine 2.6 mg/dL (0.6-1.0) Estimated GFR (Cockcroft-Gault) 20.2 BUN/Creatinine Ratio 17 (6-20) Glucose Level 1405 mg/dL (70-99) Calcium Level 9.1 mg/dL (8.5-10.1) Phosphorus Level 13.2 mg/dL (2.6-4.7) Magnesium Level 2.5 mg/dL (1.8-2.4) Total Bilirubin 0.7 mg/dL (0.2-1.0) Aspartate Amino Transf (AST/SGOT) 17 U/L (15-37) Alanine Aminotransferase (ALT/SGPT) 21 U/L (14-59) Alkaline Phosphatase 121 U/L (46-116) Total Protein 6.8 g/dL (6.4-8.2) Albumin 3.3 g/dL (3.4-5.0) Albumin/Globulin Ratio 0.9 (1.0-1.7) Lipase 77 U/L (73-393) Acetone Level Mod pos (NEG) O2 Saturation 97 % (92-99) Arterial Blood pH 7.10 (7.35-7.45) Arterial Blood pCO2 at Patient Temp < 15 mmHg (35-46) Arterial Blood pO2 at Patient Temp 143 mmHg (75-108) Arterial Blood HCO3 3 mmol/L (21-28) Arterial Blood Base Excess -24 mmol/L (-3-3) FiO2 21 Laboratory Tests Test 12/22/18 06:40 12/22/18 06:53 White Blood Count 27.7 x10^3/uL (4.0-11.0) Red Blood Count 3.92 x10^6/uL (3.50-5.40) Hemoglobin 11.1 g/dL (12.0-15.5) Hematocrit 40.4 % (36.0-47.0) Mean Corpuscular Volume 103 fL (79-100) Mean Corpuscular Hemoglobin 28 pg (25-35) Mean Corpuscular Hemoglobin Concent 27 g/dL (31-37) Red Cell Distribution Width 15.9 % (11.5-14.5) Platelet Count 528 x10^3/uL (140-400) Neutrophils (%) (Auto) 82 % (31-73) Lymphocytes (%) (Auto) 13 % (24-48) Monocytes (%) (Auto) 5 % (0-9) Eosinophils (%) (Auto) 0 % (0-3) Basophils (%) (Auto) 0 % (0-3) Neutrophils # (Auto) 22.7 x10^3/uL (1.8-7.7) Lymphocytes # (Auto) 3.5 x10^3/uL (1.0-4.8) Monocytes # (Auto) 1.5 x10^3/uL (0.0-1.1) Eosinophils # (Auto) 0.0 x10^3/uL (0.0-0.7) Basophils # (Auto) 0.1 x10^3/uL (0.0-0.2) Prothrombin Time 14.4 SEC (11.7-14.0) Prothromb Time International Ratio 1.2 (0.8-1.1) Activated Partial Thromboplast Time 26 SEC (24-38) Sodium Level 113 mmol/L (136-145) Potassium Level 6.6 mmol/L (3.5-5.1) Chloride Level 64 mmol/L (98-107) Carbon Dioxide Level < 5 mmol/L (21-32) Anion Gap 44 (6-14) Blood Urea Nitrogen 43 mg/dL (7-20) Creatinine 2.6 mg/dL (0.6-1.0) Estimated GFR (Cockcroft-Gault) 20.2 BUN/Creatinine Ratio 17 (6-20) Glucose Level 1405 mg/dL (70-99) Calcium Level 9.1 mg/dL (8.5-10.1) Phosphorus Level 13.2 mg/dL (2.6-4.7) Magnesium Level 2.5 mg/dL (1.8-2.4) Total Bilirubin 0.7 mg/dL (0.2-1.0) Aspartate Amino Transf (AST/SGOT) 17 U/L (15-37) Alanine Aminotransferase (ALT/SGPT) 21 U/L (14-59) Alkaline Phosphatase 121 U/L (46-116) Total Protein 6.8 g/dL (6.4-8.2) Albumin 3.3 g/dL (3.4-5.0) Albumin/Globulin Ratio 0.9 (1.0-1.7) Lipase 77 U/L (73-393) Acetone Level Mod pos (NEG) O2 Saturation 97 % (92-99) Arterial Blood pH 7.10 (7.35-7.45) Arterial Blood pCO2 at Patient Temp < 15 mmHg (35-46) Arterial Blood pO2 at Patient Temp 143 mmHg (75-108) Arterial Blood HCO3 3 mmol/L (21-28) Arterial Blood Base Excess -24 mmol/L (-3-3) FiO2 21 VTE Prophylaxis Ordered VTE Prophylaxis Devices: Yes VTE Pharmacological Prophylaxi: Yes Assessment/Plan Assessment/Plan SEVERE DKA WITH NO COMA CYCLIC VOMITING HX GASTROPARESIS BY HISTORY FREQ FLIER HYPOVOLEMIA SINUS TACHY REACTIVE LEUKOCYTOSIS AND THROMBOCYTOSIS HYPERMAGNESEMIA, HYPERPHOSPHATEMIA, PSEUDOHYPONATREMIA HYPERKALEMIA WITH NO EKG CHANGES METABOLIC ACIDOSIS WITH CONTRACTION ALKALOSIS FULL CODE PLAN; ICU BED, DKA PROTOCOL. INSULIN GTT GAP Q4 TILL CLOSES HOLD OFF BICARB GTT 3 MORE IVF BOLUS THEN MAINTAIN 250CC/HR LYTES SHOULD GET BETTER WITH HYDRATION WILL ALLOW TO EAT WHEN NUMBERS BETTER MAY CHECK HGBA1C IF NONE RECENT ANTI NAUSEA MEDS FULL CODE DEANA CORTES HOLD OFF HOME NORVASC CHECK FOR INFECTION/UTI- LIKELY WILL ALSO HAVE GLUCOSURIA AND KETONURIA CC 30 LUBA LINDQUIST MD Dec 22, 2018 08:30
[2018-12-22] MEDS: fentaNYL PF VIAL 100 MCG/2 ML VIAL IV PRN ×5 (08:48→20:55)
[2018-12-22] MEDS: ONDANSETRON PF 4 MG/2 ML VIAL. IV PRN ×3 (08:48→22:17)
[2018-12-22 08:57] LABS: BILIRUBIN,URINE NEGATIVE (NEG); CLARITY,URINE CLEAR; COLOR,URINE YELLOW; NITRITE,URINE NEGATIVE (NEG); PROTEIN,URINE NEGATIVE (NEG-TRACE); UROBILINOGEN,URINE 0.2 mg/dL (0.2 mg/dL)
[2018-12-22 09:03] LABS: AMPHETAMINE/METHAMPHETAMINE NEG (NEG); BARBITURATES NEG (NEG); BENZODIAZEPINES NEG (NEG); CANNABINOIDS POS (NEG); COCAINE NEG (NEG); METHADONE NEG (NEG); OPIATES NEG (NEG); PHENCYCLIDINE NEG (NEG)
[2018-12-22 09:16] LABS: BACTERIA,URINE FEW /HPF (0-FEW); SQUAMOUS EPITHELIAL CELL,UR MOD /LPF
[2018-12-22] MEDS ORDERED: BENZOCAINE/MENTHOL LOZENGE. PO PRN (10:00)
[2018-12-22] MEDS ORDERED: FLU VAX QS 2019-20 (36MOS+)/PF 0.5 ML SYRINGE. VAX IM ONE (10:00)
[2018-12-22] MEDS: NICOTINE 21MG PATCH. TD PRN (10:05)
[2018-12-22 11:05] LABS: CALCIUM 7.5 mg/dL (8.5-10.1); CREATININE 1.8 mg/dL (0.6-1.0); GFR 30.9; MAGNESIUM 1.7 mg/dL (1.8-2.4); PHOSPHORUS 3.4 mg/dL (2.6-4.7); POTASSIUM 3.8 mmol/L (3.5-5.1)
[2018-12-22] MEDS: PROCHLORPERAZINE 10 MG/2 ML VIAL. IV PRN (11:05)
[2018-12-22] MEDS: PANTOPRAZOLE SODIUM IV DRIP 80 MG in IV NORMAL SALINE 100ML 100 ML IV SCH ×2 (11:06→19:57)
[2018-12-22] MEDS ORDERED: MAGNESIUM SULFATE 4GM 100 ML IV ONE (12:00)
--- NOTE | 2018-12-22 12:19 | RAD ---
EXAM: Chest, single view. HISTORY: Central line placement. COMPARISON: 11/14/2018 FINDINGS: A frontal view of the chest is obtained. There is a right internal jugular catheter with the tip in the superior cavoatrial junction. There is no infiltrate, pleural effusion or pneumothorax. The heart is normal in size. There are circumscribed nodules overlying the bilateral mid to lower thorax due to nipple shadows. IMPRESSION: 1. Right central venous catheter with the tip in the superior cavoatrial junction. 2. No acute pulmonary finding. Note is made that infiltrate demonstrated on the CT dated 09/26/2018 is not seen radiographically. Electronically signed by: Khushi Acuña MD (12/22/2018 12:16 PM) [id number]
[2018-12-22] MEDS: POTASSIUM CHLORIDE 10MEQ 100 ML IV SCH ×4 (12:52→16:03)
[2018-12-22] MEDS: IV DEXTROSE 5% - 0.9 % NACL 1,000 ML IV SCH ×2 (13:18→17:18)
[2018-12-22 14:49] LABS: CALCIUM 7.4 mg/dL (8.5-10.1); CREATININE 1.3 mg/dL (0.6-1.0); GFR 44.9; MAGNESIUM 2.9 mg/dL (1.8-2.4); PHOSPHORUS 2.1 mg/dL (2.6-4.7); POTASSIUM 5.1 mmol/L (3.5-5.1)
[2018-12-22] MEDS ORDERED: SODIUM PHOSPHATE IV ONE (15:30)
[2018-12-22] MEDS ORDERED: DEXTROSE 5% IV ONE (15:30)
--- NOTE | 2018-12-22 15:33 | NUR ---
SS following for discharge planning. SS reviewed pt chart. Pt is from home and is currently on room air. No discharge needs noted at this time. SS will continue to follow for discharge planning.
--- NOTE | 2018-12-22 16:16 | RAD ---
Procedure: Ultrasound-guided placement of right internal jugular central venous catheter12/22/2018 2:13 PM Clinical Indication: poor peripheral access; frequent blood draws Discussion: The risks and benefits of the procedure were discussed the patient and/or their architectural representative. Informed consent was obtained. A timeout procedure was performed. All elements of maximal sterile barrier technique including the use of a cap, mask, sterile gown, sterile gloves, large sterile sheet, appropriate hand hygiene, and 2% chlorhexidine for cutaneous antisepsis (or acceptable alternative antiseptic per current guidelines) were followed for this procedure. The patient was prepped and draped in the usual sterile fashion. Ultrasound interrogation of the right neck revealed patency and compressibility of the right internal jugular vein. A 21-gauge micropuncture was then used to gain access to this vein under ultrasound guidance. A hard copy ultrasound image was recorded. A guidewire was advanced centrally. 5 Chadian sheath was placed. Over a wire following dilatation, a triple-lumen central venous catheter was advanced centrally. Catheter was found to flush and aspirate normally. Follow-up chest radiograph demonstrates tip at the cavoatrial junction. Catheter secured in place and a sterile dressing was applied. No immediate complications were identified. Impression: Successful ultrasound-guided placement of right internal jugular triple-lumen central venous catheter
[2018-12-22 18:51] LABS: CALCIUM 6.8 mg/dL (8.5-10.1); CREATININE 1.3 mg/dL (0.6-1.0); GFR 44.9; MAGNESIUM 2.9 mg/dL (1.8-2.4); PHOSPHORUS 1.3 mg/dL (2.6-4.7); POTASSIUM 4.3 mmol/L (3.5-5.1)
[2018-12-22] MEDS ORDERED: IV DEXTROSE 5% 250 ML BAG. IV PRN (20:00)
[2018-12-22] MEDS: IV NORMAL SALINE 1000ML BAG 1,000 ML IV SCH (20:42)
[2018-12-22] MEDS: INSULIN GLARGINE SYRINGE. SQ SCH (20:58)
--- NOTE | 2018-12-22 21:45 | NUR ---
Order received from Dr. Horn in person, after examined pt, to give 30 units of Lantus insulin and to start an aggressive sliding scale insulin order with 12 units with meals. Order also received to stop D5 fluids and to start normal saline at 125 mL's/ hr, aswell as an electrolyte protocol. Provider was updated on pt's black liquid stools and also ordered a HGB test 2130 and a follow up HGB test at 0600 on 12/23. Will continue to assess and monitor.
[2018-12-23] VITALS (12 sets, daily range): BP systolic 97–161; BP diastolic 54–104
[2018-12-23] MEDS: HYDROcodone/APAP 10/325 1 TAB TABLET PO PRN ×2 (00:05→21:57)
[2018-12-23 00:09] LABS: HEMOGLOBIN A1C 12.6 % (4.8-5.6)
[2018-12-23] MEDS: fentaNYL PF VIAL 100 MCG/2 ML VIAL IV PRN ×9 (02:00→23:47)
[2018-12-23] MEDS: IV NORMAL SALINE 1000ML BAG 1,000 ML IV SCH ×3 (04:31→20:00)
[2018-12-23] MEDS: PANTOPRAZOLE SODIUM IV DRIP 80 MG in IV NORMAL SALINE 100ML 100 ML IV SCH ×2 (06:40→15:26)
[2018-12-23 06:43] LABS: CALCIUM 6.8 mg/dL (8.5-10.1); GFR 60.8; POTASSIUM 3.5 mmol/L (3.5-5.1)
[2018-12-23] MEDS: INSULIN LISPRO 300 UNITS/3 ML VIAL. SQ SCH ×6 (08:00→17:00)
[2018-12-23] MEDS: ONDANSETRON PF 4 MG/2 ML VIAL. IV PRN ×3 (08:15→20:53)
[2018-12-23 08:20] LABS: MAGNESIUM 2.3 mg/dL (1.8-2.4); PHOSPHORUS 1.3 mg/dL (2.6-4.7)
[2018-12-23] MEDS: POTASSIUM CHL 20MEQ PREMIX 50 ML IV SCH ×2 (09:23→11:00)
--- NOTE | 2018-12-23 10:30 | PDOC ---
[employer] PROGRESS NOTE Chief Complaint Chief Complaint Vomiting Severe DKA History of Present Illness History of Present Illness 12/23/18 Pt was seen and examined in the ICU Off insulin qtt VSS Tolerating food DW RN Vitals/I&O Vitals/I&O: Vital Signs Date Time Temp Pulse Resp B/P (MAP) Pulse Ox O2 Delivery O2 Flow Rate FiO2 12/23/18 09:19 20 100 Room Air 12/23/18 08:00 98.5 88 128/72 (90) 98.5 I & O 12/22/18 12/22/18 12/23/18 15:00 23:00 07:00 Intake Total 6200 ml 2533.5 ml 1330 ml Output Total 2300 ml 1800 ml 1200 ml Balance 3900 ml 733.5 ml 130 ml Physical Exam Physical Exam: HEENT: Normocephalic, atraumatic, oropharynx dry. Eyes: PERRLA, EOMI, conjunctiva normal, no discharge Neck: Normal range of motion, no tenderness, supple, no stridor Cardiovascular: Tachycardia, no murmur Lungs & Thorax: Hyperventilation, bilateral breath sounds clear to auscultation Abdomen: Bowel sounds normal, soft, no tenderness, no masses, no pulsatile masses. Skin: Warm, dry, no erythema, no rash. Extremities: No tenderness, no cyanosis, no clubbing, ROM intact, no edema. Neurologic: Alert and oriented X 3, no focal deficits noted General: No acute distress, Other (VERY DRY< POSITIVE SKIN TEST, motlled skin, legs, shaky, cold to touch) Heart: Regular rate Lungs: Clear, Other Abdomen: Soft Extremities: No clubbing, No cyanosis, No edema Skin: No rashes, No breakdown Labs Labs: Laboratory Tests Test 12/22/18 10:40 12/22/18 10:49 12/22/18 11:57 12/22/18 13:07 Sodium Level 135 mmol/L (136-145) Potassium Level 3.8 mmol/L (3.5-5.1) Chloride Level 97 mmol/L (98-107) Carbon Dioxide Level 15 mmol/L (21-32) Anion Gap 23 (6-14) Blood Urea Nitrogen 40 mg/dL (7-20) Creatinine 1.8 mg/dL (0.6-1.0) Estimated GFR (Cockcroft-Gault) 30.9 Glucose Level 482 mg/dL (70-99) Calcium Level 7.5 mg/dL (8.5-10.1) Phosphorus Level 3.4 mg/dL (2.6-4.7) Magnesium Level 1.7 mg/dL (1.8-2.4) Glucose (Fingerstick) 489 mg/dL (70-99) 311 mg/dL (70-99) 194 mg/dL (70-99) Test 12/22/18 14:04 12/22/18 14:25 12/22/18 15:11 12/22/18 16:07 Glucose (Fingerstick) 189 mg/dL (70-99) 235 mg/dL (70-99) 285 mg/dL (70-99) Sodium Level 137 mmol/L (136-145) Potassium Level 5.1 mmol/L (3.5-5.1) Chloride Level 105 mmol/L (98-107) Carbon Dioxide Level 15 mmol/L (21-32) Anion Gap 17 (6-14) Blood Urea Nitrogen 32 mg/dL (7-20) Creatinine 1.3 mg/dL (0.6-1.0) Estimated GFR (Cockcroft-Gault) 44.9 Glucose Level 235 mg/dL (70-99) Calcium Level 7.4 mg/dL (8.5-10.1) Phosphorus Level 2.1 mg/dL (2.6-4.7) Magnesium Level 2.9 mg/dL (1.8-2.4) Test 12/22/18 17:19 12/22/18 18:21 12/22/18 18:31 12/22/18 20:09 Glucose (Fingerstick) 276 mg/dL (70-99) 194 mg/dL (70-99) 157 mg/dL (70-99) Sodium Level 136 mmol/L (136-145) Potassium Level 4.3 mmol/L (3.5-5.1) Chloride Level 108 mmol/L (98-107) Carbon Dioxide Level 21 mmol/L (21-32) Anion Gap 7 (6-14) Blood Urea Nitrogen 25 mg/dL (7-20) Creatinine 1.3 mg/dL (0.6-1.0) Estimated GFR (Cockcroft-Gault) 44.9 Glucose Level 209 mg/dL (70-99) Calcium Level 6.8 mg/dL (8.5-10.1) Phosphorus Level 1.3 mg/dL (2.6-4.7) Magnesium Level 2.9 mg/dL (1.8-2.4) Test 12/22/18 20:57 12/22/18 22:00 12/22/18 22:21 12/22/18 22:41 Glucose (Fingerstick) 145 mg/dL (70-99) 64 mg/dL (70-99) 107 mg/dL (70-99) Hemoglobin 9.0 g/dL (12.0-15.5) Test 12/23/18 00:08 12/23/18 06:05 Glucose (Fingerstick) 75 mg/dL (70-99) Hemoglobin 8.6 g/dL (12.0-15.5) Sodium Level 139 mmol/L (136-145) Potassium Level 3.5 mmol/L (3.5-5.1) Chloride Level 108 mmol/L (98-107) Carbon Dioxide Level 20 mmol/L (21-32) Anion Gap 11 (6-14) Blood Urea Nitrogen 16 mg/dL (7-20) Creatinine 1.0 mg/dL (0.6-1.0) Estimated GFR (Cockcroft-Gault) 60.8 Glucose Level 127 mg/dL (70-99) Calcium Level 6.8 mg/dL (8.5-10.1) Phosphorus Level 1.3 mg/dL (2.6-4.7) Magnesium Level 2.3 mg/dL (1.8-2.4) Review of Systems Review of Systems: No chest pain, no shortness of breath No headache, no loss of vision Assessment and Plan Assessmemt and Plan Problems Medical Problems: (1) Acute renal insufficiency Status: Acute (2) Anemia Status: Acute (3) DKA (diabetic ketoacidoses) Status: Acute (4) DKA (diabetic ketoacidoses) Status: Acute (5) Gastroparesis Status: Acute (6) Hyperkalemia Status: Acute (7) Hypermagnesemia Status: Acute (8) Hyperphosphatemia Status: Acute (9) Hypoalbuminemia Status: Acute (10) Hypochloremia Status: Acute (11) Hyponatremia Status: Acute (12) Hypovolemia Status: Acute (13) Leukocytosis Status: Acute (14) Metabolic acidosis Status: Acute (15) Noncompliance with diabetes treatment Status: Acute (16) Prolonged Q-T interval on ECG Status: Acute Assessment Severe DKA Cyclic vomiting Gastroparesis Hypovolemia Acute renal insufficiency Hyponatremia Hypokalemia Plan ICU monitoring Labs Resume home insulin Cardiac monitoring DVT proph Frequent accu checks Comment Review of Relevant I have reviewed the following items sheryl (where applicable) has been applied. Medications: Current Medications Medications (Trade) Dose Ordered Sig/Lori Route PRN Reason Start Time Stop Time Status Last Admin Dose Admin Sodium Chloride 1,000 ml @ 1,000 mls/hr 1X ONCE IV 12/22/18 11:45 12/22/18 12:44 DC 12/22/18 11:46 Magnesium Sulfate 100 ml @ 25 mls/hr 1X ONCE IV 12/22/18 12:00 12/22/18 15:59 DC 12/22/18 12:09 Potassium Chloride/Water 100 ml @ 100 mls/hr Q1H IV 12/22/18 13:00 12/22/18 16:59 DC 12/22/18 16:05 Dextrose/Sodium Chloride 1,000 ml @ 250 mls/hr Q4H IV 12/22/18 13:15 12/22/18 20:06 DC 12/22/18 17:18 Sodium Phosphate 8 mmol/Dextrose 102.6667 ml @ 25.661 m... 1X ONCE IV 12/22/18 15:30 12/22/18 19:30 DC 12/22/18 15:16 Sodium Chloride 1,000 ml @ 125 mls/hr Q8H IV 12/22/18 20:00 12/23/18 04:32 Insulin Glargine (Lantus Syringe) 30 unit QHS SQ 12/22/18 21:00 12/22/18 20:59 Potassium Chloride/Water 50 ml @ 50 mls/hr Q1H IV 12/23/18 09:30 12/23/18 11:29 12/23/18 09:23 EVERTON PRICE III DO Dec 23, 2018 10:30
[2018-12-23] MEDS ORDERED: SODIUM PHOSPHATE IV ONE (11:00)
[2018-12-23] MEDS ORDERED: DEXTROSE 5% IV ONE (11:00)
--- NOTE | 2018-12-23 11:14 | PDOC2 ---
GI CONSULT Reason For Consult: hematemesis, black stools HPI: HPI: 43 y/o diabetic female (A1c 12.6) admitted 12/22/18 w/ glucose >1400. Transferred from ICU to regular floor this morning. Feeling badly at home since Saturday w/ nausea, then vomiting began. Vomited red blood at home and reportedly also in ICU last night. Today has had 3-4 black stools. NPO on IV PPI. Has epigastric and chest pain - burning, though it hurt to swallow but it doesn't. Wants something to be done. We have seen her in the past. Has also seen gastroenterology at . Recurrent n/v and abd pain, h/o GERD, gastroparesis - also carries diagnosis of "[facility]." Takes pantoprazole daily - says has been compliant. Uses Reglan and Zofran PRN - no longer takes e-mycin (previously took TID every other week). Reports unremarkable EGD @ in Mar 2018 or Apr 2018 and has had [facility] (says abnormal) and colonoscopy there within the past couple years. EGD here in 2014 showed mild reflux esophagitis. Additionally h/o SBR ("they took out two feet for inflammation and blockage"). S/p cholecystectomy. Past MRCP showed mild dilatation of CBD post- cholecystectomy. No pancreatitis history. Hepatitis panel negative in 2015. No NSAIDs. +cannabinoids 9/10 times here since 2014. FH: Family History: No pertinent hx Social History: Smoke: <1 pack per day ALCOHOL: none Drugs: Marijuana ROS: GEN: Denies fevers, chills, sweats HEENT: Denies blurred vision, sore throat CV: Denies chest pain RESP: Denies shortness of air, cough GI: Per HPI : Denies hematuria, dysuria ENDO: Denies weight changes NEURO: Denies confusion, dizziness MSK: Denies weakness, joint pain/swelling SKIN: Denies jaundice, pruritus Vitals: Vitals: Vital Signs Date Time Temp Pulse Resp B/P (MAP) Pulse Ox O2 Delivery O2 Flow Rate FiO2 12/23/18 11:00 Room Air 12/23/18 09:19 20 100 12/23/18 08:00 98.5 88 128/72 (90) 98.5 Labs: Labs: Laboratory Tests Test 12/22/18 11:57 12/22/18 13:07 12/22/18 14:04 12/22/18 14:25 Glucose (Fingerstick) 311 mg/dL (70-99) 194 mg/dL (70-99) 189 mg/dL (70-99) Sodium Level 137 mmol/L (136-145) Potassium Level 5.1 mmol/L (3.5-5.1) Chloride Level 105 mmol/L (98-107) Carbon Dioxide Level 15 mmol/L (21-32) Anion Gap 17 (6-14) Blood Urea Nitrogen 32 mg/dL (7-20) Creatinine 1.3 mg/dL (0.6-1.0) Estimated GFR (Cockcroft-Gault) 44.9 Glucose Level 235 mg/dL (70-99) Calcium Level 7.4 mg/dL (8.5-10.1) Phosphorus Level 2.1 mg/dL (2.6-4.7) Magnesium Level 2.9 mg/dL (1.8-2.4) Test 12/22/18 15:11 12/22/18 16:07 12/22/18 17:19 12/22/18 18:21 Glucose (Fingerstick) 235 mg/dL (70-99) 285 mg/dL (70-99) 276 mg/dL (70-99) 194 mg/dL (70-99) Test 12/22/18 18:31 12/22/18 20:09 12/22/18 20:57 12/22/18 22:00 Sodium Level 136 mmol/L (136-145) Potassium Level 4.3 mmol/L (3.5-5.1) Chloride Level 108 mmol/L (98-107) Carbon Dioxide Level 21 mmol/L (21-32) Anion Gap 7 (6-14) Blood Urea Nitrogen 25 mg/dL (7-20) Creatinine 1.3 mg/dL (0.6-1.0) Estimated GFR (Cockcroft-Gault) 44.9 Glucose Level 209 mg/dL (70-99) Calcium Level 6.8 mg/dL (8.5-10.1) Phosphorus Level 1.3 mg/dL (2.6-4.7) Magnesium Level 2.9 mg/dL (1.8-2.4) Glucose (Fingerstick) 157 mg/dL (70-99) 145 mg/dL (70-99) Hemoglobin 9.0 g/dL (12.0-15.5) Test 12/22/18 22:21 12/22/18 22:41 12/23/18 00:08 12/23/18 06:05 Glucose (Fingerstick) 64 mg/dL (70-99) 107 mg/dL (70-99) 75 mg/dL (70-99) Hemoglobin 8.6 g/dL (12.0-15.5) Sodium Level 139 mmol/L (136-145) Potassium Level 3.5 mmol/L (3.5-5.1) Chloride Level 108 mmol/L (98-107) Carbon Dioxide Level 20 mmol/L (21-32) Anion Gap 11 (6-14) Blood Urea Nitrogen 16 mg/dL (7-20) Creatinine 1.0 mg/dL (0.6-1.0) Estimated GFR (Cockcroft-Gault) 60.8 Glucose Level 127 mg/dL (70-99) Calcium Level 6.8 mg/dL (8.5-10.1) Phosphorus Level 1.3 mg/dL (2.6-4.7) Magnesium Level 2.3 mg/dL (1.8-2.4) Allergies: Coded Allergies: No Known Medication Allergies (Verified Allergy, Unknown, 06/16/18) Medications: Current Medications Medications (Trade) Dose Ordered Sig/Lori Route PRN Reason Start Time Stop Time Status Last Admin Dose Admin Sodium Chloride 1,000 ml @ 1,000 mls/hr 1X ONCE IV 12/22/18 11:45 12/22/18 12:44 DC 12/22/18 11:46 Magnesium Sulfate 100 ml @ 25 mls/hr 1X ONCE IV 12/22/18 12:00 12/22/18 15:59 DC 12/22/18 12:09 Potassium Chloride/Water 100 ml @ 100 mls/hr Q1H IV 12/22/18 13:00 12/22/18 16:59 DC 12/22/18 16:05 Dextrose/Sodium Chloride 1,000 ml @ 250 mls/hr Q4H IV 12/22/18 13:15 12/22/18 20:06 DC 12/22/18 17:18 Sodium Phosphate 8 mmol/Dextrose 102.6667 ml @ 25.661 m... 1X ONCE IV 12/22/18 15:30 12/22/18 19:30 DC 12/22/18 15:16 Sodium Chloride 1,000 ml @ 125 mls/hr Q8H IV 12/22/18 20:00 12/23/18 04:32 Insulin Glargine (Lantus Syringe) 30 unit QHS SQ 12/22/18 21:00 12/22/18 20:59 Potassium Chloride/Water 50 ml @ 50 mls/hr Q1H IV 12/23/18 09:30 12/23/18 11:29 12/23/18 11:00 Imaging: Imaging: CXR IMPRESSION: 1. Right central venous catheter with the tip in the superior cavoatrial junction. 2. No acute pulmonary finding. Note is made that infiltrate demonstrated on the CT dated 09/26/2018 is not seen radiographically. PE: GEN: uncomfortable, worried HEENT: Atraumatic, PERRL LUNGS: CTAB HEART: RRR ABD: BS+, soft, upper abd soreness tracking into chest EXTREMITY: No edema SKIN: No rashes, no jaundice NEURO/PSYCH: A & O 3 A/P: A/P: DKA, hematemesis, melena - last EGD reportedly normal @ [facility] ~6 months ago Anemia Recurrent n/v, abd pain - h/o GERD, gastroparesis CRC screen - UTD H/o SBR S/p cholecystectomy +cannabinoids -- ?M-W tear w/ multiple episodes of vomiting/retching and impressive hyperglycemia Vital stable - actually a bit hypertensive. Hgb has drifted - has had similar level in the past. BUN/Cr elevated on admission - now normal. Reviewed w/ Dr. Lemos - medical therapy for now w/ PPI and serial blood counts - called to nurse. Ask for records from [facility]. Continue PPI. Recheck basic labs. Has orders for full liquids; however, she is very concerned with bleeding - NPO for now. ANGELA RIVERO Dec 23, 2018 11:13
[2018-12-23 13:08] LABS: HEMATOCRIT 29.2 % (36.0-47.0); HEMOGLOBIN 9.1 g/dL (12.0-15.5); RED BLOOD COUNT 3.19 x10^6/uL (3.50-5.40); RED CELL DISTRIBUTION WIDTH 15.5 % (11.5-14.5)
[2018-12-23 13:25] LABS: ALBUMIN 2.4 g/dL (3.4-5.0); CREATININE 0.8 mg/dL (0.6-1.0); GFR 78.7; POTASSIUM 4.3 mmol/L (3.5-5.1); TOTAL BILIRUBIN 0.1 mg/dL (0.2-1.0); TOTAL PROTEIN 4.8 g/dL (6.4-8.2)
[2018-12-23] MEDS: NICOTINE 21MG PATCH. TD PRN (14:18)
[2018-12-23] MEDS: INSULIN GLARGINE SYRINGE. SQ SCH (22:01)
[2018-12-24] MEDS: fentaNYL PF VIAL 100 MCG/2 ML VIAL IV PRN ×9 (02:40→23:49)
[2018-12-24] MEDS: PANTOPRAZOLE SODIUM IV DRIP 80 MG in IV NORMAL SALINE 100ML 100 ML IV SCH (02:43)
[2018-12-24 03:00] VITALS: BP 153/99
[2018-12-24] MEDS: IV NORMAL SALINE 1000ML BAG 1,000 ML IV SCH (04:55)
[2018-12-24] MEDS: INSULIN LISPRO 300 UNITS/3 ML VIAL. SQ SCH ×6 (08:00→17:41)
[2018-12-24 08:10] VITALS: BP 153/100
[2018-12-24] MEDS: HYDROcodone/APAP 10/325 1 TAB TABLET PO PRN ×3 (08:35→21:09)
--- NOTE | 2018-12-24 09:18 | PDOC ---
Subjective: Subjective: In pain, rough night. Keeping clears down. Stools are now brownish/reddish. Would like GI cocktail and full liquids. Objective: Vital Signs: Vital Signs Date Time Temp Pulse Resp B/P (MAP) Pulse Ox O2 Delivery O2 Flow Rate FiO2 12/24/18 08:35 Room Air 12/24/18 08:10 98.1 85 18 153/100 (117) 98 98.1 Labs: Laboratory Tests Test 12/23/18 11:50 12/23/18 12:55 12/23/18 15:36 12/23/18 16:42 Glucose (Fingerstick) 73 mg/dL 112 mg/dL 104 mg/dL White Blood Count 10.0 x10^3/uL Red Blood Count 3.19 x10^6/uL Hemoglobin 9.1 g/dL Hematocrit 29.2 % Mean Corpuscular Volume 92 fL Mean Corpuscular Hemoglobin 29 pg Mean Corpuscular Hemoglobin Concent 31 g/dL Red Cell Distribution Width 15.5 % Platelet Count 230 x10^3/uL Sodium Level 137 mmol/L Potassium Level 4.3 mmol/L Chloride Level 110 mmol/L Carbon Dioxide Level 18 mmol/L Anion Gap 9 Blood Urea Nitrogen 11 mg/dL Creatinine 0.8 mg/dL Estimated GFR (Cockcroft-Gault) 78.7 BUN/Creatinine Ratio 14 Glucose Level 82 mg/dL Calcium Level 7.0 mg/dL Total Bilirubin 0.1 mg/dL Aspartate Amino Transf (AST/SGOT) 44 U/L Alanine Aminotransferase (ALT/SGPT) 24 U/L Alkaline Phosphatase 87 U/L Total Protein 4.8 g/dL Albumin 2.4 g/dL Albumin/Globulin Ratio 1.0 Test 12/23/18 20:52 12/24/18 07:51 Glucose (Fingerstick) 130 mg/dL 129 mg/dL PE: GEN: NAD LUNGS: room air HEART: RRR ABD: epigastric and chest discomfort NEURO/PSYCH: A & O 3 A/P: DKA Hematemesis, melena - resolved Anemia - Hgb improved yesterday Recurrent n/v, abd pain - h/o GERD, gastroparesis, +cannabinoids -- Try PO PPI, GI cocktail, and full liquid diet. Discussed f/u w/ [facility] (GI and endocrinology) yesterday. ANGELA RIVERO Dec 24, 2018 09:18
[2018-12-24] MEDS: LIDO:MAALOX 1:1 20 ML SINGLE DOSE. PO PRN (10:24)
[2018-12-24] MEDS: PANTOPRAZOLE 40 MG TABLET.DR. PO SCH (10:54)
[2018-12-24 11:31] VITALS: BP 162/92
[2018-12-24] MEDS: ONDANSETRON PF 4 MG/2 ML VIAL. IV PRN (11:52)
--- NOTE | 2018-12-24 12:18 | PDOC ---
PROGRESS NOTES Chief Complaint Chief Complaint Vomiting Severe DKA History of Present Illness History of Present Illness 12/23/18 Pt was seen and examined in the ICU Off insulin qtt VSS Tolerating food DW RN Vitals Vitals Vital Signs Date Time Temp Pulse Resp B/P (MAP) Pulse Ox O2 Delivery O2 Flow Rate FiO2 12/24/18 11:53 Room Air 12/24/18 11:31 98.4 87 18 162/92 (115) 97 98.4 Physical Exam Physical Exam HEENT: Normocephalic, atraumatic, oropharynx dry. Eyes: PERRLA, EOMI, conjunctiva normal, no discharge Neck: Normal range of motion, no tenderness, supple, no stridor Cardiovascular: Tachycardia, no murmur Lungs & Thorax: Hyperventilation, bilateral breath sounds clear to auscultation Abdomen: Bowel sounds normal, soft, no tenderness, no masses, no pulsatile masses. Skin: Warm, dry, no erythema, no rash. Extremities: No tenderness, no cyanosis, no clubbing, ROM intact, no edema. Neurologic: Alert and oriented X 3, no focal deficits noted General: No acute distress, Other (VERY DRY< POSITIVE SKIN TEST, motlled skin, legs, shaky, cold to touch) Heart: Regular rate Lungs: Clear, Other Abdomen: Soft Extremities: No clubbing, No cyanosis, No edema Skin: No rashes, No breakdown Labs LABS Laboratory Tests Test 12/23/18 12:55 12/23/18 15:36 12/23/18 16:42 12/23/18 20:52 White Blood Count 10.0 x10^3/uL (4.0-11.0) Red Blood Count 3.19 x10^6/uL (3.50-5.40) Hemoglobin 9.1 g/dL (12.0-15.5) Hematocrit 29.2 % (36.0-47.0) Mean Corpuscular Volume 92 fL (79-100) Mean Corpuscular Hemoglobin 29 pg (25-35) Mean Corpuscular Hemoglobin Concent 31 g/dL (31-37) Red Cell Distribution Width 15.5 % (11.5-14.5) Platelet Count 230 x10^3/uL (140-400) Sodium Level 137 mmol/L (136-145) Potassium Level 4.3 mmol/L (3.5-5.1) Chloride Level 110 mmol/L (98-107) Carbon Dioxide Level 18 mmol/L (21-32) Anion Gap 9 (6-14) Blood Urea Nitrogen 11 mg/dL (7-20) Creatinine 0.8 mg/dL (0.6-1.0) Estimated GFR (Cockcroft-Gault) 78.7 BUN/Creatinine Ratio 14 (6-20) Glucose Level 82 mg/dL (70-99) Calcium Level 7.0 mg/dL (8.5-10.1) Total Bilirubin 0.1 mg/dL (0.2-1.0) Aspartate Amino Transf (AST/SGOT) 44 U/L (15-37) Alanine Aminotransferase (ALT/SGPT) 24 U/L (14-59) Alkaline Phosphatase 87 U/L (46-116) Total Protein 4.8 g/dL (6.4-8.2) Albumin 2.4 g/dL (3.4-5.0) Albumin/Globulin Ratio 1.0 (1.0-1.7) Glucose (Fingerstick) 112 mg/dL (70-99) 104 mg/dL (70-99) 130 mg/dL (70-99) Test 12/24/18 07:51 12/24/18 11:57 Glucose (Fingerstick) 129 mg/dL (70-99) 242 mg/dL (70-99) Assessment and Plan Assessmemt and Plan Problems Medical Problems: (1) Abdominal pain Status: Acute (2) Acute renal insufficiency Status: Acute (3) Anemia Status: Acute (4) DKA (diabetic ketoacidoses) Status: Acute (5) DKA (diabetic ketoacidoses) Status: Acute (6) Gastroparesis Status: Acute (7) Hematemesis Status: Acute (8) Hyperkalemia Status: Acute (9) Hypermagnesemia Status: Acute (10) Hyperphosphatemia Status: Acute (11) Hypoalbuminemia Status: Acute (12) Hypochloremia Status: Acute (13) Hyponatremia Status: Acute (14) Hypovolemia Status: Acute (15) Leukocytosis Status: Acute (16) Melena Status: Acute (17) Metabolic acidosis Status: Acute (18) Nausea & vomiting Status: Acute (19) Noncompliance with diabetes treatment Status: Acute (20) Prolonged Q-T interval on ECG Status: Acute Comment Review of Relevant I have reviewed the following items sheryl (where applicable) has been applied. Labs Laboratory Tests Test 12/22/18 13:07 12/22/18 14:04 12/22/18 14:25 12/22/18 15:11 Glucose (Fingerstick) 194 mg/dL (70-99) 189 mg/dL (70-99) 235 mg/dL (70-99) Sodium Level 137 mmol/L (136-145) Potassium Level 5.1 mmol/L (3.5-5.1) Chloride Level 105 mmol/L (98-107) Carbon Dioxide Level 15 mmol/L (21-32) Anion Gap 17 (6-14) Blood Urea Nitrogen 32 mg/dL (7-20) Creatinine 1.3 mg/dL (0.6-1.0) Estimated GFR (Cockcroft-Gault) 44.9 Glucose Level 235 mg/dL (70-99) Calcium Level 7.4 mg/dL (8.5-10.1) Phosphorus Level 2.1 mg/dL (2.6-4.7) Magnesium Level 2.9 mg/dL (1.8-2.4) Test 12/22/18 16:07 12/22/18 17:19 12/22/18 18:21 12/22/18 18:31 Glucose (Fingerstick) 285 mg/dL (70-99) 276 mg/dL (70-99) 194 mg/dL (70-99) Sodium Level 136 mmol/L (136-145) Potassium Level 4.3 mmol/L (3.5-5.1) Chloride Level 108 mmol/L (98-107) Carbon Dioxide Level 21 mmol/L (21-32) Anion Gap 7 (6-14) Blood Urea Nitrogen 25 mg/dL (7-20) Creatinine 1.3 mg/dL (0.6-1.0) Estimated GFR (Cockcroft-Gault) 44.9 Glucose Level 209 mg/dL (70-99) Calcium Level 6.8 mg/dL (8.5-10.1) Phosphorus Level 1.3 mg/dL (2.6-4.7) Magnesium Level 2.9 mg/dL (1.8-2.4) Test 12/22/18 20:09 12/22/18 20:57 12/22/18 22:00 12/22/18 22:21 Glucose (Fingerstick) 157 mg/dL (70-99) 145 mg/dL (70-99) 64 mg/dL (70-99) Hemoglobin 9.0 g/dL (12.0-15.5) Test 12/22/18 22:41 12/23/18 00:08 12/23/18 06:05 12/23/18 11:50 Glucose (Fingerstick) 107 mg/dL (70-99) 75 mg/dL (70-99) 73 mg/dL (70-99) Hemoglobin 8.6 g/dL (12.0-15.5) Sodium Level 139 mmol/L (136-145) Potassium Level 3.5 mmol/L (3.5-5.1) Chloride Level 108 mmol/L (98-107) Carbon Dioxide Level 20 mmol/L (21-32) Anion Gap 11 (6-14) Blood Urea Nitrogen 16 mg/dL (7-20) Creatinine 1.0 mg/dL (0.6-1.0) Estimated GFR (Cockcroft-Gault) 60.8 Glucose Level 127 mg/dL (70-99) Calcium Level 6.8 mg/dL (8.5-10.1) Phosphorus Level 1.3 mg/dL (2.6-4.7) Magnesium Level 2.3 mg/dL (1.8-2.4) Test 12/23/18 12:55 12/23/18 15:36 12/23/18 16:42 12/23/18 20:52 White Blood Count 10.0 x10^3/uL (4.0-11.0) Red Blood Count 3.19 x10^6/uL (3.50-5.40) Hemoglobin 9.1 g/dL (12.0-15.5) Hematocrit 29.2 % (36.0-47.0) Mean Corpuscular Volume 92 fL (79-100) Mean Corpuscular Hemoglobin 29 pg (25-35) Mean Corpuscular Hemoglobin Concent 31 g/dL (31-37) Red Cell Distribution Width 15.5 % (11.5-14.5) Platelet Count 230 x10^3/uL (140-400) Sodium Level 137 mmol/L (136-145) Potassium Level 4.3 mmol/L (3.5-5.1) Chloride Level 110 mmol/L (98-107) Carbon Dioxide Level 18 mmol/L (21-32) Anion Gap 9 (6-14) Blood Urea Nitrogen 11 mg/dL (7-20) Creatinine 0.8 mg/dL (0.6-1.0) Estimated GFR (Cockcroft-Gault) 78.7 BUN/Creatinine Ratio 14 (6-20) Glucose Level 82 mg/dL (70-99) Calcium Level 7.0 mg/dL (8.5-10.1) Total Bilirubin 0.1 mg/dL (0.2-1.0) Aspartate Amino Transf (AST/SGOT) 44 U/L (15-37) Alanine Aminotransferase (ALT/SGPT) 24 U/L (14-59) Alkaline Phosphatase 87 U/L (46-116) Total Protein 4.8 g/dL (6.4-8.2) Albumin 2.4 g/dL (3.4-5.0) Albumin/Globulin Ratio 1.0 (1.0-1.7) Glucose (Fingerstick) 112 mg/dL (70-99) 104 mg/dL (70-99) 130 mg/dL (70-99) Test 12/24/18 07:51 12/24/18 11:57 Glucose (Fingerstick) 129 mg/dL (70-99) 242 mg/dL (70-99) Laboratory Tests Test 12/23/18 12:55 12/23/18 15:36 12/23/18 16:42 12/23/18 20:52 White Blood Count 10.0 x10^3/uL (4.0-11.0) Red Blood Count 3.19 x10^6/uL (3.50-5.40) Hemoglobin 9.1 g/dL (12.0-15.5) Hematocrit 29.2 % (36.0-47.0) Mean Corpuscular Volume 92 fL (79-100) Mean Corpuscular Hemoglobin 29 pg (25-35) Mean Corpuscular Hemoglobin Concent 31 g/dL (31-37) Red Cell Distribution Width 15.5 % (11.5-14.5) Platelet Count 230 x10^3/uL (140-400) Sodium Level 137 mmol/L (136-145) Potassium Level 4.3 mmol/L (3.5-5.1) Chloride Level 110 mmol/L (98-107) Carbon Dioxide Level 18 mmol/L (21-32) Anion Gap 9 (6-14) Blood Urea Nitrogen 11 mg/dL (7-20) Creatinine 0.8 mg/dL (0.6-1.0) Estimated GFR (Cockcroft-Gault) 78.7 BUN/Creatinine Ratio 14 (6-20) Glucose Level 82 mg/dL (70-99) Calcium Level 7.0 mg/dL (8.5-10.1) Total Bilirubin 0.1 mg/dL (0.2-1.0) Aspartate Amino Transf (AST/SGOT) 44 U/L (15-37) Alanine Aminotransferase (ALT/SGPT) 24 U/L (14-59) Alkaline Phosphatase 87 U/L (46-116) Total Protein 4.8 g/dL (6.4-8.2) Albumin 2.4 g/dL (3.4-5.0) Albumin/Globulin Ratio 1.0 (1.0-1.7) Glucose (Fingerstick) 112 mg/dL (70-99) 104 mg/dL (70-99) 130 mg/dL (70-99) Test 12/24/18 07:51 12/24/18 11:57 Glucose (Fingerstick) 129 mg/dL (70-99) 242 mg/dL (70-99) Microbiology 12/22/18 Urine Culture - Final, Complete 12/22/18 Urine Culture Result 1 (LESLYE) - Final, Complete Medications Current Medications Sodium Chloride 1,000 ml @ 1,000 mls/hr Q1H IV Last administered on 12/22/18at 06:56; Start 12/22/18 at 06:45; Stop 12/22/18 at 07:44; Status DC Ondansetron HCl (Zofran) 4 mg 1X ONCE IV Last administered on 12/22/18at 07:24; Start 12/22/18 at 06:45; Stop 12/22/18 at 06:46; Status DC Pantoprazole Sodium (PROTONIX VIAL for IV PUSH) 40 mg 1X ONCE IVP Last administered on 12/22/18at 07:24; Start 12/22/18 at 06:45; Stop 12/22/18 at 06:46; Status DC Insulin Human Regular (HumuLIN R VIAL) 10 unit 1X ONCE IV Last administered on 12/22/18at 07:24; Start 12/22/18 at 06:45; Stop 12/22/18 at 06:46; Status DC Sodium Chloride 1,000 ml @ 1,000 mls/hr 1X ONCE IV Last administered on 12/22/18at 06:56; Start 12/22/18 at 06:45; Stop 12/22/18 at 07:44; Status DC Insulin Human Regular 150 ml @ 0 mls/hr 1X ONCE IV Last administered on 12/22/18at 07:41; Start 12/22/18 at 07:00; Stop 12/22/18 at 07:01; Status DC Fentanyl Citrate (Fentanyl 2ml Vial) 50 mcg 1X ONCE IV Last administered on 12/22/18at 07:24; Start 12/22/18 at 07:00; Stop 12/22/18 at 07:01; Status DC Sodium Chloride 1,000 ml @ 1,000 mls/hr Q1H IV Last administered on 12/22/18at 09:58; Start 12/22/18 at 07:31; Stop 12/22/18 at 08:30; Status DC Potassium Chloride/Water 100 ml @ 100 mls/hr PRN Q1HR PRN IV SEE COMMENT; Start 12/22/18 at 07:31 Pantoprazole Sodium 80 mg/ Sodium Chloride 100 ml @ 10 mls/hr Q10H IV Last administered on 12/24/18at 02:43; Start 12/22/18 at 08:00; Stop 12/24/18 at 09:19; Status DC Ondansetron HCl (Zofran) 4 mg PRN Q6HRS PRN IV NAUSEA/VOMITING, 1ST CHOICE Last administered on 12/24/18at 11:52; Start 12/22/18 at 08:30 Ondansetron HCl (Zofran Odt) 4 mg PRN Q6HRS PRN PO NAUSEA/VOMITING; Start 12/22/18 at 08:30 Fentanyl Citrate (Fentanyl 2ml Vial) 50 mcg PRN Q2HR PRN IV PAIN Last administered on 12/24/18at 11:01; Start 12/22/18 at 08:30 Prochlorperazine Edisylate (Compazine) 10 mg PRN Q6HRS PRN IV NAUSEA/VOMITING, 2ND CHOICE Last administered on 12/22/18 11:06; Start 12/22/18 at 08:30 Sodium Chloride 1,000 ml @ 250 mls/hr Q4H IV Last administered on 12/22/18 11:06; Start 12/22/18 at 08:30; Stop 12/22/18 at 13:11; Status DC Sodium Chloride 1,000 ml @ 1,000 mls/hr 1X ONCE IV Last administered on 12/22/18at 09:58; Start 12/22/18 at 08:30; Stop 12/22/18 at 09:29; Status DC Insulin Human Regular 150 unit/ Sodium Chloride 151.5 ml @ 0 mls/hr CONT PRN IV SEE I/O RECORD Last administered on 12/22/18at 16:05; Start 12/22/18 at 08:30 Dextrose (Dextrose 50%-Water Syringe) 12.5 gm PRN Q15MIN PRN IV LOW BLOOD SUGAR Last administered on 12/22/18at 22:26; Start 12/22/18 at 08:30 Acetaminophen/ Aspirin/Caffeine (Excedrin Migraine) 2 tab PRN Q6HRS PRN PO MIGRAINE HEADACHE; Start 12/22/18 at 08:30 Acetaminophen/ Hydrocodone Bitart (Lortab 10/325) 1 tab PRN Q6HRS PRN PO SEVERE PAIN Last administered on 12/24/18at 08:35; Start 12/22/18 at 08:30 Albuterol Sulfate (Ventolin Neb Soln) 2.5 mg PRN Q4HRS PRN NEB SHORTNESS OF BREATH; Start 12/22/18 at 08:30 Influenza Virus Vaccine Quadrival (Afluria Quad 2019-20 (3yr Up) Syringe) 0.5 ml ONCE ONCE VAX IM Last administered on 12/22/18at 10:11; Start 12/22/18 at 10:00; Stop 12/22/18 at 10:01; Status DC Sodium Chloride 1,000 ml @ 1,000 mls/hr 1X ONCE IV ; Start 12/22/18 at 09:45; Stop 12/22/18 at 10:44; Status DC Throat Lozenges (Cepacol Sore Throat Lozenge) 1 santhosh PRN Q2HRS PRN PO SORE THROAT Last administered on 12/22/18at 10:11; Start 12/22/18 at 10:00 Nicotine (Nicoderm Cq 21mg) 1 patch PRN DAILY PRN TD SMOKING CESSATION Last administered on 12/23/18at 14:18; Start 12/22/18 at 10:00 Sodium Chloride 1,000 ml @ 1,000 mls/hr 1X ONCE IV Last administered on 12/22/18at 11:46; Start 12/22/18 at 11:45; Stop 12/22/18 at 12:44; Status DC Magnesium Sulfate 100 ml @ 25 mls/hr 1X ONCE IV Last administered on 12/22/18at 12:09; Start 12/22/18 at 12:00; Stop 12/22/18 at 15:59; Status DC Potassium Chloride/Water 100 ml @ 100 mls/hr Q1H IV Last administered on 12/22/18at 16:05; Start 12/22/18 at 13:00; Stop 12/22/18 at 16:59; Status DC Dextrose/Sodium Chloride 1,000 ml @ 250 mls/hr Q4H IV Last administered on 12/22/18at 17:18; Start 12/22/18 at 13:15; Stop 12/22/18 at 20:06; Status DC Sodium Phosphate 8 mmol/Dextrose 102.6667 ml @ 25.661 m... 1X ONCE IV Last administered on 12/22/18at 15:16; Start 12/22/18 at 15:30; Stop 12/22/18 at 19:30; Status DC Sodium Chloride 1,000 ml @ 125 mls/hr Q8H IV Last administered on 12/24/18at 05:39; Start 12/22/18 at 20:00; Stop 12/24/18 at 09:54; Status DC Insulin Glargine (Lantus Syringe) 30 unit QHS SQ Last administered on 12/23/18at 22:02; Start 12/22/18 at 21:00 Insulin Human Lispro (HumaLOG) 0-9 UNITS TIDWMEALS SQ ; Start 12/23/18 at 08:00 Dextrose (Dextrose 50%-Water Syringe) 12.5 gm PRN Q15MIN PRN IV SEE COMMENTS; Start 12/22/18 at 20:00 Dextrose 250 ml PRN Q15MIN PRN IV SEE COMMENTS; Start 12/22/18 at 20:00 Insulin Human Lispro (HumaLOG) 12 units TIDWMEALS SQ ; Start 12/23/18 at 08:00 Potassium Chloride/Water 50 ml @ 50 mls/hr Q1H IV Last administered on 12/23/18at 11:00; Start 12/23/18 at 09:30; Stop 12/23/18 at 11:29; Status DC Sodium Phosphate 17 mmol/Dextrose 255.6667 ml @ 63.89 mls/hr 1X ONCE IV Last administered on 12/23/18at 11:57; Start 12/23/18 at 11:00; Stop 12/23/18 at 15 :06; Status DC Multi-Ingredient Mouthwash/Gargle (Gi Cocktail) 20 ml PRN QID PRN PO CHEST PAIN Last administered on 12/24/18at 10:24; Start 12/24/18 at 09:30 Pantoprazole Sodium (Protonix) 40 mg DAILYAC PO Last administered on 12/24/18at 10:54; Start 12/24/18 at 11:00 Active Scripts Active Promethazine Hcl 25 Mg Tablet 1 Tab PO PRN Q6HRS Hydrocodone-Apap 10-325 (Hydrocodone Bit/Acetaminophen) 1 Tab Tablet 1 Tab PO PRN Q6HRS PRN 7 Days Duoneb 0.5-3(2.5) Mg/3 Ml (Albuterol/Ipratropium) 3 Ml Ampul.neb 3 Ml NEB RTQID 30 Days Amox Tr-K Clv 875-125 Mg Tab (Amoxicillin/Potassium Clav) 1 Each Tablet 1 Tab PO BID 14 Days Lantus Solostar (Insulin Glargine,Hum.rec.anlog) 100 Unit/1 Ml Insuln.pen 16 Units SQ QHS 30 Days Novolog (Insulin Aspart) 100 Unit/1 Ml Cartridge 8 Unit SQ MEAL PRN 30 Days Norvasc (Amlodipine Besylate) 5 Mg Tablet 5 Mg PO DAILY 30 Days Polyethylene Glycol 3350 17 Gm Powd.pack 17 Gm PO PRN DAILY PRN 14 Days Pain Reliever Plus Tablet (Aspirin/Acetaminophen/Caffeine) 1 Each Tablet 2 Tab PO PRN Q6HRS PRN 10 Days Famotidine 20 Mg Tablet 20 Mg PO DAILY MDD 1 Reported Protonix (Pantoprazole Sodium) 20 Mg Tablet.dr 20 Mg PO DAILY Vitals/I & O Vital Sign - Last 24 Hours 12/23/18 12/23/18 12/23/18 12/23/18 13:14 14:18 15:27 16:00 Temp 98.1 98.1 Pulse 86 Resp 16 B/P (MAP) 141/94 (110) Pulse Ox 94 O2 Delivery Room Air Room Air Room Air Room Air 12/23/18 12/23/18 12/23/18 12/23/18 17:20 17:41 19:00 19:25 Temp 98.4 98.4 Pulse 83 Resp 18 B/P (MAP) 161/104 (123) Pulse Ox 99 O2 Delivery Room Air Room Air Room Air Room Air 12/23/18 12/23/18 12/23/18 12/23/18 19:56 20:00 22:02 22:02 Resp 15 15 15 Pulse Ox 94 94 94 O2 Delivery Room Air Room Air Room Air Room Air 12/23/18 12/23/18 12/23/18 12/24/18 23:00 23:24 23:47 00:40 Temp 99.0 99.0 Pulse 71 Resp 18 15 15 16 B/P (MAP) 146/91 (109) Pulse Ox 98 94 94 94 O2 Delivery Room Air Room Air Room Air Room Air 12/24/18 12/24/18 12/24/18 12/24/18 02:43 03:00 05:40 05:47 Temp 98.2 98.2 Pulse 89 Resp 16 18 14 16 B/P (MAP) 153/99 (117) Pulse Ox 94 97 97 97 O2 Delivery Room Air Room Air Room Air Room Air 12/24/18 12/24/18 12/24/18 12/24/18 07:19 08:10 08:35 08:35 Temp 98.1 98.1 Pulse 85 Resp 18 B/P (MAP) 153/100 (117) Pulse Ox 97 98 O2 Delivery Room Air Room Air Room Air Room Air 12/24/18 12/24/18 12/24/18 12/24/18 10:47 10:48 11:01 11:31 Temp 98.4 98.4 Pulse 87 Resp 18 B/P (MAP) 162/92 (115) Pulse Ox 97 O2 Delivery Room Air Room Air Room Air Room Air 12/24/18 11:53 O2 Delivery Room Air Intake and Output 12/23/18 12/23/18 12/24/18 15:00 23:00 07:00 Intake Total 0 ml 350 ml Output Total 200 ml Balance -200 ml 350 ml SHAW BOBBY MD Dec 24, 2018 12:18
--- NOTE | 2018-12-24 12:34 | PDOC ---
PROGRESS NOTES Chief Complaint Chief Complaint Vomiting Severe DKA hematemesis, melena Anemia Recurrent n/v, abd pain h/o GERD, gastroparesis H/o SBR S/p cholecystectomy +cannabinoids History of Present Illness History of Present Illness PLAN: patient transferred out of ICU. off insulin drip. sugars stable on 20 of lantus with 12 units before meals. reports diarrhea and poor appetite today. does not want to go home she says advance diet as tolerated dc PPI drip and change to oral PPI therapy check stool studies given loose stools DW RN anticipate dc leslie if tolerating diet. adjust insulin dose as needed. follow up BMP in AM Vitals Vitals Vital Signs Date Time Temp Pulse Resp B/P (MAP) Pulse Ox O2 Delivery O2 Flow Rate FiO2 12/24/18 11:53 Room Air 12/24/18 11:31 98.4 87 18 162/92 (115) 97 98.4 Physical Exam Physical Exam HEENT: Normocephalic, atraumatic, oropharynx dry. Eyes: PERRLA, EOMI, conjunctiva normal, no discharge Neck: Normal range of motion, no tenderness, supple, no stridor Cardiovascular: Tachycardia, no murmur Lungs & Thorax: Hyperventilation, bilateral breath sounds clear to auscultation Abdomen: Bowel sounds normal, soft, no tenderness, no masses, no pulsatile masses. Skin: Warm, dry, no erythema, no rash. Extremities: No tenderness, no cyanosis, no clubbing, ROM intact, no edema. Neurologic: Alert and oriented X 3, no focal deficits noted General: No acute distress, Other (VERY DRY< POSITIVE SKIN TEST, motlled skin, legs, shaky, cold to touch) Heart: Regular rate Lungs: Clear, Other Abdomen: Soft Extremities: No clubbing, No cyanosis, No edema Skin: No rashes, No breakdown Labs LABS Laboratory Tests Test 12/23/18 12:55 12/23/18 15:36 12/23/18 16:42 12/23/18 20:52 White Blood Count 10.0 x10^3/uL (4.0-11.0) Red Blood Count 3.19 x10^6/uL (3.50-5.40) Hemoglobin 9.1 g/dL (12.0-15.5) Hematocrit 29.2 % (36.0-47.0) Mean Corpuscular Volume 92 fL (79-100) Mean Corpuscular Hemoglobin 29 pg (25-35) Mean Corpuscular Hemoglobin Concent 31 g/dL (31-37) Red Cell Distribution Width 15.5 % (11.5-14.5) Platelet Count 230 x10^3/uL (140-400) Sodium Level 137 mmol/L (136-145) Potassium Level 4.3 mmol/L (3.5-5.1) Chloride Level 110 mmol/L (98-107) Carbon Dioxide Level 18 mmol/L (21-32) Anion Gap 9 (6-14) Blood Urea Nitrogen 11 mg/dL (7-20) Creatinine 0.8 mg/dL (0.6-1.0) Estimated GFR (Cockcroft-Gault) 78.7 BUN/Creatinine Ratio 14 (6-20) Glucose Level 82 mg/dL (70-99) Calcium Level 7.0 mg/dL (8.5-10.1) Total Bilirubin 0.1 mg/dL (0.2-1.0) Aspartate Amino Transf (AST/SGOT) 44 U/L (15-37) Alanine Aminotransferase (ALT/SGPT) 24 U/L (14-59) Alkaline Phosphatase 87 U/L (46-116) Total Protein 4.8 g/dL (6.4-8.2) Albumin 2.4 g/dL (3.4-5.0) Albumin/Globulin Ratio 1.0 (1.0-1.7) Glucose (Fingerstick) 112 mg/dL (70-99) 104 mg/dL (70-99) 130 mg/dL (70-99) Test 12/24/18 07:51 12/24/18 11:57 Glucose (Fingerstick) 129 mg/dL (70-99) 242 mg/dL (70-99) Assessment and Plan Assessmemt and Plan Problems Medical Problems: (1) Abdominal pain Status: Acute (2) Acute renal insufficiency Status: Acute (3) Anemia Status: Acute (4) DKA (diabetic ketoacidoses) Status: Acute (5) DKA (diabetic ketoacidoses) Status: Acute (6) Gastroparesis Status: Acute (7) Hematemesis Status: Acute (8) Hyperkalemia Status: Acute (9) Hypermagnesemia Status: Acute (10) Hyperphosphatemia Status: Acute (11) Hypoalbuminemia Status: Acute (12) Hypochloremia Status: Acute (13) Hyponatremia Status: Acute (14) Hypovolemia Status: Acute (15) Leukocytosis Status: Acute (16) Melena Status: Acute (17) Metabolic acidosis Status: Acute (18) Nausea & vomiting Status: Acute (19) Noncompliance with diabetes treatment Status: Acute (20) Prolonged Q-T interval on ECG Status: Acute Comment Review of Relevant I have reviewed the following items sheryl (where applicable) has been applied. Labs Laboratory Tests Test 12/22/18 13:07 12/22/18 14:04 12/22/18 14:25 12/22/18 15:11 Glucose (Fingerstick) 194 mg/dL (70-99) 189 mg/dL (70-99) 235 mg/dL (70-99) Sodium Level 137 mmol/L (136-145) Potassium Level 5.1 mmol/L (3.5-5.1) Chloride Level 105 mmol/L (98-107) Carbon Dioxide Level 15 mmol/L (21-32) Anion Gap 17 (6-14) Blood Urea Nitrogen 32 mg/dL (7-20) Creatinine 1.3 mg/dL (0.6-1.0) Estimated GFR (Cockcroft-Gault) 44.9 Glucose Level 235 mg/dL (70-99) Calcium Level 7.4 mg/dL (8.5-10.1) Phosphorus Level 2.1 mg/dL (2.6-4.7) Magnesium Level 2.9 mg/dL (1.8-2.4) Test 12/22/18 16:07 12/22/18 17:19 12/22/18 18:21 12/22/18 18:31 Glucose (Fingerstick) 285 mg/dL (70-99) 276 mg/dL (70-99) 194 mg/dL (70-99) Sodium Level 136 mmol/L (136-145) Potassium Level 4.3 mmol/L (3.5-5.1) Chloride Level 108 mmol/L (98-107) Carbon Dioxide Level 21 mmol/L (21-32) Anion Gap 7 (6-14) Blood Urea Nitrogen 25 mg/dL (7-20) Creatinine 1.3 mg/dL (0.6-1.0) Estimated GFR (Cockcroft-Gault) 44.9 Glucose Level 209 mg/dL (70-99) Calcium Level 6.8 mg/dL (8.5-10.1) Phosphorus Level 1.3 mg/dL (2.6-4.7) Magnesium Level 2.9 mg/dL (1.8-2.4) Test 12/22/18 20:09 12/22/18 20:57 12/22/18 22:00 12/22/18 22:21 Glucose (Fingerstick) 157 mg/dL (70-99) 145 mg/dL (70-99) 64 mg/dL (70-99) Hemoglobin 9.0 g/dL (12.0-15.5) Test 12/22/18 22:41 12/23/18 00:08 12/23/18 06:05 12/23/18 11:50 Glucose (Fingerstick) 107 mg/dL (70-99) 75 mg/dL (70-99) 73 mg/dL (70-99) Hemoglobin 8.6 g/dL (12.0-15.5) Sodium Level 139 mmol/L (136-145) Potassium Level 3.5 mmol/L (3.5-5.1) Chloride Level 108 mmol/L (98-107) Carbon Dioxide Level 20 mmol/L (21-32) Anion Gap 11 (6-14) Blood Urea Nitrogen 16 mg/dL (7-20) Creatinine 1.0 mg/dL (0.6-1.0) Estimated GFR (Cockcroft-Gault) 60.8 Glucose Level 127 mg/dL (70-99) Calcium Level 6.8 mg/dL (8.5-10.1) Phosphorus Level 1.3 mg/dL (2.6-4.7) Magnesium Level 2.3 mg/dL (1.8-2.4) Test 12/23/18 12:55 12/23/18 15:36 12/23/18 16:42 12/23/18 20:52 White Blood Count 10.0 x10^3/uL (4.0-11.0) Red Blood Count 3.19 x10^6/uL (3.50-5.40) Hemoglobin 9.1 g/dL (12.0-15.5) Hematocrit 29.2 % (36.0-47.0) Mean Corpuscular Volume 92 fL (79-100) Mean Corpuscular Hemoglobin 29 pg (25-35) Mean Corpuscular Hemoglobin Concent 31 g/dL (31-37) Red Cell Distribution Width 15.5 % (11.5-14.5) Platelet Count 230 x10^3/uL (140-400) Sodium Level 137 mmol/L (136-145) Potassium Level 4.3 mmol/L (3.5-5.1) Chloride Level 110 mmol/L (98-107) Carbon Dioxide Level 18 mmol/L (21-32) Anion Gap 9 (6-14) Blood Urea Nitrogen 11 mg/dL (7-20) Creatinine 0.8 mg/dL (0.6-1.0) Estimated GFR (Cockcroft-Gault) 78.7 BUN/Creatinine Ratio 14 (6-20) Glucose Level 82 mg/dL (70-99) Calcium Level 7.0 mg/dL (8.5-10.1) Total Bilirubin 0.1 mg/dL (0.2-1.0) Aspartate Amino Transf (AST/SGOT) 44 U/L (15-37) Alanine Aminotransferase (ALT/SGPT) 24 U/L (14-59) Alkaline Phosphatase 87 U/L (46-116) Total Protein 4.8 g/dL (6.4-8.2) Albumin 2.4 g/dL (3.4-5.0) Albumin/Globulin Ratio 1.0 (1.0-1.7) Glucose (Fingerstick) 112 mg/dL (70-99) 104 mg/dL (70-99) 130 mg/dL (70-99) Test 12/24/18 07:51 12/24/18 11:57 Glucose (Fingerstick) 129 mg/dL (70-99) 242 mg/dL (70-99) Laboratory Tests Test 12/23/18 12:55 12/23/18 15:36 12/23/18 16:42 12/23/18 20:52 White Blood Count 10.0 x10^3/uL (4.0-11.0) Red Blood Count 3.19 x10^6/uL (3.50-5.40) Hemoglobin 9.1 g/dL (12.0-15.5) Hematocrit 29.2 % (36.0-47.0) Mean Corpuscular Volume 92 fL (79-100) Mean Corpuscular Hemoglobin 29 pg (25-35) Mean Corpuscular Hemoglobin Concent 31 g/dL (31-37) Red Cell Distribution Width 15.5 % (11.5-14.5) Platelet Count 230 x10^3/uL (140-400) Sodium Level 137 mmol/L (136-145) Potassium Level 4.3 mmol/L (3.5-5.1) Chloride Level 110 mmol/L (98-107) Carbon Dioxide Level 18 mmol/L (21-32) Anion Gap 9 (6-14) Blood Urea Nitrogen 11 mg/dL (7-20) Creatinine 0.8 mg/dL (0.6-1.0) Estimated GFR (Cockcroft-Gault) 78.7 BUN/Creatinine Ratio 14 (6-20) Glucose Level 82 mg/dL (70-99) Calcium Level 7.0 mg/dL (8.5-10.1) Total Bilirubin 0.1 mg/dL (0.2-1.0) Aspartate Amino Transf (AST/SGOT) 44 U/L (15-37) Alanine Aminotransferase (ALT/SGPT) 24 U/L (14-59) Alkaline Phosphatase 87 U/L (46-116) Total Protein 4.8 g/dL (6.4-8.2) Albumin 2.4 g/dL (3.4-5.0) Albumin/Globulin Ratio 1.0 (1.0-1.7) Glucose (Fingerstick) 112 mg/dL (70-99) 104 mg/dL (70-99) 130 mg/dL (70-99) Test 12/24/18 07:51 12/24/18 11:57 Glucose (Fingerstick) 129 mg/dL (70-99) 242 mg/dL (70-99) Microbiology 12/22/18 Urine Culture - Final, Complete 12/22/18 Urine Culture Result 1 (LESLYE) - Final, Complete Medications Current Medications Sodium Chloride 1,000 ml @ 1,000 mls/hr Q1H IV Last administered on 12/22/18at 06:56; Start 12/22/18 at 06:45; Stop 12/22/18 at 07:44; Status DC Ondansetron HCl (Zofran) 4 mg 1X ONCE IV Last administered on 12/22/18 07:24; Start 12/22/18 at 06:45; Stop 12/22/18 at 06:46; Status DC Pantoprazole Sodium (PROTONIX VIAL for IV PUSH) 40 mg 1X ONCE IVP Last administered on 12/22/18at 07:24; Start 12/22/18 at 06:45; Stop 12/22/18 at 06:46; Status DC Insulin Human Regular (HumuLIN R VIAL) 10 unit 1X ONCE IV Last administered on 12/22/18at 07:24; Start 12/22/18 at 06:45; Stop 12/22/18 at 06:46; Status DC Sodium Chloride 1,000 ml @ 1,000 mls/hr 1X ONCE IV Last administered on 12/22/18at 06:56; Start 12/22/18 at 06:45; Stop 12/22/18 at 07:44; Status DC Insulin Human Regular 150 ml @ 0 mls/hr 1X ONCE IV Last administered on 12/22at 07:41; Start 12/22/18 at 07:00; Stop 12/22/18 at 07:01; Status DC Fentanyl Citrate (Fentanyl 2ml Vial) 50 mcg 1X ONCE IV Last administered on 12/22/18 07:24; Start 12/22/18 at 07:00; Stop 12/22/18 at 07:01; Status DC Sodium Chloride 1,000 ml @ 1,000 mls/hr Q1H IV Last administered on 12/22/18at 09:58; Start 12/22/18 at 07:31; Stop 12/22/18 at 08:30; Status DC Potassium Chloride/Water 100 ml @ 100 mls/hr PRN Q1HR PRN IV SEE COMMENT; Start 12/22/18 at 07:31 Pantoprazole Sodium 80 mg/ Sodium Chloride 100 ml @ 10 mls/hr Q10H IV Last administered on 12/24/18at 02:43; Start 12/22/18 at 08:00; Stop 12/24/18 at 09:19; Status DC Ondansetron HCl (Zofran) 4 mg PRN Q6HRS PRN IV NAUSEA/VOMITING, 1ST CHOICE Last administered on 12/24/18at 11:52; Start 12/22/18 at 08:30 Ondansetron HCl (Zofran Odt) 4 mg PRN Q6HRS PRN PO NAUSEA/VOMITING; Start 12/22/18 at 08:30 Fentanyl Citrate (Fentanyl 2ml Vial) 50 mcg PRN Q2HR PRN IV PAIN Last administered on 12/24/18 11:01; Start 12/22/18 at 08:30 Prochlorperazine Edisylate (Compazine) 10 mg PRN Q6HRS PRN IV NAUSEA/VOMITING, 2ND CHOICE Last administered on 12/22/18 11:06; Start 12/22/18 at 08:30 Sodium Chloride 1,000 ml @ 250 mls/hr Q4H IV Last administered on 12/22/18 11:06; Start 12/22/18 at 08:30; Stop 12/22/18 at 13:11; Status DC Sodium Chloride 1,000 ml @ 1,000 mls/hr 1X ONCE IV Last administered on 12/22/18 09:58; Start 12/22/18 at 08:30; Stop 12/22/18 at 09:29; Status DC Insulin Human Regular 150 unit/ Sodium Chloride 151.5 ml @ 0 mls/hr CONT PRN IV SEE I/O RECORD Last administered on 12/22/18 16:05; Start 12/22/18 at 08:30 Dextrose (Dextrose 50%-Water Syringe) 12.5 gm PRN Q15MIN PRN IV LOW BLOOD SUGAR Last administered on 12/22/18 22:26; Start 12/22/18 at 08:30 Acetaminophen/ Aspirin/Caffeine (Excedrin Migraine) 2 tab PRN Q6HRS PRN PO MIGRAINE HEADACHE; Start 12/22/18 at 08:30 Acetaminophen/ Hydrocodone Bitart (Lortab 10/325) 1 tab PRN Q6HRS PRN PO SEVERE PAIN Last administered on 12/24/18 08:35; Start 12/22/18 at 08:30 Albuterol Sulfate (Ventolin Neb Soln) 2.5 mg PRN Q4HRS PRN NEB SHORTNESS OF BREATH; Start 12/22/18 at 08:30 Influenza Virus Vaccine Quadrival (Afluria Quad 2019-20 (3yr Up) Syringe) 0.5 ml ONCE ONCE VAX IM Last administered on 12/22/18at 10:11; Start 12/22/18 at 10:00; Stop 12/22/18 at 10:01; Status DC Sodium Chloride 1,000 ml @ 1,000 mls/hr 1X ONCE IV ; Start 12/22/18 at 09:45; Stop 12/22/18 at 10:44; Status DC Throat Lozenges (Cepacol Sore Throat Lozenge) 1 santhosh PRN Q2HRS PRN PO SORE THROAT Last administered on 12/22/18at 10:11; Start 12/22/18 at 10:00 Nicotine (Nicoderm Cq 21mg) 1 patch PRN DAILY PRN TD SMOKING CESSATION Last administered on 12/23/18at 14:18; Start 12/22/18 at 10:00 Sodium Chloride 1,000 ml @ 1,000 mls/hr 1X ONCE IV Last administered on 12/22/18at 11:46; Start 12/22/18 at 11:45; Stop 12/22/18 at 12:44; Status DC Magnesium Sulfate 100 ml @ 25 mls/hr 1X ONCE IV Last administered on 12/22/18at 12:09; Start 12/22/18 at 12:00; Stop 12/22/18 at 15:59; Status DC Potassium Chloride/Water 100 ml @ 100 mls/hr Q1H IV Last administered on 12/22/18at 16:05; Start 12/22/18 at 13:00; Stop 12/22/18 at 16:59; Status DC Dextrose/Sodium Chloride 1,000 ml @ 250 mls/hr Q4H IV Last administered on 12/22/18at 17:18; Start 12/22/18 at 13:15; Stop 12/22/18 at 20:06; Status DC Sodium Phosphate 8 mmol/Dextrose 102.6667 ml @ 25.661 m... 1X ONCE IV Last administered on 12/22/18at 15:16; Start 12/22/18 at 15:30; Stop 12/22/18 at 19:30; Status DC Sodium Chloride 1,000 ml @ 125 mls/hr Q8H IV Last administered on 12/24/18at 05:39; Start 12/22/18 at 20:00; Stop 12/24/18 at 09:54; Status DC Insulin Glargine (Lantus Syringe) 30 unit QHS SQ Last administered on 12/23/18at 22:02; Start 12/22/18 at 21:00 Insulin Human Lispro (HumaLOG) 0-9 UNITS TIDWMEALS SQ ; Start 12/23/18 at 08:00 Dextrose (Dextrose 50%-Water Syringe) 12.5 gm PRN Q15MIN PRN IV SEE COMMENTS; Start 12/22/18 at 20:00 Dextrose 250 ml PRN Q15MIN PRN IV SEE COMMENTS; Start 12/22/18 at 20:00 Insulin Human Lispro (HumaLOG) 12 units TIDWMEALS SQ ; Start 12/23/18 at 08:00 Potassium Chloride/Water 50 ml @ 50 mls/hr Q1H IV Last administered on 12/23/18at 11:00; Start 12/23/18 at 09:30; Stop 12/23/18 at 11:29; Status DC Sodium Phosphate 17 mmol/Dextrose 255.6667 ml @ 63.89 mls/hr 1X ONCE IV Last administered on 12/23/18at 11:57; Start 12/23/18 at 11:00; Stop 12/23/18 at 15:06; Status DC Multi-Ingredient Mouthwash/Gargle (Gi Cocktail) 20 ml PRN QID PRN PO CHEST PAIN Last administered on 12/24/18at 10:24; Start 12/24/18 at 09:30 Pantoprazole Sodium (Protonix) 40 mg DAILYAC PO Last administered on 12/24/18at 10:54; Start 12/24/18 at 11:00 Active Scripts Active Promethazine Hcl 25 Mg Tablet 1 Tab PO PRN Q6HRS Hydrocodone-Apap 10-325 (Hydrocodone Bit/Acetaminophen) 1 Tab Tablet 1 Tab PO PRN Q6HRS PRN 7 Days Duoneb 0.5-3(2.5) Mg/3 Ml (Albuterol/Ipratropium) 3 Ml Ampul.neb 3 Ml NEB RTQID 30 Days Amox Tr-K Clv 875-125 Mg Tab (Amoxicillin/Potassium Clav) 1 Each Tablet 1 Tab PO BID 14 Days Lantus Solostar (Insulin Glargine,Hum.rec.anlog) 100 Unit/1 Ml Insuln.pen 16 Units SQ QHS 30 Days Novolog (Insulin Aspart) 100 Unit/1 Ml Cartridge 8 Unit SQ MEAL PRN 30 Days Norvasc (Amlodipine Besylate) 5 Mg Tablet 5 Mg PO DAILY 30 Days Polyethylene Glycol 3350 17 Gm Powd.pack 17 Gm PO PRN DAILY PRN 14 Days Pain Reliever Plus Tablet (Aspirin/Acetaminophen/Caffeine) 1 Each Tablet 2 Tab PO PRN Q6HRS PRN 10 Days Famotidine 20 Mg Tablet 20 Mg PO DAILY MDD 1 Reported Protonix (Pantoprazole Sodium) 20 Mg Tablet.dr 20 Mg PO DAILY Vitals/I & O Vital Sign - Last 24 Hours 12/23/18 12/23/18 12/23/18 12/23/18 13:14 14:18 15:27 16:00 Temp 98.1 98.1 Pulse 86 Resp 16 B/P (MAP) 141/94 (110) Pulse Ox 94 O2 Delivery Room Air Room Air Room Air Room Air 12/23/18 12/23/18 12/23/18 12/23/18 17:20 17:41 19:00 19:25 Temp 98.4 98.4 Pulse 83 Resp 18 B/P (MAP) 161/104 (123) Pulse Ox 99 O2 Delivery Room Air Room Air Room Air Room Air 12/23/18 12/23/18 12/23/18 12/23/18 19:56 20:00 22:02 22:02 Resp 15 15 15 Pulse Ox 94 94 94 O2 Delivery Room Air Room Air Room Air Room Air 12/23/18 12/23/18 12/23/18 12/24/18 23:00 23:24 23:47 00:40 Temp 99.0 99.0 Pulse 71 Resp 18 15 15 16 B/P (MAP) 146/91 (109) Pulse Ox 98 94 94 94 O2 Delivery Room Air Room Air Room Air Room Air 12/24/18 12/24/18 12/24/18 12/24/18 02:43 03:00 05:40 05:47 Temp 98.2 98.2 Pulse 89 Resp 16 18 14 16 B/P (MAP) 153/99 (117) Pulse Ox 94 97 97 97 O2 Delivery Room Air Room Air Room Air Room Air 12/24/18 12/24/18 12/24/18 12/24/18 07:19 08:10 08:35 08:35 Temp 98.1 98.1 Pulse 85 Resp 18 B/P (MAP) 153/100 (117) Pulse Ox 97 98 O2 Delivery Room Air Room Air Room Air Room Air 12/24/18 12/24/18 12/24/18 12/24/18 10:47 10:48 11:01 11:31 Temp 98.4 98.4 Pulse 87 Resp 18 B/P (MAP) 162/92 (115) Pulse Ox 97 O2 Delivery Room Air Room Air Room Air Room Air 12/24/18 11:53 O2 Delivery Room Air Intake and Output 12/23/18 12/23/18 12/24/18 15:00 23:00 07:00 Intake Total 0 ml 350 ml Output Total 200 ml Balance -200 ml 350 ml SHAW BOBBY MD Dec 24, 2018 12:34
[2018-12-24] MEDS: NICOTINE 21MG PATCH. TD PRN (14:31)
[2018-12-24 16:00] VITALS: BP 153/93
[2018-12-24 19:00] VITALS: BP 157/95
[2018-12-24] MEDS: INSULIN GLARGINE SYRINGE. SQ SCH (21:20)
[2018-12-24 23:00] VITALS: BP 174/101
[2018-12-25] MEDS: fentaNYL PF VIAL 100 MCG/2 ML VIAL IV PRN ×7 (01:54→21:56)
[2018-12-25 03:00] VITALS: BP 161/106
[2018-12-25 07:00] VITALS: BP 149/92
[2018-12-25] MEDS: PANTOPRAZOLE 40 MG TABLET.DR. PO SCH (07:30)
[2018-12-25] MEDS: INSULIN LISPRO 300 UNITS/3 ML VIAL. SQ SCH ×7 (08:00→17:32)
[2018-12-25] MEDS: HYDROcodone/APAP 10/325 1 TAB TABLET PO PRN ×2 (09:32→18:06)
[2018-12-25] MEDS: ONDANSETRON PF 4 MG/2 ML VIAL. IV PRN ×2 (09:37→17:27)
[2018-12-25] MEDS: LIDO:MAALOX 1:1 20 ML SINGLE DOSE. PO PRN ×2 (09:37→17:27)
--- NOTE | 2018-12-25 09:50 | PDOC ---
PROGRESS NOTES Chief Complaint Chief Complaint impression Vomiting Severe DKA hematemesis, melena Anemia Recurrent n/v, abd pain h/o GERD, gastroparesis H/o SBR S/p cholecystectomy +cannabinoids Anemia - Hgb improved 12/23, hematemesis/hematochezia resolved Uncontrolled DM, h/o GERD, gastroparesis, +cannabinoids hypoglycemia 12/25 38 min pt exam, chart review, > 50% of time spent with exam, chart review, pt care coordination History of Present Illness History of Present Illness PLAN: patient transferred out of ICU. off insulin drip. sugars stable on 20 of lantus with 12 units before meals. reports diarrhea and poor appetite today. does not want to go home she says advance diet as tolerated dc PPI drip and change to oral PPI therapy check stool studies given loose stools DW RN anticipate dc leslie if tolerating diet. adjust insulin dose as needed. follow up BMP in AM Vitals Vitals Vital Signs Date Time Temp Pulse Resp B/P (MAP) Pulse Ox O2 Delivery O2 Flow Rate FiO2 12/25/18 09:32 20 94 Room Air 12/25/18 07:00 98.9 74 149/92 (111) 98.9 Physical Exam Physical Exam HEENT: Normocephalic, atraumatic, oropharynx dry. Eyes: PERRLA, EOMI, conjunctiva normal, no discharge Neck: Normal range of motion, no tenderness, supple, no stridor Cardiovascular: Tachycardia, no murmur Lungs & Thorax: Hyperventilation, bilateral breath sounds clear to auscultation Abdomen: Bowel sounds normal, soft, no tenderness, no masses, no pulsatile masses. Skin: Warm, dry, no erythema, no rash. Extremities: No tenderness, no cyanosis, no clubbing, ROM intact, no edema. Neurologic: Alert and oriented X 3, no focal deficits noted General: Alert, Oriented X3, Cooperative, No acute distress, Other (VERY DRY< POSITIVE SKIN TEST, motlled skin, legs, shaky, cold to touch) Heart: Regular rate Lungs: Clear, Other Abdomen: Normal bowel sounds, Soft Extremities: No clubbing, No cyanosis, No edema Skin: No rashes, No breakdown Labs LABS Laboratory Tests Test 12/24/18 11:57 12/24/18 16:56 12/24/18 21:10 12/25/18 07:54 Glucose (Fingerstick) 242 mg/dL (70-99) 172 mg/dL (70-99) 129 mg/dL (70-99) 126 mg/dL (70-99) Assessment and Plan Assessmemt and Plan Problems Medical Problems: (1) Abdominal pain Status: Acute (2) Acute renal insufficiency Status: Acute (3) Anemia Status: Acute (4) DKA (diabetic ketoacidoses) Status: Acute (5) DKA (diabetic ketoacidoses) Status: Acute (6) Gastroparesis Status: Acute (7) Hematemesis Status: Acute (8) Hyperkalemia Status: Acute (9) Hypermagnesemia Status: Acute (10) Hyperphosphatemia Status: Acute (11) Hypoalbuminemia Status: Acute (12) Hypochloremia Status: Acute (13) Hyponatremia Status: Acute (14) Hypovolemia Status: Acute (15) Leukocytosis Status: Acute (16) Melena Status: Acute (17) Metabolic acidosis Status: Acute (18) Nausea & vomiting Status: Acute (19) Noncompliance with diabetes treatment Status: Acute (20) Prolonged Q-T interval on ECG Status: Acute Comment Review of Relevant I have reviewed the following items sheryl (where applicable) has been applied. Labs Laboratory Tests Test 12/23/18 11:50 12/23/18 12:55 12/23/18 15:36 12/23/18 16:42 Glucose (Fingerstick) 73 mg/dL (70-99) 112 mg/dL (70-99) 104 mg/dL (70-99) White Blood Count 10.0 x10^3/uL (4.0-11.0) Red Blood Count 3.19 x10^6/uL (3.50-5.40) Hemoglobin 9.1 g/dL (12.0-15.5) Hematocrit 29.2 % (36.0-47.0) Mean Corpuscular Volume 92 fL (79-100) Mean Corpuscular Hemoglobin 29 pg (25-35) Mean Corpuscular Hemoglobin Concent 31 g/dL (31-37) Red Cell Distribution Width 15.5 % (11.5-14.5) Platelet Count 230 x10^3/uL (140-400) Sodium Level 137 mmol/L (136-145) Potassium Level 4.3 mmol/L (3.5-5.1) Chloride Level 110 mmol/L (98-107) Carbon Dioxide Level 18 mmol/L (21-32) Anion Gap 9 (6-14) Blood Urea Nitrogen 11 mg/dL (7-20) Creatinine 0.8 mg/dL (0.6-1.0) Estimated GFR (Cockcroft-Gault) 78.7 BUN/Creatinine Ratio 14 (6-20) Glucose Level 82 mg/dL (70-99) Calcium Level 7.0 mg/dL (8.5-10.1) Total Bilirubin 0.1 mg/dL (0.2-1.0) Aspartate Amino Transf (AST/SGOT) 44 U/L (15-37) Alanine Aminotransferase (ALT/SGPT) 24 U/L (14-59) Alkaline Phosphatase 87 U/L (46-116) Total Protein 4.8 g/dL (6.4-8.2) Albumin 2.4 g/dL (3.4-5.0) Albumin/Globulin Ratio 1.0 (1.0-1.7) Test 12/23/18 20:52 12/24/18 07:51 12/24/18 11:57 12/24/18 16:56 Glucose (Fingerstick) 130 mg/dL (70-99) 129 mg/dL (70-99) 242 mg/dL (70-99) 172 mg/dL (70-99) Test 12/24/18 21:10 12/25/18 07:54 Glucose (Fingerstick) 129 mg/dL (70-99) 126 mg/dL (70-99) Laboratory Tests Test 12/24/18 11:57 12/24/18 16:56 12/24/18 21:10 12/25/18 07:54 Glucose (Fingerstick) 242 mg/dL (70-99) 172 mg/dL (70-99) 129 mg/dL (70-99) 126 mg/dL (70-99) Microbiology 12/22/18 Urine Culture - Final, Complete 12/22/18 Urine Culture Result 1 (LESLYE) - Final, Complete Medications Current Medications Sodium Chloride 1,000 ml @ 1,000 mls/hr Q1H IV Last administered on 12/22/18at 06:56; Start 12/22/18 at 06:45; Stop 12/22/18 at 07:44; Status DC Ondansetron HCl (Zofran) 4 mg 1X ONCE IV Last administered on 12/22/18at 07:24; Start 12/22/18 at 06:45; Stop 12/22/18 at 06:46; Status DC Pantoprazole Sodium (PROTONIX VIAL for IV PUSH) 40 mg 1X ONCE IVP Last administered on 12/22/18at 07:24; Start 12/22/18 at 06:45; Stop 12/22/18 at 06:46; Status DC Insulin Human Regular (HumuLIN R VIAL) 10 unit 1X ONCE IV Last administered on 12/22/18at 07:24; Start 12/22/18 at 06:45; Stop 12/22/18 at 06:46; Status DC Sodium Chloride 1,000 ml @ 1,000 mls/hr 1X ONCE IV Last administered on 12/22/18at 06:56; Start 12/22/18 at 06:45; Stop 12/22/18 at 07:44; Status DC Insulin Human Regular 150 ml @ 0 mls/hr 1X ONCE IV Last administered on 12/22/18at 07:41; Start 12/22/18 at 07:00; Stop 12/22/18 at 07:01; Status DC Fentanyl Citrate (Fentanyl 2ml Vial) 50 mcg 1X ONCE IV Last administered on 12/22/18at 07:24; Start 12/22/18 at 07:00; Stop 12/22/18 at 07:01; Status DC Sodium Chloride 1,000 ml @ 1,000 mls/hr Q1H IV Last administered on 12/22/18at 09:58; Start 12/22/18 at 07:31; Stop 12/22/18 at 08:30; Status DC Potassium Chloride/Water 100 ml @ 100 mls/hr PRN Q1HR PRN IV SEE COMMENT; Start 12/22/18 at 07:31 Pantoprazole Sodium 80 mg/ Sodium Chloride 100 ml @ 10 mls/hr Q10H IV Last administered on 12/24/18at 02:43; Start 12/22/18 at 08:00; Stop 12/24/18 at 09:19; Status DC Ondansetron HCl (Zofran) 4 mg PRN Q6HRS PRN IV NAUSEA/VOMITING, 1ST CHOICE Last administered on 12/25/18 09:37; Start 12/22/18 at 08:30 Ondansetron HCl (Zofran Odt) 4 mg PRN Q6HRS PRN PO NAUSEA/VOMITING; Start 12/22/18 at 08:30 Fentanyl Citrate (Fentanyl 2ml Vial) 50 mcg PRN Q2HR PRN IV PAIN Last administered on 12/25/18 08:07; Start 12/22/18 at 08:30 Prochlorperazine Edisylate (Compazine) 10 mg PRN Q6HRS PRN IV NAUSEA/VOMITING, 2ND CHOICE Last administered on 12/22/18 11:06; Start 12/22/18 at 08:30 Sodium Chloride 1,000 ml @ 250 mls/hr Q4H IV Last administered on 12/22/18 11:06; Start 12/22/18 at 08:30; Stop 12/22/18 at 13:11; Status DC Sodium Chloride 1,000 ml @ 1,000 mls/hr 1X ONCE IV Last administered on 12/22/18 09:58; Start 12/22/18 at 08:30; Stop 12/22/18 at 09:29; Status DC Insulin Human Regular 150 unit/ Sodium Chloride 151.5 ml @ 0 mls/hr CONT PRN IV SEE I/O RECORD Last administered on 12/22/18 16:05; Start 12/22/18 at 08:30 Dextrose (Dextrose 50%-Water Syringe) 12.5 gm PRN Q15MIN PRN IV LOW BLOOD SUGAR Last administered on 12/22/18 22:26; Start 12/22/18 at 08:30; Stop 12/24/18 at 20:33; Status DC Acetaminophen/ Aspirin/Caffeine (Excedrin Migraine) 2 tab PRN Q6HRS PRN PO MIGRAINE HEADACHE; Start 12/22/18 at 08:30 Acetaminophen/ Hydrocodone Bitart (Lortab 10/325) 1 tab PRN Q6HRS PRN PO SEVERE PAIN Last administered on 12/25/18at 09:32; Start 12/22/18 at 08:30 Albuterol Sulfate (Ventolin Neb Soln) 2.5 mg PRN Q4HRS PRN NEB SHORTNESS OF BREATH; Start 12/22/18 at 08:30 Influenza Virus Vaccine Quadrival (Afluria Quad 2019-20 (3yr Up) Syringe) 0.5 ml ONCE ONCE VAX IM Last administered on 12/22/18at 10:11; Start 12/22/18 at 10:00; Stop 12/22/18 at 10:01; Status DC Sodium Chloride 1,000 ml @ 1,000 mls/hr 1X ONCE IV ; Start 12/22/18 at 09:45; Stop 12/22/18 at 10:44; Status DC Throat Lozenges (Cepacol Sore Throat Lozenge) 1 santhosh PRN Q2HRS PRN PO SORE THROAT Last administered on 12/22/18at 10:11; Start 12/22/18 at 10:00 Nicotine (Nicoderm Cq 21mg) 1 patch PRN DAILY PRN TD SMOKING CESSATION Last administered on 12/24/18at 14:31; Start 12/22/18 at 10:00 Sodium Chloride 1,000 ml @ 1,000 mls/hr 1X ONCE IV Last administered on 12/22/18at 11:46; Start 12/22/18 at 11:45; Stop 12/22/18 at 12:44; Status DC Magnesium Sulfate 100 ml @ 25 mls/hr 1X ONCE IV Last administered on 12/22/18at 12:09; Start 12/22/18 at 12:00; Stop 12/22/18 at 15:59; Status DC Potassium Chloride/Water 100 ml @ 100 mls/hr Q1H IV Last administered on 12/22/18at 16:05; Start 12/22/18 at 13:00; Stop 12/22/18 at 16:59; Status DC Dextrose/Sodium Chloride 1,000 ml @ 250 mls/hr Q4H IV Last administered on 12/22/18at 17:18; Start 12/22/18 at 13:15; Stop 12/22/18 at 20:06; Status DC Sodium Phosphate 8 mmol/Dextrose 102.6667 ml @ 25.661 m... 1X ONCE IV Last administered on 12/22/18at 15:16; Start 12/22/18 at 15:30; Stop 12/22/18 at 19:30; Status DC Sodium Chloride 1,000 ml @ 125 mls/hr Q8H IV Last administered on 12/24/18at 05:39; Start 12/22/18 at 20:00; Stop 12/24/18 at 09:54; Status DC Insulin Glargine (Lantus Syringe) 30 unit QHS SQ Last administered on 12/24/18at 21:20; Start 12/22/18 at 21:00 Insulin Human Lispro (HumaLOG) 0-9 UNITS TIDWMEALS SQ Last administered on 12/24/18at 17:41; Start 12/23/18 at 08:00 Dextrose (Dextrose 50%-Water Syringe) 12.5 gm PRN Q15MIN PRN IV SEE COMMENTS; Start 12/22/18 at 20:00 Dextrose 250 ml PRN Q15MIN PRN IV SEE COMMENTS; Start 12/22/18 at 20:00 Insulin Human Lispro (HumaLOG) 12 units TIDWMEALS SQ Last administered on 12/25/18at 09:48; Start 12/23/18 at 08:00 Potassium Chloride/Water 50 ml @ 50 mls/hr Q1H IV Last administered on 12/23/18at 11:00; Start 12/23/18 at 09:30; Stop 12/23/18 at 11:29; Status DC Sodium Phosphate 17 mmol/Dextrose 255.6667 ml @ 63.89 mls/hr 1X ONCE IV Last administered on 12/23/18at 11:57; Start 12/23/18 at 11:00; Stop 12/23/18 at 15: 06; Status DC Multi-Ingredient Mouthwash/Gargle (Gi Cocktail) 20 ml PRN QID PRN PO CHEST PAIN Last administered on 12/25/18at 09:37; Start 12/24/18 at 09:30 Pantoprazole Sodium (Protonix) 40 mg DAILYAC PO Last administered on 12/24/18at 10:54; Start 12/24/18 at 11:00 Active Scripts Active Promethazine Hcl 25 Mg Tablet 1 Tab PO PRN Q6HRS Hydrocodone-Apap 10-325 (Hydrocodone Bit/Acetaminophen) 1 Tab Tablet 1 Tab PO PRN Q6HRS PRN 7 Days Duoneb 0.5-3(2.5) Mg/3 Ml (Albuterol/Ipratropium) 3 Ml Ampul.neb 3 Ml NEB RTQID 30 Days Amox Tr-K Clv 875-125 Mg Tab (Amoxicillin/Potassium Clav) 1 Each Tablet 1 Tab PO BID 14 Days Lantus Solostar (Insulin Glargine,Hum.rec.anlog) 100 Unit/1 Ml Insuln.pen 16 Units SQ QHS 30 Days Novolog (Insulin Aspart) 100 Unit/1 Ml Cartridge 8 Unit SQ MEAL PRN 30 Days Norvasc (Amlodipine Besylate) 5 Mg Tablet 5 Mg PO DAILY 30 Days Polyethylene Glycol 3350 17 Gm Powd.pack 17 Gm PO PRN DAILY PRN 14 Days Pain Reliever Plus Tablet (Aspirin/Acetaminophen/Caffeine) 1 Each Tablet 2 Tab PO PRN Q6HRS PRN 10 Days Famotidine 20 Mg Tablet 20 Mg PO DAILY MDD 1 Reported Protonix (Pantoprazole Sodium) 20 Mg Tablet.dr 20 Mg PO DAILY Vitals/I & O Vital Sign - Last 24 Hours 12/24/18 12/24/18 12/24/18 12/24/18 10:47 10:48 11:01 11:31 Temp 98.4 98.4 Pulse 87 Resp 18 B/P (MAP) 162/92 (115) Pulse Ox 97 O2 Delivery Room Air Room Air Room Air Room Air 12/24/18 12/24/18 12/24/18 12/24/18 11:53 13:23 14:30 14:32 Pulse Ox 97 O2 Delivery Room Air Room Air Room Air Room Air 12/24/18 12/24/18 12/24/18 12/24/18 16:00 16:03 16:04 17:38 Temp 98.3 98.3 Pulse 92 Resp 18 B/P (MAP) 153/93 (113) Pulse Ox 98 O2 Delivery Room Air Room Air Room Air Room Air 12/24/18 12/24/18 12/24/18 12/24/18 18:29 19:00 19:10 19:30 Temp 98.4 98.4 Pulse 87 Resp 20 B/P (MAP) 157/95 (115) Pulse Ox 99 O2 Delivery Room Air Room Air Room Air Room Air 12/24/18 12/24/18 12/24/18 12/24/18 21:08 21:09 22:00 22:00 Resp 16 15 15 15 Pulse Ox 99 99 99 99 O2 Delivery Room Air Room Air Room Air Room Air 9/25/19 9/25/19 9/26/19 9/26/19 23:00 23:49 00:45 01:54 Temp 98.3 98.3 Pulse 81 Resp 20 15 13 15 B/P (MAP) 174/101 (125) Pulse Ox 99 99 99 99 O2 Delivery Room Air Room Air Room Air Room Air 12/25/18 12/25/18 12/25/18 12/25/18 02:45 03:00 05:29 06:00 Temp 98.1 98.1 Pulse 88 Resp 15 20 15 13 B/P (MAP) 161/106 (124) Pulse Ox 99 98 99 99 O2 Delivery Room Air Room Air Room Air Room Air 12/25/18 12/25/18 12/25/18 12/25/18 07:00 08:00 08:07 09:32 Temp 98.9 98.9 Pulse 74 Resp 18 19 20 B/P (MAP) 149/92 (111) Pulse Ox 96 94 94 O2 Delivery Room Air Room Air Room Air Room Air Intake and Output 12/24/18 12/24/18 12/25/18 15:00 23:00 07:00 Intake Total 480 ml 750 ml Output Total 1 ml Balance 480 ml -1 ml 750 ml DEEPTI ZHAO MD Dec 25, 2018 09:50
--- NOTE | 2018-12-25 10:25 | PDOC ---
Subjective: Subjective: Brown watery stools. Tolerating full liquids - would like to advance. Feels better overall though still has chest and upper abd pain. Objective: Vital Signs: Vital Signs Date Time Temp Pulse Resp B/P (MAP) Pulse Ox O2 Delivery O2 Flow Rate FiO2 12/25/18 09:32 20 94 Room Air 12/25/18 07:00 98.9 74 149/92 (111) 98.9 Labs: Laboratory Tests Test 12/24/18 11:57 12/24/18 16:56 12/24/18 21:10 12/25/18 07:54 Glucose (Fingerstick) 242 mg/dL (70-99) 172 mg/dL (70-99) 129 mg/dL (70-99) 126 mg/dL (70-99) PE: GEN: NAD, was eating breakfast LUNGS: CTAB HEART: RRR ABD: epigastric discomfort NEURO/PSYCH: A & O 3 A/P: Chest/abd pain, diarrhea Anemia - Hgb improved 12/23, hematemesis/hematochezia resolved Uncontrolled DM, h/o GERD, gastroparesis, +cannabinoids - recurrent n/v and abd pain -- ADA diet. Continue PPI. Follow-up w/ [facility] and GI as previously discussed. Follow-up on C Diff results. ANGELA RIVERO Dec 25, 2018 10:25
[2018-12-25 11:00] VITALS: BP 142/92
--- NOTE | 2018-12-25 12:05 | NUR ---
PATIENTS' BLOOD SUGAR PER FINGERSTICK 68, PATIENT ALERT AND VERBALLY RESPONSIVE AND WITHOUT S/S OF HYPOGLYCEMIA, 4 OZ APPLE JUICE GIVEN, AND LUNCH TRAY HAS ARRIVED, WILL INFORM [employer] MACHINE REPAIRER TO RECHECK BLOOD SUGAR AFTER PATIENT EATS AND INFORM DR. ZHAO.
[2018-12-25 12:40] LABS: CALCIUM 8.1 mg/dL (8.5-10.1); CREATININE 0.7 mg/dL (0.6-1.0); GFR 91.8; POTASSIUM 3.7 mmol/L (3.5-5.1)
[2018-12-25 15:00] VITALS: BP 124/78
[2018-12-25 19:00] VITALS: BP 169/88
[2018-12-25] MEDS: INSULIN GLARGINE SYRINGE. SQ SCH (21:01)
[2018-12-25] MEDS: NICOTINE 21MG PATCH. TD PRN (21:51)
[2018-12-25 23:00] VITALS: BP 159/84
[2018-12-26] MEDS: fentaNYL PF VIAL 100 MCG/2 ML VIAL IV PRN ×9 (01:06→22:03)
[2018-12-26 02:46] VITALS: BP 168/84
[2018-12-26 04:23] LABS: BASO % 1 % (0-3); EOS # 0.1 x10^3/uL (0.0-0.7); EOS % 3 % (0-3); HEMATOCRIT 28.6 % (36.0-47.0); HEMOGLOBIN 9.8 g/dL (12.0-15.5); LYMPH # 1.9 x10^3/uL (1.0-4.8); LYMPH % 46 % (24-48); MEAN CORPUSCULAR HEMOGLOBIN 29 pg (25-35); MEAN CORPUSCULAR HGB CONC 34 g/dL (31-37); MEAN CORPUSCULAR VOLUME 84 fL (79-100); MONO # 0.3 x10^3/uL (0.0-1.1); MONO % 7 % (0-9); NEUT # 1.8 x10^3/uL (1.8-7.7); NEUT % 43 % (31-73); PLATELET COUNT 327 x10^3/uL (140-400); RED BLOOD COUNT 3.41 x10^6/uL (3.50-5.40); RED CELL DISTRIBUTION WIDTH 15.3 % (11.5-14.5); WHITE BLOOD COUNT 4.1 x10^3/uL (4.0-11.0)
[2018-12-26 04:40] LABS: ALBUMIN 2.5 g/dL (3.4-5.0); ALBUMIN/GLOBULIN RATIO 0.8 (1.0-1.7); CALCIUM 8.7 mg/dL (8.5-10.1); CREATININE 0.9 mg/dL (0.6-1.0); GFR 68.7; TOTAL BILIRUBIN 0.1 mg/dL (0.2-1.0); TOTAL PROTEIN 5.6 g/dL (6.4-8.2)
[2018-12-26 07:00] VITALS: BP 184/87
--- NOTE | 2018-12-26 07:37 | PDOC ---
PROGRESS NOTES Chief Complaint Chief Complaint impression Vomiting Severe DKA hematemesis, melena Anemia Recurrent n/v, abd pain h/o GERD, gastroparesis H/o SBR S/p cholecystectomy +cannabinoids Anemia - Hgb improved 12/23, hematemesis/hematochezia resolved Uncontrolled DM, h/o GERD, gastroparesis, +cannabinoids hypoglycemia 12/25 28 min pt exam, chart review, > 50% of time spent with exam, chart review, pt care coordination History of Present Illness History of Present Illness PLAN: patient transferred out of ICU. off insulin drip. sugars LABILE reports diarrhea and poor appetite today. does not want to go home , STILL IN PAIN advance diet as tolerated dc PPI drip and change to oral PPI therapy check stool studies given loose stools DW RN tolerating diet. adjust insulin dose as needed. follow up BMP in AM Vitals Vitals Vital Signs Date Time Temp Pulse Resp B/P (MAP) Pulse Ox O2 Delivery O2 Flow Rate FiO2 12/26/18 04:39 Room Air 12/26/18 02:46 98.2 86 16 168/84 (112) 97 98.2 Physical Exam Physical Exam HEENT: Normocephalic, atraumatic, oropharynx dry. Eyes: PERRLA, EOMI, conjunctiva normal, no discharge Neck: Normal range of motion, no tenderness, supple, no stridor Cardiovascular: Tachycardia, no murmur Lungs & Thorax: Hyperventilation, bilateral breath sounds clear to auscultation Abdomen: Bowel sounds normal, soft, no tenderness, no masses, no pulsatile masses. Skin: Warm, dry, no erythema, no rash. Extremities: No tenderness, no cyanosis, no clubbing, ROM intact, no edema. Neurologic: Alert and oriented X 3, no focal deficits noted General: Alert, Oriented X3, Cooperative, No acute distress, Other (VERY DRY< POSITIVE SKIN TEST, motlled skin, legs, shaky, cold to touch) Heart: Regular rate, Normal S1 Lungs: Clear, Other Abdomen: Normal bowel sounds, Soft Extremities: No clubbing, No cyanosis, No edema Skin: No rashes, No breakdown Labs LABS Laboratory Tests Test 12/25/18 07:54 12/25/18 11:57 12/25/18 12:23 12/25/18 14:16 Glucose (Fingerstick) 126 mg/dL (70-99) 68 mg/dL (70-99) 85 mg/dL (70-99) Sodium Level 141 mmol/L (136-145) Potassium Level 3.7 mmol/L (3.5-5.1) Chloride Level 107 mmol/L (98-107) Carbon Dioxide Level 29 mmol/L (21-32) Anion Gap 5 (6-14) Blood Urea Nitrogen 3 mg/dL (7-20) Creatinine 0.7 mg/dL (0.6-1.0) Estimated GFR (Cockcroft-Gault) 91.8 Glucose Level 59 mg/dL (70-99) Calcium Level 8.1 mg/dL (8.5-10.1) Test 12/25/18 17:00 12/25/18 20:54 12/26/18 04:15 Glucose (Fingerstick) 117 mg/dL (70-99) 251 mg/dL (70-99) White Blood Count 4.1 x10^3/uL (4.0-11.0) Red Blood Count 3.41 x10^6/uL (3.50-5.40) Hemoglobin 9.8 g/dL (12.0-15.5) Hematocrit 28.6 % (36.0-47.0) Mean Corpuscular Volume 84 fL (79-100) Mean Corpuscular Hemoglobin 29 pg (25-35) Mean Corpuscular Hemoglobin Concent 34 g/dL (31-37) Red Cell Distribution Width 15.3 % (11.5-14.5) Platelet Count 327 x10^3/uL (140-400) Neutrophils (%) (Auto) 43 % (31-73) Lymphocytes (%) (Auto) 46 % (24-48) Monocytes (%) (Auto) 7 % (0-9) Eosinophils (%) (Auto) 3 % (0-3) Basophils (%) (Auto) 1 % (0-3) Neutrophils # (Auto) 1.8 x10^3/uL (1.8-7.7) Lymphocytes # (Auto) 1.9 x10^3/uL (1.0-4.8) Monocytes # (Auto) 0.3 x10^3/uL (0.0-1.1) Eosinophils # (Auto) 0.1 x10^3/uL (0.0-0.7) Basophils # (Auto) 0.0 x10^3/uL (0.0-0.2) Sodium Level 140 mmol/L (136-145) Potassium Level 4.0 mmol/L (3.5-5.1) Chloride Level 104 mmol/L (98-107) Carbon Dioxide Level 30 mmol/L (21-32) Anion Gap 6 (6-14) Blood Urea Nitrogen 5 mg/dL (7-20) Creatinine 0.9 mg/dL (0.6-1.0) Estimated GFR (Cockcroft-Gault) 68.7 BUN/Creatinine Ratio 6 (6-20) Glucose Level 209 mg/dL (70-99) Calcium Level 8.7 mg/dL (8.5-10.1) Total Bilirubin 0.1 mg/dL (0.2-1.0) Aspartate Amino Transf (AST/SGOT) 30 U/L (15-37) Alanine Aminotransferase (ALT/SGPT) 48 U/L (14-59) Alkaline Phosphatase 125 U/L (46-116) Total Protein 5.6 g/dL (6.4-8.2) Albumin 2.5 g/dL (3.4-5.0) Albumin/Globulin Ratio 0.8 (1.0-1.7) Assessment and Plan Assessmemt and Plan Problems Medical Problems: (1) Abdominal pain Status: Acute (2) Acute renal insufficiency Status: Acute (3) Anemia Status: Acute (4) DKA (diabetic ketoacidoses) Status: Acute (5) DKA (diabetic ketoacidoses) Status: Acute (6) Gastroparesis Status: Acute (7) Hematemesis Status: Acute (8) Hyperkalemia Status: Acute (9) Hypermagnesemia Status: Acute (10) Hyperphosphatemia Status: Acute (11) Hypoalbuminemia Status: Acute (12) Hypochloremia Status: Acute (13) Hyponatremia Status: Acute (14) Hypovolemia Status: Acute (15) Leukocytosis Status: Acute (16) Melena Status: Acute (17) Metabolic acidosis Status: Acute (18) Nausea & vomiting Status: Acute (19) Noncompliance with diabetes treatment Status: Acute (20) Prolonged Q-T interval on ECG Status: Acute Uncontrolled DM, h/o GERD, gastroparesis, +cannabinoids Comment Review of Relevant I have reviewed the following items sheryl (where applicable) has been applied. Labs Laboratory Tests Test 12/24/18 07:51 12/24/18 11:57 12/24/18 16:56 12/24/18 20:10 Glucose (Fingerstick) 129 mg/dL (70-99) 242 mg/dL (70-99) 172 mg/dL (70-99) Clostridium difficile Toxin B Gene Negative (Negative) Test 12/24/18 21:10 12/25/18 07:54 12/25/18 11:57 12/25/18 12:23 Glucose (Fingerstick) 129 mg/dL (70-99) 126 mg/dL (70-99) 68 mg/dL (70-99) Sodium Level 141 mmol/L (136-145) Potassium Level 3.7 mmol/L (3.5-5.1) Chloride Level 107 mmol/L (98-107) Carbon Dioxide Level 29 mmol/L (21-32) Anion Gap 5 (6-14) Blood Urea Nitrogen 3 mg/dL (7-20) Creatinine 0.7 mg/dL (0.6-1.0) Estimated GFR (Cockcroft-Gault) 91.8 Glucose Level 59 mg/dL (70-99) Calcium Level 8.1 mg/dL (8.5-10.1) Test 12/25/18 14:16 12/25/18 17:00 12/25/18 20:54 12/26/18 04:15 Glucose (Fingerstick) 85 mg/dL (70-99) 117 mg/dL (70-99) 251 mg/dL (70-99) White Blood Count 4.1 x10^3/uL (4.0-11.0) Red Blood Count 3.41 x10^6/uL (3.50-5.40) Hemoglobin 9.8 g/dL (12.0-15.5) Hematocrit 28.6 % (36.0-47.0) Mean Corpuscular Volume 84 fL (79-100) Mean Corpuscular Hemoglobin 29 pg (25-35) Mean Corpuscular Hemoglobin Concent 34 g/dL (31-37) Red Cell Distribution Width 15.3 % (11.5-14.5) Platelet Count 327 x10^3/uL (140-400) Neutrophils (%) (Auto) 43 % (31-73) Lymphocytes (%) (Auto) 46 % (24-48) Monocytes (%) (Auto) 7 % (0-9) Eosinophils (%) (Auto) 3 % (0-3) Basophils (%) (Auto) 1 % (0-3) Neutrophils # (Auto) 1.8 x10^3/uL (1.8-7.7) Lymphocytes # (Auto) 1.9 x10^3/uL (1.0-4.8) Monocytes # (Auto) 0.3 x10^3/uL (0.0-1.1) Eosinophils # (Auto) 0.1 x10^3/uL (0.0-0.7) Basophils # (Auto) 0.0 x10^3/uL (0.0-0.2) Sodium Level 140 mmol/L (136-145) Potassium Level 4.0 mmol/L (3.5-5.1) Chloride Level 104 mmol/L (98-107) Carbon Dioxide Level 30 mmol/L (21-32) Anion Gap 6 (6-14) Blood Urea Nitrogen 5 mg/dL (7-20) Creatinine 0.9 mg/dL (0.6-1.0) Estimated GFR (Cockcroft-Gault) 68.7 BUN/Creatinine Ratio 6 (6-20) Glucose Level 209 mg/dL (70-99) Calcium Level 8.7 mg/dL (8.5-10.1) Total Bilirubin 0.1 mg/dL (0.2-1.0) Aspartate Amino Transf (AST/SGOT) 30 U/L (15-37) Alanine Aminotransferase (ALT/SGPT) 48 U/L (14-59) Alkaline Phosphatase 125 U/L (46-116) Total Protein 5.6 g/dL (6.4-8.2) Albumin 2.5 g/dL (3.4-5.0) Albumin/Globulin Ratio 0.8 (1.0-1.7) Laboratory Tests Test 12/25/18 07:54 12/25/18 11:57 12/25/18 12:23 12/25/18 14:16 Glucose (Fingerstick) 126 mg/dL (70-99) 68 mg/dL (70-99) 85 mg/dL (70-99) Sodium Level 141 mmol/L (136-145) Potassium Level 3.7 mmol/L (3.5-5.1) Chloride Level 107 mmol/L (98-107) Carbon Dioxide Level 29 mmol/L (21-32) Anion Gap 5 (6-14) Blood Urea Nitrogen 3 mg/dL (7-20) Creatinine 0.7 mg/dL (0.6-1.0) Estimated GFR (Cockcroft-Gault) 91.8 Glucose Level 59 mg/dL (70-99) Calcium Level 8.1 mg/dL (8.5-10.1) Test 12/25/18 17:00 12/25/18 20:54 12/26/18 04:15 Glucose (Fingerstick) 117 mg/dL (70-99) 251 mg/dL (70-99) White Blood Count 4.1 x10^3/uL (4.0-11.0) Red Blood Count 3.41 x10^6/uL (3.50-5.40) Hemoglobin 9.8 g/dL (12.0-15.5) Hematocrit 28.6 % (36.0-47.0) Mean Corpuscular Volume 84 fL (79-100) Mean Corpuscular Hemoglobin 29 pg (25-35) Mean Corpuscular Hemoglobin Concent 34 g/dL (31-37) Red Cell Distribution Width 15.3 % (11.5-14.5) Platelet Count 327 x10^3/uL (140-400) Neutrophils (%) (Auto) 43 % (31-73) Lymphocytes (%) (Auto) 46 % (24-48) Monocytes (%) (Auto) 7 % (0-9) Eosinophils (%) (Auto) 3 % (0-3) Basophils (%) (Auto) 1 % (0-3) Neutrophils # (Auto) 1.8 x10^3/uL (1.8-7.7) Lymphocytes # (Auto) 1.9 x10^3/uL (1.0-4.8) Monocytes # (Auto) 0.3 x10^3/uL (0.0-1.1) Eosinophils # (Auto) 0.1 x10^3/uL (0.0-0.7) Basophils # (Auto) 0.0 x10^3/uL (0.0-0.2) Sodium Level 140 mmol/L (136-145) Potassium Level 4.0 mmol/L (3.5-5.1) Chloride Level 104 mmol/L (98-107) Carbon Dioxide Level 30 mmol/L (21-32) Anion Gap 6 (6-14) Blood Urea Nitrogen 5 mg/dL (7-20) Creatinine 0.9 mg/dL (0.6-1.0) Estimated GFR (Cockcroft-Gault) 68.7 BUN/Creatinine Ratio 6 (6-20) Glucose Level 209 mg/dL (70-99) Calcium Level 8.7 mg/dL (8.5-10.1) Total Bilirubin 0.1 mg/dL (0.2-1.0) Aspartate Amino Transf (AST/SGOT) 30 U/L (15-37) Alanine Aminotransferase (ALT/SGPT) 48 U/L (14-59) Alkaline Phosphatase 125 U/L (46-116) Total Protein 5.6 g/dL (6.4-8.2) Albumin 2.5 g/dL (3.4-5.0) Albumin/Globulin Ratio 0.8 (1.0-1.7) Microbiology 12/22/18 Urine Culture - Final, Complete 12/22/18 Urine Culture Result 1 (LESLYE) - Final, Complete Medications Current Medications Sodium Chloride 1,000 ml @ 1,000 mls/hr Q1H IV Last administered on 12/22/18at 06:56; Start 12/22/18 at 06:45; Stop 12/22/18 at 07:44; Status DC Ondansetron HCl (Zofran) 4 mg 1X ONCE IV Last administered on 12/22/18at 07:24; Start 12/22/18 at 06:45; Stop 12/22/18 at 06:46; Status DC Pantoprazole Sodium (PROTONIX VIAL for IV PUSH) 40 mg 1X ONCE IVP Last admi nistered on 12/22/18at 07:24; Start 12/22/18 at 06:45; Stop 12/22/18 at 06:46; Status DC Insulin Human Regular (HumuLIN R VIAL) 10 unit 1X ONCE IV Last administered on 12/22/18at 07:24; Start 12/22/18 at 06:45; Stop 12/22/18 at 06:46; Status DC Sodium Chloride 1,000 ml @ 1,000 mls/hr 1X ONCE IV Last administered on 12/22/18at 06:56; Start 12/22/18 at 06:45; Stop 12/22/18 at 07:44; Status DC Insulin Human Regular 150 ml @ 0 mls/hr 1X ONCE IV Last administered on 12/22/18at 07:41; Start 12/22/18 at 07:00; Stop 12/22/18 at 07:01; Status DC Fentanyl Citrate (Fentanyl 2ml Vial) 50 mcg 1X ONCE IV Last administered on 12/22/18at 07:24; Start 12/22/18 at 07:00; Stop 12/22/18 at 07:01; Status DC Sodium Chloride 1,000 ml @ 1,000 mls/hr Q1H IV Last administered on 12/22/18at 09:58; Start 12/22/18 at 07:31; Stop 12/22/18 at 08:30; Status DC Potassium Chloride/Water 100 ml @ 100 mls/hr PRN Q1HR PRN IV SEE COMMENT; Start 12/22/18 at 07:31 Pantoprazole Sodium 80 mg/ Sodium Chloride 100 ml @ 10 mls/hr Q10H IV Last administered on 12/24/18at 02:43; Start 12/22/18 at 08:00; Stop 12/24/18 at 09:19; Status DC Ondansetron HCl (Zofran) 4 mg PRN Q6HRS PRN IV NAUSEA/VOMITING, 1ST CHOICE Last administered on 12/25/18at 17:27; Start 12/22/18 at 08:30 Ondansetron HCl (Zofran Odt) 4 mg PRN Q6HRS PRN PO NAUSEA/VOMITING; Start 12/22/18 at 08:30 Fentanyl Citrate (Fentanyl 2ml Vial) 50 mcg PRN Q2HR PRN IV PAIN Last administered on 12/26/18at 04:08; Start 12/22/18 at 08:30 Prochlorperazine Edisylate (Compazine) 10 mg PRN Q6HRS PRN IV NAUSEA/VOMITING, 2ND CHOICE Last administered on 12/22/18at 11:06; Start 12/22/18 at 08:30 Sodium Chloride 1,000 ml @ 250 mls/hr Q4H IV Last administered on 12/22/18at 11:06; Start 12/22/18 at 08:30; Stop 12/22/18 at 13:11; Status DC Sodium Chloride 1,000 ml @ 1,000 mls/hr 1X ONCE IV Last administered on 12/22/18at 09:58; Start 12/22/18 at 08:30; Stop 12/22/18 at 09:29; Status DC Insulin Human Regular 150 unit/ Sodium Chloride 151.5 ml @ 0 mls/hr CONT PRN IV SEE I/O RECORD Last administered on 12/22/18at 16:05; Start 12/22/18 at 08:30; Stop 12/25/18 at 16:38; Status DC Dextrose (Dextrose 50%-Water Syringe) 12.5 gm PRN Q15MIN PRN IV LOW BLOOD SUGAR Last administered on 12/22/18at 22:26; Start 12/22/18 at 08:30; Stop 12/24/18 at 20:33; Status DC Acetaminophen/ Aspirin/Caffeine (Excedrin Migraine) 2 tab PRN Q6HRS PRN PO MIGRAINE HEADACHE; Start 12/22/18 at 08:30 Acetaminophen/ Hydrocodone Bitart (Lortab 10/325) 1 tab PRN Q6HRS PRN PO SEVERE PAIN Last administered on 12/25/18at 18:06; Start 12/22/18 at 08:30 Albuterol Sulfate (Ventolin Neb Soln) 2.5 mg PRN Q4HRS PRN NEB SHORTNESS OF BREATH; Start 12/22/18 at 08:30 Influenza Virus Vaccine Quadrival (Afluria Quad 2019-20 (3yr Up) Syringe) 0.5 ml ONCE ONCE VAX IM Last administered on 12/22/18at 10:11; Start 12/22/18 at 10:00; Stop 12/22/18 at 10:01; Status DC Sodium Chloride 1,000 ml @ 1,000 mls/hr 1X ONCE IV ; Start 12/22/18 at 09:45; Stop 12/22/18 at 10:44; Status DC Throat Lozenges (Cepacol Sore Throat Lozenge) 1 santhosh PRN Q2HRS PRN PO SORE THRO AT Last administered on 12/22/18at 10:11; Start 12/22/18 at 10:00 Nicotine (Nicoderm Cq 21mg) 1 patch PRN DAILY PRN TD SMOKING CESSATION Last administered on 12/25/18at 21:51; Start 12/22/18 at 10:00 Sodium Chloride 1,000 ml @ 1,000 mls/hr 1X ONCE IV Last administered on 12/22/18at 11:46; Start 12/22/18 at 11:45; Stop 12/22/18 at 12:44; Status DC Magnesium Sulfate 100 ml @ 25 mls/hr 1X ONCE IV Last administered on 12/22/18at 12:09; Start 12/22/18 at 12:00; Stop 12/22/18 at 15:59; Status DC Potassium Chloride/Water 100 ml @ 100 mls/hr Q1H IV Last administered on 12/22/18at 16:05; Start 12/22/18 at 13:00; Stop 12/22/18 at 16:59; Status DC Dextrose/Sodium Chloride 1,000 ml @ 250 mls/hr Q4H IV Last administered on 12/22/18at 17:18; Start 12/22/18 at 13:15; Stop 12/22/18 at 20:06; Status DC Sodium Phosphate 8 mmol/Dextrose 102.6667 ml @ 25.661 m... 1X ONCE IV Last administered on 12/22/18at 15:16; Start 12/22/18 at 15:30; Stop 12/22/18 at 19:30; Status DC Sodium Chloride 1,000 ml @ 125 mls/hr Q8H IV Last administered on 12/24/18at 05:39; Start 12/22/18 at 20:00; Stop 12/24/18 at 09:54; Status DC Insulin Glargine (Lantus Syringe) 30 unit QHS SQ Last administered on 12/25/18at 21:01; Start 12/22/18 at 21:00 Insulin Human Lispro (HumaLOG) 0-9 UNITS TIDWMEALS SQ Last administered on 12/24/18at 17:41; Start 12/23/18 at 08:00 Dextrose (Dextrose 50%-Water Syringe) 12.5 gm PRN Q15MIN PRN IV SEE COMMENTS; Start 12/22/18 at 20:00 Dextrose 250 ml PRN Q15MIN PRN IV SEE COMMENTS; Start 12/22/18 at 20:00; Stop 12/25/18 at 16:29; Status DC Insulin Human Lispro (HumaLOG) 12 units TIDWMEALS SQ Last administered on 12/25/18at 09:48; Start 12/23/18 at 08:00 Potassium Chloride/Water 50 ml @ 50 mls/hr Q1H IV Last administered on 12/23/18at 11:00; Start 12/23/18 at 09:30; Stop 12/23/18 at 11:29; Status DC Sodium Phosphate 17 mmol/Dextrose 255.6667 ml @ 63.89 mls/hr 1X ONCE IV Last administered on 12/23/18at 11:57; Start 12/23/18 at 11:00; Stop 12/23/18 at 15:06; Status DC Multi-Ingredient Mouthwash/Gargle (Gi Cocktail) 20 ml PRN QID PRN PO CHEST PAIN Last administered on 12/25/18at 17:27; Start 12/24/18 at 09:30 Pantoprazole Sodium (Protonix) 40 mg DAILYAC PO Last administered on 12/25/18at 07:30; Start 12/24/18 at 11:00 Active Scripts Active Promethazine Hcl 25 Mg Tablet 1 Tab PO PRN Q6HRS Hydrocodone-Apap 10-325 (Hydrocodone Bit/Acetaminophen) 1 Tab Tablet 1 Tab PO PRN Q6HRS PRN 7 Days Duoneb 0.5-3(2.5) Mg/3 Ml (Albuterol/Ipratropium) 3 Ml Ampul.neb 3 Ml NEB RTQID 30 Days Amox Tr-K Clv 875-125 Mg Tab (Amoxicillin/Potassium Clav) 1 Each Tablet 1 Tab PO BID 14 Days Lantus Solostar (Insulin Glargine,Hum.rec.anlog) 100 Unit/1 Ml Insuln.pen 16 Units SQ QHS 30 Days Novolog (Insulin Aspart) 100 Unit/1 Ml Cartridge 8 Unit SQ MEAL PRN 30 Days Norvasc (Amlodipine Besylate) 5 Mg Tablet 5 Mg PO DAILY 30 Days Polyethylene Glycol 3350 17 Gm Powd.pack 17 Gm PO PRN DAILY PRN 14 Days Pain Reliever Plus Tablet (Aspirin/Acetaminophen/Caffeine) 1 Each Tablet 2 Tab PO PRN Q6HRS PRN 10 Days Famotidine 20 Mg Tablet 20 Mg PO DAILY MDD 1 Reported Protonix (Pantoprazole Sodium) 20 Mg Tablet.dr 20 Mg PO DAILY Vitals/I & O Vital Sign - Last 24 Hours 12/25/18 12/25/18 12/25/18 12/25/18 08:00 08:07 08:40 09:32 Resp 19 20 20 Pulse Ox 94 94 94 O2 Delivery Room Air Room Air Room Air Room Air 12/25/18 12/25/18 12/25/18 12/25/18 10:30 11:00 12:14 13:00 Temp 98.3 98.3 Pulse 85 Resp 20 18 20 20 B/P (MAP) 142/92 (109) Pulse Ox 93 98 93 94 O2 Delivery Room Air Room Air Room Air Room Air 12/25/18 12/25/18 12/25/18 12/25/18 15:00 15:06 15:40 18:06 Temp 98.1 98.1 Pulse 88 Resp 16 20 19 20 B/P (MAP) 124/78 (93) Pulse Ox 97 94 93 O2 Delivery Room Air Room Air Room Air Room Air 12/25/18 12/25/18 12/25/18 12/25/18 19:00 19:11 19:35 20:00 Temp 99.0 99.0 Pulse 87 Resp 18 B/P (MAP) 169/88 (115) Pulse Ox 97 O2 Delivery Room Air Room Air Room Air Room Air 12/25/18 12/25/18 12/25/18 12/25/18 20:16 21:56 22:38 23:00 Temp 98.6 98.6 Pulse 84 Resp 18 B/P (MAP) 159/84 (109) Pulse Ox 96 O2 Delivery Room Air Room Air Room Air Room Air 12/26/18 12/26/18 12/26/18 12/26/18 01:06 01:36 02:46 04:08 Temp 98.2 98.2 Pulse 86 Resp 16 B/P (MAP) 168/84 (112) Pulse Ox 97 O2 Delivery Room Air Room Air Room Air Room Air 12/26/18 04:39 O2 Delivery Room Air Intake and Output 12/25/18 12/25/18 12/26/18 15:00 23:00 07:00 Intake Total 850 ml 750 ml 300 ml Balance 850 ml 750 ml 300 ml DEEPTI ZHAO MD Dec 26, 2018 07:37
[2018-12-26] MEDS: ONDANSETRON PF 4 MG/2 ML VIAL. IV PRN ×2 (07:39→17:28)
[2018-12-26] MEDS: PANTOPRAZOLE 40 MG TABLET.DR. PO SCH (07:40)
[2018-12-26] MEDS: INSULIN LISPRO 300 UNITS/3 ML VIAL. SQ SCH ×5 (08:46→17:25)
--- NOTE | 2018-12-26 09:39 | PDOC ---
Subjective: Subjective: Now would prefer GI soft diet. No n/v but still has pain and diarrhea, doesn't want to go home, taking Fentanyl, wants to feel better. Objective: Vital Signs: Vital Signs Date Time Temp Pulse Resp B/P (MAP) Pulse Ox O2 Delivery O2 Flow Rate FiO2 12/26/18 07:40 18 12/26/18 07:00 98.2 71 184/87 (119) 99 Room Air 98.2 Labs: Laboratory Tests Test 12/25/18 11:57 12/25/18 12:23 12/25/18 14:16 12/25/18 17:00 Glucose (Fingerstick) 68 mg/dL 85 mg/dL 117 mg/dL Sodium Level 141 mmol/L Potassium Level 3.7 mmol/L Chloride Level 107 mmol/L Carbon Dioxide Level 29 mmol/L Anion Gap 5 Blood Urea Nitrogen 3 mg/dL Creatinine 0.7 mg/dL Estimated GFR (Cockcroft-Gault) 91.8 Glucose Level 59 mg/dL Calcium Level 8.1 mg/dL Test 12/25/18 20:54 12/26/18 04:15 12/26/18 07:12 Glucose (Fingerstick) 251 mg/dL 187 mg/dL White Blood Count 4.1 x10^3/uL Red Blood Count 3.41 x10^6/uL Hemoglobin 9.8 g/dL Hematocrit 28.6 % Mean Corpuscular Volume 84 fL Mean Corpuscular Hemoglobin 29 pg Mean Corpuscular Hemoglobin Concent 34 g/dL Red Cell Distribution Width 15.3 % Platelet Count 327 x10^3/uL Neutrophils (%) (Auto) 43 % Lymphocytes (%) (Auto) 46 % Monocytes (%) (Auto) 7 % Eosinophils (%) (Auto) 3 % Basophils (%) (Auto) 1 % Neutrophils # (Auto) 1.8 x10^3/uL Lymphocytes # (Auto) 1.9 x10^3/uL Monocytes # (Auto) 0.3 x10^3/uL Eosinophils # (Auto) 0.1 x10^3/uL Basophils # (Auto) 0.0 x10^3/uL Sodium Level 140 mmol/L Potassium Level 4.0 mmol/L Chloride Level 104 mmol/L Carbon Dioxide Level 30 mmol/L Anion Gap 6 Blood Urea Nitrogen 5 mg/dL Creatinine 0.9 mg/dL Estimated GFR (Cockcroft-Gault) 68.7 BUN/Creatinine Ratio 6 Glucose Level 209 mg/dL Calcium Level 8.7 mg/dL Total Bilirubin 0.1 mg/dL Aspartate Amino Transf (AST/SGOT) 30 U/L Alanine Aminotransferase (ALT/SGPT) 48 U/L Alkaline Phosphatase 125 U/L Total Protein 5.6 g/dL Albumin 2.5 g/dL Albumin/Globulin Ratio 0.8 PE: GEN: NAD LUNGS: CTAB HEART: RRR ABD: soft, veguely tender - wonder if MSK? NEURO/PSYCH: A & O 3 A/P: Chest/abd pain, diarrhea Anemia - improving Uncontrolled DM, h/o GERD, gastroparesis, +cannabinoids -- GI soft/gastroparesis diet - small meals throughout the day. Continue PPI. Check stool culture, consider Colestid. Try Bentyl. Check abd x-ray. ANGELA RIVERO Dec 26, 2018 09:39 MARY JASMINE MD Dec 26, 2018 09:46
[2018-12-26] MEDS: LIDO:MAALOX 1:1 20 ML SINGLE DOSE. PO PRN (09:59)
[2018-12-26 11:00] VITALS: BP 125/86
[2018-12-26] MEDS: DEXTROSE 50% 25 GM / 50ML DISP.SYRIN. IV PRN (11:30)
--- NOTE | 2018-12-26 11:34 | NUR ---
Patient blood sugar 59, she denies S/S hypoglycemis, D50 1/2 amp given per protocol and will recheck blood sugar per protocol.
--- NOTE | 2018-12-26 11:56 | NUR ---
Blood sugar recheck 92, meal dose insulin held r/t hyposglycemic episode. Patient verb. understanding POC.
[2018-12-26] MEDS: DICYCLOMINE HCL 10 MG CAPSULE PO PRN ×3 (12:22→22:02)
[2018-12-26] MEDS: HYDROcodone/APAP 10/325 1 TAB TABLET PO PRN (14:50)
[2018-12-26 15:00] VITALS: BP 148/76
--- NOTE | 2018-12-26 16:04 | RAD ---
EXAM: Abdomen acute complete. HISTORY: Pain and diarrhea. COMPARISON: 11/14/2018 FINDINGS: A frontal view of the chest and frontal upright and supine views of the abdomen are obtained. There are small bilateral pleural effusions. There is no infiltrate or pneumothorax. The heart is normal in size. There is a central venous catheter with the tip in the superior cavoatrial junction. There are circumscribed nodules overlying the lower thorax due to nipple shadows. There is no evidence of bowel obstruction. There is no free air. There are anastomotic sutures overlying the pelvis. There are cholecystectomy clips. There are pelvic phleboliths. IMPRESSION: 1. Small bilateral pleural effusions. 2. Nonobstructive bowel gas pattern. Electronically signed by: Khushi Acuña MD (12/26/2018 4:01 PM) [id number]
[2018-12-26 19:00] VITALS: BP 135/76
[2018-12-26] MEDS: NICOTINE 21MG PATCH. TD PRN (22:03)
[2018-12-26] MEDS: INSULIN GLARGINE SYRINGE. SQ SCH (22:11)
[2018-12-26 23:00] VITALS: BP 158/84
[2018-12-27] MEDS: LIDO:MAALOX 1:1 20 ML SINGLE DOSE. PO PRN ×2 (00:36→16:57)
[2018-12-27] MEDS: fentaNYL PF VIAL 100 MCG/2 ML VIAL IV PRN ×9 (00:37→23:25)
[2018-12-27 03:00] VITALS: BP 154/84
[2018-12-27 07:30] VITALS: BP 173/93
[2018-12-27] MEDS: DEXTROSE 50% 25 GM / 50ML DISP.SYRIN. IV PRN ×2 (07:54→16:58)
[2018-12-27] MEDS: PANTOPRAZOLE 40 MG TABLET.DR. PO SCH (07:54)
[2018-12-27] MEDS: INSULIN LISPRO 300 UNITS/3 ML VIAL. SQ SCH ×6 (08:00→17:00)
--- NOTE | 2018-12-27 08:57 | PDOC ---
PROGRESS NOTES Chief Complaint Chief Complaint impression Vomiting Severe DKA hematemesis, melena Anemia Recurrent n/v, abd pain h/o GERD, gastroparesis H/o SBR S/p cholecystectomy +cannabinoids Anemia - Hgb improved 12/23, hematemesis/hematochezia resolved Uncontrolled DM, h/o GERD, gastroparesis, +cannabinoids hypoglycemia 12/25 12/27 REPORTS PAIN IS STILL 6-7/10, KEPT LUNCH DOWN, A CHICKEN SANDWICH 28 min pt exam, chart review, > 50% of time spent with exam, chart review, pt care coordination History of Present Illness History of Present Illness PLAN: patient transferred out of ICU. off insulin drip. sugars LABILE reports diarrhea and poor appetite today. does not want to go home , STILL IN PAIN advance diet as tolerated dc PPI drip and change to oral PPI therapy check stool studies given loose stools DW RN tolerating diet. adjust insulin dose as needed. follow up BMP in AM Vitals Vitals Vital Signs Date Time Temp Pulse Resp B/P (MAP) Pulse Ox O2 Delivery O2 Flow Rate FiO2 12/27/18 08:00 Room Air 12/27/18 07:30 97.5 83 16 173/93 (119) 100 97.5 Physical Exam Physical Exam HEENT: Normocephalic, atraumatic, oropharynx dry. Eyes: PERRLA, EOMI, conjunctiva normal, no discharge Neck: Normal range of motion, no tenderness, supple, no stridor Cardiovascular: Tachycardia, no murmur Lungs & Thorax: Hyperventilation, bilateral breath sounds clear to auscultation Abdomen: Bowel sounds normal, soft, no tenderness, no masses, no pulsatile masses. Skin: Warm, dry, no erythema, no rash. Extremities: No tenderness, no cyanosis, no clubbing, ROM intact, no edema. Neurologic: Alert and oriented X 3, no focal deficits noted General: Alert, Oriented X3, Cooperative, No acute distress, Other (VERY DRY< POSITIVE SKIN TEST, motlled skin, legs, shaky, cold to touch) Heart: Regular rate, Normal S1 Lungs: Clear, Other Abdomen: Normal bowel sounds, Soft, No tenderness Extremities: No clubbing, No cyanosis, No edema Skin: No rashes, No breakdown Labs LABS Laboratory Tests Test 12/26/18 11:18 12/26/18 11:55 12/26/18 16:40 12/26/18 21:17 Glucose (Fingerstick) 56 mg/dL (70-99) 92 mg/dL (70-99) 188 mg/dL (70-99) 188 mg/dL (70-99) Test 12/27/18 07:48 12/27/18 08:42 Glucose (Fingerstick) 57 mg/dL (70-99) 104 mg/dL (70-99) Assessment and Plan Assessmemt and Plan Problems Medical Problems: (1) Abdominal pain Status: Acute (2) Acute renal insufficiency Status: Acute (3) Anemia Status: Acute (4) DKA (diabetic ketoacidoses) Status: Acute (5) DKA (diabetic ketoacidoses) Status: Acute (6) Gastroparesis Status: Acute (7) Hematemesis Status: Acute (8) Hyperkalemia Status: Acute (9) Hypermagnesemia Status: Acute (10) Hyperphosphatemia Status: Acute (11) Hypoalbuminemia Status: Acute (12) Hypochloremia Status: Acute (13) Hyponatremia Status: Acute (14) Hypovolemia Status: Acute (15) Leukocytosis Status: Acute (16) Melena Status: Acute (17) Metabolic acidosis Status: Acute (18) Nausea & vomiting Status: Acute (19) Noncompliance with diabetes treatment Status: Acute (20) Prolonged Q-T interval on ECG Status: Acute Comment Review of Relevant I have reviewed the following items sheryl (where applicable) has been applied. Labs Laboratory Tests Test 12/25/18 11:57 12/25/18 12:23 12/25/18 14:16 12/25/18 17:00 Glucose (Fingerstick) 68 mg/dL (70-99) 85 mg/dL (70-99) 117 mg/dL (70-99) Sodium Level 141 mmol/L (136-145) Potassium Level 3.7 mmol/L (3.5-5.1) Chloride Level 107 mmol/L (98-107) Carbon Dioxide Level 29 mmol/L (21-32) Anion Gap 5 (6-14) Blood Urea Nitrogen 3 mg/dL (7-20) Creatinine 0.7 mg/dL (0.6-1.0) Estimated GFR (Cockcroft-Gault) 91.8 Glucose Level 59 mg/dL (70-99) Calcium Level 8.1 mg/dL (8.5-10.1) Test 12/25/18 20:54 12/26/18 04:15 12/26/18 07:12 12/26/18 11:18 Glucose (Fingerstick) 251 mg/dL (70-99) 187 mg/dL (70-99) 56 mg/dL (70-99) White Blood Count 4.1 x10^3/uL (4.0-11.0) Red Blood Count 3.41 x10^6/uL (3.50-5.40) Hemoglobin 9.8 g/dL (12.0-15.5) Hematocrit 28.6 % (36.0-47.0) Mean Corpuscular Volume 84 fL (79-100) Mean Corpuscular Hemoglobin 29 pg (25-35) Mean Corpuscular Hemoglobin Concent 34 g/dL (31-37) Red Cell Distribution Width 15.3 % (11.5-14.5) Platelet Count 327 x10^3/uL (140-400) Neutrophils (%) (Auto) 43 % (31-73) Lymphocytes (%) (Auto) 46 % (24-48) Monocytes (%) (Auto) 7 % (0-9) Eosinophils (%) (Auto) 3 % (0-3) Basophils (%) (Auto) 1 % (0-3) Neutrophils # (Auto) 1.8 x10^3/uL (1.8-7.7) Lymphocytes # (Auto) 1.9 x10^3/uL (1.0-4.8) Monocytes # (Auto) 0.3 x10^3/uL (0.0-1.1) Eosinophils # (Auto) 0.1 x10^3/uL (0.0-0.7) Basophils # (Auto) 0.0 x10^3/uL (0.0-0.2) Sodium Level 140 mmol/L (136-145) Potassium Level 4.0 mmol/L (3.5-5.1) Chloride Level 104 mmol/L (98-107) Carbon Dioxide Level 30 mmol/L (21-32) Anion Gap 6 (6-14) Blood Urea Nitrogen 5 mg/dL (7-20) Creatinine 0.9 mg/dL (0.6-1.0) Estimated GFR (Cockcroft-Gault) 68.7 BUN/Creatinine Ratio 6 (6-20) Glucose Level 209 mg/dL (70-99) Calcium Level 8.7 mg/dL (8.5-10.1) Total Bilirubin 0.1 mg/dL (0.2-1.0) Aspartate Amino Transf (AST/SGOT) 30 U/L (15-37) Alanine Aminotransferase (ALT/SGPT) 48 U/L (14-59) Alkaline Phosphatase 125 U/L (46-116) Total Protein 5.6 g/dL (6.4-8.2) Albumin 2.5 g/dL (3.4-5.0) Albumin/Globulin Ratio 0.8 (1.0-1.7) Test 12/26/18 11:55 12/26/18 16:40 12/26/18 21:17 12/27/18 07:48 Glucose (Fingerstick) 92 mg/dL (70-99) 188 mg/dL (70-99) 188 mg/dL (70-99) 57 mg/dL (70-99) Test 12/27/18 08:42 Glucose (Fingerstick) 104 mg/dL (70-99) Laboratory Tests Test 12/26/18 11:18 12/26/18 11:55 12/26/18 16:40 12/26/18 21:17 Glucose (Fingerstick) 56 mg/dL (70-99) 92 mg/dL (70-99) 188 mg/dL (70-99) 188 mg/dL (70-99) Test 12/27/18 07:48 12/27/18 08:42 Glucose (Fingerstick) 57 mg/dL (70-99) 104 mg/dL (70-99) Microbiology 12/22/18 Urine Culture - Final, Complete 12/22/18 Urine Culture Result 1 (LESLYE) - Final, Complete Medications Current Medications Sodium Chloride 1,000 ml @ 1,000 mls/hr Q1H IV Last administered on 12/22/18at 06:56; Start 12/22/18 at 06:45; Stop 12/22/18 at 07:44; Status DC Ondansetron HCl (Zofran) 4 mg 1X ONCE IV Last administered on 12/22/18at 07:24; Start 12/22/18 at 06:45; Stop 12/22/18 at 06:46; Status DC Pantoprazole Sodium (PROTONIX VIAL for IV PUSH) 40 mg 1X ONCE IVP Last administered on 12/22/18at 07:24; Start 12/22/18 at 06:45; Stop 12/22/18 at 06:46; Status DC Insulin Human Regular (HumuLIN R VIAL) 10 unit 1X ONCE IV Last administered on 12/22/18at 07:24; Start 12/22/18 at 06:45; Stop 12/22/18 at 06:46; Status DC Sodium Chloride 1,000 ml @ 1,000 mls/hr 1X ONCE IV Last administered on 12/22/18at 06:56; Start 12/22/18 at 06:45; Stop 12/22/18 at 07:44; Status DC Insulin Human Regular 150 ml @ 0 mls/hr 1X ONCE IV Last administered on 12/22/18at 07:41; Start 12/22/18 at 07:00; Stop 12/22/18 at 07:01; Status DC Fentanyl Citrate (Fentanyl 2ml Vial) 50 mcg 1X ONCE IV Last administered on 12/22/18at 07:24; Start 12/22/18 at 07:00; Stop 12/22/18 at 07:01; Status DC Sodium Chloride 1,000 ml @ 1,000 mls/hr Q1H IV Last administered on 12/22/18at 09:58; Start 12/22/18 at 07:31; Stop 12/22/18 at 08:30; Status DC Potassium Chloride/Water 100 ml @ 100 mls/hr PRN Q1HR PRN IV SEE COMMENT; Start 12/22/18 at 07:31 Pantoprazole Sodium 80 mg/ Sodium Chloride 100 ml @ 10 mls/hr Q10H IV Last administered on 12/24/18at 02:43; Start 12/22/18 at 08:00; Stop 12/24/18 at 09:19; Status DC Ondansetron HCl (Zofran) 4 mg PRN Q6HRS PRN IV NAUSEA/VOMITING, 1ST CHOICE Last administered on 12/26/18at 17:28; Start 12/22/18 at 08:30 Ondansetron HCl (Zofran Odt) 4 mg PRN Q6HRS PRN PO NAUSEA/VOMITING; Start 12/22/18 at 08:30 Fentanyl Citrate (Fentanyl 2ml Vial) 50 mcg PRN Q2HR PRN IV PAIN Last administered on 12/27/18 07:14; Start 12/22/18 at 08:30 Prochlorperazine Edisylate (Compazine) 10 mg PRN Q6HRS PRN IV NAUSEA/VOMITING, 2ND CHOICE Last administered on 12/22/18 11:06; Start 12/22/18 at 08:30 Sodium Chloride 1,000 ml @ 250 mls/hr Q4H IV Last administered on 12/22/18 11:06; Start 12/22/18 at 08:30; Stop 12/22/18 at 13:11; Status DC Sodium Chloride 1,000 ml @ 1,000 mls/hr 1X ONCE IV Last administered on 12/22/18 09:58; Start 12/22/18 at 08:30; Stop 12/22/18 at 09:29; Status DC Insulin Human Regular 150 unit/ Sodium Chloride 151.5 ml @ 0 mls/hr CONT PRN IV SEE I/O RECORD Last administered on 12/22/18 16:05; Start 12/22/18 at 08:30; Stop 12/25/18 at 16:38; Status DC Dextrose (Dextrose 50%-Water Syringe) 12.5 gm PRN Q15MIN PRN IV LOW BLOOD SUGAR Last administered on 12/22/18 22:26; Start 12/22/18 at 08:30; Stop 12/24/18 at 20:33; Status DC Acetaminophen/ Aspirin/Caffeine (Excedrin Migraine) 2 tab PRN Q6HRS PRN PO MIGRAINE HEADACHE; Start 12/22/18 at 08:30 Acetaminophen/ Hydrocodone Bitart (Lortab 10/325) 1 tab PRN Q6HRS PRN PO SEVERE PAIN Last administered on 12/26/18 14:50; Start 12/22/18 at 08:30 Albuterol Sulfate (Ventolin Neb Soln) 2.5 mg PRN Q4HRS PRN NEB SHORTNESS OF BREATH; Start 12/22/18 at 08:30 Influenza Virus Vaccine Quadrival (Afluria Quad 2019-20 (3yr Up) Syringe) 0.5 ml ONCE ONCE VAX IM Last administered on 12/22/18at 10:11; Start 12/22/18 at 10:00; Stop 12/22/18 at 10:01; Status DC Sodium Chloride 1,000 ml @ 1,000 mls/hr 1X ONCE IV ; Start 12/22/18 at 09:45; Stop 12/22/18 at 10:44; Status DC Throat Lozenges (Cepacol Sore Throat Lozenge) 1 santhosh PRN Q2HRS PRN PO SORE THROAT Last administered on 12/22/18at 10:11; Start 12/22/18 at 10:00 Nicotine (Nicoderm Cq 21mg) 1 patch PRN DAILY PRN TD SMOKING CESSATION Last administered on 12/26/18at 22:03; Start 12/22/18 at 10:00 Sodium Chloride 1,000 ml @ 1,000 mls/hr 1X ONCE IV Last administered on 12/22/18at 11:46; Start 12/22/18 at 11:45; Stop 12/22/18 at 12:44; Status DC Magnesium Sulfate 100 ml @ 25 mls/hr 1X ONCE IV Last administered on 12/01 06/17at 12:09; Start 12/22/18 at 12:00; Stop 12/22/18 at 15:59; Status DC Potassium Chloride/Water 100 ml @ 100 mls/hr Q1H IV Last administered on 12/22/18at 16:05; Start 12/22/18 at 13:00; Stop 12/22/18 at 16:59; Status DC Dextrose/Sodium Chloride 1,000 ml @ 250 mls/hr Q4H IV Last administered on 12/22/18at 17:18; Start 12/22/18 at 13:15; Stop 12/22/18 at 20:06; Status DC Sodium Phosphate 8 mmol/Dextrose 102.6667 ml @ 25.661 m... 1X ONCE IV Last administered on 12/22/18at 15:16; Start 12/22/18 at 15:30; Stop 12/22/18 at 19:30; Status DC Sodium Chloride 1,000 ml @ 125 mls/hr Q8H IV Last administered on 12/24/18at 05:39; Start 12/22/18 at 20:00; Stop 12/24/18 at 09:54; Status DC Insulin Glargine (Lantus Syringe) 30 unit QHS SQ Last administered on 12/26/18 22:11; Start 12/22/18 at 21:00 Insulin Human Lispro (HumaLOG) 0-9 UNITS TIDWMEALS SQ Last administered on 12/26/18at 17:25; Start 12/23/18 at 08:00 Dextrose (Dextrose 50%-Water Syringe) 12.5 gm PRN Q15MIN PRN IV SEE COMMENTS Last administered on 12/27/18at 07:54; Start 12/22/18 at 20:00 Dextrose 250 ml PRN Q15MIN PRN IV SEE COMMENTS; Start 12/22/18 at 20:00; Stop 12/25/18 at 16:29; Status DC Insulin Human Lispro (HumaLOG) 12 units TIDWMEALS SQ Last administered on 12/26/18 08:46; Start 12/23/18 at 08:00 Potassium Chloride/Water 50 ml @ 50 mls/hr Q1H IV Last administered on 12/23/18 11:00; Start 12/23/18 at 09:30; Stop 12/23/18 at 11:29; Status DC Sodium Phosphate 17 mmol/Dextrose 255.6667 ml @ 63.89 mls/hr 1X ONCE IV Last administered on 12/23/18 11:57; Start 12/23/18 at 11:00; Stop 12/23/18 at 15:06; Status DC Multi-Ingredient Mouthwash/Gargle (Gi Cocktail) 20 ml PRN QID PRN PO CHEST PAIN Last administered on 12/27/18at 00:36; Start 12/24/18 at 09:30 Pantoprazole Sodium (Protonix) 40 mg DAILYAC PO Last administered on 12/27/18at 07:54; Start 12/24/18 at 11:00 Dicyclomine HCl (Bentyl) 10 mg QID PRN PO abd pain Last administered on 12/26/18at 22:02; Start 12/26/18 at 09:45 Active Scripts Active Promethazine Hcl 25 Mg Tablet 1 Tab PO PRN Q6HRS Hydrocodone-Apap 10-325 (Hydrocodone Bit/Acetaminophen) 1 Tab Tablet 1 Tab PO PRN Q6HRS PRN 7 Days Duoneb 0.5-3(2.5) Mg/3 Ml (Albuterol/Ipratropium) 3 Ml Ampul.neb 3 Ml NEB RTQID 30 Days Amox Tr-K Clv 875-125 Mg Tab (Amoxicillin/Potassium Clav) 1 Each Tablet 1 Tab PO BID 14 Days Lantus Solostar (Insulin Glargine,Hum.rec.anlog) 100 Unit/1 Ml Insuln.pen 16 Units SQ QHS 30 Days Novolog (Insulin Aspart) 100 Unit/1 Ml Cartridge 8 Unit SQ MEAL PRN 30 Days Norvasc (Amlodipine Besylate) 5 Mg Tablet 5 Mg PO DAILY 30 Days Polyethylene Glycol 3350 17 Gm Powd.pack 17 Gm PO PRN DAILY PRN 14 Days Pain Reliever Plus Tablet (Aspirin/Acetaminophen/Caffeine) 1 Each Tablet 2 Tab PO PRN Q6HRS PRN 10 Days Famotidine 20 Mg Tablet 20 Mg PO DAILY MDD 1 Reported Protonix (Pantoprazole Sodium) 20 Mg Tablet.dr 20 Mg PO DAILY Vitals/I & O Vital Sign - Last 24 Hours 12/26/18 12/26/18 12/26/18 12/26/18 10:05 10:35 11:00 12:23 Temp 98.7 98.7 Pulse 89 Resp 20 18 17 18 B/P (MAP) 125/86 (99) Pulse Ox 96 O2 Delivery Room Air Room Air Room Air Room Air 12/26/18 12/26/18 12/26/18 12/26/18 14:50 14:51 14:52 15:00 Temp 98.7 98.7 Pulse 88 Resp 18 B/P (MAP) 148/76 (100) Pulse Ox 97 O2 Delivery Room Air Room Air Room Air Room Air 12/26/18 12/26/18 12/26/18 12/26/18 15:21 15:50 17:30 18:00 Resp 18 18 18 Pulse Ox 97 O2 Delivery Room Air Room Air Room Air Room Air 12/26/18 12/26/18 12/26/18 12/26/18 19:00 19:54 20:24 20:30 Temp 98.9 98.9 Pulse 84 Resp 17 B/P (MAP) 135/76 (95) Pulse Ox 98 97 97 O2 Delivery Room Air Room Air Room Air Room Air 12/26/18 12/26/18 12/26/18 12/27/18 22:03 22:33 23:00 00:37 Temp 98.9 98.9 Pulse 81 Resp 17 B/P (MAP) 158/84 (108) Pulse Ox 97 97 97 97 O2 Delivery Room Air Room Air Room Air Room Air 12/27/18 12/27/18 12/27/18 12/27/18 01:07 02:56 03:00 03:26 Temp 98.0 98.0 Pulse 84 Resp 17 B/P (MAP) 154/84 (107) Pulse Ox 97 97 98 97 O2 Delivery Room Air Room Air Room Air Room Air 12/27/18 12/27/18 12/27/18 07:14 07:30 08:00 Temp 97.5 97.5 Pulse 83 Resp 16 B/P (MAP) 173/93 (119) Pulse Ox 97 100 O2 Delivery Room Air Room Air Room Air Intake and Output 12/26/18 12/26/18 12/27/18 15:00 23:00 07:00 Intake Total 0 ml 0 ml Balance 0 ml 0 ml DEEPTI ZHAO MD Dec 27, 2018 08:57
[2018-12-27] MEDS: DICYCLOMINE HCL 10 MG CAPSULE PO PRN ×3 (10:33→23:32)
[2018-12-27 10:36] VITALS: BP 130/83
[2018-12-27 13:00] LABS: BASO % 0 % (0-3); EOS # 0.2 x10^3/uL (0.0-0.7); EOS % 4 % (0-3); HEMATOCRIT 28.9 % (36.0-47.0); HEMOGLOBIN 9.6 g/dL (12.0-15.5); LYMPH # 1.9 x10^3/uL (1.0-4.8); LYMPH % 44 % (24-48); MEAN CORPUSCULAR HEMOGLOBIN 28 pg (25-35); MEAN CORPUSCULAR HGB CONC 33 g/dL (31-37); MEAN CORPUSCULAR VOLUME 85 fL (79-100); MONO # 0.5 x10^3/uL (0.0-1.1); MONO % 12 % (0-9); NEUT # 1.7 x10^3/uL (1.8-7.7); NEUT % 39 % (31-73); PLATELET COUNT 420 x10^3/uL (140-400); RED BLOOD COUNT 3.41 x10^6/uL (3.50-5.40); RED CELL DISTRIBUTION WIDTH 15.2 % (11.5-14.5); WHITE BLOOD COUNT 4.2 x10^3/uL (4.0-11.0)
[2018-12-27 15:00] VITALS: BP 133/76
[2018-12-27] MEDS: HYDROcodone/APAP 10/325 1 TAB TABLET PO PRN (16:58)
[2018-12-27 19:00] VITALS: BP 154/82
[2018-12-27] MEDS: INSULIN GLARGINE SYRINGE. SQ SCH (21:05)
[2018-12-27 23:01] VITALS: BP 138/77
[2018-12-27] MEDS: NICOTINE 21MG PATCH. TD PRN (23:33)
[2018-12-28] MEDS: fentaNYL PF VIAL 100 MCG/2 ML VIAL IV PRN ×8 (01:49→21:27)
[2018-12-28] MEDS: DEXTROSE 50% 25 GM / 50ML DISP.SYRIN. IV PRN ×2 (02:50→17:21)
[2018-12-28 03:02] VITALS: BP 151/85
--- NOTE | 2018-12-28 03:15 | NUR ---
Patient reports she doesn't feel well, "Can someone check my blood sugar?". This designer/writer checked-44 at 0244, apple juice given, 0255 D50 whole amp administered, patient asks for sandwich box, given, rechecked bg-125 @ 0302, Answering Service called [phone], awaiting return call.
[2018-12-28 07:00] VITALS: BP 141/87
[2018-12-28] MEDS: INSULIN LISPRO 300 UNITS/3 ML VIAL. SQ SCH ×6 (08:00→17:00)
[2018-12-28] MEDS: ONDANSETRON PF 4 MG/2 ML VIAL. IV PRN ×2 (08:40→16:05)
[2018-12-28] MEDS: DICYCLOMINE HCL 10 MG CAPSULE PO PRN (10:57)
[2018-12-28] MEDS: PANTOPRAZOLE 40 MG TABLET.DR. PO SCH (10:57)
[2018-12-28] MEDS: PROCHLORPERAZINE 10 MG/2 ML VIAL. IV PRN ×2 (10:58→21:37)
[2018-12-28 11:00] VITALS: BP 159/83
[2018-12-28] MEDS: LIDO:MAALOX 1:1 20 ML SINGLE DOSE. PO PRN (11:01)
--- NOTE | 2018-12-28 12:25 | NUR ---
Patient requested to only have 10 units of Humalog for lunch due to her sugar only being 127 and only eating 50% og her meal. Will continue to monitor patient.
--- NOTE | 2018-12-28 13:05 | PDOC ---
PROGRESS NOTES Chief Complaint Chief Complaint impression Vomiting Severe DKA hematemesis, melena Anemia Recurrent n/v, abd pain h/o GERD, gastroparesis H/o SBR S/p cholecystectomy +cannabinoids Anemia - Hgb improved 12/23, hematemesis/hematochezia resolved Uncontrolled DM, h/o GERD, gastroparesis, +cannabinoids hypoglycemia 12/25 12/27 REPORTS PAIN IS STILL 6-7/10, KEPT LUNCH DOWN, A CHICKEN SANDWICH 12/28 states she vomited all of her breakfast today 28 min pt exam, chart review, > 50% of time spent with exam, chart review, pt care coordination History of Present Illness History of Present Illness PLAN: patient transferred out of ICU. off insulin drip. sugars LABILE reports diarrhea and poor appetite today. does not want to go home , STILL IN PAIN advance diet as tolerated dc PPI drip and change to oral PPI therapy check stool studies given loose stools DW RN tolerating diet. adjust insulin dose as needed. follow up BMP in AM Vitals Vitals Vital Signs Date Time Temp Pulse Resp B/P (MAP) Pulse Ox O2 Delivery O2 Flow Rate FiO2 12/28/18 11:30 Room Air 12/28/18 11:00 98.3 89 18 159/83 (108) 100 98.3 Physical Exam Physical Exam HEENT: Normocephalic, atraumatic, oropharynx dry. Eyes: PERRLA, EOMI, conjunctiva normal, no discharge Neck: Normal range of motion, no tenderness, supple, no stridor Cardiovascular: Tachycardia, no murmur Lungs & Thorax: Hyperventilation, bilateral breath sounds clear to auscultation Abdomen: Bowel sounds normal, soft, no tenderness, no masses, no pulsatile masses. Skin: Warm, dry, no erythema, no rash. Extremities: No tenderness, no cyanosis, no clubbing, ROM intact, no edema. Neurologic: Alert and oriented X 3, no focal deficits noted General: Alert, Oriented X3, Cooperative, No acute distress, Other (VERY DRY< POSITIVE SKIN TEST, motlled skin, legs, shaky, cold to touch) Heart: Regular rate, Normal S1 Lungs: Clear, Other Abdomen: Normal bowel sounds, Soft, No tenderness Extremities: No clubbing, No cyanosis, No edema Skin: No rashes, No breakdown Labs LABS Laboratory Tests Test 12/27/18 16:38 12/27/18 17:32 12/27/18 20:15 12/28/18 02:44 Glucose (Fingerstick) 53 mg/dL (70-99) 94 mg/dL (70-99) 189 mg/dL (70-99) 44 mg/dL (70-99) Test 12/28/18 03:02 12/28/18 07:49 12/28/18 10:55 Glucose (Fingerstick) 125 mg/dL (70-99) 127 mg/dL (70-99) 181 mg/dL (70-99) Assessment and Plan Assessmemt and Plan Problems Medical Problems: (1) Abdominal pain Status: Acute (2) Acute renal insufficiency Status: Acute (3) Anemia Status: Acute (4) DKA (diabetic ketoacidoses) Status: Acute (5) DKA (diabetic ketoacidoses) Status: Acute (6) Gastroparesis Status: Acute (7) Hematemesis Status: Acute (8) Hyperkalemia Status: Acute (9) Hypermagnesemia Status: Acute (10) Hyperphosphatemia Status: Acute (11) Hypoalbuminemia Status: Acute (12) Hypochloremia Status: Acute (13) Hyponatremia Status: Acute (14) Hypovolemia Status: Acute (15) Leukocytosis Status: Acute (16) Melena Status: Acute (17) Metabolic acidosis Status: Acute (18) Nausea & vomiting Status: Acute (19) Noncompliance with diabetes treatment Status: Acute (20) Prolonged Q-T interval on ECG Status: Acute Comment Review of Relevant I have reviewed the following items sheryl (where applicable) has been applied. Labs Laboratory Tests Test 12/26/18 16:40 12/26/18 21:17 12/27/18 07:48 12/27/18 08:42 Glucose (Fingerstick) 188 mg/dL (70-99) 188 mg/dL (70-99) 57 mg/dL (70-99) 104 mg/dL (70-99) Test 12/27/18 09:00 12/27/18 12:02 12/27/18 16:38 12/27/18 17:32 White Blood Count 4.2 x10^3/uL (4.0-11.0) Red Blood Count 3.41 x10^6/uL (3.50-5.40) Hemoglobin 9.6 g/dL (12.0-15.5) Hematocrit 28.9 % (36.0-47.0) Mean Corpuscular Volume 85 fL (79-100) Mean Corpuscular Hemoglobin 28 pg (25-35) Mean Corpuscular Hemoglobin Concent 33 g/dL (31-37) Red Cell Distribution Width 15.2 % (11.5-14.5) Platelet Count 420 x10^3/uL (140-400) Neutrophils (%) (Auto) 39 % (31-73) Lymphocytes (%) (Auto) 44 % (24-48) Monocytes (%) (Auto) 12 % (0-9) Eosinophils (%) (Auto) 4 % (0-3) Basophils (%) (Auto) 0 % (0-3) Neutrophils # (Auto) 1.7 x10^3/uL (1.8-7.7) Lymphocytes # (Auto) 1.9 x10^3/uL (1.0-4.8) Monocytes # (Auto) 0.5 x10^3/uL (0.0-1.1) Eosinophils # (Auto) 0.2 x10^3/uL (0.0-0.7) Basophils # (Auto) 0.0 x10^3/uL (0.0-0.2) Glucose (Fingerstick) 215 mg/dL (70-99) 53 mg/dL (70-99) 94 mg/dL (70-99) Test 12/27/18 20:15 12/28/18 02:44 12/28/18 03:02 12/28/18 07:49 Glucose (Fingerstick) 189 mg/dL (70-99) 44 mg/dL (70-99) 125 mg/dL (70-99) 127 mg/dL (70-99) Test 12/28/18 10:55 Glucose (Fingerstick) 181 mg/dL (70-99) Laboratory Tests Test 12/27/18 16:38 12/27/18 17:32 12/27/18 20:15 12/28/18 02:44 Glucose (Fingerstick) 53 mg/dL (70-99) 94 mg/dL (70-99) 189 mg/dL (70-99) 44 mg/dL (70-99) Test 12/28/18 03:02 12/28/18 07:49 12/28/18 10:55 Glucose (Fingerstick) 125 mg/dL (70-99) 127 mg/dL (70-99) 181 mg/dL (70-99) Microbiology 12/22/18 Urine Culture - Final, Complete 12/22/18 Urine Culture Result 1 (LESLYE) - Final, Complete Medications Current Medications Sodium Chloride 1,000 ml @ 1,000 mls/hr Q1H IV Last administered on 12/22/18 06:56; Start 12/22/18 at 06:45; Stop 12/22/18 at 07:44; Status DC Ondansetron HCl (Zofran) 4 mg 1X ONCE IV Last administered on 12/22/18at 07:24; Start 12/22/18 at 06:45; Stop 12/22/18 at 06:46; Status DC Pantoprazole Sodium (PROTONIX VIAL for IV PUSH) 40 mg 1X ONCE IVP Last administered on 12/22/18at 07:24; Start 12/22/18 at 06:45; Stop 12/22/18 at 06:46; Status DC Insulin Human Regular (HumuLIN R VIAL) 10 unit 1X ONCE IV Last administered on 12/22/18 07:24; Start 12/22/18 at 06:45; Stop 12/22/18 at 06:46; Status DC Sodium Chloride 1,000 ml @ 1,000 mls/hr 1X ONCE IV Last administered on 12/22/18 06:56; Start 12/22/18 at 06:45; Stop 12/22/18 at 07:44; Status DC Insulin Human Regular 150 ml @ 0 mls/hr 1X ONCE IV Last administered on 12/22/18 07:41; Start 12/22/18 at 07:00; Stop 12/22/18 at 07:01; Status DC Fentanyl Citrate (Fentanyl 2ml Vial) 50 mcg 1X ONCE IV Last administered on 12/22/18 07:24; Start 12/22/18 at 07:00; Stop 12/22/18 at 07:01; Status DC Sodium Chloride 1,000 ml @ 1,000 mls/hr Q1H IV Last administered on 12/22/18 09:58; Start 12/22/18 at 07:31; Stop 12/22/18 at 08:30; Status DC Potassium Chloride/Water 100 ml @ 100 mls/hr PRN Q1HR PRN IV SEE COMMENT; Start 12/22/18 at 07:31 Pantoprazole Sodium 80 mg/ Sodium Chloride 100 ml @ 10 mls/hr Q10H IV Last administered on 12/24/18at 02:43; Start 12/22/18 at 08:00; Stop 12/24/18 at 09:19; Status DC Ondansetron HCl (Zofran) 4 mg PRN Q6HRS PRN IV NAUSEA/VOMITING, 1ST CHOICE Last administered on 12/28/18 08:40; Start 12/22/18 at 08:30 Ondansetron HCl (Zofran Odt) 4 mg PRN Q6HRS PRN PO NAUSEA/VOMITING Last administered on 12/27/18at 12:10; Start 12/22/18 at 08:30 Fentanyl Citrate (Fentanyl 2ml Vial) 50 mcg PRN Q2HR PRN IV PAIN Last administered on 12/28/18at 10:58; Start 12/22/18 at 08:30 Prochlorperazine Edisylate (Compazine) 10 mg PRN Q6HRS PRN IV NAUSEA/VOMITING, 2ND CHOICE Last administered on 12/28/18at 10:58; Start 12/22/18 at 08:30 Sodium Chloride 1,000 ml @ 250 mls/hr Q4H IV Last administered on 12/22/18at 11:06; Start 12/22/18 at 08:30; Stop 12/22/18 at 13:11; Status DC Sodium Chloride 1,000 ml @ 1,000 mls/hr 1X ONCE IV Last administered on 12/22/18at 09:58; Start 12/22/18 at 08:30; Stop 12/22/18 at 09:29; Status DC Insulin Human Regular 150 unit/ Sodium Chloride 151.5 ml @ 0 mls/hr CONT PRN IV SEE I/O RECORD Last administered on 12/22/18at 16:05; Start 12/22/18 at 08:30; Stop 12/25/18 at 16:38; Status DC Dextrose (Dextrose 50%-Water Syringe) 12.5 gm PRN Q15MIN PRN IV LOW BLOOD SUGAR Last administered on 12/22/18at 22:26; Start 12/22/18 at 08:30; Stop 12/24/18 at 20:33; Status DC Acetaminophen/ Aspirin/Caffeine (Excedrin Migraine) 2 tab PRN Q6HRS PRN PO MIGRAINE HEADACHE; Start 12/22/18 at 08:30 Acetaminophen/ Hydrocodone Bitart (Lortab 10/325) 1 tab PRN Q6HRS PRN PO SEVERE PAIN Last administered on 12/27/18at 16:58; Start 12/22/18 at 08:30 Albuterol Sulfate (Ventolin Neb Soln) 2.5 mg PRN Q4HRS PRN NEB SHORTNESS OF BREATH; Start 12/22/18 at 08:30 Influenza Virus Vaccine Quadrival (Afluria Quad 2019-20 (3yr Up) Syringe) 0.5 ml ONCE ONCE VAX IM Last administered on 12/22/18at 10:11; Start 12/22/18 at 10:00; Stop 12/22/18 at 10:01; Status DC Sodium Chloride 1,000 ml @ 1,000 mls/hr 1X ONCE IV ; Start 12/22/18 at 09:45; Stop 12/22/18 at 10:44; Status DC Throat Lozenges (Cepacol Sore Throat Lozenge) 1 santhosh PRN Q2HRS PRN PO SORE THROAT Last administered on 12/22/18at 10:11; Start 12/22/18 at 10:00 Nicotine (Nicoderm Cq 21mg) 1 patch PRN DAILY PRN TD SMOKING CESSATION Last administered on 12/27/18at 23:33; Start 12/22/18 at 10:00 Sodium Chloride 1,000 ml @ 1,000 mls/hr 1X ONCE IV Last administered on 12/22/18at 11:46; Start 12/22/18 at 11:45; Stop 12/22/18 at 12:44; Status DC Magnesium Sulfate 100 ml @ 25 mls/hr 1X ONCE IV Last administered on 12/22/18at 12:09; Start 12/22/18 at 12:00; Stop 12/22/18 at 15:59; Status DC Potassium Chloride/Water 100 ml @ 100 mls/hr Q1H IV Last administered on 12/22/18at 16:05; Start 12/22/18 at 13:00; Stop 12/22/18 at 16:59; Status DC Dextrose/Sodium Chloride 1,000 ml @ 250 mls/hr Q4H IV Last administered on 12/22/18at 17:18; Start 12/22/18 at 13:15; Stop 12/22/18 at 20:06; Status DC Sodium Phosphate 8 mmol/Dextrose 102.6667 ml @ 25.661 m... 1X ONCE IV Last administered on 12/22/18at 15:16; Start 12/22/18 at 15:30; Stop 12/22/18 at 19:30; Status DC Sodium Chloride 1,000 ml @ 125 mls/hr Q8H IV Last administered on 12/24/18at 05:39; Start 12/22/18 at 20:00; Stop 12/24/18 at 09:54; Status DC Insulin Glargine (Lantus Syringe) 30 unit QHS SQ Last administered on 12/27/18at 21:05; Start 12/22/18 at 21:00 Insulin Human Lispro (HumaLOG) 0-9 UNITS TIDWMEALS SQ Last administered on 12/26/18at 17:25; Start 12/23/18 at 08:00 Dextrose (Dextrose 50%-Water Syringe) 12.5 gm PRN Q15MIN PRN IV SEE COMMENTS Last administered on 12/28/18at 02:50; Start 12/22/18 at 20:00 Dextrose 250 ml PRN Q15MIN PRN IV SEE COMMENTS; Start 12/22/18 at 20:00; Stop 12/25/18 at 16:29; Status DC Insulin Human Lispro (HumaLOG) 12 units TIDWMEALS SQ Last administered on 12/28/18at 12:24; Start 12/23/18 at 08:00 Potassium Chloride/Water 50 ml @ 50 mls/hr Q1H IV Last administered on 12/23/18at 11:00; Start 12/23/18 at 09:30; Stop 12/23/18 at 11:29; Status DC Sodium Phosphate 17 mmol/Dextrose 255.6667 ml @ 63.89 mls/hr 1X ONCE IV Last administered on 12/23/18at 11:57; Start 12/23/18 at 11:00; Stop 12/23/18 at 15:06; Status DC Multi-Ingredient Mouthwash/Gargle (Gi Cocktail) 20 ml PRN QID PRN PO CHEST PAIN Last administered on 12/28/18at 11:01; Start 12/24/18 at 09:30 Pantoprazole Sodium (Protonix) 40 mg DAILYAC PO Last administered on 12/28/18at 10:57; Start 12/24/18 at 11:00 Dicyclomine HCl (Bentyl) 10 mg QID PRN PO abd pain Last administered on at 10:57; Start 12/26/18 at 09:45 Active Scripts Active Promethazine Hcl 25 Mg Tablet 1 Tab PO PRN Q6HRS Hydrocodone-Apap 10-325 (Hydrocodone Bit/Acetaminophen) 1 Tab Tablet 1 Tab PO PRN Q6HRS PRN 7 Days Duoneb 0.5-3(2.5) Mg/3 Ml (Albuterol/Ipratropium) 3 Ml Ampul.neb 3 Ml NEB RTQID 30 Days Amox Tr-K Clv 875-125 Mg Tab (Amoxicillin/Potassium Clav) 1 Each Tablet 1 Tab PO BID 14 Days Lantus Solostar (Insulin Glargine,Hum.rec.anlog) 100 Unit/1 Ml Insuln.pen 16 Units SQ QHS 30 Days Novolog (Insulin Aspart) 100 Unit/1 Ml Cartridge 8 Unit SQ MEAL PRN 30 Days Norvasc (Amlodipine Besylate) 5 Mg Tablet 5 Mg PO DAILY 30 Days Polyethylene Glycol 3350 17 Gm Powd.pack 17 Gm PO PRN DAILY PRN 14 Days Pain Reliever Plus Tablet (Aspirin/Acetaminophen/Caffeine) 1 Each Tablet 2 Tab PO PRN Q6HRS PRN 10 Days Famotidine 20 Mg Tablet 20 Mg PO DAILY MDD 1 Reported Protonix (Pantoprazole Sodium) 20 Mg Tablet.dr 20 Mg PO DAILY Vitals/I & O Vital Sign - Last 24 Hours 12/27/18 12/27/18 12/27/18 12/27/18 13:38 14:16 15:00 16:25 Temp 98.2 98.2 Pulse 91 Resp 18 B/P (MAP) 133/76 (95) Pulse Ox 99 O2 Delivery Room Air Room Air Room Air Room Air 12/27/18 12/27/18 12/27/18 12/27/18 16:57 16:58 18:00 19:00 Temp 98.3 98.3 Pulse 80 Resp 20 B/P (MAP) 154/82 (106) Pulse Ox 99 O2 Delivery Room Air Room Air Room Air Room Air 12/27/18 12/27/18 12/27/18 12/27/18 19:04 19:34 20:00 21:10 Resp 18 18 O2 Delivery Room Air Room Air Room Air Room Air 12/27/18 12/27/18 12/27/18 12/27/18 21:40 23:01 23:25 23:55 Temp 98.4 98.4 Pulse 92 Resp 18 18 18 20 B/P (MAP) 138/77 (97) Pulse Ox 99 O2 Delivery Room Air Room Air Room Air 12/28/18 12/28/18 12/28/18 12/28/18 01:49 02:19 03:02 03:56 Temp 98.0 98.0 Pulse 92 Resp 20 18 20 20 B/P (MAP) 151/85 (107) Pulse Ox 99 O2 Delivery Room Air Room Air Room Air Room Air 12/28/18 12/28/18 12/28/18 12/28/18 06:35 07:00 08:00 08:41 Temp 97.8 97.8 Pulse 89 Resp 20 20 B/P (MAP) 141/87 (105) Pulse Ox 98 O2 Delivery Room Air Room Air Room Air Room Air 12/28/18 12/28/18 12/28/18 12/28/18 08:45 08:45 09:30 10:58 O2 Delivery Room Air Room Air Room Air Room Air 12/28/18 12/28/18 11:00 11:30 Temp 98.3 98.3 Pulse 89 Resp 18 B/P (MAP) 159/83 (108) Pulse Ox 100 O2 Delivery Room Air Room Air Intake and Output 12/27/18 12/27/18 12/28/18 15:00 23:00 07:00 Intake Total 740 ml 180 ml Balance 740 ml 180 ml DEEPTI ZHAO MD Dec 28, 2018 13:04
[2018-12-28 15:00] VITALS: BP 132/71
[2018-12-28 19:00] VITALS: BP 127/78
[2018-12-28] MEDS: INSULIN GLARGINE SYRINGE. SQ SCH (21:35)
[2018-12-28] MEDS: NICOTINE 21MG PATCH. TD PRN (21:37)
[2018-12-28 23:00] VITALS: BP 148/66
[2018-12-29] MEDS: fentaNYL PF VIAL 100 MCG/2 ML VIAL IV PRN ×4 (01:28→08:18)
[2018-12-29 03:00] VITALS: BP 127/69
[2018-12-29 07:00] VITALS: BP 105/78
[2018-12-29] MEDS: PANTOPRAZOLE 40 MG TABLET.DR. PO SCH (07:41)
[2018-12-29] MEDS: DICYCLOMINE HCL 10 MG CAPSULE PO PRN ×2 (07:42→10:43)
[2018-12-29] MEDS: INSULIN LISPRO 300 UNITS/3 ML VIAL. SQ SCH ×4 (08:00→12:00)
[2018-12-29] MEDS: PROCHLORPERAZINE 10 MG/2 ML VIAL. IV PRN (08:23)
--- NOTE | 2018-12-29 08:40 | PDOC ---
PROGRESS NOTES Chief Complaint Chief Complaint DISCHARGE DX Vomiting Severe DKA hematemesis, melena Anemia Recurrent n/v, abd pain h/o GERD, gastroparesis H/o SBR S/p cholecystectomy +cannabinoids Anemia - Hgb improved 12/23, hematemesis/hematochezia resolved Uncontrolled DM, h/o GERD, gastroparesis, +cannabinoids hypoglycemia 12/25 12/27 REPORTS PAIN IS STILL 6-7/10, KEPT LUNCH DOWN, A CHICKEN SANDWICH 12/28 states she vomited all of her breakfast today 12/29 eating well last 24 hrs, wants to go home suggested no THC USE 34 min pt exam, chart review d/c planning , > 50% of time spent with exam, chart review, pt care coordination History of Present Illness History of Present Illness PLAN: patient transferred out of ICU. off insulin drip. sugars LABILE reports diarrhea and poor appetite today. does not want to go home , STILL IN PAIN advance diet as tolerated dc PPI drip and change to oral PPI therapy check stool studies given loose stools DW RN tolerating diet. adjust insulin dose as needed. follow up BMP in AM Vitals Vitals Vital Signs Date Time Temp Pulse Resp B/P (MAP) Pulse Ox O2 Delivery O2 Flow Rate FiO2 12/29/18 08:18 18 Room Air 12/29/18 07:00 97.7 93 105/78 (87) 98 97.7 Physical Exam Physical Exam HEENT: Normocephalic, atraumatic, oropharynx dry. Eyes: PERRLA, EOMI, conjunctiva normal, no discharge Neck: Normal range of motion, no tenderness, supple, no stridor Cardiovascular: Tachycardia, no murmur Lungs & Thorax: Hyperventilation, bilateral breath sounds clear to auscultation Abdomen: Bowel sounds normal, soft, no tenderness, no masses, no pulsatile masses. Skin: Warm, dry, no erythema, no rash. Extremities: No tenderness, no cyanosis, no clubbing, ROM intact, no edema. Neurologic: Alert and oriented X 3, no focal deficits noted General: Alert, Oriented X3, Cooperative, No acute distress, Other (VERY DRY< POSITIVE SKIN TEST, motlled skin, legs, shaky, cold to touch) Heart: Regular rate, Normal S1 Lungs: Clear, Other Abdomen: Normal bowel sounds, Soft, No tenderness, No hepatosplenomegaly Extremities: No clubbing, No cyanosis, No edema Skin: No rashes, No breakdown, No significant lesion Labs LABS Laboratory Tests Test 12/28/18 10:55 12/28/18 16:14 12/28/18 19:00 12/28/18 20:54 Glucose (Fingerstick) 181 mg/dL (70-99) 52 mg/dL (70-99) 205 mg/dL (70-99) 337 mg/dL (70-99) Test 12/29/18 07:08 Glucose (Fingerstick) 176 mg/dL (70-99) Assessment and Plan Assessmemt and Plan Problems Medical Problems: (1) Abdominal pain Status: Acute (2) Acute renal insufficiency Status: Acute (3) Anemia Status: Acute (4) DKA (diabetic ketoacidoses) Status: Acute (5) DKA (diabetic ketoacidoses) Status: Acute (6) Gastroparesis Status: Acute (7) Hematemesis Status: Acute (8) Hyperkalemia Status: Acute (9) Hypermagnesemia Status: Acute (10) Hyperphosphatemia Status: Acute (11) Hypoalbuminemia Status: Acute (12) Hypochloremia Status: Acute (13) Hyponatremia Status: Acute (14) Hypovolemia Status: Acute (15) Leukocytosis Status: Acute (16) Melena Status: Acute (17) Metabolic acidosis Status: Acute (18) Nausea & vomiting Status: Acute (19) Noncompliance with diabetes treatment Status: Acute (20) Prolonged Q-T interval on ECG Status: Acute Comment Review of Relevant I have reviewed the following items sheryl (where applicable) has been applied. Labs Laboratory Tests Test 12/27/18 08:42 12/27/18 09:00 12/27/18 12:02 12/27/18 16:38 Glucose (Fingerstick) 104 mg/dL (70-99) 215 mg/dL (70-99) 53 mg/dL (70-99) White Blood Count 4.2 x10^3/uL (4.0-11.0) Red Blood Count 3.41 x10^6/uL (3.50-5.40) Hemoglobin 9.6 g/dL (12.0-15.5) Hematocrit 28.9 % (36.0-47.0) Mean Corpuscular Volume 85 fL (79-100) Mean Corpuscular Hemoglobin 28 pg (25-35) Mean Corpuscular Hemoglobin Concent 33 g/dL (31-37) Red Cell Distribution Width 15.2 % (11.5-14.5) Platelet Count 420 x10^3/uL (140-400) Neutrophils (%) (Auto) 39 % (31-73) Lymphocytes (%) (Auto) 44 % (24-48) Monocytes (%) (Auto) 12 % (0-9) Eosinophils (%) (Auto) 4 % (0-3) Basophils (%) (Auto) 0 % (0-3) Neutrophils # (Auto) 1.7 x10^3/uL (1.8-7.7) Lymphocytes # (Auto) 1.9 x10^3/uL (1.0-4.8) Monocytes # (Auto) 0.5 x10^3/uL (0.0-1.1) Eosinophils # (Auto) 0.2 x10^3/uL (0.0-0.7) Basophils # (Auto) 0.0 x10^3/uL (0.0-0.2) Test 12/27/18 17:32 12/27/18 20:15 12/28/18 02:44 12/28/18 03:02 Glucose (Fingerstick) 94 mg/dL (70-99) 189 mg/dL (70-99) 44 mg/dL (70-99) 125 mg/dL (70-99) Test 12/28/18 07:49 12/28/18 10:55 12/28/18 16:14 12/28/18 19:00 Glucose (Fingerstick) 127 mg/dL (70-99) 181 mg/dL (70-99) 52 mg/dL (70-99) 205 mg/dL (70-99) Test 12/28/18 20:54 12/29/18 07:08 Glucose (Fingerstick) 337 mg/dL (70-99) 176 mg/dL (70-99) Laboratory Tests Test 12/28/18 10:55 12/28/18 16:14 12/28/18 19:00 12/28/18 20:54 Glucose (Fingerstick) 181 mg/dL (70-99) 52 mg/dL (70-99) 205 mg/dL (70-99) 337 mg/dL (70-99) Test 12/29/18 07:08 Glucose (Fingerstick) 176 mg/dL (70-99) Microbiology 12/22/18 Urine Culture - Final, Complete 12/22/18 Urine Culture Result 1 (LESLYE) - Final, Complete Medications Current Medications Sodium Chloride 1,000 ml @ 1,000 mls/hr Q1H IV Last administered on 12/22/18at 06:56; Start 12/22/18 at 06:45; Stop 12/22/18 at 07:44; Status DC Ondansetron HCl (Zofran) 4 mg 1X ONCE IV Last administered on 12/22/18at 07:24; Start 12/22/18 at 06:45; Stop 12/22/18 at 06:46; Status DC Pantoprazole Sodium (PROTONIX VIAL for IV PUSH) 40 mg 1X ONCE IVP Last administered on 12/22/18at 07:24; Start 12/22/18 at 06:45; Stop 12/22/18 at 06:46; Status DC Insulin Human Regular (HumuLIN R VIAL) 10 unit 1X ONCE IV Last administered on 12/22/18 07:24; Start 12/22/18 at 06:45; Stop 12/22/18 at 06:46; Status DC Sodium Chloride 1,000 ml @ 1,000 mls/hr 1X ONCE IV Last administered on 12/22/18at 06:56; Start 12/22/18 at 06:45; Stop 12/22/18 at 07:44; Status DC Insulin Human Regular 150 ml @ 0 mls/hr 1X ONCE IV Last administered on 12/22/18at 07:41; Start 12/22/18 at 07:00; Stop 12/22/18 at 07:01; Status DC Fentanyl Citrate (Fentanyl 2ml Vial) 50 mcg 1X ONCE IV Last administered on 12/22/18 07:24; Start 12/22/18 at 07:00; Stop 12/22/18 at 07:01; Status DC Sodium Chloride 1,000 ml @ 1,000 mls/hr Q1H IV Last administered on 12/22/18at 09:58; Start 12/22/18 at 07:31; Stop 12/22/18 at 08:30; Status DC Potassium Chloride/Water 100 ml @ 100 mls/hr PRN Q1HR PRN IV SEE COMMENT; Start 12/22/18 at 07:31 Pantoprazole Sodium 80 mg/ Sodium Chloride 100 ml @ 10 mls/hr Q10H IV Last administered on 12/24/18at 02:43; Start 12/22/18 at 08:00; Stop 12/24/18 at 09:19; Status DC Ondansetron HCl (Zofran) 4 mg PRN Q6HRS PRN IV NAUSEA/VOMITING, 1ST CHOICE Last administered on 12/28/18 16:05; Start 12/22/18 at 08:30 Ondansetron HCl (Zofran Odt) 4 mg PRN Q6HRS PRN PO NAUSEA/VOMITING Last administered on 12/27/18 12:10; Start 12/22/18 at 08:30 Fentanyl Citrate (Fentanyl 2ml Vial) 50 mcg PRN Q2HR PRN IV PAIN Last administered on 12/29/18 08:18; Start 12/22/18 at 08:30 Prochlorperazine Edisylate (Compazine) 10 mg PRN Q6HRS PRN IV NAUSEA/VOMITING, 2ND CHOICE Last administered on 12/29/18 08:23; Start 12/22/18 at 08:30 Sodium Chloride 1,000 ml @ 250 mls/hr Q4H IV Last administered on 12/22/18 11:06; Start 12/22/18 at 08:30; Stop 12/22/18 at 13:11; Status DC Sodium Chloride 1,000 ml @ 1,000 mls/hr 1X ONCE IV Last administered on 12/22/18at 09:58; Start 12/22/18 at 08:30; Stop 12/22/18 at 09:29; Status DC Insulin Human Regular 150 unit/ Sodium Chloride 151.5 ml @ 0 mls/hr CONT PRN IV SEE I/O RECORD Last administered on 12/22/18at 16:05; Start 12/22/18 at 08:30; Stop 12/25/18 at 16:38; Status DC Dextrose (Dextrose 50%-Water Syringe) 12.5 gm PRN Q15MIN PRN IV LOW BLOOD SUGAR Last administered on 12/22/18at 22:26; Start 12/22/18 at 08:30; Stop 12/24/18 at 20:33; Status DC Acetaminophen/ Aspirin/Caffeine (Excedrin Migraine) 2 tab PRN Q6HRS PRN PO MIGRAINE HEADACHE; Start 12/22/18 at 08:30 Acetaminophen/ Hydrocodone Bitart (Lortab 10/325) 1 tab PRN Q6HRS PRN PO SEVERE PAIN Last administered on 12/27/18at 16:58; Start 12/22/18 at 08:30 Albuterol Sulfate (Ventolin Neb Soln) 2.5 mg PRN Q4HRS PRN NEB SHORTNESS OF BREATH; Start 12/22/18 at 08:30 Influenza Virus Vaccine Quadrival (Afluria Quad 2019-20 (3yr Up) Syringe) 0.5 ml ONCE ONCE VAX IM Last administered on 12/22/18at 10:11; Start 12/22/18 at 10:00; Stop 12/22/18 at 10:01; Status DC Sodium Chloride 1,000 ml @ 1,000 mls/hr 1X ONCE IV ; Start 12/22/18 at 09:45; Stop 12/22/18 at 10:44; Status DC Throat Lozenges (Cepacol Sore Throat Lozenge) 1 santhosh PRN Q2HRS PRN PO SORE THROAT Last administered on 12/22/18at 10:11; Start 12/22/18 at 10:00 Nicotine (Nicoderm Cq 21mg) 1 patch PRN DAILY PRN TD SMOKING CESSATION Last administered on 12/28/18at 21:37; Start 12/22/18 at 10:00 Sodium Chloride 1,000 ml @ 1,000 mls/hr 1X ONCE IV Last administered on 12/22/18at 11:46; Start 12/22/18 at 11:45; Stop 12/22/18 at 12:44; Status DC Magnesium Sulfate 100 ml @ 25 mls/hr 1X ONCE IV Last administered on 12/22/18at 12:09; Start 12/22/18 at 12:00; Stop 12/22/18 at 15:59; Status DC Potassium Chloride/Water 100 ml @ 100 mls/hr Q1H IV Last administered on 12/22/18at 16:05; Start 12/22/18 at 13:00; Stop 12/22/18 at 16:59; Status DC Dextrose/Sodium Chloride 1,000 ml @ 250 mls/hr Q4H IV Last administered on 12/22/18at 17:18; Start 12/22/18 at 13:15; Stop 12/22/18 at 20:06; Status DC Sodium Phosphate 8 mmol/Dextrose 102.6667 ml @ 25.661 m... 1X ONCE IV Last administered on 12/22/18at 15:16; Start 12/22/18 at 15:30; Stop 12/22/18 at 19:30; Status DC Sodium Chloride 1,000 ml @ 125 mls/hr Q8H IV Last administered on 12/24/18at 05:39; Start 12/22/18 at 20:00; Stop 12/24/18 at 09:54; Status DC Insulin Glargine (Lantus Syringe) 30 unit QHS SQ Last administered on 12/28/18at 21:35; Start 12/22/18 at 21:00 Insulin Human Lispro (HumaLOG) 0-9 UNITS TIDWMEALS SQ Last administered on 12/26/18at 17:25; Start 12/23/18 at 08:00 Dextrose (Dextrose 50%-Water Syringe) 12.5 gm PRN Q15MIN PRN IV SEE COMMENTS Last administered on 12/28/18at 17:21; Start 12/22/18 at 20:00 Dextrose 250 ml PRN Q15MIN PRN IV SEE COMMENTS; Start 12/22/18 at 20:00; Stop 12/25/18 at 16:29; Status DC Insulin Human Lispro (HumaLOG) 12 units TIDWMEALS SQ Last administered on 12/29/18at 08:21; Start 12/23/18 at 08:00 Potassium Chloride/Water 50 ml @ 50 mls/hr Q1H IV Last administered on 12/23/18at 11:00; Start 12/23/18 at 09:30; Stop 12/23/18 at 11:29; Status DC Sodium Phosphate 17 mmol/Dextrose 255.6667 ml @ 63.89 mls/hr 1X ONCE IV Last administered on 12/23/18at 11:57; Start 12/23/18 at 11:00; Stop 12/23/18 at 15:06; Status DC Multi-Ingredient Mouthwash/Gargle (Gi Cocktail) 20 ml PRN QID PRN PO CHEST PAIN Last administered on 12/28/18at 11:01; Start 12/24/18 at 09:30 Pantoprazole Sodium (Protonix) 40 mg DAILYAC PO Last administered on 12/29/18at 07:41; Start 12/24/18 at 11:00 Dicyclomine HCl (Bentyl) 10 mg QID PRN PO abd pain Last administered on 12/29/18at 07:42; Start 12/26/18 at 09:45 Active Scripts Active Promethazine Hcl 25 Mg Tablet 1 Tab PO PRN Q6HRS Hydrocodone-Apap 10-325 (Hydrocodone Bit/Acetaminophen) 1 Tab Tablet 1 Tab PO PRN Q6HRS PRN 7 Days Duoneb 0.5-3(2.5) Mg/3 Ml (Albuterol/Ipratropium) 3 Ml Ampul.neb 3 Ml NEB RTQID 30 Days Amox Tr-K Clv 875-125 Mg Tab (Amoxicillin/Potassium Clav) 1 Each Tablet 1 Tab PO BID 14 Days Lantus Solostar (Insulin Glargine,Hum.rec.anlog) 100 Unit/1 Ml Insuln.pen 16 Units SQ QHS 30 Days Novolog (Insulin Aspart) 100 Unit/1 Ml Cartridge 8 Unit SQ MEAL PRN 30 Days Norvasc (Amlodipine Besylate) 5 Mg Tablet 5 Mg PO DAILY 30 Days Polyethylene Glycol 3350 17 Gm Powd.pack 17 Gm PO PRN DAILY PRN 14 Days Pain Reliever Plus Tablet (Aspirin/Acetaminophen/Caffeine) 1 Each Tablet 2 Tab PO PRN Q6HRS PRN 10 Days Famotidine 20 Mg Tablet 20 Mg PO DAILY MDD 1 Reported Protonix (Pantoprazole Sodium) 20 Mg Tablet.dr 20 Mg PO DAILY Vitals/I & O Vital Sign - Last 24 Hours 12/28/18 12/28/18 12/28/18 12/28/18 08:41 08:45 08:45 09:30 O2 Delivery Room Air Room Air Room Air Room Air 12/28/18 12/28/18 12/28/18 12/28/18 10:58 11:00 11:30 15:00 Temp 98.3 97.9 98.3 97.9 Pulse 89 87 Resp 18 18 B/P (MAP) 159/83 (108) 132/71 (91) Pulse Ox 100 99 O2 Delivery Room Air Room Air Room Air Room Air 12/28/18 12/28/18 12/28/18 12/28/18 15:57 16:37 17:20 18:57 Pulse Ox 99 O2 Delivery Room Air Room Air Room Air Room Air 12/28/18 12/28/18 12/28/18 12/28/18 19:00 19:27 20:04 21:27 Temp 98.0 98.0 Pulse 86 Resp 16 20 18 B/P (MAP) 127/78 (94) Pulse Ox 99 O2 Delivery Room Air Room Air Room Air Room Air 12/28/18 12/28/18 12/29/18 12/29/18 21:57 23:00 01:28 01:58 Temp 98.6 98.6 Pulse 94 Resp 18 16 20 18 B/P (MAP) 148/66 (93) Pulse Ox 98 O2 Delivery Room Air Room Air Room Air Room Air 12/29/18 12/29/18 12/29/18 12/29/18 03:00 03:58 04:28 05:54 Temp 97.7 97.7 Pulse 75 Resp 16 18 20 20 B/P (MAP) 127/69 (88) Pulse Ox 97 O2 Delivery Room Air Room Air Room Air Room Air 12/29/18 12/29/18 07:00 08:18 Temp 97.7 97.7 Pulse 93 Resp 18 18 B/P (MAP) 105/78 (87) Pulse Ox 98 O2 Delivery Room Air Room Air Intake and Output 12/28/18 12/28/18 12/29/18 15:00 23:00 07:00 Intake Total 120 ml 200 ml 100 ml Balance 120 ml 200 ml 100 ml DEEPTI ZHAO MD Dec 29, 2018 08:40
--- NOTE | 2018-12-29 10:19 | PDOC3 ---
Discharge Summary Date of Admission: Dec 22, 2018 Date of Discharge: Dec 29, 2018 Follow-Up: 3-5 days Admitting Diagnosis comment: DISCHARGE DX Vomiting Severe DKA hematemesis, melena Anemia Recurrent n/v, abd pain h/o GERD, gastroparesis H/o SBR S/p cholecystectomy +cannabinoids Anemia - Hgb improved 12/23, hematemesis/hematochezia resolved Uncontrolled DM, h/o GERD, gastroparesis, +cannabinoids hypoglycemia 12/25 12/27 REPORTS PAIN IS STILL 6-7/10, KEPT LUNCH DOWN, A CHICKEN SANDWICH 12/28 states she vomited all of her breakfast today 12/29 eating well last 24 hrs, wants to go home suggested no THC USE 34 min pt exam, chart review d/c planning , > 50% of time spent with exam, chart review, pt care coordination History of Present Illness History of Present Illness PLAN: patient transferred out of ICU. off insulin drip. sugars LABILE reports diarrhea and poor appetite today. does not want to go home , STILL IN PAIN advance diet as tolerated dc PPI drip and change to oral PPI therapy check stool studies given loose stools DW RN tolerating diet. adjust insulin dose as needed. follow up BMP in AM Vitals Vitals Vital Signs Date Time Temp Pulse Resp B/P (MAP) Pulse Ox O2 Delivery O2 Flow Rate FiO2 12/29/18 08:18 18 Room Air 12/29/18 07:00 97.7 93 105/78 (87) 98 97.7 Physical Exam Physical Exam HEENT: Normocephalic, atraumatic, oropharynx MOIST Eyes: PERRLA, EOMI, conjunctiva normal, no discharge Neck: Normal range of motion, no tenderness, supple, no stridor Cardiovascular: Tachycardia, no murmur Lungs & Thorax: Hyperventilation, bilateral breath sounds clear to auscultation Abdomen: Bowel sounds normal, soft, no tenderness, no masses, no pulsatile masses. Skin: Warm, dry, no erythema, no rash. Extremities: No tenderness, no cyanosis, no clubbing, ROM intact, no edema. Neurologic: Alert and oriented X 3, no focal deficits noted General: Alert, Oriented X3, Cooperative, No acute distress, Heart: Regular rate, Normal S1 Lungs: Clear, Other Abdomen: Normal bowel sounds, Soft, No tenderness, No hepatosplenomegaly Extremities: No clubbing, No cyanosis, No edema Skin: No rashes, No breakdown, No significant lesion FINAL DIAGNOSIS Problems Medical Problems: (1) Abdominal pain Status: Acute (2) Acute renal insufficiency Status: Acute (3) Anemia Status: Acute (4) DKA (diabetic ketoacidoses) Status: Acute (5) DKA (diabetic ketoacidoses) Status: Acute (6) Gastroparesis Status: Acute (7) Hematemesis Status: Acute (8) Hyperkalemia Status: Acute (9) Hypermagnesemia Status: Acute (10) Hyperphosphatemia Status: Acute (11) Hypoalbuminemia Status: Acute (12) Hypochloremia Status: Acute (13) Hyponatremia Status: Acute (14) Hypovolemia Status: Acute (15) Leukocytosis Status: Acute (16) Melena Status: Acute (17) Metabolic acidosis Status: Acute (18) Nausea & vomiting Status: Acute (19) Noncompliance with diabetes treatment Status: Acute (20) Prolonged Q-T interval on ECG Status: Acute Brief Hospital Course Ms. Garcia is a 43 old [sex] who presented with [ DKA] CONDITION AT DISCHARGE: Improved Discharge Medications Current Medications Sodium Chloride 1,000 ml @ 1,000 mls/hr Q1H IV Last administered on 12/22/18at 06:56; Start 12/22/18 at 06:45; Stop 12/22/18 at 07:44; Status DC Ondansetron HCl (Zofran) 4 mg 1X ONCE IV Last administered on 12/22/18at 07:24; Start 12/22/18 at 06:45; Stop 12/22/18 at 06:46; Status DC Pantoprazole Sodium (PROTONIX VIAL for IV PUSH) 40 mg 1X ONCE IVP Last administered on 12/22/18at 07:24; Start 12/22/18 at 06:45; Stop 12/22/18 at 06:46; Status DC Insulin Human Regular (HumuLIN R VIAL) 10 unit 1X ONCE IV Last administered on 12/22/18at 07:24; Start 12/22/18 at 06:45; Stop 12/22/18 at 06:46; Status DC Sodium Chloride 1,000 ml @ 1,000 mls/hr 1X ONCE IV Last administered on 12/22/18 06:56; Start 12/22/18 at 06:45; Stop 12/22/18 at 07:44; Status DC Insulin Human Regular 150 ml @ 0 mls/hr 1X ONCE IV Last administered on 12/22/18 07:41; Start 12/22/18 at 07:00; Stop 12/22/18 at 07:01; Status DC Fentanyl Citrate (Fentanyl 2ml Vial) 50 mcg 1X ONCE IV Last administered on 12/22/18 07:24; Start 12/22/18 at 07:00; Stop 12/22/18 at 07:01; Status DC Sodium Chloride 1,000 ml @ 1,000 mls/hr Q1H IV Last administered on 12/22/18 09:58; Start 12/22/18 at 07:31; Stop 12/22/18 at 08:30; Status DC Potassium Chloride/Water 100 ml @ 100 mls/hr PRN Q1HR PRN IV SEE COMMENT; Start 12/22/18 at 07:31 Pantoprazole Sodium 80 mg/ Sodium Chloride 100 ml @ 10 mls/hr Q10H IV Last administered on 12/24/18 02:43; Start 12/22/18 at 08:00; Stop 12/24/18 at 09:19; Status DC Ondansetron HCl (Zofran) 4 mg PRN Q6HRS PRN IV NAUSEA/VOMITING, 1ST CHOICE Last administered on 12/28/18 16:05; Start 12/22/18 at 08:30 Ondansetron HCl (Zofran Odt) 4 mg PRN Q6HRS PRN PO NAUSEA/VOMITING Last administered on 12/27/18 12:10; Start 12/22/18 at 08:30 Fentanyl Citrate (Fentanyl 2ml Vial) 50 mcg PRN Q2HR PRN IV PAIN Last administered on 12/29/18 08:18; Start 12/22/18 at 08:30 Prochlorperazine Edisylate (Compazine) 10 mg PRN Q6HRS PRN IV NAUSEA/VOMITING, 2ND CHOICE Last administered on 12/29/18 08:23; Start 12/22/18 at 08:30 Sodium Chloride 1,000 ml @ 250 mls/hr Q4H IV Last administered on 9/23/19at 11:06; Start 12/22/18 at 08:30; Stop 12/22/18 at 13:11; Status DC Sodium Chloride 1,000 ml @ 1,000 mls/hr 1X ONCE IV Last administered on 12/22/18 09:58; Start 12/22/18 at 08:30; Stop 12/22/18 at 09:29; Status DC Insulin Human Regular 150 unit/ Sodium Chloride 151.5 ml @ 0 mls/hr CONT PRN IV SEE I/O RECORD Last administered on 12/22/18at 16:05; Start 12/22/18 at 08:30; Stop 12/25/18 at 16:38; Status DC Dextrose (Dextrose 50%-Water Syringe) 12.5 gm PRN Q15MIN PRN IV LOW BLOOD SUGAR Last administered on 12/22/18at 22:26; Start 12/22/18 at 08:30; Stop 12/24/18 at 20:33; Status DC Acetaminophen/ Aspirin/Caffeine (Excedrin Migraine) 2 tab PRN Q6HRS PRN PO IN GRAINE HEADACHE; Start 12/22/18 at 08:30 Acetaminophen/ Hydrocodone Bitart (Lortab 10/325) 1 tab PRN Q6HRS PRN PO SEVERE PAIN Last administered on 12/27/18at 16:58; Start 12/22/18 at 08:30 Albuterol Sulfate (Ventolin Neb Soln) 2.5 mg PRN Q4HRS PRN NEB SHORTNESS OF BREATH; Start 12/22/18 at 08:30 Influenza Virus Vaccine Quadrival (Afluria Quad 2019-20 (3yr Up) Syringe) 0.5 ml ONCE ONCE VAX IM Last administered on 12/22/18at 10:11; Start 12/22/18 at 10:00; Stop 12/22/18 at 10:01; Status DC Sodium Chloride 1,000 ml @ 1,000 mls/hr 1X ONCE IV ; Start 12/22/18 at 09:45; Stop 12/22/18 at 10:44; Status DC Throat Lozenges (Cepacol Sore Throat Lozenge) 1 santhosh PRN Q2HRS PRN PO SORE THROAT Last administered on 12/22/18at 10:11; Start 12/22/18 at 10:00 Nicotine (Nicoderm Cq 21mg) 1 patch PRN DAILY PRN TD SMOKING CESSATION Last administered on 12/28/18at 21:37; Start 12/22/18 at 10:00 Sodium Chloride 1,000 ml @ 1,000 mls/hr 1X ONCE IV Last administered on 12/22/18at 11:46; Start 12/22/18 at 11:45; Stop 12/22/18 at 12:44; Status DC Magnesium Sulfate 100 ml @ 25 mls/hr 1X ONCE IV Last administered on 12/22/18at 12:09; Start 12/22/18 at 12:00; Stop 12/22/18 at 15:59; Status DC Potassium Chloride/Water 100 ml @ 100 mls/hr Q1H IV Last administered on 12/22/18at 16:05; Start 12/22/18 at 13:00; Stop 12/22/18 at 16:59; Status DC Dextrose/Sodium Chloride 1,000 ml @ 250 mls/hr Q4H IV Last administered on 12/22/18at 17:18; Start 12/22/18 at 13:15; Stop 12/22/18 at 20:06; Status DC Sodium Phosphate 8 mmol/Dextrose 102.6667 ml @ 25.661 m... 1X ONCE IV Last administered on 12/22/18at 15:16; Start 12/22/18 at 15:30; Stop 12/22/18 at 19:30; Status DC Sodium Chloride 1,000 ml @ 125 mls/hr Q8H IV Last administered on 12/24/18at 05:39; Start 12/22/18 at 20:00; Stop 12/24/18 at 09:54; Status DC Insulin Glargine (Lantus Syringe) 30 unit QHS SQ Last administered on 12/28/18at 21:35; Start 12/22/18 at 21:00 Insulin Human Lispro (HumaLOG) 0-9 UNITS TIDWMEALS SQ Last administered on 12/26/18at 17:25; Start 12/23/18 at 08:00 Dextrose (Dextrose 50%-Water Syringe) 12.5 gm PRN Q15MIN PRN IV SEE COMMENTS Last administered on 12/28/18at 17:21; Start 12/22/18 at 20:00 Dextrose 250 ml PRN Q15MIN PRN IV SEE COMMENTS; Start 12/22/18 at 20:00; Stop 12/25/18 at 16:29; Status DC Insulin Human Lispro (HumaLOG) 12 units TIDWMEALS SQ Last administered on 12/29/18at 08:21; Start 12/23/18 at 08:00 Potassium Chloride/Water 50 ml @ 50 mls/hr Q1H IV Last administered on 12/23/18at 11:00; Start 12/23/18 at 09:30; Stop 12/23/18 at 11:29; Status DC Sodium Phosphate 17 mmol/Dextrose 255.6667 ml @ 63.89 mls/hr 1X ONCE IV Last administered on 12/23/18at 11:57; Start 12/23/18 at 11:00; Stop 12/23/18 at 15:06; Status DC Multi-Ingredient Mouthwash/Gargle (Gi Cocktail) 20 ml PRN QID PRN PO CHEST PAIN Last administered on 12/28/18at 11:01; Start 12/24/18 at 09:30 Pantoprazole Sodium (Protonix) 40 mg DAILYAC PO Last administered on 12/29/18at 07:41; Start 12/24/18 at 11:00 Dicyclomine HCl (Bentyl) 10 mg QID PRN PO abd pain Last administered on 12/29/18at 07:42; Start 12/26/18 at 09:45 Active Scripts Active Promethazine Hcl 25 Mg Tablet 1 Tab PO PRN Q6HRS Hydrocodone-Apap 10-325 (Hydrocodone Bit/Acetaminophen) 1 Tab Tablet 1 Tab PO PRN Q6HRS PRN 7 Days Duoneb 0.5-3(2.5) Mg/3 Ml (Albuterol/Ipratropium) 3 Ml Ampul.neb 3 Ml NEB RTQID 30 Days Amox Tr-K Clv 875-125 Mg Tab (Amoxicillin/Potassium Clav) 1 Each Tablet 1 Tab PO BID 14 Days Lantus Solostar (Insulin Glargine,Hum.rec.anlog) 100 Unit/1 Ml Insuln.pen 16 Units SQ QHS 30 Days Novolog (Insulin Aspart) 100 Unit/1 Ml Cartridge 8 Unit SQ MEAL PRN 30 Days Norvasc (Amlodipine Besylate) 5 Mg Tablet 5 Mg PO DAILY 30 Days Polyethylene Glycol 3350 17 Gm Powd.pack 17 Gm PO PRN DAILY PRN 14 Days Pain Reliever Plus Tablet (Aspirin/Acetaminophen/Caffeine) 1 Each Tablet 2 Tab PO PRN Q6HRS PRN 10 Days Famotidine 20 Mg Tablet 20 Mg PO DAILY MDD 1 Reported Protonix (Pantoprazole Sodium) 20 Mg Tablet.dr 20 Mg PO DAILY Vital Signs Vital Signs Date Time Temp Pulse Resp B/P (MAP) Pulse Ox O2 Delivery O2 Flow Rate FiO2 12/29/18 08:48 16 Room Air 12/29/18 07:00 97.7 93 105/78 (87) 98 97.7 Labs Laboratory Tests Test 12/27/18 12:02 12/27/18 16:38 12/27/18 17:32 12/27/18 20:15 Glucose (Fingerstick) 215 mg/dL (70-99) 53 mg/dL (70-99) 94 mg/dL (70-99) 189 mg/dL (70-99) Test 12/28/18 02:44 12/28/18 03:02 12/28/18 07:49 12/28/18 10:55 Glucose (Fingerstick) 44 mg/dL (70-99) 125 mg/dL (70-99) 127 mg/dL (70-99) 181 mg/dL (70-99) Test 12/28/18 16:14 12/28/18 19:00 12/28/18 20:54 12/29/18 07:08 Glucose (Fingerstick) 52 mg/dL (70-99) 205 mg/dL (70-99) 337 mg/dL (70-99) 176 mg/dL (70-99) Laboratory Tests Test 12/28/18 10:55 12/28/18 16:14 12/28/18 19:00 12/28/18 20:54 Glucose (Fingerstick) 181 mg/dL (70-99) 52 mg/dL (70-99) 205 mg/dL (70-99) 337 mg/dL (70-99) Test 12/29/18 07:08 Glucose (Fingerstick) 176 mg/dL (70-99) Allergies Allergies Coded Allergies Type Severity Reaction Last Updated Verified No Known Drug Allergies 12/25/18 No Disposition/Orders: D/C to Home Patient Instructions D/C PLANNING 34 MIN DEEPTI ZHAO MD Dec 29, 2018 10:19
[2018-12-29] MEDS ORDERED: DICY10CA3 PO (10:23)
[2018-12-29] MEDS ORDERED: Nicotine 21MG TD (10:23)
[2018-12-29] MEDS ORDERED: INSU100I11 SQ (10:23)
[2018-12-29] MEDS ORDERED: INSU100V8 SQ (10:23)
[2018-12-29] MEDS ORDERED: ONDA4TAB12 PO (10:23)
--- NOTE | 2018-12-29 10:28 | DISCH ---
DISCHARGE INSTRUCTIONS Condition on Discharge Condition on Discharge: Stable Activity After Discharge Activity Instructions for Disc: Activity as tolerated Lifting Instructions after Dis: No heavy lifting Exercise Instruction after Dis: Progress as tolerated Driving Instructions after Dis: Do not drive today Weight Bearing Status after Di: As tolerated Diet after Discharge Diet after Discharge: Diabetic No Calorie Level Diet Texture: Regular Liquid Texture: Thin Liquid Swallowing Supervision: None needed Wound Incision Care Wound/Incision Care: No wound care needed Wound Care Equipment: Dressings Checks after Discharge Checks after discharge: Check blood press - daily, Check your Temp as needed Contacting the DR. after DC Call your doctor for: If your condition worsens Treatment/Equipment after DC Adaptive Equipment Issued: None DEEPTI ZHAO MD Dec 29, 2018 10:28
[2018-12-29] MEDS: LIDO:MAALOX 1:1 20 ML SINGLE DOSE. PO PRN (10:43)
[2018-12-29] MEDS: HYDROcodone/APAP 10/325 1 TAB TABLET PO PRN (10:45)
[2018-12-29 11:00] VITALS: BP 143/86
--- NOTE | 2018-12-29 11:16 | NUR ---
Rt. TLCL dc'd per order per protocol with pressure held for 10 minutes, no bleeding at site, vaseline gauze, 2x2 guaze and micropore tape dressing applied with patient instructions to be still for 30 minutes to prevent bleeding and report to MD after discharge if redness, swellling or purulent drainage. Patient verb. understanding leave dressing in place 48 hours, then may apply neosporin ointment and bandaid as needed. Catheter and tip removed intact. Patient tolerated procedure without any pain or discomfort and resting quietly now with HOB elevated 30 degrees, call light at hand.
[2018-12-29] MEDS ORDERED: DEXTROSE ORAL GEL 15 GM TUBE. ONE ×2 (11:23→12:00)
--- NOTE | 2018-12-29 11:27 | PDOC ---
Subjective: Subjective: Rough day yesterday but better today - gets to go home. Ate all of breakfast this morning, no diarrhea, still has abd pain. Objective: Vital Signs: Vital Signs Date Time Temp Pulse Resp B/P (MAP) Pulse Ox O2 Delivery O2 Flow Rate FiO2 12/29/18 10:45 18 Room Air 12/29/18 07:00 97.7 93 105/78 (87) 98 97.7 Labs: Laboratory Tests Test 12/28/18 16:14 12/28/18 19:00 12/28/18 20:54 12/29/18 07:08 Glucose (Fingerstick) 52 mg/dL 205 mg/dL 337 mg/dL 176 mg/dL Imaging: [facility]AS 12/26 IMPRESSION: 1. Small bilateral pleural effusions. 2. Nonobstructive bowel gas pattern. PE: GEN: NAD LUNGS: CTAB HEART: RRR ABD: S/ND, mild tenderness - ?[facility] NEURO/PSYCH: A & O 3 A/P: Abd pain, diarrhea - better, stool cx pending Anemia - improving Uncontrolled DM, h/o GERD, gastroparesis, +cannabinoids -- DC per primary on PPI w/ plans to follow-up w/ [facility] and GI as previously discussed. ANGELA RIVERO Dec 29, 2018 11:27
--- NOTE | 2018-12-29 11:29 | NUR ---
Patient with asymptotic blood sugar 64, glucose gel given per protocol, came up as one time order and could not document given on medication sheet, documenting here glucose gel 37.5 gm oral given now.
--- NOTE | 2018-12-29 11:47 | NUR ---
Patient blood sugar 72 and now eating lunch. Continue cares and monitor.
--- NOTE | 2018-12-29 12:47 | NUR ---
Patient took lunch 100%. Up with steady gait and no complaints. Discharge instructions, medications and prescriptions reviewed with patient, she verb. understanding all instructions and denies questions. Patient ready for discharge when ride arrives.
--- NOTE | 2018-12-29 13:30 | NUR ---
Patient discharge to home with family with all instructions, belongings and prescriptions.
== END 2018-12-29 13:32 | disposition home or self-care (01) | DRG 637 ==
LOC: ER 06:22 → 1 WEST ICU 07:31 → 5 SOUTH 12-23 09:42
PROVIDERS: ADMIT Internal Medicine; ATTEND Internal Medicine
PROC: 02HV33Z Insertion of Infusion Device into Superior Vena Cava, Percutaneous Approach (ICD-10-PCS; principal; 2018-12-22)
PROC: B548ZZA Ultrasonography of Superior Vena Cava, Guidance (ICD-10-PCS; 2018-12-22)
DX: E10.10 Type 1 diabetes mellitus with ketoacidosis without coma (principal); N17.0 Acute kidney failure with tubular necrosis; R65.10 Systemic inflammatory response syndrome (SIRS) of non-infectious origin without acute organ dysfunction; K92.0 Hematemesis; E87.1 Hypo-osmolality and hyponatremia; E87.3 Alkalosis; E87.5 Hyperkalemia; K31.84 Gastroparesis; E10.43 Type 1 diabetes mellitus with diabetic autonomic (poly)neuropathy; G43.A0 Cyclical vomiting, in migraine, not intractable; E87.8 Other disorders of electrolyte and fluid balance, not elsewhere classified; E83.41 Hypermagnesemia; D72.828 Other elevated white blood cell count; D64.9 Anemia, unspecified; E83.39 Other disorders of phosphorus metabolism; E78.5 Hyperlipidemia, unspecified; F17.210 Nicotine dependence, cigarettes, uncomplicated; E86.1 Hypovolemia; K21.9 Gastro-esophageal reflux disease without esophagitis; E78.00 Pure hypercholesterolemia, unspecified; E87.6 Hypokalemia; F12.90 Cannabis use, unspecified, uncomplicated; F41.9 Anxiety disorder, unspecified; K21.0 Gastro-esophageal reflux disease with esophagitis; Z91.19 Patient's noncompliance with other medical treatment and regimen; Z90.710 Acquired absence of both cervix and uterus; Z82.5 Family history of asthma and other chronic lower respiratory diseases; Z90.49 Acquired absence of other specified parts of digestive tract; Z87.19 Personal history of other diseases of the digestive system; E10.649 Type 1 diabetes mellitus with hypoglycemia without coma
CPT/HCPCS: 36415; 36556; 36600; 71045; 74022; 76937; 80048; 80053; 80307; 81001; 82010; 82533; 82805; 82947; 82962; 83036; 83690; 83735; 84100; 84443; 85018; 85025; 85027; 85610; 85730; 87045; 87086; 87493; 90471; 90686; 93005; 94760; 96361; 96365; 96375; 96376; 99406; C1892; C9113; J0780; J1815; J2405; J3010; J3475; J3480; J7030; J7042; Q0162; 99291-25; G0378

== ENCOUNTER 2019-03-26 21:19 | Inpatient (IN) | payer OTHER ==
[~2019-03-26] VITALS: Ht 154.9 cm; Wt 61.2 kg
[~2019-03-26 21:19] MED LIST changes: +DICY10CA3 PO; +INSU100I11 SQ; +Nicotine 21MG TD; +ONDA4TAB12 PO
[2019-03-26] MEDS ORDERED: ONDANSETRON ODT 4 MG TAB.RAPDIS. PO ONE (22:00)
[2019-03-26] MEDS ORDERED: IV NORMAL SALINE 1000ML BAG 1,000 ML IV SCH (23:30)
[2019-03-26] MEDS ORDERED: ONDANSETRON PF 4 MG/2 ML VIAL. IV ONE (23:30)
[2019-03-26 23:36] LABS: BILIRUBIN,URINE NEGATIVE (NEG); CLARITY,URINE CLEAR; COLOR,URINE YELLOW; NITRITE,URINE NEGATIVE (NEG); PROTEIN,URINE NEGATIVE (NEG-TRACE); UROBILINOGEN,URINE 0.2 mg/dL (0.2 mg/dL)
--- NOTE | 2019-03-26 23:38 | PHYS DOC ---
Past Medical History Past Medical History: Anxiety, Cyclic Vomiting, Diabetes-Type I, High Cholesterol, Other Additional Past Medical Histor: gastroparesis, Past Surgical History: Cholecystectomy, Hysterectomy, Tubal ligation Alcohol Use: Occasionally Drug Use: Marijuana Social History Narrative: Last marijuana use this AM Adult General Chief Complaint Chief Complaint: ABDOMINAL PAIN HPI HPI 44-year-old female presents to the emergency department with complaints of abdominal cramping, headache. Patient is a known insulin dependent diabetes, history of gastroparesis, hyperlipidemia, cyclic vomiting. Patient states she was discharged yesterday from the hospital after a stay for DKA. She describes the headache is sensitive to sound and light, she has no history of migraine headaches according to her. The abdominal cramping started this morning as well she denies any diarrhea however has had nausea and vomiting. Her blood sugar most recently checked was in the 180s at home. Review of Systems Review of Systems Constitutional: Denies fever or chills [] Respiratory: Denies cough or shortness of breath [] Cardiovascular: No additional information not addressed in HPI [] GI: + abdominal pain, nausea, vomiting, no bloody stools or diarrhea [] : Denies dysuria or hematuria [] Musculoskeletal: Denies back pain or joint pain [] Integument: Denies rash or skin lesions [] Neurologic: + headache, focal weakness or sensory changes [] All other systems were reviewed and found to be within normal limits, except as documented in this note. Current Medications Current Medications Current Medications Medications (Trade) Dose Ordered Sig/Lori Start Time Stop Time Status Last Admin Dose Admin Dextrose (Dextrose 50%-Water Syringe) 12.5 gm PRN Q15MIN PRN 03/27/19 00:45 Dextrose (Iv Dextrose 5%) 250 ml PRN Q15MIN PRN 03/27/19 00:45 Dicyclomine HCl (Bentyl) 10 mg 1X ONCE 03/27/19 00:30 03/27/19 00:31 DC 03/27/19 00:31 10 MG Diphenhydramine HCl (Benadryl) 50 mg 1X ONCE 03/27/19 00:30 03/27/19 00:31 DC 03/27/19 00:30 50 MG Insulin Human Regular 100 ml @ 0 mls/hr 1X ONCE 03/27/19 01:00 03/27/19 01:01 DC 03/27/19 01:57 6 MLS/HR Insulin Human Regular (HumuLIN R VIAL) 10 unit 1X ONCE 03/27/19 01:00 03/27/19 01:01 DC 03/27/19 01:54 10 UNIT Insulin Human Regular 100 unit/ Sodium Chloride 101 ml @ 0 mls/hr CONT PRN PRN 03/27/19 01:15 Ketorolac Tromethamine (Toradol 30mg Vial) 30 mg 1X ONCE 03/27/19 00:30 03/27/19 00:31 DC 03/27/19 00:39 30 MG Metoclopramide HCl (Reglan Vial) 10 mg 1X ONCE 03/27/19 00:30 03/27/19 00:31 DC 03/27/19 00:39 10 MG Morphine Sulfate (Morphine Sulfate) 2 mg PRN Q2HR PRN 03/27/19 01:45 03/28/19 01:44 Ondansetron HCl (Zofran Odt) 4 mg 1X ONCE 03/26/19 22:00 03/26/19 22:01 DC 03/26/19 21:51 4 MG Ondansetron HCl (Zofran) 4 mg PRN Q8HRS PRN 03/27/19 01:45 03/28/19 01:44 Potassium Chloride/Water 100 ml @ 100 mls/hr PRN Q1HR PRN 03/27/19 01:15 Sodium Chloride 1,000 ml @ 1,000 mls/hr Q1H 03/26/19 23:30 03/27/19 00:29 DC 03/26/19 01:00 1,000 MLS/HR Allergies Allergies Allergies Coded Allergies Type Severity Reaction Last Updated Verified No Known Drug Allergies 12/25/18 No Physical Exam Physical Exam Constitutional: Well developed, well nourished,distress 2/2 pain, non-toxic appearance. [] HENT: Normocephalic, atraumatic, bilateral external ears normal, oropharynx moist, no oral exudates, nose normal. [] Eyes: PERRLA, EOMI, conjunctiva normal, no discharge. [] Cardiovascular:Heart rate regular rhythm, no murmur [] Lungs & Thorax: Bilateral breath sounds clear to auscultation [] Abdomen: Bowel sounds normal, soft, tender throughout abdomen, no masses, no pulsatile masses. [] Skin: Warm, dry, no erythema, no rash. [] Back: No tenderness, no CVA tenderness. [] Extremities: No tenderness, no edema. [] Neurologic: Alert and oriented X 3, no focal deficits noted. [] Psychologic: Affect normal, judgement normal, mood normal. [] Current Patient Data Vital Signs Vital Signs Date Time Temp Pulse Resp B/P (MAP) Pulse Ox O2 Delivery O2 Flow Rate FiO2 03/27/19 01:30 Room Air 03/26/19 21:45 98.4 83 17 185/113 (137) 97 98.4 Lab Values Laboratory Tests Test 03/26/19 23:25 03/27/19 00:02 03/27/19 01:35 03/27/19 01:44 Urine Collection Type Unknown Urine Color Yellow Urine Clarity Clear Urine pH 7.0 Urine Specific [place] 1.020 Urine Protein Negative mg/dL (NEG-TRACE) Urine Glucose (UA) >=1000 mg/dL (NEG) Urine Ketones (Stick) 15 mg/dL (NEG) Urine Blood Negative (NEG) Urine Nitrite Negative (NEG) Urine Bilirubin Negative (NEG) Urine Urobilinogen Dipstick 0.2 mg/dL (0.2 mg/dL) Urine Leukocyte Esterase Negative (NEG) Urine RBC 0 /HPF (0-2) Urine WBC 1-4 /HPF (0-4) Urine Squamous Epithelial Cells Mod /LPF Urine Bacteria Few /HPF (0-FEW) Urine Mucus Slight /LPF White Blood Count 5.4 x10^3/uL (4.0-11.0) Red Blood Count 3.92 x10^6/uL (3.50-5.40) Hemoglobin 11.0 g/dL (12.0-15.5) L Hematocrit 33.3 % (36.0-47.0) L Mean Corpuscular Volume 85 fL (79-100) Mean Corpuscular Hemoglobin 28 pg (25-35) Mean Corpuscular Hemoglobin Concent 33 g/dL (31-37) Red Cell Distribution Width 17.1 % (11.5-14.5) H Platelet Count 341 x10^3/uL (140-400) Neutrophils (%) (Auto) 58 % (31-73) Lymphocytes (%) (Auto) 32 % (24-48) Monocytes (%) (Auto) 7 % (0-9) Eosinophils (%) (Auto) 2 % (0-3) Basophils (%) (Auto) 1 % (0-3) Neutrophils # (Auto) 3.1 x10^3/uL (1.8-7.7) Lymphocytes # (Auto) 1.7 x10^3/uL (1.0-4.8) Monocytes # (Auto) 0.4 x10^3/uL (0.0-1.1) Eosinophils # (Auto) 0.1 x10^3/uL (0.0-0.7) Basophils # (Auto) 0.0 x10^3/uL (0.0-0.2) Sodium Level 137 mmol/L (136-145) Potassium Level 4.0 mmol/L (3.5-5.1) Chloride Level 100 mmol/L (98-107) Carbon Dioxide Level 26 mmol/L (21-32) Anion Gap 11 (6-14) Blood Urea Nitrogen 8 mg/dL (7-20) Creatinine 0.8 mg/dL (0.6-1.0) Estimated GFR (Cockcroft-Gault) 78.3 BUN/Creatinine Ratio 10 (6-20) Glucose Level 419 mg/dL (70-99) H Calcium Level 8.5 mg/dL (8.5-10.1) Phosphorus Level 2.8 mg/dL (2.6-4.7) Magnesium Level 1.7 mg/dL (1.8-2.4) L Total Bilirubin 0.2 mg/dL (0.2-1.0) Aspartate Amino Transferase (AST) 48 U/L (15-37) H Alanine Aminotransferase (ALT) 143 U/L (14-59) H Alkaline Phosphatase 198 U/L (46-116) H Total Protein 6.2 g/dL (6.4-8.2) L Albumin 3.0 g/dL (3.4-5.0) L Albumin/Globulin Ratio 0.9 (1.0-1.7) L Acetone Level Sm pos (NEG) O2 Saturation 96 % (92-99) Arterial Blood pH 7.39 (7.35-7.45) Arterial Blood pCO2 at Patient Temp 39 mmHg (35-46) Arterial Blood pO2 at Patient Temp 86 mmHg (75-108) Arterial Blood HCO3 23 mmol/L (21-28) Arterial Blood Base Excess -1 mmol/L (-3-3) FiO2 21 Glucose (Fingerstick) 361 mg/dL (70-99) H Laboratory Tests 03/27/19 00:02 Laboratory Tests 03/27/19 00:02 EKG EKG [] Radiology/Procedures Radiology/Procedures KUB negative without evidence of acute obstructive process[] Course & Med Decision Making Course & Med Decision Making Pertinent Labs and Imaging studies reviewed. (See chart for details) []44-year-old female presents to the emergency department with complaints of abdominal cramping, headache. Patient is a known insulin dependent diabetes, history of gastroparesis, hyperlipidemia, cyclic vomiting. Patient states she was discharged yesterday from the hospital after a stay for DKA. She describes the headache is sensitive to sound and light, she has no history of migraine headaches according to her. The abdominal cramping started this morning as well she denies any diarrhea however has had nausea and vomiting. Her blood sugar most recently checked was in the 180s at home. Patient with intractable N/V within ER She complained headache as well. Benadryl/Reglan/Toradol provided for SUGGS Bentyl provided for abdominal cramping Labs reviewed she has mild DKA appreciated with small amount of serum ketones, pH7.36 (normal), anion gap 11, BS 410 Recommend insulin drip at this time PRN pain medication however defer to primary team as narcotics are not the primary treatment for gastroparesis Admit and further evaluation. KUB negative for acute process Dragon Disclaimer Dragon Disclaimer This electronic medical record was generated, in whole or in part, using a voice recognition dictation system. Departure Departure Referrals: BG JULIAN NP (PCP) JAYSON JEFF MD Mar 26, 2019 23:38
[2019-03-26 23:44] LABS: SQUAMOUS EPITHELIAL CELL,UR MOD /LPF
[2019-03-26 23:45] LABS: BACTERIA,URINE FEW /HPF (0-FEW); RBC,URINE 0 /HPF (0-2)
[2019-03-27 00:16] LABS: BASO % 1 % (0-3); EOS # 0.1 x10^3/uL (0.0-0.7); EOS % 2 % (0-3); HEMATOCRIT 33.3 % (36.0-47.0); LYMPH # 1.7 x10^3/uL (1.0-4.8); LYMPH % 32 % (24-48); MEAN CORPUSCULAR HEMOGLOBIN 28 pg (25-35); MEAN CORPUSCULAR HGB CONC 33 g/dL (31-37); MEAN CORPUSCULAR VOLUME 85 fL (79-100); MONO # 0.4 x10^3/uL (0.0-1.1); MONO % 7 % (0-9); NEUT # 3.1 x10^3/uL (1.8-7.7); NEUT % 58 % (31-73); PLATELET COUNT 341 x10^3/uL (140-400); RED BLOOD COUNT 3.92 x10^6/uL (3.50-5.40); RED CELL DISTRIBUTION WIDTH 17.1 % (11.5-14.5); WHITE BLOOD COUNT 5.4 x10^3/uL (4.0-11.0)
[2019-03-27 00:25] LABS: CALCIUM 8.5 mg/dL (8.5-10.1); CREATININE 0.8 mg/dL (0.6-1.0); GFR 78.3
[2019-03-27] MEDS ORDERED: KETOROLAC 30 MG/ML VIAL. IVP ONE (00:30)
[2019-03-27] MEDS ORDERED: DICYCLOMINE 20 MG/2 ML AMPUL. IM ONE (00:30)
[2019-03-27] MEDS ORDERED: METOCLOPRAMIDE HCL 10 MG/2 ML VIAL. IVP ONE (00:30)
[2019-03-27] MEDS ORDERED: diphenhydrAMINE 50 MG/ML VIAL IVP ONE ×2 (00:30)
[2019-03-27 00:31] LABS: ALBUMIN/GLOBULIN RATIO 0.9 (1.0-1.7); TOTAL BILIRUBIN 0.2 mg/dL (0.2-1.0); TOTAL PROTEIN 6.2 g/dL (6.4-8.2)
[2019-03-27] MEDS ORDERED: IV DEXTROSE 5% 250 ML BAG. IV PRN ×2 (00:45→05:45)
[2019-03-27] MEDS ORDERED: DEXTROSE 50% 25 GM / 50ML DISP.SYRIN. IV PRN ×2 (00:45→05:45)
[2019-03-27] MEDS ORDERED: INSULIN,REGULAR 100 UNIT DRIP 100 ML IV ONE (01:00)
[2019-03-27] MEDS ORDERED: INSULIN REGULAR 100 UNIT/ML 3ML VIAL. IV ONE (01:00)
[2019-03-27] MEDS ORDERED: POTASSIUM CHLORIDE 10MEQ 100 ML IV PRN ×3 (01:15)
[2019-03-27] MEDS ORDERED: INSULIN REGULAR VIAL 100 UNIT in IV NORMAL SALINE 100ML 100 ML IV PRN (01:15)
[2019-03-27 01:36] LABS: BASE EXCESS ABG -1 mmol/L (-3-3); HCO3 ABG 23 mmol/L (21-28); PCO2 ABG 39 mmHg (35-46); PO2 ABG 86 mmHg (75-108); SAT O2 ABG 96 % (92-99)
[2019-03-27 01:45] LABS: FIO2 ABG 21
--- NOTE | 2019-03-27 02:12 | RAD ---
Exam: Abdomen one view INDICATION: Nick pain TECHNIQUE: Frontal view of the abdomen Comparisons: 12/26/2018 FINDINGS: Air and stool are noted throughout the colon to level the rectum in a nonobstructive bowel gas pattern. No suspicious masses or calcifications. Surgical clips from prior cholecystectomy noted. Visualized osseous structures are unremarkable. IMPRESSION: Nonobstructive bowel gas pattern. Electronically signed by: Jaun Chan MD (03/27/2019 2:09 AM) [id number]
[2019-03-27 02:22] VITALS: BP 135/63
[2019-03-27] MEDS: MORPHINE SULFATE 2 MG/ML VIAL. IV PRN ×2 (03:11→05:50)
[2019-03-27] MEDS ORDERED: INSULIN GLARGINE SYRINGE. SQ ONE (06:00)
[2019-03-27] MEDS: ONDANSETRON PF 4 MG/2 ML VIAL. IV PRN ×2 (06:30→21:20)
[2019-03-27 07:00] VITALS: BP 173/82
[2019-03-27] MEDS ORDERED: INSULIN LISPRO 300 UNITS/3 ML VIAL. SQ SCH (07:30)
[2019-03-27] MEDS ORDERED: POLYETHYLENE GLYCOL 3350 17 GM PACKET. PO PRN (08:00)
[2019-03-27] MEDS: INSULIN LISPRO 300 UNITS/3 ML VIAL. SQ SCH ×6 (08:00→17:00)
[2019-03-27] MEDS ORDERED: ONDANSETRON ODT 4 MG TAB.RAPDIS. PO PRN (08:00)
[2019-03-27] MEDS ORDERED: DICYCLOMINE HCL 10 MG CAPSULE PO PRN (08:00)
[2019-03-27 08:28] LABS: CALCIUM 9.2 mg/dL (8.5-10.1); CREATININE 0.9 mg/dL (0.6-1.0); GFR 68.3; POTASSIUM 3.4 mmol/L (3.5-5.1)
--- NOTE | 2019-03-27 08:28 | PDOC1 ---
History and Physical Date of Admission Date of Admission DATE: 03/27/19 TIME: 08:03 Identification/Chief Complaint Chief Complaint Nausea and vomiting Source Source: Patient History of Present Illness History of Present Illness Ms Garcia is a 43-year-old female w/ PMHx Anxiety, Cyclic Vomiting, Diabetes- Type I, High Cholesterol, gastroparesis who complaints of abdominal cramping, headache, nausea and vomiting, found in DKA. She was hospitalized at [facility] a number of times for DKA and chest pain complaints, just discharged yesterday. Since she left the hospital she has been laying in bed and started having headaches. She feels like she can't walk across the without feeling fatigue and pain. She says that she is compliant with her diabetes mediations and has been checking her sugars and they have been 200-300, which is normal for her. Glucose 419 anion gap 27. Started on insulin GTT and IVF begun in ED. Overnight her gap closed, still with headache. Past Medical History Cardiovascular: Hyperlipidemia Pulmonary: No pertinent hx GI: Other Heme/Onc: No pertinent hx Hepatobiliary: Other Psych: Addictions Endocrine: Diabetes Past Surgical History Past Surgical History: Cholecystectomy, Hysterectomy Family History Family History: Chronic Bronchitis, High Cholestrol Social History Smoke: 1 pack per day ALCOHOL: none Drugs: Marijuana Current Problem List Problem List Problems Medical Problems: (1) DKA (diabetic ketoacidoses) Status: Acute (2) Gastroparesis Status: Acute Current Medications Current Medications Current Medications Ondansetron HCl (Zofran Odt) 4 mg 1X ONCE PO Last administered on 03/26/19at 21:51; Start 03/26/19 at 22:00; Stop 03/26/19 at 22:01; Status DC Sodium Chloride 1,000 ml @ 1,000 mls/hr Q1H IV Last administered on 03/26/19at 01:00; Start 03/26/19 at 23:30; Stop 03/27/19 at 00:29; Status DC Ondansetron HCl (Zofran) 4 mg 1X ONCE IV Last administered on 03/27/19at 00:15; Start 03/26/19 at 23:30; Stop 03/26/19 at 23:31; Status DC Diphenhydramine HCl (Benadryl) 25 mg 1X ONCE IVP ; Start 03/27/19 at 00:30; Stop 03/27/19 at 00:31; Status Cancel Dicyclomine HCl (Bentyl) 10 mg 1X ONCE IM Last administered on 03/27/19at 00:31; Start 03/27/19 at 00:30; Stop 03/27/19 at 00:31; Status DC Metoclopramide HCl (Reglan Vial) 10 mg 1X ONCE IVP Last administered on 03/27/19at 00:39; Start 03/27/19 at 00:30; Stop 03/27/19 at 00:31; Status DC Ketorolac Tromethamine (Toradol 30mg Vial) 30 mg 1X ONCE IVP Last administered on 03/27/19at 00:39; Start 03/27/19 at 00:30; Stop 03/27/19 at 00:31; Status DC Diphenhydramine HCl (Benadryl) 50 mg 1X ONCE IVP Last administered on 1 05/28/18at 00:30; Start 03/27/19 at 00:30; Stop 03/27/19 at 00:31; Status DC Insulin Human Regular (HumuLIN R VIAL) 10 unit 1X ONCE IV Last administered on 03/27/19at 01:54; Start 03/27/19 at 01:00; Stop 03/27/19 at 01:01; Status DC Insulin Human Regular 100 ml @ 0 mls/hr 1X ONCE IV Last administered on 03/27/19at 01:57; Start 03/27/19 at 01:00; Stop 03/27/19 at 01:01; Status DC Dextrose (Dextrose 50%-Water Syringe) 12.5 gm PRN Q15MIN PRN IV LOW BLOOD SUGAR; Start 03/27/19 at 00:45 Dextrose (Iv Dextrose 5%) 250 ml PRN Q15MIN PRN IV LOW BLOOD SUGAR; Start 03/27/19 at 00:45 Insulin Human Regular 100 unit/ Sodium Chloride 101 ml @ 0 mls/hr CONT PRN PRN IV PER PROTOCOL; Start 03/27/19 at 01:15; Stop 03/27/19 at 05:40; Status DC Potassium Chloride/Water 100 ml @ 100 mls/hr PRN Q1HR PRN IV SEE COMMENTS; Start 03/27/19 at 01:15 Potassium Chloride/Water 100 ml @ 100 mls/hr PRN Q1HR PRN IV SEE COMMENTS; Start 03/27/19 at 01:15 Potassium Chloride/Water 100 ml @ 100 mls/hr PRN Q1HR PRN IV SEE COMMENTS; Start 03/27/19 at 01:15 Ondansetron HCl (Zofran) 4 mg PRN Q8HRS PRN IV NAUSEA/VOMITING Last administered on 03/27/19at 06:30; Start 03/27/19 at 01:45; Stop 03/28/19 at 01:44 Morphine Sulfate (Morphine Sulfate) 2 mg PRN Q2HR PRN IV PAIN Last administered on 03/27/19at 05:50; Start 03/27/19 at 01:45; Stop 03/27/19 at 06:41; Status DC Insulin Glargine (Lantus Syringe) 15 unit 1X ONCE SQ Last administered on 03/27/19at 06:34; Start 03/27/19 at 06:00; Stop 03/27/19 at 06:01; Status DC Insulin Human Lispro (HumaLOG) 0-7 UNITS TIDWMEALS SQ ; Start 03/27/19 at 08:00 Dextrose (Dextrose 50%-Water Syringe) 12.5 gm PRN Q15MIN PRN IV SEE COMMENTS; Start 03/27/19 at 05:45 Dextrose (Iv Dextrose 5%) 250 ml PRN Q15MIN PRN IV SEE COMMENTS; Start 1 05/28/18 at 05:45 Insulin Human Lispro (HumaLOG) 3 units TIDAC SQ ; Start 03/27/19 at 07:30 Ketorolac Tromethamine (Toradol 30mg Vial) 30 mg PRN Q8HRS PRN IVP PAIN; Start 03/27/19 at 06:45; Stop 04/01/19 at 06:44 Active Scripts Active Humalog (Insulin Lispro) 100 Unit/1 Ml Insuln.pen 12 Units SQ TIDWMEALS 30 Days Lantus (Insulin Glargine,Hum.rec.anlog) 100 Unit/1 Ml Vial 30 Unit SQ QHS 30 Days Ondansetron Odt (Ondansetron) 4 Mg Tab.rapdis 4 Mg PO PRN Q6HRS PRN 14 Days [Nicotine 21MG] 1 PATCH Patch 1 Patch TD PRN DAILY PRN 28 Days Dicyclomine Hcl 10 Mg Capsule 10 Mg PO QID PRN 30 Days Promethazine Hcl 25 Mg Tablet 1 Tab PO PRN Q6HRS Duoneb 0.5-3(2.5) Mg/3 Ml (Albuterol/Ipratropium) 3 Ml Ampul.neb 3 Ml NEB RTQID 30 Days Norvasc (Amlodipine Besylate) 5 Mg Tablet 5 Mg PO DAILY 30 Days Polyethylene Glycol 3350 17 Gm Powd.pack 17 Gm PO PRN DAILY PRN 14 Days Pain Reliever Plus Tablet (Aspirin/Acetaminophen/Caffeine) 1 Each Tablet 2 Tab PO PRN Q6HRS PRN 10 Days Famotidine 20 Mg Tablet 20 Mg PO DAILY MDD 1 Reported Protonix (Pantoprazole Sodium) 20 Mg Tablet.dr 20 Mg PO DAILY Allergies Allergies: Coded Allergies: No Known Drug Allergies (Unverified , 12/25/18) ROS General: YES: Fatigue, Malaise; No: Chills, Night Sweats, Appetite, Other PSYCHOLOGICAL ROS: YES: Anxiety; No: Behavioral Disorder, Concentration difficultie, Decreased libido, Depression, Disorientation, Hallucinations, Hostility, Irritablity, Memory difficulties, Mood Swings, Obsessive thoughts, Physical abuse, Sexual abuse, Sleep disturbances, Suicidal ideation, Other Eyes: Yes Blurry vision; No Decreased vision, No Double vision, No Dry eyes, No Excessive tearing, No Eye Pain, No Itchy Eyes, No Loss of vision, No Photophobia, No Scotomata, No Uses contacts, No Uses glasses, No Other HEENT: YES: Heacaches; No: Visual Changes, Hearing change, Nasal congestion, Nasal discharge, Oral lesions, Sinus pain, Sore Throat, Epistaxis, Sneezing, Snoring, Tinnitus, Vertigo, Vocal changes, Other ALLERGY AND IMMUNOLOGY: No: Hives, Insect Bite Sensitivity, Itchy/Watery Eyes, Nasal Congestion, Post Nasal Drip, Seasonal Allergies, Other Hematological and Lymphatic: No: Bleeding Problems, Blood Clots, Blood Transfusions, Brusing, Night Sweats, Pallor, Swollen Lymph Nodes, Other ENDOCRINE: No: Breast Changes, Galactorrhea, Hair Pattern Changes, Hot Flashes, Malaise/lethargy, Mood Swings, Palpitations, Polydipsia/polyuria, Skin Changes, Temperature Intolerance, Unexpected Weight Changes, Other Breast: No New/Changing Breast Lumps, No Nipple changes, No Nipple discharge, No Other Respiratory: No: Cough, Hemoptysis, Orthopnea, Pleuritic Pain, Shortness of breath, SOB with excertion, Sputum Changes, Stridor, Tachypnea, Wheezing, Other Cardiovascular: No Chest Pain, No Palpitations, No Orthopnea, No Paroxysmal Noc. Dyspnea, No Edema, No Lt Headedness, No Other Gastrointestinal: Yes Nausea, Yes Vomiting, Yes Abdominal Pain; No Diarrhea, No Constipation, No Melena, No Hematochezia, No Other Genitourinary: No Dysuria, No Frequency, No Incontinence, No Hematuria, No Retention, No Discharge, No Urgency, No Pain, No Flank Pain, No Other, No , No , No , No , No , No , No Musculoskeletal: No Gait Disturbance, No Joint Pain, No Joint Stiffness, No Joint Swelling, No Muscle Pain, No Muscular Weakness, No Pain In:, No Swelling In:, No Other Neurological: No Behavorial Changes, No Bowel/Bladder ControlChng, No Confusion, No Dizziness, No Gait Disturbance, No Headaches, No Impaired Coord/balance, No Memory Loss, No Numbness/Tingling, No Seizures, No Speech Problems, No Tremors, No Visual Changes, No Weakness, No Other Skin: No Dry Skin, No Eczema, No Hair Changes, No Lumps, No Mole Changes, No Mottling, No Nail Changes, No Pruritus, No Rash, No Skin Lesion Changes, No Other, No Acne Physical Exam General: Alert, Oriented X3, Cooperative, mild distress HEENT: Atraumatic, PERRLA, EOMI, Mucous membr. moist/pink Lungs: Clear to auscultation, Normal air movement Heart: S1S2, RRR, no thrills, no rubs, no gallops, no murmurs Abdomen: Normal bowel sounds, Soft, No tenderness, No hepatosplenomegaly, No masses Extremities: No clubbing, No cyanosis, No edema, Normal pulses, No tenderness/swelling Skin: No rashes, No breakdown, No significant lesion Neuro: Normal gait, Normal speech, Strength at 5/5 X4 ext, Normal tone, Sensati on intact, Cranial nerves 3-12 NL, Reflexes 2+ Psych/Mental Status: Mental status NL, Mood NL Vitals Vitals Vital Signs Date Time Temp Pulse Resp B/P (MAP) Pulse Ox O2 Delivery O2 Flow Rate FiO2 03/27/19 02:30 Room Air 03/27/19 02:22 98.0 94 18 135/63 (87) 100 98.0 Labs Labs Laboratory Tests Test 03/26/19 23:25 03/27/19 00:02 03/27/19 01:35 03/27/19 01:44 Urine Collection Type Unknown Urine Color Yellow Urine Clarity Clear Urine pH 7.0 Urine Specific [place] 1.020 Urine Protein Negative mg/dL (NEG-TRACE) Urine Glucose (UA) >=1000 mg/dL (NEG) Urine Ketones (Stick) 15 mg/dL (NEG) Urine Blood Negative (NEG) Urine Nitrite Negative (NEG) Urine Bilirubin Negative (NEG) Urine Urobilinogen Dipstick 0.2 mg/dL (0.2 mg/dL) Urine Leukocyte Esterase Negative (NEG) Urine RBC 0 /HPF (0-2) Urine WBC 1-4 /HPF (0-4) Urine Squamous Epithelial Cells Mod /LPF Urine Bacteria Few /HPF (0-FEW) Urine Mucus Slight /LPF White Blood Count 5.4 x10^3/uL (4.0-11.0) Red Blood Count 3.92 x10^6/uL (3.50-5.40) Hemoglobin 11.0 g/dL (12.0-15.5) Hematocrit 33.3 % (36.0-47.0) Mean Corpuscular Volume 85 fL (79-100) Mean Corpuscular Hemoglobin 28 pg (25-35) Mean Corpuscular Hemoglobin Concent 33 g/dL (31-37) Red Cell Distribution Width 17.1 % (11.5-14.5) Platelet Count 341 x10^3/uL (140-400) Neutrophils (%) (Auto) 58 % (31-73) Lymphocytes (%) (Auto) 32 % (24-48) Monocytes (%) (Auto) 7 % (0-9) Eosinophils (%) (Auto) 2 % (0-3) Basophils (%) (Auto) 1 % (0-3) Neutrophils # (Auto) 3.1 x10^3/uL (1.8-7.7) Lymphocytes # (Auto) 1.7 x10^3/uL (1.0-4.8) Monocytes # (Auto) 0.4 x10^3/uL (0.0-1.1) Eosinophils # (Auto) 0.1 x10^3/uL (0.0-0.7) Basophils # (Auto) 0.0 x10^3/uL (0.0-0.2) Sodium Level 137 mmol/L (136-145) Potassium Level 4.0 mmol/L (3.5-5.1) Chloride Level 100 mmol/L (98-107) Carbon Dioxide Level 26 mmol/L (21-32) Anion Gap 11 (6-14) Blood Urea Nitrogen 8 mg/dL (7-20) Creatinine 0.8 mg/dL (0.6-1.0) Estimated GFR (Cockcroft-Gault) 78.3 BUN/Creatinine Ratio 10 (6-20) Glucose Level 419 mg/dL (70-99) Calcium Level 8.5 mg/dL (8.5-10.1) Phosphorus Level 2.8 mg/dL (2.6-4.7) Magnesium Level 1.7 mg/dL (1.8-2.4) Total Bilirubin 0.2 mg/dL (0.2-1.0) Aspartate Amino Transf (AST/SGOT) 48 U/L (15-37) Alanine Aminotransferase (ALT/SGPT) 143 U/L (14-59) Alkaline Phosphatase 198 U/L (46-116) Total Protein 6.2 g/dL (6.4-8.2) Albumin 3.0 g/dL (3.4-5.0) Albumin/Globulin Ratio 0.9 (1.0-1.7) Acetone Level Sm pos (NEG) O2 Saturation 96 % (92-99) Arterial Blood pH 7.39 (7.35-7.45) Arterial Blood pCO2 at Patient Temp 39 mmHg (35-46) Arterial Blood pO2 at Patient Temp 86 mmHg (75-108) Arterial Blood HCO3 23 mmol/L (21-28) Arterial Blood Base Excess -1 mmol/L (-3-3) FiO2 21 Glucose (Fingerstick) 361 mg/dL (70-99) Test 03/27/19 02:51 03/27/19 04:02 03/27/19 05:06 03/27/19 06:17 Glucose (Fingerstick) 190 mg/dL (70-99) 117 mg/dL (70-99) 135 mg/dL (70-99) 120 mg/dL (70-99) Laboratory Tests Test 03/26/19 23:25 03/27/19 00:02 03/27/19 01:35 03/27/19 01:44 Urine Collection Type Unknown Urine Color Yellow Urine Clarity Clear Urine pH 7.0 Urine Specific [place] 1.020 Urine Protein Negative mg/dL (NEG-TRACE) Urine Glucose (UA) >=1000 mg/dL (NEG) Urine Ketones (Stick) 15 mg/dL (NEG) Urine Blood Negative (NEG) Urine Nitrite Negative (NEG) Urine Bilirubin Negative (NEG) Urine Urobilinogen Dipstick 0.2 mg/dL (0.2 mg/dL) Urine Leukocyte Esterase Negative (NEG) Urine RBC 0 /HPF (0-2) Urine WBC 1-4 /HPF (0-4) Urine Squamous Epithelial Cells Mod /LPF Urine Bacteria Few /HPF (0-FEW) Urine Mucus Slight /LPF White Blood Count 5.4 x10^3/uL (4.0-11.0) Red Blood Count 3.92 x10^6/uL (3.50-5.40) Hemoglobin 11.0 g/dL (12.0-15.5) Hematocrit 33.3 % (36.0-47.0) Mean Corpuscular Volume 85 fL (79-100) Mean Corpuscular Hemoglobin 28 pg (25-35) Mean Corpuscular Hemoglobin Concent 33 g/dL (31-37) Red Cell Distribution Width 17.1 % (11.5-14.5) Platelet Count 341 x10^3/uL (140-400) Neutrophils (%) (Auto) 58 % (31-73) Lymphocytes (%) (Auto) 32 % (24-48) Monocytes (%) (Auto) 7 % (0-9) Eosinophils (%) (Auto) 2 % (0-3) Basophils (%) (Auto) 1 % (0-3) Neutrophils # (Auto) 3.1 x10^3/uL (1.8-7.7) Lymphocytes # (Auto) 1.7 x10^3/uL (1.0-4.8) Monocytes # (Auto) 0.4 x10^3/uL (0.0-1.1) Eosinophils # (Auto) 0.1 x10^3/uL (0.0-0.7) Basophils # (Auto) 0.0 x10^3/uL (0.0-0.2) Sodium Level 137 mmol/L (136-145) Potassium Level 4.0 mmol/L (3.5-5.1) Chloride Level 100 mmol/L (98-107) Carbon Dioxide Level 26 mmol/L (21-32) Anion Gap 11 (6-14) Blood Urea Nitrogen 8 mg/dL (7-20) Creatinine 0.8 mg/dL (0.6-1.0) Estimated GFR (Cockcroft-Gault) 78.3 BUN/Creatinine Ratio 10 (6-20) Glucose Level 419 mg/dL (70-99) Calcium Level 8.5 mg/dL (8.5-10.1) Phosphorus Level 2.8 mg/dL (2.6-4.7) Magnesium Level 1.7 mg/dL (1.8-2.4) Total Bilirubin 0.2 mg/dL (0.2-1.0) Aspartate Amino Transf (AST/SGOT) 48 U/L (15-37) Alanine Aminotransferase (ALT/SGPT) 143 U/L (14-59) Alkaline Phosphatase 198 U/L (46-116) Total Protein 6.2 g/dL (6.4-8.2) Albumin 3.0 g/dL (3.4-5.0) Albumin/Globulin Ratio 0.9 (1.0-1.7) Acetone Level Sm pos (NEG) O2 Saturation 96 % (92-99) Arterial Blood pH 7.39 (7.35-7.45) Arterial Blood pCO2 at Patient Temp 39 mmHg (35-46) Arterial Blood pO2 at Patient Temp 86 mmHg (75-108) Arterial Blood HCO3 23 mmol/L (21-28) Arterial Blood Base Excess -1 mmol/L (-3-3) FiO2 21 Glucose (Fingerstick) 361 mg/dL (70-99) Test 03/27/19 02:51 03/27/19 04:02 03/27/19 05:06 03/27/19 06:17 Glucose (Fingerstick) 190 mg/dL (70-99) 117 mg/dL (70-99) 135 mg/dL (70-99) 120 mg/dL (70-99) Images Images KUB - Air and stool are noted throughout the colon to level the rectum in a nonobstructive bowel gas pattern. No suspicious masses or calcifications. Surgical clips from prior cholecystectomy noted. Visualized osseous structures are unremarkable. IMPRESSION: Nonobstructive bowel gas pattern. VTE Prophylaxis Ordered VTE Prophylaxis Devices: No VTE Pharmacological Prophylaxi: Yes Assessment/Plan Assessment/Plan A/P: DKA - insulin GTT. Q6 hours BMP and phos, mag, replacement protocol. Gap closed. Ok to eat and get back on home insulin regimen Intractable headache - she takes excedrin migraine outpatient, denies migraines. Toradol and compazine for now. CT head for worst headache of life Nausea and vomiting - likely cannabis hyperemesis plus some element of gastroparesis. Will treat expectantly with IV antiemetics Chest pain - improved from prior. Now left shoulder pain, will trend troponins Hx THC ABUSE - counseled cessation will help her cyclic vomiting Transaminitis - mild, notably recurrent. Will check lipids, TSH, ferritin Anemia - related to diabetes, will check iron Anxiety - previously on too much ativan, will start on prn buspar TID FEN - ADA diet PPX - lovenox FULL CODE Dispo - Med/Tele, can downgrade to med/surg when DKA resolves completely MACK GUIDRY MD Mar 27, 2019 08:28
[2019-03-27] MEDS: KETOROLAC 30 MG/ML VIAL. IVP PRN ×2 (08:34→16:53)
[2019-03-27 08:45] LABS: ALBUMIN 2.9 g/dL (3.4-5.0); DIRECT BILIRUBIN 0.1 mg/dL (0.0-0.2); TOTAL BILIRUBIN 0.2 mg/dL (0.2-1.0); TOTAL PROTEIN 6.1 g/dL (6.4-8.2)
[2019-03-27] MEDS: IPRATRPIUM/ALBUTEROL 0.5/2.5MG 3 ML NEBU. NEB SCH ×4 (08:54→20:00)
[2019-03-27] MEDS ORDERED: MAGNESIUM SULFATE 2GM 50 ML IV ONE (09:00)
[2019-03-27] MEDS ORDERED: NICOTINE 21MG PATCH. TD PRN (09:00)
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
[2019-03-27 09:02] LABS: CHOLESTEROL/HDL RATIO 4.1
[2019-03-27 09:16] LABS: BARBITURATES NEG (NEG); BENZODIAZEPINES NEG (NEG); CANNABINOIDS POS (NEG); COCAINE NEG (NEG); METHADONE NEG (NEG); OPIATES NEG (NEG); PHENCYCLIDINE NEG (NEG)
[2019-03-27 09:17] LABS: AMPHETAMINE/METHAMPHETAMINE NEG (NEG)
[2019-03-27] MEDS: FAMOTIDINE 20 MG TABLET. PO SCH (10:04)
[2019-03-27] MEDS: amLODIPine BESYLATE 5 MG TABLET PO SCH (10:04)
[2019-03-27] MEDS: PROCHLORPERAZINE 10 MG/2 ML VIAL. IV PRN ×3 (10:05→23:09)
[2019-03-27 11:00] VITALS: BP 127/55
[2019-03-27] MEDS ORDERED: POTASSIUM BICARB 20 MEQ EFFERVESCENT TABLET. PO ONE (11:15)
[2019-03-27] MEDS ORDERED: BISACODYL 10 MG SUPP.RECT. PR PRN (11:45)
[2019-03-27] MEDS: PROMETHAZINE 12.5 MG TABLET. PO PRN (12:51)
[2019-03-27] MEDS: busPIRone 10 MG TABLET. PO PRN ×2 (12:51→19:54)
[2019-03-27] MEDS: ASA/APAP/CAFFEINE 250/250/65MG TABLET. PO PRN ×2 (12:52→19:52)
--- NOTE | 2019-03-27 13:25 | RAD ---
CT HEAD AND CERVICAL SPINE WO Date: 03/27/2019 11:06 AM Clinical Indication: Worst headache of life Comparison: None. Technique: 5 mm axial tomographic images were obtained of the head without contrast. These were viewed on brain and bone windows. CT imaging of the cervical spine was performed without contrast. Coronal and sagittal reformatted images were performed. One or more of the following dose reduction techniques were utilized: Automated exposure control (AEC), Adjustment of mA and/or kV according to patient size, Use of iterative reconstruction technique such as ASiR, CT scan done according to ALARA and image gently/image wisely HEAD FINDINGS: The brain parenchyma is normal in attenuation. No intra- or extra-axial mass or fluid collection. No acute hemorrhage. The ventricles are normal in size, shape, and morphology. The godinez-white matter junction is normal. The basilar cisterns are patent. The visualized paranasal sinuses are normal. The visualized portions of the orbits and globes are normal. The mastoid air cells are clear. No aggressive osseous lesion or fracture. CERVICAL SPINE FINDINGS: Straightening of the cervical lordosis. No acute fracture. No aggressive lytic or blastic osseous lesion. Mild multilevel degenerative disc height loss, moderate at C5-6 and C6-7. No high-grade spinal canal stenosis or neural foraminal narrowing. The thyroid gland is normal. No cervical lymphadenopathy. The visualized aerodigestive tract is unremarkable. The visualized lung apices are clear. IMPRESSION: 1. No acute intracranial process. 2. No acute osseous abnormality of the cervical spine. Electronically signed by: Bonifacio Cedillo MD (03/27/2019 1:22 PM) [id number]
[2019-03-27 15:00] VITALS: BP 145/67
[2019-03-27 19:40] VITALS: BP 98/65
[2019-03-27] MEDS: METOCLOPRAMIDE HCL 10 MG/2 ML VIAL. IVP PRN (19:52)
[2019-03-27] MEDS ORDERED: INSULIN LISPRO 300 UNITS/3 ML VIAL. SQ ONE (21:30)
[2019-03-27] MEDS: INSULIN GLARGINE SYRINGE. SQ SCH (23:17)
[2019-03-27 23:36] VITALS: BP 182/79
[2019-03-28] MEDS ORDERED: CALCIUM CARBONATE 500 MG TAB.CHEW PO PRN
[2019-03-28] MEDS: KETOROLAC 30 MG/ML VIAL. IVP PRN (00:58)
[2019-03-28 03:17] LABS: BASO % 0 % (0-3); EOS # 0.2 x10^3/uL (0.0-0.7); EOS % 3 % (0-3); HEMATOCRIT 32.5 % (36.0-47.0); HEMOGLOBIN 10.8 g/dL (12.0-15.5); LYMPH # 2.6 x10^3/uL (1.0-4.8); LYMPH % 40 % (24-48); MEAN CORPUSCULAR HEMOGLOBIN 28 pg (25-35); MEAN CORPUSCULAR HGB CONC 33 g/dL (31-37); MEAN CORPUSCULAR VOLUME 85 fL (79-100); MONO # 0.7 x10^3/uL (0.0-1.1); MONO % 10 % (0-9); NEUT # 3.1 x10^3/uL (1.8-7.7); NEUT % 47 % (31-73); PLATELET COUNT 382 x10^3/uL (140-400); RED BLOOD COUNT 3.84 x10^6/uL (3.50-5.40); RED CELL DISTRIBUTION WIDTH 17.5 % (11.5-14.5); WHITE BLOOD COUNT 6.5 x10^3/uL (4.0-11.0)
[2019-03-28 03:33] VITALS: BP 115/52
[2019-03-28 03:47] LABS: ALBUMIN 2.8 g/dL (3.4-5.0); CALCIUM 8.8 mg/dL (8.5-10.1); CREATININE 0.9 mg/dL (0.6-1.0); GFR 68.3; POTASSIUM 3.7 mmol/L (3.5-5.1); TOTAL BILIRUBIN 0.2 mg/dL (0.2-1.0); TOTAL PROTEIN 5.7 g/dL (6.4-8.2)
[2019-03-28 07:00] VITALS: BP 128/71
--- NOTE | 2019-03-28 07:41 | PDOC ---
PROGRESS NOTES Chief Complaint Chief Complaint A/P: DKA - insulin GTT. Q6 hours BMP and phos, mag, replacement protocol. Gap closed. Ok to eat and get back on home insulin regimen Intractable headache - she takes excedrin migraine outpatient, denies migraines. Toradol and compazine for now. CT head for worst headache of life was negative Nausea and vomiting - likely cannabis hyperemesis plus some element of gastroparesis. Will treat expectantly with IV antiemetics Chest pain - improved from prior. Now left shoulder pain, will trend troponins Hx THC ABUSE - counseled cessation will help her cyclic vomiting Transaminitis - mild, notably recurrent. Will check lipids, TSH, ferritin Anemia - related to diabetes, will check iron Anxiety - previously on too much ativan, will start on prn buspar TID FEN - ADA diet PPX - lovenox FULL CODE Dispo - Med/Tele, can downgrade to med/surg History of Present Illness History of Present Illness Ms Garcia is a 43-year-old female w/ PMHx Anxiety, Cyclic Vomiting, Diabetes- Type I, High Cholesterol, gastroparesis who complaints of abdominal cramping, headache, nausea and vomiting, found in DKA. She was hospitalized at [facility] a number of times for DKA and chest pain complaints, just discharged yesterday. Since she left the hospital she has been laying in bed and started having headaches. She feels like she can't walk across the without feeling fatigue and pain. She says that she is compliant with her diabetes mediations and has been checking her sugars and they have been 200-300, which is normal for her. Glucose 419 anion gap 27. Started on insulin GTT and IVF begun in ED. Overnight her gap closed, still with headache, noted it was the worst of her life. Underwent CT head and neck, negative for acute pathology, some C5-6 DDD. Feeling only slightly better. Still with vomiting this morning. Lost IV access. She states she really wants to be able to eat. No CP or SOB Vitals Vitals Vital Signs Date Time Temp Pulse Resp B/P (MAP) Pulse Ox O2 Delivery O2 Flow Rate FiO2 03/28/19 03:33 98.3 85 16 115/52 (73) 99 Room Air 98.3 Physical Exam General: Alert, Oriented X3, Cooperative, mild distress Heart: Regular rate, Normal S1, Normal S2 Lungs: Clear, Other Abdomen: Normal bowel sounds, Soft, No tenderness, No hepatosplenomegaly, No masses Extremities: No clubbing, No cyanosis, No edema, Normal pulses, No tenderness/swelling Skin: No rashes, No breakdown, No significant lesion Labs LABS Laboratory Tests Test 03/27/19 07:57 03/27/19 11:09 03/27/19 14:20 03/27/19 16:30 Glucose (Fingerstick) 196 mg/dL (70-99) 434 mg/dL (70-99) 335 mg/dL (70-99) Troponin I Quantitative < 0.017 ng/mL (0.000-0.055) Test 03/27/19 18:20 03/27/19 21:11 03/28/19 03:00 Troponin I Quantitative < 0.017 ng/mL (0.000-0.055) Glucose (Fingerstick) 286 mg/dL (70-99) White Blood Count 6.5 x10^3/uL (4.0-11.0) Red Blood Count 3.84 x10^6/uL (3.50-5.40) Hemoglobin 10.8 g/dL (12.0-15.5) Hematocrit 32.5 % (36.0-47.0) Mean Corpuscular Volume 85 fL (79-100) Mean Corpuscular Hemoglobin 28 pg (25-35) Mean Corpuscular Hemoglobin Concent 33 g/dL (31-37) Red Cell Distribution Width 17.5 % (11.5-14.5) Platelet Count 382 x10^3/uL (140-400) Neutrophils (%) (Auto) 47 % (31-73) Lymphocytes (%) (Auto) 40 % (24-48) Monocytes (%) (Auto) 10 % (0-9) Eosinophils (%) (Auto) 3 % (0-3) Basophils (%) (Auto) 0 % (0-3) Neutrophils # (Auto) 3.1 x10^3/uL (1.8-7.7) Lymphocytes # (Auto) 2.6 x10^3/uL (1.0-4.8) Monocytes # (Auto) 0.7 x10^3/uL (0.0-1.1) Eosinophils # (Auto) 0.2 x10^3/uL (0.0-0.7) Basophils # (Auto) 0.0 x10^3/uL (0.0-0.2) Sodium Level 138 mmol/L (136-145) Potassium Level 3.7 mmol/L (3.5-5.1) Chloride Level 102 mmol/L (98-107) Carbon Dioxide Level 31 mmol/L (21-32) Anion Gap 5 (6-14) Blood Urea Nitrogen 9 mg/dL (7-20) Creatinine 0.9 mg/dL (0.6-1.0) Estimated GFR (Cockcroft-Gault) 68.3 BUN/Creatinine Ratio 10 (6-20) Glucose Level 179 mg/dL (70-99) Calcium Level 8.8 mg/dL (8.5-10.1) Total Bilirubin 0.2 mg/dL (0.2-1.0) Aspartate Amino Transf (AST/SGOT) 19 U/L (15-37) Alanine Aminotransferase (ALT/SGPT) 93 U/L (14-59) Alkaline Phosphatase 163 U/L (46-116) Total Protein 5.7 g/dL (6.4-8.2) Albumin 2.8 g/dL (3.4-5.0) Albumin/Globulin Ratio 1.0 (1.0-1.7) Assessment and Plan Assessmemt and Plan Problems Medical Problems: (1) DKA (diabetic ketoacidoses) Status: Acute (2) Gastroparesis Status: Acute Comment Review of Relevant I have reviewed the following items sheryl (where applicable) has been applied. Labs Laboratory Tests Test 03/26/19 09:00 03/26/19 23:25 03/27/19 00:02 03/27/19 01:35 Urine Opiates Screen Neg (NEG) Urine Methadone Screen Neg (NEG) Urine Barbiturates Neg (NEG) Urine Phencyclidine Screen Neg (NEG) Urine Amphetamine/Methamphetamine Neg (NEG) Urine Benzodiazepines Screen Neg (NEG) Urine Cocaine Screen Neg (NEG) Urine Cannabinoids Screen Pos (NEG) Urine Ethyl Alcohol Neg (NEG) Urine Collection Type Unknown Urine Color Yellow Urine Clarity Clear Urine pH 7.0 Urine Specific [place] 1.020 Urine Protein Negative mg/dL (NEG-TRACE) Urine Glucose (UA) >=1000 mg/dL (NEG) Urine Ketones (Stick) 15 mg/dL (NEG) Urine Blood Negative (NEG) Urine Nitrite Negative (NEG) Urine Bilirubin Negative (NEG) Urine Urobilinogen Dipstick 0.2 mg/dL (0.2 mg/dL) Urine Leukocyte Esterase Negative (NEG) Urine RBC 0 /HPF (0-2) Urine WBC 1-4 /HPF (0-4) Urine Squamous Epithelial Cells Mod /LPF Urine Bacteria Few /HPF (0-FEW) Urine Mucus Slight /LPF White Blood Count 5.4 x10^3/uL (4.0-11.0) Red Blood Count 3.92 x10^6/uL (3.50-5.40) Hemoglobin 11.0 g/dL (12.0-15.5) Hematocrit 33.3 % (36.0-47.0) Mean Corpuscular Volume 85 fL (79-100) Mean Corpuscular Hemoglobin 28 pg (25-35) Mean Corpuscular Hemoglobin Concent 33 g/dL (31-37) Red Cell Distribution Width 17.1 % (11.5-14.5) Platelet Count 341 x10^3/uL (140-400) Neutrophils (%) (Auto) 58 % (31-73) Lymphocytes (%) (Auto) 32 % (24-48) Monocytes (%) (Auto) 7 % (0-9) Eosinophils (%) (Auto) 2 % (0-3) Basophils (%) (Auto) 1 % (0-3) Neutrophils # (Auto) 3.1 x10^3/uL (1.8-7.7) Lymphocytes # (Auto) 1.7 x10^3/uL (1.0-4.8) Monocytes # (Auto) 0.4 x10^3/uL (0.0-1.1) Eosinophils # (Auto) 0.1 x10^3/uL (0.0-0.7) Basophils # (Auto) 0.0 x10^3/uL (0.0-0.2) Sodium Level 137 mmol/L (136-145) Potassium Level 4.0 mmol/L (3.5-5.1) Chloride Level 100 mmol/L (98-107) Carbon Dioxide Level 26 mmol/L (21-32) Anion Gap 11 (6-14) Blood Urea Nitrogen 8 mg/dL (7-20) Creatinine 0.8 mg/dL (0.6-1.0) Estimated GFR (Cockcroft-Gault) 78.3 BUN/Creatinine Ratio 10 (6-20) Glucose Level 419 mg/dL (70-99) Calcium Level 8.5 mg/dL (8.5-10.1) Phosphorus Level 2.8 mg/dL (2.6-4.7) Magnesium Level 1.7 mg/dL (1.8-2.4) Total Bilirubin 0.2 mg/dL (0.2-1.0) Aspartate Amino Transf (AST/SGOT) 48 U/L (15-37) Alanine Aminotransferase (ALT/SGPT) 143 U/L (14-59) Alkaline Phosphatase 198 U/L (46-116) Total Protein 6.2 g/dL (6.4-8.2) Albumin 3.0 g/dL (3.4-5.0) Albumin/Globulin Ratio 0.9 (1.0-1.7) Acetone Level Sm pos (NEG) O2 Saturation 96 % (92-99) Arterial Blood pH 7.39 (7.35-7.45) Arterial Blood pCO2 at Patient Temp 39 mmHg (35-46) Arterial Blood pO2 at Patient Temp 86 mmHg (75-108) Arterial Blood HCO3 23 mmol/L (21-28) Arterial Blood Base Excess -1 mmol/L (-3-3) FiO2 21 Test 03/27/19 01:44 03/27/19 02:51 03/27/19 04:02 03/27/19 05:06 Glucose (Fingerstick) 361 mg/dL (70-99) 190 mg/dL (70-99) 117 mg/dL (70-99) 135 mg/dL (70-99) Test 03/27/19 06:17 03/27/19 07:30 03/27/19 07:57 03/27/19 11:09 Glucose (Fingerstick) 120 mg/dL (70-99) 196 mg/dL (70-99) 434 mg/dL (70-99) Sodium Level 141 mmol/L (136-145) Potassium Level 3.4 mmol/L (3.5-5.1) Chloride Level 101 mmol/L (98-107) Carbon Dioxide Level 25 mmol/L (21-32) Anion Gap 15 (6-14) Blood Urea Nitrogen 10 mg/dL (7-20) Creatinine 0.9 mg/dL (0.6-1.0) Estimated GFR (Cockcroft-Gault) 68.3 Glucose Level 187 mg/dL (70-99) Calcium Level 9.2 mg/dL (8.5-10.1) Ferritin 20 ng/mL (8-252) Total Bilirubin 0.2 mg/dL (0.2-1.0) Direct Bilirubin 0.1 mg/dL (0.0-0.2) Aspartate Amino Transf (AST/SGOT) 47 U/L (15-37) Alanine Aminotransferase (ALT/SGPT) 150 U/L (14-59) Alkaline Phosphatase 194 U/L (46-116) Total Protein 6.1 g/dL (6.4-8.2) Albumin 2.9 g/dL (3.4-5.0) Triglycerides Level 189 mg/dL (0-150) Cholesterol Level 167 mg/dL (0-200) LDL Cholesterol, Calculated 88 mg/dL (0-100) VLDL Cholesterol, Calculated 38 mg/dL (0-40) Non-HDL Cholesterol Calculated 126 mg/dL (0-129) HDL Cholesterol 41 mg/dL (40-60) Cholesterol/HDL Ratio 4.1 Lipase 35 U/L (73-393) Thyroid Stimulating Hormone (TSH) 3.860 uIU/mL (0.358-3.74) Test 03/27/19 14:20 03/27/19 16:30 03/27/19 18:20 03/27/19 21:11 Troponin I Quantitative < 0.017 ng/mL (0.000-0.055) < 0.017 ng/mL (0.000-0.055) Glucose (Fingerstick) 335 mg/dL (70-99) 286 mg/dL (70-99) Test 03/28/19 03:00 White Blood Count 6.5 x10^3/uL (4.0-11.0) Red Blood Count 3.84 x10^6/uL (3.50-5.40) Hemoglobin 10.8 g/dL (12.0-15.5) Hematocrit 32.5 % (36.0-47.0) Mean Corpuscular Volume 85 fL (79-100) Mean Corpuscular Hemoglobin 28 pg (25-35) Mean Corpuscular Hemoglobin Concent 33 g/dL (31-37) Red Cell Distribution Width 17.5 % (11.5-14.5) Platelet Count 382 x10^3/uL (140-400) Neutrophils (%) (Auto) 47 % (31-73) Lymphocytes (%) (Auto) 40 % (24-48) Monocytes (%) (Auto) 10 % (0-9) Eosinophils (%) (Auto) 3 % (0-3) Basophils (%) (Auto) 0 % (0-3) Neutrophils # (Auto) 3.1 x10^3/uL (1.8-7.7) Lymphocytes # (Auto) 2.6 x10^3/uL (1.0-4.8) Monocytes # (Auto) 0.7 x10^3/uL (0.0-1.1) Eosinophils # (Auto) 0.2 x10^3/uL (0.0-0.7) Basophils # (Auto) 0.0 x10^3/uL (0.0-0.2) Sodium Level 138 mmol/L (136-145) Potassium Level 3.7 mmol/L (3.5-5.1) Chloride Level 102 mmol/L (98-107) Carbon Dioxide Level 31 mmol/L (21-32) Anion Gap 5 (6-14) Blood Urea Nitrogen 9 mg/dL (7-20) Creatinine 0.9 mg/dL (0.6-1.0) Estimated GFR (Cockcroft-Gault) 68.3 BUN/Creatinine Ratio 10 (6-20) Glucose Level 179 mg/dL (70-99) Calcium Level 8.8 mg/dL (8.5-10.1) Total Bilirubin 0.2 mg/dL (0.2-1.0) Aspartate Amino Transf (AST/SGOT) 19 U/L (15-37) Alanine Aminotransferase (ALT/SGPT) 93 U/L (14-59) Alkaline Phosphatase 163 U/L (46-116) Total Protein 5.7 g/dL (6.4-8.2) Albumin 2.8 g/dL (3.4-5.0) Albumin/Globulin Ratio 1.0 (1.0-1.7) Laboratory Tests Test 03/27/19 07:57 03/27/19 11:09 03/27/19 14:20 03/27/19 16:30 Glucose (Fingerstick) 196 mg/dL (70-99) 434 mg/dL (70-99) 335 mg/dL (70-99) Troponin I Quantitative < 0.017 ng/mL (0.000-0.055) Test 03/27/19 18:20 03/27/19 21:11 03/28/19 03:00 Troponin I Quantitative < 0.017 ng/mL (0.000-0.055) Glucose (Fingerstick) 286 mg/dL (70-99) White Blood Count 6.5 x10^3/uL (4.0-11.0) Red Blood Count 3.84 x10^6/uL (3.50-5.40) Hemoglobin 10.8 g/dL (12.0-15.5) Hematocrit 32.5 % (36.0-47.0) Mean Corpuscular Volume 85 fL (79-100) Mean Corpuscular Hemoglobin 28 pg (25-35) Mean Corpuscular Hemoglobin Concent 33 g/dL (31-37) Red Cell Distribution Width 17.5 % (11.5-14.5) Platelet Count 382 x10^3/uL (140-400) Neutrophils (%) (Auto) 47 % (31-73) Lymphocytes (%) (Auto) 40 % (24-48) Monocytes (%) (Auto) 10 % (0-9) Eosinophils (%) (Auto) 3 % (0-3) Basophils (%) (Auto) 0 % (0-3) Neutrophils # (Auto) 3.1 x10^3/uL (1.8-7.7) Lymphocytes # (Auto) 2.6 x10^3/uL (1.0-4.8) Monocytes # (Auto) 0.7 x10^3/uL (0.0-1.1) Eosinophils # (Auto) 0.2 x10^3/uL (0.0-0.7) Basophils # (Auto) 0.0 x10^3/uL (0.0-0.2) Sodium Level 138 mmol/L (136-145) Potassium Level 3.7 mmol/L (3.5-5.1) Chloride Level 102 mmol/L (98-107) Carbon Dioxide Level 31 mmol/L (21-32) Anion Gap 5 (6-14) Blood Urea Nitrogen 9 mg/dL (7-20) Creatinine 0.9 mg/dL (0.6-1.0) Estimated GFR (Cockcroft-Gault) 68.3 BUN/Creatinine Ratio 10 (6-20) Glucose Level 179 mg/dL (70-99) Calcium Level 8.8 mg/dL (8.5-10.1) Total Bilirubin 0.2 mg/dL (0.2-1.0) Aspartate Amino Transf (AST/SGOT) 19 U/L (15-37) Alanine Aminotransferase (ALT/SGPT) 93 U/L (14-59) Alkaline Phosphatase 163 U/L (46-116) Total Protein 5.7 g/dL (6.4-8.2) Albumin 2.8 g/dL (3.4-5.0) Albumin/Globulin Ratio 1.0 (1.0-1.7) Medications Current Medications Ondansetron HCl (Zofran Odt) 4 mg 1X ONCE PO Last administered on 03/26/19at 21:51; Start 03/26/19 at 22:00; Stop 03/26/19 at 22:01; Status DC Sodium Chloride 1,000 ml @ 1,000 mls/hr Q1H IV Last administered on 03/26/19at 01:00; Start 03/26/19 at 23:30; Stop 03/27/19 at 00:29; Status DC Ondansetron HCl (Zofran) 4 mg 1X ONCE IV Last administered on 03/27/19at 00:15; Start 03/26/19 at 23:30; Stop 03/26/19 at 23:31; Status DC Diphenhydramine HCl (Benadryl) 25 mg 1X ONCE IVP ; Start 03/27/19 at 00:30; Stop 03/27/19 at 00:31; Status Cancel Dicyclomine HCl (Bentyl) 10 mg 1X ONCE IM Last administered on 03/27/19at 00:31; Start 03/27/19 at 00:30; Stop 03/27/19 at 00:31; Status DC Metoclopramide HCl (Reglan Vial) 10 mg 1X ONCE IVP Last administered on 03/27/19at 00:39; Start 03/27/19 at 00:30; Stop 03/27/19 at 00:31; Status DC Ketorolac Tromethamine (Toradol 30mg Vial) 30 mg 1X ONCE IVP Last administered on 03/27/19at 00:39; Start 03/27/19 at 00:30; Stop 03/27/19 at 00:31; Status DC Diphenhydramine HCl (Benadryl) 50 mg 1X ONCE IVP Last administered on 03/27/19at 00:30; Start 03/27/19 at 00:30; Stop 03/27/19 at 00:31; Status DC Insulin Human Regular (HumuLIN R VIAL) 10 unit 1X ONCE IV Last administered on 03/27/19at 01:54; Start 03/27/19 at 01:00; Stop 03/27/19 at 01:01; Status DC Insulin Human Regular 100 ml @ 0 mls/hr 1X ONCE IV Last administered on 03/27/19at 01:57; Start 03/27/19 at 01:00; Stop 03/27/19 at 01:01; Status DC Dextrose (Dextrose 50%-Water Syringe) 12.5 gm PRN Q15MIN PRN IV LOW BLOOD SUGAR; Start 03/27/19 at 00:45; Stop 03/27/19 at 08:07; Status DC Dextrose (Iv Dextrose 5%) 250 ml PRN Q15MIN PRN IV LOW BLOOD SUGAR; Start 03/27/19 at 00:45 Insulin Human Regular 100 unit/ Sodium Chloride 101 ml @ 0 mls/hr CONT PRN PRN IV PER PROTOCOL; Start 03/27/19 at 01:15; Stop 03/27/19 at 05:40; Status DC Potassium Chloride/Water 100 ml @ 100 mls/hr PRN Q1HR PRN IV SEE COMMENTS; Start 03/27/19 at 01:15 Potassium Chloride/Water 100 ml @ 100 mls/hr PRN Q1HR PRN IV SEE COMMENTS; Start 03/27/19 at 01:15 Potassium Chloride/Water 100 ml @ 100 mls/hr PRN Q1HR PRN IV SEE COMMENTS; Start 03/27/19 at 01:15 Ondansetron HCl (Zofran) 4 mg PRN Q8HRS PRN IV NAUSEA/VOMITING Last administered on 03/27/19at 21:20; Start 03/27/19 at 01:45; Stop 03/28/19 at 01:44; Status DC Morphine Sulfate (Morphine Sulfate) 2 mg PRN Q2HR PRN IV PAIN Last administered on 03/27/19at 05:50; Start 03/27/19 at 01:45; Stop 03/27/19 at 06:41; Status DC Insulin Glargine (Lantus Syringe) 15 unit 1X ONCE SQ Last administered on 03/27/19at 06:34; Start 03/27/19 at 06:00; Stop 03/27/19 at 06:01; Status DC Insulin Human Lispro (HumaLOG) 0-7 UNITS TIDWMEALS SQ Last administered on 03/27/19at 16:59; Start 03/27/19 at 08:00 Dextrose (Dextrose 50%-Water Syringe) 12.5 gm PRN Q15MIN PRN IV SEE COMMENTS; Start 03/27/19 at 05:45 Dextrose (Iv Dextrose 5%) 250 ml PRN Q15MIN PRN IV SEE COMMENTS; Start 03/27/19 at 05:45 Insulin Human Lispro (HumaLOG) 3 units TIDAC SQ ; Start 03/27/19 at 07:30; Stop 03/27/19 at 08:10; Status DC Ketorolac Tromethamine (Toradol 30mg Vial) 30 mg PRN Q8HRS PRN IVP PAIN Last administered on 03/28/19at 00:58; Start 03/27/19 at 06:45; Stop 04/01/19 at 06:44 Magnesium Sulfate 50 ml @ 25 mls/hr 1X ONCE IV Last administered on 03/27/19at 10:05; Start 03/27/19 at 09:00; Stop 03/27/19 at 10:59; Status DC Amlodipine Besylate (Norvasc) 5 mg DAILY PO Last administered on 03/27/19at 10:04; Start 03/27/19 at 09:00 Acetaminophen/ Aspirin/Caffeine (Excedrin Migraine) 2 tab PRN Q6HRS PRN PO MIGRAINE HEADACHE Last administered on 03/27/19at 19:52; Start 03/27/19 at 08:00 Dicyclomine HCl (Bentyl) 10 mg QID PRN PO abd pain Last administered on 03/27/19 12:51; Start 03/27/19 at 08:00 Famotidine (Pepcid) 20 mg DAILY PO Last administered on 03/27/19 10:04; Start 03/27/19 at 09:00 Insulin Human Lispro (HumaLOG) 12 units TIDWMEALS SQ Last administered on 03/27/19 17:00; Start 03/27/19 at 08:00 Albuterol/ Ipratropium (Duoneb) 3 ml RTQID NEB Last administered on 03/27/19 16:21; Start 03/27/19 at 08:00 Ondansetron HCl (Zofran Odt) 4 mg PRN Q6HRS PRN PO NAUSEA/VOMITING; Start 03/27/19 at 08:00 Polyethylene Glycol (miraLAX PACKET) 17 gm PRN DAILY PRN PO CONSTIPATION; Start 03/27/19 at 08:00 Promethazine HCl (Phenergan) 25 mg PRN Q6HRS PRN PO NAUSEA/VOMITING Last administered on 03/27/19 12:51; Start 03/27/19 at 08:15 Nicotine (Nicoderm Cq 21mg) 1 patch PRN DAILY PRN TD SMOKING CESSATION; Start 03/27/19 at 09:00 Prochlorperazine Edisylate (Compazine) 10 mg PRN Q6HRS PRN IV NAUSEA/VOMITING/HEADACHE Last administered on 03/27/19 23:09; Start 03/27/19 at 08:15 Potassium Bicarbonate (Potassium Effervescent Tablet) 40 meq 1X ONCE PO Last administered on 03/27/19at 11:47; Start 03/27/19 at 11:15; Stop 03/27/19 at 11:16; Status DC Buspirone HCl (Buspar) 10 mg PRN TID PRN PO ANXIETY Last administered on 03/27/19 19:54; Start 03/27/19 at 11:45 Bisacodyl (Dulcolax Supp) 10 mg PRN DAILY PRN AL CONSTIPATION; Start 03/27/19 at 11:45 Metoclopramide HCl (Reglan Vial) 5 mg PRN Q6HRS PRN IVP NAUSEA/VOMITING, 2ND CHOICE IV Last administered on 03/27/19 19:52; Start 03/27/19 at 11:45 Insulin Glargine (Lantus Syringe) 35 unit QHS SQ Last administered on 03/27/19at 23:17; Start 03/27/19 at 21:30 Insulin Human Lispro (HumaLOG) 9 units 1X ONCE SQ Last administered on 03/27/19at 23:16; Start 03/27/19 at 21:30; Stop 03/27/19 at 21:31; Status DC Calcium Carbonate/ Glycine (Tums) 500 mg PRN Q4HRS PRN PO INDIGESTION Last administered on 03/28/19at 00:22; Start 03/28/19 at 00:00 Active Scripts Active Humalog (Insulin Lispro) 100 Unit/1 Ml Insuln.pen 12 Units SQ TIDWMEALS 30 Days Lantus (Insulin Glargine,Hum.rec.anlog) 100 Unit/1 Ml Vial 30 Unit SQ QHS 30 Days Ondansetron Odt (Ondansetron) 4 Mg Tab.rapdis 4 Mg PO PRN Q6HRS PRN 14 Days [Nicotine 21MG] 1 PATCH Patch 1 Patch TD PRN DAILY PRN 28 Days Dicyclomine Hcl 10 Mg Capsule 10 Mg PO QID PRN 30 Days Promethazine Hcl 25 Mg Tablet 1 Tab PO PRN Q6HRS Duoneb 0.5-3(2.5) Mg/3 Ml (Albuterol/Ipratropium) 3 Ml Ampul.neb 3 Ml NEB RTQID 30 Days Norvasc (Amlodipine Besylate) 5 Mg Tablet 5 Mg PO DAILY 30 Days Polyethylene Glycol 3350 17 Gm Powd.pack 17 Gm PO PRN DAILY PRN 14 Days Pain Reliever Plus Tablet (Aspirin/Acetaminophen/Caffeine) 1 Each Tablet 2 Tab PO PRN Q6HRS PRN 10 Days Famotidine 20 Mg Tablet 20 Mg PO DAILY MDD 1 Reported Protonix (Pantoprazole Sodium) 20 Mg Tablet.dr 20 Mg PO DAILY Vitals/I & O Vital Sign - Last 24 Hours 03/27/19 03/27/19 03/27/19 03/27/19 08:55 10:04 11:00 11:54 Temp 98.7 98.7 Pulse 84 101 Resp 18 B/P (MAP) 173/82 127/55 (79) Pulse Ox 99 96 O2 Delivery Room Air Room Air Room Air 03/27/19 03/27/19 03/27/19 03/27/19 15:00 16:22 19:40 20:15 Temp 98.7 98.5 98.7 98.5 Pulse 98 113 Resp 18 16 B/P (MAP) 145/67 (93) 98/65 (76) Pulse Ox 97 98 100 O2 Delivery Room Air Room Air Room Air Room Air 03/27/19 03/28/19 23:36 03:33 Temp 98.9 98.3 98.9 98.3 Pulse 103 85 Resp 16 16 B/P (MAP) 182/79 (113) 115/52 (73) Pulse Ox 99 99 O2 Delivery Room Air Room Air Intake and Output 03/27/19 03/27/19 03/28/19 15:00 23:00 07:00 Intake Total 300 ml Balance 300 ml MACK GUIDRY MD Mar 28, 2019 07:41
[2019-03-28] MEDS: INSULIN LISPRO 300 UNITS/3 ML VIAL. SQ SCH ×6 (08:00→17:11)
[2019-03-28] MEDS: IPRATRPIUM/ALBUTEROL 0.5/2.5MG 3 ML NEBU. NEB SCH ×4 (08:00→22:26)
[2019-03-28] MEDS ORDERED: PROCHLORPERAZINE 10 MG/2 ML VIAL. IM PRN (08:45)
[2019-03-28] MEDS ORDERED: KETOROLAC 30 MG/ML VIAL. IM PRN (08:45)
[2019-03-28] MEDS: amLODIPine BESYLATE 5 MG TABLET PO SCH (09:00)
[2019-03-28] MEDS: FAMOTIDINE 20 MG TABLET. PO SCH (09:00)
[2019-03-28 11:00] VITALS: BP 175/83
[2019-03-28] MEDS ORDERED: PANTOPRAZOLE IV PUSH 40 MG VIAL. IVP ONE (12:45)
[2019-03-28] MEDS ORDERED: KETOROLAC 15 MG/ML VIAL. IM ONE (12:45)
[2019-03-28] MEDS: ONDANSETRON PF 4 MG/2 ML VIAL. IVP PRN (12:48)
[2019-03-28] MEDS ORDERED: KETOROLAC 15 MG/ML VIAL. IVP ONE (13:00)
[2019-03-28 15:00] VITALS: BP 141/84
[2019-03-28] MEDS: PROCHLORPERAZINE 10 MG/2 ML VIAL. IV PRN (16:43)
--- NOTE | 2019-03-28 19:11 | NUR ---
Patient had nausea, vomiting and abdominal pain with difficult IV access. Midline was inserted for IV access, scheduled and prn IV meds given per IV with relief of symptoms.
[2019-03-28] MEDS: METOCLOPRAMIDE HCL 10 MG/2 ML VIAL. IVP PRN (19:29)
[2019-03-28 19:55] VITALS: BP 148/85
[2019-03-28] MEDS: INSULIN GLARGINE SYRINGE. SQ SCH (20:54)
[2019-03-28 23:26] VITALS: BP 120/64
[2019-03-29] MEDS: PROCHLORPERAZINE 10 MG/2 ML VIAL. IV PRN ×3 (01:41→15:50)
[2019-03-29] MEDS: KETOROLAC 30 MG/ML VIAL. IVP PRN ×3 (01:45→19:31)
[2019-03-29 03:24] VITALS: BP 108/58
[2019-03-29 07:00] VITALS: BP 137/63
[2019-03-29] MEDS: IPRATRPIUM/ALBUTEROL 0.5/2.5MG 3 ML NEBU. NEB SCH ×4 (07:24→20:00)
[2019-03-29] MEDS: BETHANECHOL CHLORIDE 10 MG TABLET. PO SCH ×3 (07:30→17:11)
[2019-03-29] MEDS: ONDANSETRON PF 4 MG/2 ML VIAL. IVP PRN (07:39)
[2019-03-29] MEDS: INSULIN LISPRO 300 UNITS/3 ML VIAL. SQ SCH ×6 (08:00→17:17)
--- NOTE | 2019-03-29 09:24 | PDOC ---
PROGRESS NOTES Chief Complaint Chief Complaint A/P: DKA - insulin GTT. Q6 hours BMP and phos, mag, replacement protocol. Gap closed. Ok to eat and get back on home insulin regimen Intractable headache - she takes excedrin migraine outpatient, denies migraines. Toradol and compazine for now. CT head for worst headache of life was negative Nausea and vomiting - likely cannabis hyperemesis plus some element of gastroparesis. Will treat expectantly with IV antiemetics Chest pain - improved from prior. Now left shoulder pain, will trend troponins Hx THC ABUSE - counseled cessation will help her cyclic vomiting Transaminitis - mild, notably recurrent. Will check lipids, TSH, ferritin Anemia - related to diabetes, will check iron Anxiety - previously on too much ativan, will start on prn buspar TID FEN - ADA diet PPX - lovenox FULL CODE Dispo - Med/Tele, can downgrade to med/surg History of Present Illness History of Present Illness Ms Garcia is a 43-year-old female w/ PMHx Anxiety, Cyclic Vomiting, Diabetes- Type I, High Cholesterol, gastroparesis who complaints of abdominal cramping, headache, nausea and vomiting, found in DKA. She was hospitalized at [facility] a number of times for DKA and chest pain complaints, just discharged yesterday. Since she left the hospital she has been laying in bed and started having headaches. She feels like she can't walk across the without feeling fatigue and pain. She says that she is compliant with her diabetes mediations and has been checking her sugars and they have been 200-300, which is normal for her. Glucose 419 anion gap 27. Started on insulin GTT and IVF begun in ED. Overnight her gap closed, still with headache, noted it was the worst of her life. Underwent CT head and neck, negative for acute pathology, some C5-6 DDD. 03/28: Feeling only slightly better. Still with vomiting this morning. Lost IV access. She states she really wants to be able to eat. Still with SUGGS today. Belching up peanut butter. No CP or SOB Plan: imitrex x1 Vitals Vitals Vital Signs Date Time Temp Pulse Resp B/P (MAP) Pulse Ox O2 Delivery O2 Flow Rate FiO2 03/29/19 07:24 Room Air 03/29/19 03:24 98.1 89 18 108/58 (75) 96 98.1 Physical Exam General: Alert, Oriented X3, Cooperative, mild distress Heart: Regular rate, Normal S1, Normal S2 Lungs: Clear, Other Abdomen: Normal bowel sounds, Soft, No tenderness, No hepatosplenomegaly, No ma sses Extremities: No clubbing, No cyanosis, No edema, Normal pulses, No tenderness/swelling Skin: No rashes, No breakdown, No significant lesion Labs LABS Laboratory Tests Test 03/28/19 11:19 03/28/19 16:54 03/28/19 19:37 03/29/19 07:17 Glucose (Fingerstick) 240 mg/dL (70-99) 216 mg/dL (70-99) 189 mg/dL (70-99) 280 mg/dL (70-99) Assessment and Plan Assessmemt and Plan Problems Medical Problems: (1) DKA (diabetic ketoacidoses) Status: Acute (2) Gastroparesis Status: Acute Comment Review of Relevant I have reviewed the following items sheryl (where applicable) has been applied. Labs Laboratory Tests Test 03/27/19 11:09 03/27/19 14:20 03/27/19 16:30 03/27/19 18:20 Glucose (Fingerstick) 434 mg/dL (70-99) 335 mg/dL (70-99) Troponin I Quantitative < 0.017 ng/mL (0.000-0.055) < 0.017 ng/mL (0.000-0.055) Test 03/27/19 21:11 03/28/19 03:00 03/28/19 08:05 03/28/19 11:19 Glucose (Fingerstick) 286 mg/dL (70-99) 218 mg/dL (70-99) 240 mg/dL (70-99) White Blood Count 6.5 x10^3/uL (4.0-11.0) Red Blood Count 3.84 x10^6/uL (3.50-5.40) Hemoglobin 10.8 g/dL (12.0-15.5) Hematocrit 32.5 % (36.0-47.0) Mean Corpuscular Volume 85 fL (79-100) Mean Corpuscular Hemoglobin 28 pg (25-35) Mean Corpuscular Hemoglobin Concent 33 g/dL (31-37) Red Cell Distribution Width 17.5 % (11.5-14.5) Platelet Count 382 x10^3/uL (140-400) Neutrophils (%) (Auto) 47 % (31-73) Lymphocytes (%) (Auto) 40 % (24-48) Monocytes (%) (Auto) 10 % (0-9) Eosinophils (%) (Auto) 3 % (0-3) Basophils (%) (Auto) 0 % (0-3) Neutrophils # (Auto) 3.1 x10^3/uL (1.8-7.7) Lymphocytes # (Auto) 2.6 x10^3/uL (1.0-4.8) Monocytes # (Auto) 0.7 x10^3/uL (0.0-1.1) Eosinophils # (Auto) 0.2 x10^3/uL (0.0-0.7) Basophils # (Auto) 0.0 x10^3/uL (0.0-0.2) Sodium Level 138 mmol/L (136-145) Potassium Level 3.7 mmol/L (3.5-5.1) Chloride Level 102 mmol/L (98-107) Carbon Dioxide Level 31 mmol/L (21-32) Anion Gap 5 (6-14) Blood Urea Nitrogen 9 mg/dL (7-20) Creatinine 0.9 mg/dL (0.6-1.0) Estimated GFR (Cockcroft-Gault) 68.3 BUN/Creatinine Ratio 10 (6-20) Glucose Level 179 mg/dL (70-99) Calcium Level 8.8 mg/dL (8.5-10.1) Total Bilirubin 0.2 mg/dL (0.2-1.0) Aspartate Amino Transf (AST/SGOT) 19 U/L (15-37) Alanine Aminotransferase (ALT/SGPT) 93 U/L (14-59) Alkaline Phosphatase 163 U/L (46-116) Total Protein 5.7 g/dL (6.4-8.2) Albumin 2.8 g/dL (3.4-5.0) Albumin/Globulin Ratio 1.0 (1.0-1.7) Test 03/28/19 16:54 03/28/19 19:37 03/29/19 07:17 Glucose (Fingerstick) 216 mg/dL (70-99) 189 mg/dL (70-99) 280 mg/dL (70-99) Laboratory Tests Test 03/28/19 11:19 03/28/19 16:54 03/28/19 19:37 03/29/19 07:17 Glucose (Fingerstick) 240 mg/dL (70-99) 216 mg/dL (70-99) 189 mg/dL (70-99) 280 mg/dL (70-99) Medications Current Medications Ondansetron HCl (Zofran Odt) 4 mg 1X ONCE PO Last administered on 03/26/19 21:51; Start 03/26/19 at 22:00; Stop 03/26/19 at 22:01; Status DC Sodium Chloride 1,000 ml @ 1,000 mls/hr Q1H IV Last administered on 03/26/19at 01:00; Start 03/26/19 at 23:30; Stop 03/27/19 at 00:29; Status DC Ondansetron HCl (Zofran) 4 mg 1X ONCE IV Last administered on 03/27/19at 00:15; Start 03/26/19 at 23:30; Stop 03/26/19 at 23:31; Status DC Diphenhydramine HCl (Benadryl) 25 mg 1X ONCE IVP ; Start 03/27/19 at 00:30; Stop 03/27/19 at 00:31; Status Cancel Dicyclomine HCl (Bentyl) 10 mg 1X ONCE IM Last administered on 03/27/19at 00:31; Start 03/27/19 at 00:30; Stop 03/27/19 at 00:31; Status DC Metoclopramide HCl (Reglan Vial) 10 mg 1X ONCE IVP Last administered on 03/27/19at 00:39; Start 03/27/19 at 00:30; Stop 03/27/19 at 00:31; Status DC Ketorolac Tromethamine (Toradol 30mg Vial) 30 mg 1X ONCE IVP Last administered on 03/27/19at 00:39; Start 03/27/19 at 00:30; Stop 03/27/19 at 00:31; Status DC Diphenhydramine HCl (Benadryl) 50 mg 1X ONCE IVP Last administered on 03/27/19at 00:30; Start 03/27/19 at 00:30; Stop 03/27/19 at 00:31; Status DC Insulin Human Regular (HumuLIN R VIAL) 10 unit 1X ONCE IV Last administered on 03/27/19at 01:54; Start 03/27/19 at 01:00; Stop 03/27/19 at 01:01; Status DC Insulin Human Regular 100 ml @ 0 mls/hr 1X ONCE IV Last administered on 03/27/19at 01:57; Start 03/27/19 at 01:00; Stop 03/27/19 at 01:01; Status DC Dextrose (Dextrose 50%-Water Syringe) 12.5 gm PRN Q15MIN PRN IV LOW BLOOD SUGAR; Start 03/27/19 at 00:45; Stop 03/27/19 at 08:07; Status DC Dextrose (Iv Dextrose 5%) 250 ml PRN Q15MIN PRN IV LOW BLOOD SUGAR; Start 03/27/19 at 00:45 Insulin Human Regular 100 unit/ Sodium Chloride 101 ml @ 0 mls/hr CONT PRN PRN IV PER PROTOCOL; Start 03/27/19 at 01:15; Stop 03/27/19 at 05:40; Status DC Potassium Chloride/Water 100 ml @ 100 mls/hr PRN Q1HR PRN IV SEE COMMENTS; Start 03/27/19 at 01:15 Potassium Chloride/Water 100 ml @ 100 mls/hr PRN Q1HR PRN IV SEE COMMENTS; Start 03/27/19 at 01:15 Potassium Chloride/Water 100 ml @ 100 mls/hr PRN Q1HR PRN IV SEE COMMENTS; Start 03/27/19 at 01:15 Ondansetron HCl (Zofran) 4 mg PRN Q8HRS PRN IV NAUSEA/VOMITING Last administered on 03/27/19at 21:20; Start 03/27/19 at 01:45; Stop 03/28/19 at 01:44; Status DC Morphine Sulfate (Morphine Sulfate) 2 mg PRN Q2HR PRN IV PAIN Last administered on 03/27/19at 05:50; Start 03/27/19 at 01:45; Stop 03/27/19 at 06:41; Status DC Insulin Glargine (Lantus Syringe) 15 unit 1X ONCE SQ Last administered on 03/27/19at 06:34; Start 03/27/19 at 06:00; Stop 03/27/19 at 06:01; Status DC Insulin Human Lispro (HumaLOG) 0-7 UNITS TIDWMEALS SQ Last administered on 03/29/19at 09:09; Start 03/27/19 at 08:00 Dextrose (Dextrose 50%-Water Syringe) 12.5 gm PRN Q15MIN PRN IV SEE COMMENTS; Start 03/27/19 at 05:45 Dextrose (Iv Dextrose 5%) 250 ml PRN Q15MIN PRN IV SEE COMMENTS; Start 03/27/19 at 05:45 Insulin Human Lispro (HumaLOG) 3 units TIDAC SQ ; Start 03/27/19 at 07:30; Stop 03/27/19 at 08:10; Status DC Ketorolac Tromethamine (Toradol 30mg Vial) 30 mg PRN Q8HRS PRN IVP PAIN Last ad ministered on 03/29/19at 01:45; Start 03/27/19 at 06:45; Stop 04/01/19 at 06:44 Magnesium Sulfate 50 ml @ 25 mls/hr 1X ONCE IV Last administered on 03/27/19at 10:05; Start 03/27/19 at 09:00; Stop 03/27/19 at 10:59; Status DC Amlodipine Besylate (Norvasc) 5 mg DAILY PO Last administered on 03/27/19 10:04; Start 03/27/19 at 09:00 Acetaminophen/ Aspirin/Caffeine (Excedrin Migraine) 2 tab PRN Q6HRS PRN PO MIGRAINE HEADACHE Last administered on 03/27/19at 19:52; Start 03/27/19 at 08:00 Dicyclomine HCl (Bentyl) 10 mg QID PRN PO abd pain Last administered on 03/27/19at 12:51; Start 03/27/19 at 08:00 Famotidine (Pepcid) 20 mg DAILY PO Last administered on 03/27/19at 10:04; Start 03/27/19 at 09:00 Insulin Human Lispro (HumaLOG) 12 units TIDWMEALS SQ Last administered on 03/27/19at 17:00; Start 03/27/19 at 08:00 Albuterol/ Ipratropium (Duoneb) 3 ml RTQID NEB Last administered on 03/29/19at 07:24; Start 03/27/19 at 08:00 Ondansetron HCl (Zofran Odt) 4 mg PRN Q6HRS PRN PO NAUSEA/VOMITING; Start 03/27/19 at 08:00 Polyethylene Glycol (miraLAX PACKET) 17 gm PRN DAILY PRN PO CONSTIPATION; Start 03/27/19 at 08:00 Promethazine HCl (Phenergan) 25 mg PRN Q6HRS PRN PO NAUSEA/VOMITING Last administered on 03/27/19at 12:51; Start 03/27/19 at 08:15 Nicotine (Nicoderm Cq 21mg) 1 patch PRN DAILY PRN TD SMOKING CESSATION; Start 03/27/19 at 09:00 Prochlorperazine Edisylate (Compazine) 10 mg PRN Q6HRS PRN IV NAUSEA/VOMITING/HEADACHE Last administered on 03/29/19 09:00; Start 03/27/19 at 08:15 Potassium Bicarbonate (Potassium Effervescent Tablet) 40 meq 1X ONCE PO Last administered on 03/27/19 11:47; Start 03/27/19 at 11:15; Stop 03/27/19 at 11:16; Status DC Buspirone HCl (Buspar) 10 mg PRN TID PRN PO ANXIETY Last administered on 03/27/19 19:54; Start 03/27/19 at 11:45 Bisacodyl (Dulcolax Supp) 10 mg PRN DAILY PRN MO CONSTIPATION; Start 03/27/19 at 11:45 Metoclopramide HCl (Reglan Vial) 5 mg PRN Q6HRS PRN IVP NAUSEA/VOMITING, 2ND CHOICE IV Last administered on 03/28/19 19:29; Start 03/27/19 at 11:45 Insulin Glargine (Lantus Syringe) 35 unit QHS SQ Last administered on 03/28/19 20:54; Start 03/27/19 at 21:30 Insulin Human Lispro (HumaLOG) 9 units 1X ONCE SQ Last administered on 03/27/19 23:16; Start 03/27/19 at 21:30; Stop 03/27/19 at 21:31; Status DC Calcium Carbonate/ Glycine (Tums) 500 mg PRN Q4HRS PRN PO INDIGESTION Last administered on 12/28/19at 00:22; Start 03/28/19 at 00:00 Prochlorperazine Edisylate (Compazine) 10 mg PRN Q6HRS PRN IM NAUSEA/VOMITING Last administered on 03/28/19at 09:01; Start 03/28/19 at 08:45 Ketorolac Tromethamine (Toradol 30mg Vial) 30 mg PRN Q6HRS PRN IM pain Last administered on 03/28/19at 09:00; Start 03/28/19 at 08:45 Ondansetron HCl (Zofran) 4 mg PRN Q6HRS PRN IVP NAUSEA/VOMITING Last administered on 03/29/19at 07:39; Start 03/28/19 at 12:45 Ketorolac Tromethamine (Toradol 15mg Vial) 15 mg 1X ONCE IM ; Start 03/28/19 at 12:45; Stop 03/28/19 at 12:46; Status Cancel Pantoprazole Sodium (PROTONIX VIAL for IV PUSH) 40 mg 1X ONCE IVP Last adminis tered on 03/28/19at 12:54; Start 03/28/19 at 12:45; Stop 03/28/19 at 12:46; Status DC Ketorolac Tromethamine (Toradol 15mg Vial) 15 mg 1X ONCE IVP Last administered on 03/28/19at 12:58; Start 03/28/19 at 13:00; Stop 03/28/19 at 13:01; Status DC Bethanechol Chloride (Urecholine) 10 mg TIDAC PO ; Start 03/29/19 at 07:30 Active Scripts Active Humalog (Insulin Lispro) 100 Unit/1 Ml Insuln.pen 12 Units SQ TIDWMEALS 30 Days Lantus (Insulin Glargine,Hum.rec.anlog) 100 Unit/1 Ml Vial 30 Unit SQ QHS 30 Days Ondansetron Odt (Ondansetron) 4 Mg Tab.rapdis 4 Mg PO PRN Q6HRS PRN 14 Days [Nicotine 21MG] 1 PATCH Patch 1 Patch TD PRN DAILY PRN 28 Days Dicyclomine Hcl 10 Mg Capsule 10 Mg PO QID PRN 30 Days Promethazine Hcl 25 Mg Tablet 1 Tab PO PRN Q6HRS Duoneb 0.5-3(2.5) Mg/3 Ml (Albuterol/Ipratropium) 3 Ml Ampul.neb 3 Ml NEB RTQID 30 Days Norvasc (Amlodipine Besylate) 5 Mg Tablet 5 Mg PO DAILY 30 Days Polyethylene Glycol 3350 17 Gm Powd.pack 17 Gm PO PRN DAILY PRN 14 Days Pain Reliever Plus Tablet (Aspirin/Acetaminophen/Caffeine) 1 Each Tablet 2 Tab PO PRN Q6HRS PRN 10 Days Famotidine 20 Mg Tablet 20 Mg PO DAILY MDD 1 Reported Protonix (Pantoprazole Sodium) 20 Mg Tablet.dr 20 Mg PO DAILY Vitals/I & O Vital Sign - Last 24 Hours 03/28/19 03/28/19 03/28/19 03/28/19 11:00 15:00 15:58 19:55 Temp 98.1 98.9 98.4 98.1 98.9 98.4 Pulse 94 89 95 Resp 16 16 18 B/P (MAP) 175/83 (113) 141/84 (103) 148/85 (106) Pulse Ox 94 97 98 95 O2 Delivery Room Air Room Air Room Air Room Air 03/28/19 03/28/19 03/29/19 03/29/19 22:26 23:26 03:24 07:24 Temp 98.6 98.1 98.6 98.1 Pulse 115 89 Resp 18 18 B/P (MAP) 120/64 (82) 108/58 (75) Pulse Ox 95 94 96 O2 Delivery Room Air Room Air Room Air Room Air Intake and Output 03/28/19 03/28/19 03/29/19 15:00 23:00 07:00 Intake Total 380 ml Balance 380 ml MACK GUIDRY MD Mar 29, 2019 09:24
[2019-03-29] MEDS: amLODIPine BESYLATE 5 MG TABLET PO SCH (10:31)
[2019-03-29] MEDS: FAMOTIDINE 20 MG TABLET. PO SCH (10:32)
[2019-03-29 11:00] VITALS: BP 186/94
[2019-03-29] MEDS ORDERED: SUMAtriptan SUCCINATE 100 MG TABLET PO ONE (12:00)
[2019-03-29] MEDS: METOCLOPRAMIDE HCL 10 MG/2 ML VIAL. IVP PRN (12:12)
[2019-03-29 15:00] VITALS: BP 161/82
[2019-03-29 19:52] VITALS: BP 140/81
[2019-03-29] MEDS: PROMETHAZINE 12.5 MG TABLET. PO PRN (22:18)
[2019-03-29] MEDS: INSULIN GLARGINE SYRINGE. SQ SCH (22:27)
[2019-03-29] MEDS: ASA/APAP/CAFFEINE 250/250/65MG TABLET. PO PRN (23:34)
[2019-03-29 23:51] VITALS: BP 140/85
[2019-03-30 03:57] VITALS: BP 141/87
[2019-03-30] MEDS: KETOROLAC 30 MG/ML VIAL. IVP PRN (04:54)
[2019-03-30] MEDS: IPRATRPIUM/ALBUTEROL 0.5/2.5MG 3 ML NEBU. NEB SCH (07:07)
--- NOTE | 2019-03-30 07:14 | PDOC ---
PROGRESS NOTES Chief Complaint Chief Complaint A/P: DKA - insulin GTT. Q6 hours BMP and phos, mag, replacement protocol. Gap closed. Ok to eat and get back on home insulin regimen Intractable headache - she takes excedrin migraine outpatient, denies migraines. Toradol and compazine for now. CT head for worst headache of life was negative Nausea and vomiting - likely cannabis hyperemesis plus some element of gastroparesis. Will treat expectantly with IV antiemetics Chest pain - improved from prior. Now left shoulder pain, will trend troponins Hx THC ABUSE - counseled cessation will help her cyclic vomiting Transaminitis - mild, notably recurrent. Will check lipids, TSH, ferritin Anemia - related to diabetes, will check iron Anxiety - previously on too much ativan, will start on prn buspar TID FEN - ADA diet PPX - lovenox FULL CODE Dispo - Med/Tele, can downgrade to med/surg History of Present Illness History of Present Illness Ms Garcia is a 43-year-old female w/ PMHx Anxiety, Cyclic Vomiting, Diabetes- Type I, High Cholesterol, gastroparesis who complaints of abdominal cramping, headache, nausea and vomiting, found in DKA. She was hospitalized at [facility] a number of times for DKA and chest pain complaints, just discharged yesterday. Since she left the hospital she has been laying in bed and started having headaches. She feels like she can't walk across the without feeling fatigue and pain. She says that she is compliant with her diabetes mediations and has been checking her sugars and they have been 200-300, which is normal for her. Glucose 419 anion gap 27. Started on insulin GTT and IVF begun in ED. Overnight her gap closed, still with headache, noted it was the worst of her life. Underwent CT head and neck, negative for acute pathology, some C5-6 DDD. 03/28: Feeling only slightly better. Still with vomiting this morning. Lost IV access. She states she really wants to be able to eat. 03/29: Still with SUGGS today. Belching up peanut butter. No CP or SOB. Headache broken with imitrex. Urinary retention and early satiety improved with low dose bethanechol. Anxiety improved with buspar. She feels much better, ate a full breakfast Plan: Outpatient GI workup and see neurology for likely complicated migraines Vitals Vitals Vital Signs Date Time Temp Pulse Resp B/P (MAP) Pulse Ox O2 Delivery O2 Flow Rate FiO2 03/30/19 07:07 99 Room Air 03/30/19 03:57 92 18 141/87 (105) 03/29/19 23:51 98.5 98.5 Physical Exam General: Alert, Oriented X3, Cooperative, mild distress Heart: Regular rate, Normal S1, Normal S2 Lungs: Clear, Other Abdomen: Normal bowel sounds, Soft, No tenderness, No hepatosplenomegaly, No masses Extremities: No clubbing, No cyanosis, No edema, Normal pulses, No tenderness/swelling Skin: No rashes, No breakdown, No significant lesion Labs LABS Laboratory Tests Test 03/29/19 07:17 03/29/19 12:20 03/29/19 17:13 03/29/19 20:26 Glucose (Fingerstick) 280 mg/dL (70-99) 202 mg/dL (70-99) 171 mg/dL (70-99) 92 mg/dL (70-99) Test 03/29/19 22:21 Glucose (Fingerstick) 245 mg/dL (70-99) Assessment and Plan Assessmemt and Plan Problems Medical Problems: (1) DKA (diabetic ketoacidoses) Status: Acute (2) Gastroparesis Status: Acute Comment Review of Relevant I have reviewed the following items sheryl (where applicable) has been applied. Labs Laboratory Tests Test 03/28/19 08:05 03/28/19 11:19 03/28/19 16:54 03/28/19 19:37 Glucose (Fingerstick) 218 mg/dL (70-99) 240 mg/dL (70-99) 216 mg/dL (70-99) 189 mg/dL (70-99) Test 03/29/19 07:17 03/29/19 12:20 03/29/19 17:13 03/29/19 20:26 Glucose (Fingerstick) 280 mg/dL (70-99) 202 mg/dL (70-99) 171 mg/dL (70-99) 92 mg/dL (70-99) Test 03/29/19 22:21 Glucose (Fingerstick) 245 mg/dL (70-99) Laboratory Tests Test 03/29/19 07:17 03/29/19 12:20 03/29/19 17:13 03/29/19 20:26 Glucose (Fingerstick) 280 mg/dL (70-99) 202 mg/dL (70-99) 171 mg/dL (70-99) 92 mg/dL (70-99) Test 03/29/19 22:21 Glucose (Fingerstick) 245 mg/dL (70-99) Medications Current Medications Ondansetron HCl (Zofran Odt) 4 mg 1X ONCE PO Last administered on 03/26/19at 21:51; Start 03/26/19 at 22:00; Stop 03/26/19 at 22:01; Status DC Sodium Chloride 1,000 ml @ 1,000 mls/hr Q1H IV Last administered on 03/26/19at 01:00; Start 03/26/19 at 23:30; Stop 03/27/19 at 00:29; Status DC Ondansetron HCl (Zofran) 4 mg 1X ONCE IV Last administered on 03/27/19at 00:15; Start 03/26/19 at 23:30; Stop 03/26/19 at 23:31; Status DC Diphenhydramine HCl (Benadryl) 25 mg 1X ONCE IVP ; Start 03/27/19 at 00:30; Stop 03/27/19 at 00:31; Status Cancel Dicyclomine HCl (Bentyl) 10 mg 1X ONCE IM Last administered on 03/27/19at 00:31; Start 03/27/19 at 00:30; Stop 03/27/19 at 00:31; Status DC Metoclopramide HCl (Reglan Vial) 10 mg 1X ONCE IVP Last administered on 03/27/19at 00:39; Start 03/27/19 at 00:30; Stop 03/27/19 at 00:31; Status DC Ketorolac Tromethamine (Toradol 30mg Vial) 30 mg 1X ONCE IVP Last administered on 03/27/19at 00:39; Start 03/27/19 at 00:30; Stop 03/27/19 at 00:31; Status DC Diphenhydramine HCl (Benadryl) 50 mg 1X ONCE IVP Last administered on 03/27/19at 00:30; Start 03/27/19 at 00:30; Stop 03/27/19 at 00:31; Status DC Insulin Human Regular (HumuLIN R VIAL) 10 unit 1X ONCE IV Last administered on 03/27/19at 01:54; Start 03/27/19 at 01:00; Stop 03/27/19 at 01:01; Status DC Insulin Human Regular 100 ml @ 0 mls/hr 1X ONCE IV Last administered on 03/27/19at 01:57; Start 03/27/19 at 01:00; Stop 03/27/19 at 01:01; Status DC Dextrose (Dextrose 50%-Water Syringe) 12.5 gm PRN Q15MIN PRN IV LOW BLOOD SUGAR; Start 03/27/19 at 00:45; Stop 03/27/19 at 08:07; Status DC Dextrose (Iv Dextrose 5%) 250 ml PRN Q15MIN PRN IV LOW BLOOD SUGAR; Start 03/27/19 at 00:45; Stop 03/29/19 at 13:09; Status DC Insulin Human Regular 100 unit/ Sodium Chloride 101 ml @ 0 mls/hr CONT PRN PRN IV PER PROTOCOL; Start 03/27/19 at 01:15; Stop 03/27/19 at 05:40; Status DC Potassium Chloride/Water 100 ml @ 100 mls/hr PRN Q1HR PRN IV SEE COMMENTS; Start 03/27/19 at 01:15 Potassium Chloride/Water 100 ml @ 100 mls/hr PRN Q1HR PRN IV SEE COMMENTS; Start 03/27/19 at 01:15 Potassium Chloride/Water 100 ml @ 100 mls/hr PRN Q1HR PRN IV SEE COMMENTS; Start 03/27/19 at 01:15 Ondansetron HCl (Zofran) 4 mg PRN Q8HRS PRN IV NAUSEA/VOMITING Last administered on 03/27/19at 21:20; Start 03/27/19 at 01:45; Stop 03/28/19 at 01:44; Status DC Morphine Sulfate (Morphine Sulfate) 2 mg PRN Q2HR PRN IV PAIN Last administered on 03/27/19at 05:50; Start 03/27/19 at 01:45; Stop 03/27/19 at 06:41; Status DC Insulin Glargine (Lantus Syringe) 15 unit 1X ONCE SQ Last administered on 03/27/19at 06:34; Start 03/27/19 at 06:00; Stop 03/27/19 at 06:01; Status DC Insulin Human Lispro (HumaLOG) 0-7 UNITS TIDWMEALS SQ Last administered on 03/29/19at 12:25; Start 03/27/19 at 08:00 Dextrose (Dextrose 50%-Water Syringe) 12.5 gm PRN Q15MIN PRN IV SEE COMMENTS; Start 03/27/19 at 05:45 Dextrose (Iv Dextrose 5%) 250 ml PRN Q15MIN PRN IV SEE COMMENTS; Start 03/27/19 at 05:45 Insulin Human Lispro (HumaLOG) 3 units TIDAC SQ ; Start 03/27/19 at 07:30; Stop 03/27/19 at 08:10; Status DC Ketorolac Tromethamine (Toradol 30mg Vial) 30 mg PRN Q8HRS PRN IVP PAIN Last administered on 03/30/19at 04:54; Start 03/27/19 at 06:45; Stop 04/01/19 at 06:44 Magnesium Sulfate 50 ml @ 25 mls/hr 1X ONCE IV Last administered on 03/27/19at 10:05; Start 03/27/19 at 09:00; Stop 03/27/19 at 10:59; Status DC Amlodipine Besylate (Norvasc) 5 mg DAILY PO Last administered on 03/29/19at 10:31; Start 03/27/19 at 09:00 Acetaminophen/ Aspirin/Caffeine (Excedrin Migraine) 2 tab PRN Q6HRS PRN PO MIGRAINE HEADACHE Last administered on 03/29/19at 23:34; Start 03/27/19 at 08:00 Dicyclomine HCl (Bentyl) 10 mg QID PRN PO abd pain Last administered on 03/27/19at 12:51; Start 03/27/19 at 08:00 Famotidine (Pepcid) 20 mg DAILY PO Last administered on 03/29/19at 10:32; Start 03/27/19 at 09:00 Insulin Human Lispro (HumaLOG) 12 units TIDWMEALS SQ Last administered on 03/29/19at 17:17; Start 03/27/19 at 08:00 Albuterol/ Ipratropium (Duoneb) 3 ml RTQID NEB Last administered on 03/30/19at 07:07; Start 03/27/19 at 08:00 Ondansetron HCl (Zofran Odt) 4 mg PRN Q6HRS PRN PO NAUSEA/VOMITING (1st Choice); Start 03/27/19 at 08:00 Polyethylene Glycol (miraLAX PACKET) 17 gm PRN DAILY PRN PO CONSTIPATION; Start 03/27/19 at 08:00 Promethazine HCl (Phenergan) 25 mg PRN Q6HRS PRN PO NAUSEA/VOMITING (2nd Choice) Last administered on 03/29/19 22:18; Start 03/27/19 at 08:15 Nicotine (Nicoderm Cq 21mg) 1 patch PRN DAILY PRN TD SMOKING CESSATION; Start 03/27/19 at 09:00 Prochlorperazine Edisylate (Compazine) 10 mg PRN Q6HRS PRN IV NAUSEA/VOMITING/SUGGS(2nd Choice) Last administered on 03/29/19 15:50; Start 03/27/19 at 08:15 Potassium Bicarbonate (Potassium Effervescent Tablet) 40 meq 1X ONCE PO Last administered on 03/27/19 11:47; Start 03/27/19 at 11:15; Stop 03/27/19 at 11:16; Status DC Buspirone HCl (Buspar) 10 mg PRN TID PRN PO ANXIETY Last administered on 03/27/19 19:54; Start 03/27/19 at 11:45 Bisacodyl (Dulcolax Supp) 10 mg PRN DAILY PRN CA CONSTIPATION; Start 03/27/19 at 11:45 Metoclopramide HCl (Reglan Vial) 5 mg PRN Q6HRS PRN IVP NAUSEA/VOMITING, 3RD CHOICE IV Last administered on 03/29/19 12:12; Start 03/27/19 at 11:45 Insulin Glargine (Lantus Syringe) 35 unit QHS SQ Last administered on 03/29/19 22:27; Start 03/27/19 at 21:30 Insulin Human Lispro (HumaLOG) 9 units 1X ONCE SQ Last administered on 03/27/19 23:16; Start 03/27/19 at 21:30; Stop 03/27/19 at 21:31; Status DC Calcium Carbonate/ Glycine (Tums) 500 mg PRN Q4HRS PRN PO INDIGESTION Last administered on 03/28/19 00:22; Start 03/28/19 at 00:00 Prochlorperazine Edisylate (Compazine) 10 mg PRN Q6HRS PRN IM NAUSEA/VOMITING Last administered on 03/28/19 09:01; Start 03/28/19 at 08:45 Ketorolac Tromethamine (Toradol 30mg Vial) 30 mg PRN Q6HRS PRN IM pain Last administered on 03/28/19 09:00; Start 03/28/19 at 08:45 Ondansetron HCl (Zofran) 4 mg PRN Q6HRS PRN IVP NAUSEA/VOMITING (1st Choice) Last administered on 03/29/19 07:39; Start 03/28/19 at 12:45 Ketorolac Tromethamine (Toradol 15mg Vial) 15 mg 1X ONCE IM ; Start 03/28/19 at 12:45; Stop 03/28/19 at 12:46; Status Cancel Pantoprazole Sodium (PROTONIX VIAL for IV PUSH) 40 mg 1X ONCE IVP Last admi nistered on 03/28/19at 12:54; Start 03/28/19 at 12:45; Stop 03/28/19 at 12:46; Status DC Ketorolac Tromethamine (Toradol 15mg Vial) 15 mg 1X ONCE IVP Last administered on 03/28/19at 12:58; Start 03/28/19 at 13:00; Stop 03/28/19 at 13:01; Status DC Bethanechol Chloride (Urecholine) 10 mg TIDAC PO Last administered on 03/29/19at 17:11; Start 03/29/19 at 07:30 Sumatriptan Succinate (Imitrex) 100 mg 1X ONCE PO Last administered on 03/29/19at 12:17; Start 03/29/19 at 12:00; Stop 03/29/19 at 12:01; Status DC Active Scripts Active Humalog (Insulin Lispro) 100 Unit/1 Ml Insuln.pen 12 Units SQ TIDWMEALS 30 Days Lantus (Insulin Glargine,Hum.rec.anlog) 100 Unit/1 Ml Vial 30 Unit SQ QHS 30 Days Ondansetron Odt (Ondansetron) 4 Mg Tab.rapdis 4 Mg PO PRN Q6HRS PRN 14 Days [Nicotine 21MG] 1 PATCH Patch 1 Patch TD PRN DAILY PRN 28 Days Dicyclomine Hcl 10 Mg Capsule 10 Mg PO QID PRN 30 Days Promethazine Hcl 25 Mg Tablet 1 Tab PO PRN Q6HRS Duoneb 0.5-3(2.5) Mg/3 Ml (Albuterol/Ipratropium) 3 Ml Ampul.neb 3 Ml NEB RTQID 30 Days Norvasc (Amlodipine Besylate) 5 Mg Tablet 5 Mg PO DAILY 30 Days Polyethylene Glycol 3350 17 Gm Powd.pack 17 Gm PO PRN DAILY PRN 14 Days Pain Reliever Plus Tablet (Aspirin/Acetaminophen/Caffeine) 1 Each Tablet 2 Tab PO PRN Q6HRS PRN 10 Days Famotidine 20 Mg Tablet 20 Mg PO DAILY MDD 1 Reported Protonix (Pantoprazole Sodium) 20 Mg Tablet.dr 20 Mg PO DAILY Vitals/I & O Vital Sign - Last 24 Hours 03/29/19 03/29/19 03/29/19 03/29/19 07:24 08:00 10:31 11:00 Temp 98.6 98.6 Pulse 101 101 Resp 12 B/P (MAP) 137/63 186/94 (124) Pulse Ox 94 O2 Delivery Room Air Room Air Room Air 03/29/19 03/29/19 03/29/19 03/29/19 15:00 16:00 19:52 23:51 Temp 98.0 98.9 98.5 98.0 98.9 98.5 Pulse 99 101 98 Resp 20 18 20 B/P (MAP) 161/82 (108) 140/81 (100) 140/85 (103) Pulse Ox 94 94 96 98 O2 Delivery Room Air Room Air Room Air Room Air 03/30/19 03/30/19 03:57 07:07 Pulse 92 Resp 18 B/P (MAP) 141/87 (105) Pulse Ox 97 99 O2 Delivery Room Air Room Air Intake and Output 03/29/19 03/29/19 03/30/19 15:00 23:00 07:00 Intake Total 200 ml Balance 200 ml MACK GUIDRY MD Mar 30, 2019 07:14
[2019-03-30 07:30] VITALS: BP 116/81
[2019-03-30] MEDS: INSULIN LISPRO 300 UNITS/3 ML VIAL. SQ SCH ×2 (08:00)
[2019-03-30 08:35] VITALS: BP 116/81
[2019-03-30] MEDS: BETHANECHOL CHLORIDE 10 MG TABLET. PO SCH (08:35)
[2019-03-30] MEDS: amLODIPine BESYLATE 5 MG TABLET PO SCH (08:35)
[2019-03-30] MEDS: FAMOTIDINE 20 MG TABLET. PO SCH (08:35)
[2019-03-30] MEDS: ONDANSETRON PF 4 MG/2 ML VIAL. IVP PRN (08:37)
[2019-03-30] MEDS ORDERED: PROM25TA10 PO (08:47)
[2019-03-30] MEDS ORDERED: SUMA100T3 PO (08:47)
[2019-03-30] MEDS ORDERED: BUSP10TA PO (08:47)
[2019-03-30] MEDS ORDERED: BETH10TA12 PO (08:47)
--- NOTE | 2019-03-30 09:05 | PDOC3 ---
Discharge Summary Visit Information Date of Admission: Mar 27, 2019 Date of Discharge: Mar 30, 2019 Admitting Diagnosis: DKA, hyperemesis Final Diagnosis Problems Medical Problems: (1) DKA (diabetic ketoacidoses) Status: Acute (2) Gastroparesis Status: Acute Brief Hospital Course Allergies Allergies Coded Allergies Type Severity Reaction Last Updated Verified No Known Drug Allergies 12/25/18 No Vital Signs Vital Signs Date Time Temp Pulse Resp B/P (MAP) Pulse Ox O2 Delivery O2 Flow Rate FiO2 03/30/19 08:35 104 116/81 03/30/19 07:30 98.3 20 96 Room Air 98.3 Lab Results Laboratory Tests Test 03/28/19 11:19 03/28/19 16:54 03/28/19 19:37 03/29/19 07:17 Glucose (Fingerstick) 240 mg/dL (70-99) 216 mg/dL (70-99) 189 mg/dL (70-99) 280 mg/dL (70-99) Test 03/29/19 12:20 03/29/19 17:13 03/29/19 20:26 03/29/19 22:21 Glucose (Fingerstick) 202 mg/dL (70-99) 171 mg/dL (70-99) 92 mg/dL (70-99) 245 mg/dL (70-99) Test 03/30/19 07:45 Glucose (Fingerstick) 138 mg/dL (70-99) Laboratory Tests Test 03/29/19 12:20 03/29/19 17:13 03/29/19 20:26 03/29/19 22:21 Glucose (Fingerstick) 202 mg/dL (70-99) 171 mg/dL (70-99) 92 mg/dL (70-99) 245 mg/dL (70-99) Test 03/30/19 07:45 Glucose (Fingerstick) 138 mg/dL (70-99) Brief Hospital Course Ms Garcia is a 43-year-old female w/ PMHx Anxiety, Cyclic Vomiting, Diabetes- Type I, High Cholesterol, gastroparesis who complaints of abdominal cramping, headache, nausea and vomiting, found in DKA. She was hospitalized at [facility] a number of times for DKA and chest pain complaints, just discharged yesterday. Since she left the hospital she has been laying in bed and started having headaches. She feels like she can't walk across the without feeling fatigue and pain. She says that she is compliant with her diabetes mediations and has been checking her sugars and they have been 200-300, which is normal for her. Glucose 419 anion gap 27. Started on insulin GTT and IVF begun in ED. Overnight her gap closed, still with headache, noted it was the worst of her life. Underwent CT head and neck, negative for acute pathology, some C5-6 DDD. 03/28: Feeling only slightly better. Still with vomiting this morning. Lost IV access. She states she really wants to be able to eat. 03/29: Still with SUGGS today. Belching up peanut butter. No CP or SOB. Headache broken with imitrex. Urinary retention and early satiety improved with low dose bethanechol. Anxiety improved with buspar. She feels much better, ate a full breakfast Problem list DKA - insulin GTT. Q6 hours BMP and phos, mag, replacement protocol. Gap closed. Ok to eat and get back on home insulin regimen Intractable headache - she takes excedrin migraine outpatient, denies migraines. Toradol and compazine helped. CT head for worst headache of life was negative. imitrex broke her headache ultimately, likely has complicated migraines, will f/u with neurology outpatient Nausea and vomiting - likely cannabis hyperemesis plus some element of gastroparesis. Treated with IV antiemetics, ultimately treating headache and bethanechol seemed to help best Chest pain - improved from prior. Now left shoulder pain, troponins negative Hx THC ABUSE - counseled cessation will help her cyclic vomiting Transaminitis - mild, notably recurrent. Normal lipids, TSH, ferritin Anemia - related to diabetes, will check iron Anxiety - previously on too much ativan, will start on prn buspar TID Plan: Outpatient GI workup and see neurology for likely complicated migraines Greater than 30 minutes spent on d/c Discharge Information Condition at Discharge: Improved Follow Up: Weeks (1) Disposition/Orders: D/C to Home Scheduled Amlodipine Besylate (Norvasc) 5 Mg Tablet, 5 MG PO DAILY for BLOOD PRESSURE for 30 Days, #30 Prescribed by: DEEPTI ZHAO MD on 08/24/18 1250 Last Action: Continued on 03/27/19 0804 by MACK GUIDRY MD Bethanechol Chloride (Urecholine) 10 Mg Tablet, 10 MG PO TIDAC for Gastroparesis for 30 Days, #90 Ref 5 Prescribed by: MACK GUIDRY MD on 03/30/19 0847 Famotidine (Famotidine) 20 Mg Tablet, 20 MG PO DAILY for gerd MDD 1, #30 Prescribed by: LUBA LINDQUIST on 06/11/18 1333 Last Action: Continued on 03/27/19 0804 by MACK GUIDRY MD Insulin Glargine,Hum.rec.anlog (Lantus) 100 Unit/1 Ml Vial, 30 UNIT SQ QHS for DIABETES for 30 Days, #2 Prescribed by: DEEPTI ZHAO MD on 12/29/18 1023 Insulin Lispro (Humalog) 100 Unit/1 Ml Insuln.pen, 12 UNITS SQ TIDWMEALS for DIABETES for 30 Days, #2 Prescribed by: DEEPTI ZHAO MD on 12/29/18 1023 Last Action: Continued on 03/27/19 0804 by MACK GUIDRY MD Ipratropium/Albuterol Sulfate (Duoneb 0.5-3(2.5) Mg/3 Ml) 3 Ml Ampul.neb, 3 ML NEB RTQID for pneumonia for 30 Days, #120 Prescribed by: DEEPTI ZHAO MD on 09/30/18 1217 Last Action: Continued on 03/27/19803 by MACK GUIDRY MD Pantoprazole Sodium (Protonix) 20 Mg Tablet.dr, 20 MG PO DAILY for stomach, (Reported) Entered as Reported by: JAQUELIN VANG on 08/21/18 1704 Promethazine Hcl (Promethazine Hcl) 25 Mg Tablet, 1 TAB PO PRN Q6HRS for nausea/vomiting for 30 Days, #40 Ref 5 Prescribed by: MACK GUIDRY MD on 03/30/19 0847 Sumatriptan Succinate (Imitrex) 100 Mg Tablet, 1 TAB PO UD for Migraine, #9 Ref 5 Prescribed by: MACK GUIDRY MD on 03/30/19 0847 Scheduled PRN Aspirin/Acetaminophen/Caffeine (Pain Reliever Plus Tablet) 1 Each Tablet, 2 TAB PO PRN Q6HRS PRN for MIGRAINE HEADACHE for 10 Days, #30 Prescribed by: DEEPTI ZHAO MD on 08/24/18 1249 Last Action: Continued on 03/27/19803 by MACK GUIDRY MD Buspirone Hcl (Buspirone Hcl) 10 Mg Tablet, 10 MG PO PRN TID PRN for ANXIETY for 30 Days, #90 Ref 5 Prescribed by: MACK GUIDRY MD on 03/30/19 0847 Dicyclomine Hcl (Dicyclomine Hcl) 10 Mg Capsule, 10 MG PO QID PRN for abd pain for 30 Days, #120 Prescribed by: DEEPTI ZHAO MD on 12/29/18 1023 Last Action: Continued on 03/27/19803 by MACK GUIDRY MD Ondansetron (Ondansetron Odt) 4 Mg Tab.rapdis, 4 MG PO PRN Q6HRS PRN for NAUSEA/VOMITING for 14 Days, #30 Prescribed by: DEEPTI ZHAO MD on 12/29/18 1023 Last Action: Continued on 03/27/19803 by MACK GUIDRY MD Polyethylene Glycol 3350 (Polyethylene Glycol 3350) 17 Gm Powd.pack, 17 GM PO PRN DAILY PRN for CONSTIPATION for 14 Days, #14 Prescribed by: DEEPTI ZHAO MD on 08/24/18 1249 Last Action: Continued on 03/27/19803 by MACK GUIDRY MD [Nicotine 21MG] 1 PATCH PATCH, 1 PATCH TD PRN DAILY PRN for SMOKING CESSATION for 28 Days, #30 Prescribed by: DEEPTI ZHAO MD on 12/29/18 1023 Last Action: Converted on 03/27/19803 by MD CHAO MCGEE CHRISTOPHER S MD Mar 30, 2019 09:05
--- NOTE | 2019-03-30 10:30 | NUR ---
Discharge instructions given to patient regarding following up with a GI doctor. Contact information given if pt doesn't have a GI doctor. Education given over gastroparesis and medications. Patient verbalizes understanding.
== END 2019-03-30 10:30 | disposition home or self-care (01) | DRG 74 ==
LOC: ER 21:19 → 6 SOUTH 03-27 01:32
PROVIDERS: ADMIT Internal Medicine; ATTEND Internal Medicine
DX: E10.43 Type 1 diabetes mellitus with diabetic autonomic (poly)neuropathy (principal); E10.10 Type 1 diabetes mellitus with ketoacidosis without coma; K31.84 Gastroparesis; D64.9 Anemia, unspecified; E78.00 Pure hypercholesterolemia, unspecified; E78.5 Hyperlipidemia, unspecified; F17.210 Nicotine dependence, cigarettes, uncomplicated; F12.10 Cannabis abuse, uncomplicated; F41.9 Anxiety disorder, unspecified; G43.109 Migraine with aura, not intractable, without status migrainosus; Z79.4 Long term (current) use of insulin; Z82.5 Family history of asthma and other chronic lower respiratory diseases; Z90.710 Acquired absence of both cervix and uterus; Z79.899 Other long term (current) drug therapy
CPT/HCPCS: 36415; 36600; 70450; 72125; 74018; 80048; 80053; 80061; 80076; 80307; 81001; 82010; 82728; 82805; 82962; 83690; 83735; 84100; 84443; 84484; 85025; 94640; 94760; 96361; 96365; 96372; 96375; 96376; C9113; J0500; J0780; J1200; J1815; J1885; J2270; J2405; J2765; J3475; J7030; J7620; Q0162; Q0169; 99285-25; G0378

== ENCOUNTER 2020-07-27 21:46 | Inpatient (IN) | payer MEDICARE ==
[~2020-07-27] VITALS: Ht 154.9 cm; Wt 48.4 kg
[~2020-07-27 21:46] MED LIST changes: +BETH10TA12 PO; +BUSP10TA PO; +CALC500T14 PO; +ERYT250C33 PO; -ERYT250C8 PO; -LISI-334 PO; +LISI20TA18 PO; -POLY17PO28 PO; +POLY17PO52 PO; +PROM12.58 PO; +SUMA100T3 PO
--- NOTE | 2020-07-27 22:30 | NUR ---
ADMISSION NOTE: Patient arrived to room 667 via EMS. Bed low, locked, call light within reach. Somewhat uncooperative with admission questionnaire, exasperated sighs and irritability. Patient complains of being tired at this time. Will page Dr. Horn to notify of patient's arrival and to obtain orders.
[2020-07-27] MEDS ORDERED: INSU100V13 SQ (22:51)
[2020-07-27] MEDS ORDERED: INSU100C4 SQ (22:51)
[2020-07-27 23:00] VITALS: BP 113/65
[2020-07-27] MEDS ORDERED: ONDANSETRON ODT 4 MG TAB.RAPDIS. PO PRN (23:00)
[2020-07-27] MEDS ORDERED: DEXTROSE 50% 25 GM / 50ML DISP.SYRIN. IV PRN (23:00)
[2020-07-27] MEDS ORDERED: ZOLPIDEM 5 MG TABLET. PO PRN (23:00)
[2020-07-28 03:00] VITALS: BP 102/73
[2020-07-28] MEDS: IV NORMAL SALINE 1000ML BAG 1,000 ML IV SCH ×4 (03:16→23:00)
[2020-07-28] MEDS: fentaNYL PF VIAL 100 MCG/2 ML VIAL IVP PRN ×2 (03:52→08:48)
[2020-07-28] MEDS ORDERED: INSULIN LISPRO 300 UNITS/3 ML VIAL. SQ ONE (04:00)
[2020-07-28 07:00] VITALS: BP 112/64
--- NOTE | 2020-07-28 08:43 | PDOC1 ---
History and Physical Date of Admission Date of Admission DATE: 07/28/20 TIME: 08:43 Identification/Chief Complaint Chief Complaint Nausea and vomiting Source Source: Patient History of Present Illness History of Present Illness Ms Garcia is a 43-year-old female w/ PMHx Anxiety, Cyclic Vomiting, Diabetes- Type I, High Cholesterol, gastroparesis presenting to [place] with body aches, chest pain, sob since Saturday. She reports no known sick contacts, and reports on Saturday she presented to for evaluation. She reports that on this visit to all they did was give her some fluids and test her for covid. She reports that she had not been told what her COVID test results are. She presents today because her symptoms have continued to worsen. She reports that she has noted fevers of over 101F since her symptoms have began. Also reports she is nauseous and has vomited multiple times since her symptoms began, and is always nauseous. Does report a history of T1DM, but doesn't think her current symptoms are due to DM because her current symptoms are atypical for her normal DM symptoms. Does report taking her sugars at home and reports they have been in the 200s. Denies bloody emesis, hematemesis, bloody bowel movements, and sick contacts. She was hospitalized at [facility] a number of times for DKA 2 years ago and has been able to stay out of the hospital since. Gets her primary care at [facility], found that 22u Lantus and 11u lispro TID and staying away from healthcare providers has kept her out of the hospital until now. Labs with WBC 7.1, Hb 14.7, platelets 376, Na 124, K 5.7, BUN 13, Cr 1.1, glucose 728, AST 30, ALT 67, Alb 3.7, Alk phos 127, lactic acid 1.6, Trop 0 EKG sinus rhythm at 84 bpm, unremarkable intervals, no axis deviation, no acute ischemic findings, no STEMI Chest radiograph with no acute abnormalities Due to life-threatening hyperkalemia and possibility for need of GI or nephrology services patient transferred to [facility] for higher level of care. Seen bedside on arrival, given IV insulin and IVF, IV anti-emetics Past Medical History Cardiovascular: Hyperlipidemia Pulmonary: No pertinent hx GI: Other Heme/Onc: No pertinent hx Hepatobiliary: Other Psych: Addictions Endocrine: Diabetes Past Surgical History Past Surgical History: Cholecystectomy, Hysterectomy Family History Family History: Chronic Bronchitis, High Cholestrol Social History Smoke: 1 pack per day ALCOHOL: none Drugs: Marijuana Current Medications Current Medications Current Medications Fentanyl Citrate (Fentanyl 2ml Vial) 50 mcg PRN Q2HR PRN IVP PAIN Last administered on 07/28/20at 03:52; Start 07/27/20 at 23:00 Sodium Chloride 1,000 ml @ 125 mls/hr Q8H IV Last administered on 07/28/20at 03:16; Start 07/27/20 at 23:00 Zolpidem Tartrate (Ambien) 5 mg PRN QHS PRN PO INSOMNIA; Start 07/27/20 at 23:00 Ondansetron HCl (Zofran Odt) 4 mg PRN Q8HRS PRN PO NAUSEA/VOMITING; Start 07/27/20 at 23:00 Insulin Human Lispro (HumaLOG) 0-7 UNITS TIDWMEALS SQ ; Start 07/28/20 at 08:00 Dextrose (Dextrose 50%-Water Syringe) 12.5 gm PRN Q15MIN PRN IV SEE COMMENTS; Start 07/27/20 at 23:00 Insulin Human Lispro (HumaLOG) 10 units 1X ONCE SQ Last administered on 07/28/20at 03:51; Start 07/28/20 at 04:00; Stop 07/28/20 at 04:01; Status DC Active Scripts Active Ondansetron Odt (Ondansetron) 4 Mg Tab.rapdis 8 Mg PO PRN Q8HRS PRN 28 Days Oyster Shell Calcium (Calcium Carbonate) 500 Mg Tablet 500 Mg PO TIDAFTMEAL 30 Days Promethazine Hcl 12.5 Mg Tablet 12.5 Mg PO PRN Q6HRS PRN 14 Days Imitrex (Sumatriptan Succinate) 100 Mg Tablet 1 Tab PO UD Buspirone Hcl 10 Mg Tablet 10 Mg PO PRN TID PRN 30 Days [Nicotine 21MG] 1 PATCH Patch 1 Patch TD PRN DAILY PRN 28 Days Dicyclomine Hcl 10 Mg Capsule 10 Mg PO QID PRN 30 Days Duoneb 0.5-3(2.5) Mg/3 Ml (Albuterol/Ipratropium) 3 Ml Ampul.neb 3 Ml NEB RTQID 30 Days Norvasc (Amlodipine Besylate) 5 Mg Tablet 5 Mg PO DAILY 30 Days Polyethylene Glycol 3350 17 Gm Powd.pack 17 Gm PO PRN DAILY PRN 14 Days Pain Reliever Plus Tablet (Aspirin/Acetaminophen/Caffeine) 1 Each Tablet 2 Tab PO PRN Q6HRS PRN 10 Days Reported Novolog (Insulin Aspart) 100 Unit/1 Ml Cartridge 11 Unit SQ TIDAC Levemir (Insulin Detemir) 100 Unit/1 Ml Vial 22 Unit SQ QHS Protonix (Pantoprazole Sodium) 20 Mg Tablet.dr 20 Mg PO DAILY Allergies Allergies: Coded Allergies: No Known Drug Allergies (Unverified , 12/25/18) ROS General: YES: Chills, Fatigue, Malaise; No: Night Sweats, Appetite, Other PSYCHOLOGICAL ROS: YES: Anxiety; No: Behavioral Disorder, Concentration difficultie, Decreased libido, Depression, Disorientation, Hallucinations, Hostility, Irritablity, Memory difficulties, Mood Swings, Obsessive thoughts, Physical abuse, Sexual abuse, Sleep disturbances, Suicidal ideation, Other Eyes: No Blurry vision, No Decreased vision, No Double vision, No Dry eyes, No Excessive tearing, No Eye Pain, No Itchy Eyes, No Loss of vision, No Photophobia, No Scotomata, No Uses contacts, No Uses glasses, No Other HEENT: No: Heacaches, Visual Changes, Hearing change, Nasal congestion, Nasal discharge, Oral lesions, Sinus pain, Sore Throat, Epistaxis, Sneezing, Snoring, Tinnitus, Vertigo, Vocal changes, Other ALLERGY AND IMMUNOLOGY: No: Hives, Insect Bite Sensitivity, Itchy/Watery Eyes, Nasal Congestion, Post Nasal Drip, Seasonal Allergies, Other Hematological and Lymphatic: No: Bleeding Problems, Blood Clots, Blood Transfusions, Brusing, Night Sweats, Pallor, Swollen Lymph Nodes, Other ENDOCRINE: No: Breast Changes, Galactorrhea, Hair Pattern Changes, Hot Flashes, Malaise/lethargy, Mood Swings, Palpitations, Polydipsia/polyuria, Skin Changes, Temperature Intolerance, Unexpected Weight Changes, Other Breast: No New/Changing Breast Lumps, No Nipple changes, No Nipple discharge, No Other Respiratory: YES: Cough; No: Hemoptysis, Orthopnea, Pleuritic Pain, Shortness of breath, SOB with excertion, Sputum Changes, Stridor, Tachypnea, Wheezing, Other Cardiovascular: yes Chest Pain; No Palpitations, No Orthopnea, No Paroxysmal Noc. Dyspnea, No Edema, No Lt Headedness, No Other Gastrointestinal: Yes Nausea, Yes Vomiting, Yes Abdominal Pain; No Diarrhea, No Constipation, No Melena, No Hematochezia, No Other Genitourinary: No Dysuria, No Frequency, No Incontinence, No Hematuria, No Retention, No Discharge, No Urgency, No Pain, No Flank Pain, No Other, No , No , No , No , No , No , No Musculoskeletal: No Gait Disturbance, No Joint Pain, No Joint Stiffness, No Joint Swelling, No Muscle Pain, No Muscular Weakness, No Pain In:, No Swelling In:, No Other Neurological: No Behavorial Changes, No Bowel/Bladder ControlChng, No Confusion, No Dizziness, No Gait Disturbance, No Headaches, No Impaired Coord/balance, No Memory Loss, No Numbness/Tingling, No Seizures, No Speech Problems, No Tremors, No Visual Changes, No Weakness, No Other Skin: No Dry Skin, No Eczema, No Hair Changes, No Lumps, No Mole Changes, No Mottling, No Nail Changes, No Pruritus, No Rash, No Skin Lesion Changes, No Other, No Acne Physical Exam General: Alert, Oriented X3, Cooperative, moderate distress HEENT: Atraumatic, PERRLA, EOMI, Mucous membr. moist/pink Lungs: Clear to auscultation, Normal air movement Heart: S1S2, RRR, no thrills, no rubs, no gallops, no murmurs Abdomen: Normal bowel sounds, Soft, No tenderness, No hepatosplenomegaly, No masses Rectal Exam: not examined Extremities: No clubbing, No cyanosis, No edema, Normal pulses, No tenderness/swelling Skin: No rashes, No breakdown, No significant lesion Neuro: Normal gait, Normal speech, Strength at 5/5 X4 ext, Normal tone, Cranial nerves 3-12 NL, Reflexes 2+ Psych/Mental Status: Mental status NL, Mood NL Vitals Vitals Vital Signs Date Time Temp Pulse Resp B/P (MAP) Pulse Ox O2 Delivery O2 Flow Rate FiO2 07/28/20 04:30 97 Room Air 07/28/20 03:00 97.8 80 18 102/73 (83) 97.8 Labs Labs Laboratory Tests Test 07/28/20 03:18 07/28/20 07:08 Glucose (Fingerstick) 523 mg/dL (70-99) 165 mg/dL (70-99) Laboratory Tests Test 07/28/20 03:18 07/28/20 07:08 Glucose (Fingerstick) 523 mg/dL (70-99) 165 mg/dL (70-99) Images Images Chestradiograph: A frontal view of the chest is obtained. There is no infiltrate, pleural effusion or pneumothorax. The heart is normal in size. There are nodules ove rlying the bilateral thorax due to nipple shadows. IMPRESSION: No acute pulmonary finding. VTE Prophylaxis Ordered VTE Prophylaxis Devices: Contraindicated VTE Pharmacological Prophylaxi: Yes Assessment/Plan Assessment/Plan A/P: Intractable nausea and vomiting - likely gastroparesis, will keep NPO until her symptoms and glucose are better controlled. Hyperkalemia - likely related to HHNK, will give IVF, telemetry, q6hr BMP Hyponatremia - likely related to hyperglycemia, will hydrate, IV insulin HHNK - insulin IV. Q6 hours BMP and phos, mag, replacement protocol. Gap closed. Ok to eat and get back on home insulin regimen Intractable headache - she takes excedrin migraine outpatient, denies migraines. Toradol and compazine helped. CT head for worst headache of life was negative. imitrex broke her headache ultimately, likely has complicated migraines, will f/u with neurology outpatient Chest pain - improved from prior. Now left shoulder pain, troponins negative Hx THC ABUSE - counseled cessation will help her cyclic vomiting Transaminitis - mild, notably recurrent. Normal lipids, TSH, ferritin Anemia - related to diabetes, will check iron Anxiety - previously on too much ativan, will start on prn buspar TID FEN - NPO PPX - Lovenox FULL CODE Dispo - inpatient COVID-19 CRITERIA: The patient was evaluated during the global COVID-19 pandemic, and that diagnosis was suspected/considered upon their initial presentation. Their evaluation, treatment and testing was consistent with current guidelines for patients who present with complaints or symptoms that may be related to COVID-19. Justifications for Admission Other Justification MACK GUIDRY MD Jul 28, 2020 08:43
[2020-07-28] MEDS: INSULIN LISPRO 300 UNITS/3 ML VIAL. SQ SCH ×5 (08:54→16:30)
[2020-07-28] MEDS ORDERED: NICOTINE 21MG PATCH. TD PRN (09:00)
[2020-07-28] MEDS ORDERED: busPIRone 10 MG TABLET. PO PRN (09:00)
[2020-07-28] MEDS ORDERED: METOCLOPRAMIDE HCL 10 MG/2 ML VIAL. IVP PRN ×2 (09:00→18:00)
[2020-07-28] MEDS ORDERED: ONDANSETRON ODT 4 MG TAB.RAPDIS. PO PRN (09:00)
[2020-07-28] MEDS ORDERED: POLYETHYLENE GLYCOL 3350 17 GM PACKET. PO PRN (09:00)
[2020-07-28 10:09] LABS: BASO % 1 % (0-3); EOS # 0.2 x10^3/uL (0.0-0.7); EOS % 3 % (0-3); HEMATOCRIT 37.7 % (36.0-47.0); HEMOGLOBIN 13.1 g/dL (12.0-15.5); LYMPH # 3.1 x10^3/uL (1.0-4.8); LYMPH % 47 % (24-48); MEAN CORPUSCULAR HEMOGLOBIN 32 pg (25-35); MEAN CORPUSCULAR HGB CONC 35 g/dL (31-37); MEAN CORPUSCULAR VOLUME 91 fL (79-100); MONO # 0.3 x10^3/uL (0.0-1.1); MONO % 5 % (0-9); NEUT # 2.8 x10^3/uL (1.8-7.7); NEUT % 43 % (31-73); PLATELET COUNT 370 x10^3/uL (140-400); RED BLOOD COUNT 4.16 x10^6/uL (3.50-5.40); RED CELL DISTRIBUTION WIDTH 12.9 % (11.5-14.5); WHITE BLOOD COUNT 6.5 x10^3/uL (4.0-11.0)
--- NOTE | 2020-07-28 10:12 | NUR ---
SW following. Discussed with RN, pt from home, room air, ada diet. Pt currently PUI for COVID-19. RN advised no SW needs at this time. SW will continue to follow.
[2020-07-28 10:34] LABS: ALBUMIN/GLOBULIN RATIO 1.4 (1.0-1.7); CALCIUM 7.9 mg/dL (8.5-10.1); CREATININE 0.8 mg/dL (0.6-1.0); GFR 77.9; POTASSIUM 4.6 mmol/L (3.5-5.1); TOTAL BILIRUBIN 0.3 mg/dL (0.2-1.0); TOTAL PROTEIN 5.2 g/dL (6.4-8.2)
[2020-07-28 11:00] VITALS: BP 138/78
[2020-07-28] MEDS ORDERED: PROCHLORPERAZINE 10 MG/2 ML VIAL. IV ONE (13:15)
[2020-07-28] MEDS: traMADol 50 MG TABLET PO PRN ×2 (13:26→19:28)
[2020-07-28 15:00] VITALS: BP 152/82
[2020-07-28] MEDS: LANSOPRAZOLE 30 MG TAB.RAP.DR FT SCH (16:26)
[2020-07-28] MEDS: BETHANECHOL CHLORIDE 10 MG TABLET. PO SCH (18:07)
[2020-07-28 19:00] VITALS: BP 138/75
[2020-07-28] MEDS ORDERED: INSULIN GLARGINE SYRINGE. SQ SCH (21:00)
[2020-07-28 23:00] VITALS: BP 153/76
[2020-07-29] MEDS: IV NORMAL SALINE 1000ML BAG 1,000 ML IV SCH (01:22)
[2020-07-29 03:00] VITALS: BP 161/82
[2020-07-29 04:52] LABS: BASO % 1 % (0-3); EOS # 0.2 x10^3/uL (0.0-0.7); EOS % 4 % (0-3); HEMATOCRIT 36.3 % (36.0-47.0); HEMOGLOBIN 12.1 g/dL (12.0-15.5); LYMPH # 3.2 x10^3/uL (1.0-4.8); LYMPH % 53 % (24-48); MEAN CORPUSCULAR HEMOGLOBIN 31 pg (25-35); MEAN CORPUSCULAR HGB CONC 33 g/dL (31-37); MEAN CORPUSCULAR VOLUME 93 fL (79-100); MONO # 0.3 x10^3/uL (0.0-1.1); MONO % 6 % (0-9); NEUT # 2.2 x10^3/uL (1.8-7.7); NEUT % 37 % (31-73); PLATELET COUNT 323 x10^3/uL (140-400); RED BLOOD COUNT 3.89 x10^6/uL (3.50-5.40); RED CELL DISTRIBUTION WIDTH 13.2 % (11.5-14.5)
[2020-07-29 05:31] LABS: CALCIUM 7.4 mg/dL (8.5-10.1); CREATININE 0.7 mg/dL (0.6-1.0); GFR 90.9; POTASSIUM 4.8 mmol/L (3.5-5.1)
[2020-07-29 07:00] VITALS: BP 158/85
[2020-07-29] MEDS ORDERED: PANTOPRAZOLE 40 MG TABLET.DR. PO SCH (07:30)
[2020-07-29] MEDS: INSULIN LISPRO 300 UNITS/3 ML VIAL. SQ SCH ×2 (08:00)
[2020-07-29] MEDS: LANSOPRAZOLE 30 MG TAB.RAP.DR FT SCH (08:12)
[2020-07-29] MEDS: BETHANECHOL CHLORIDE 10 MG TABLET. PO SCH (08:12)
[2020-07-29] MEDS ORDERED: INSULIN LISPRO 300 UNITS/3 ML VIAL. SQ ONE (08:15)
[2020-07-29] MEDS ORDERED: INSU100V13 SQ (09:51)
[2020-07-29] MEDS ORDERED: Bethanechol Chloride PO (09:51)
[2020-07-29] MEDS ORDERED: ONDA4TAB12 PO (09:51)
[2020-07-29] MEDS ORDERED: INSU100C4 SQ (09:51)
[2020-07-29] MEDS ORDERED: LANS30TA6 FT (09:51)
--- NOTE | 2020-07-29 09:59 | NUR ---
SW following. Discussed with RN, discharge order for home with self care. RN advised no SW needs.
--- NOTE | 2020-07-29 10:01 | PDOC ---
[employer]GRESS NOTE Date of Service DOS: DATE: 07/29/20 TIME: 09:54 Chief Complaint Chief Complaint Intractable nausea and vomiting - likely gastroparesis, glucose in 100s, increased once taking PO today Hyperkalemia - likely related to HHNK, will give IVF, telemetry, q6hr BMP Hyponatremia - likely related to hyperglycemia, will hydrate, IV insulin HHNK - insulin IV. Q6 hours BMP and phos, mag, replacement protocol. Gap closed. Ok to eat and get back on home insulin regimen Intractable headache - she takes excedrin migraine outpatient, denies migraines. Toradol and compazine helped. CT head for worst headache of life was negative. imitrex broke her headache ultimately, likely has complicated migraines, will f/u with neurology outpatient Chest pain - improved from prior. Now left shoulder pain, troponins negative Hx THC ABUSE - counseled cessation will help her cyclic vomiting Transaminitis - mild, notably recurrent. Normal lipids, TSH, ferritin Anemia - related to diabetes, will check iron Anxiety - previously on too much ativan, will start on prn buspar TID History of Present Illness History of Present Illness Ms Garcia is a 43-year-old female w/ PMHx Anxiety, Cyclic Vomiting, Diabetes- Type I, High Cholesterol, gastroparesis presenting to [place] with body aches, chest pain, sob since Saturday. She reports no known sick contacts, and reports on Saturday she presented to for evaluation. She reports that on this visit to all they did was give her some fluids and test her for covid. She reports that she had not been told what her COVID test results are. She presents today because her symptoms have continued to worsen. She reports that she has noted fevers of over 101F since her symptoms have began. Also reports she is nauseous and has vomited multiple times since her symptoms began, and is always nauseous. Does report a history of T1DM, but doesn't think her current symptoms are due to DM because her current symptoms are atypical for her normal DM symptoms. Does report taking her sugars at home and reports they have been in the 200s. Denies bloody emesis, hematemesis, bloody bowel movements, and sick contacts. She was hospitalized at [place] a number of times for DKA 2 years ago and has been able to stay out of the hospital since. Gets her primary care at [facility], found that 22u Lantus and 11u lispro TID and staying away from healthcare providers has kept her out of the hospital until now. Labs with WBC 7.1, Hb 14.7, platelets 376, Na 124, K 5.7, BUN 13, Cr 1.1, glucose 728, AST 30, ALT 67, Alb 3.7, Alk phos 127, lactic acid 1.6, Trop 0 EKG sinus rhythm at 84 bpm, unremarkable intervals, no axis deviation, no acute ischemic findings, no STEMI Chest radiograph with no acute abnormalities Due to life-threatening hyperkalemia and possibility for need of GI or nephrology services patient transferred to [facility] for higher level of care. Seen bedside on arrival, given IV insulin and IVF, IV anti-emetics Vitals/I&O Vitals/I&O: Vital Signs Date Time Temp Pulse Resp B/P (MAP) Pulse Ox O2 Delivery O2 Flow Rate FiO2 07/29/20 07:00 97.6 88 18 158/85 (109) 99 Room Air 97.6 I & O 07/28/20 07/28/20 07/29/20 15:00 23:00 07:00 Intake Total 300 ml 1923 ml 423 ml Output Total 0 ml Balance 300 ml 1923 ml 423 ml Physical Exam General: Alert, Oriented X3, Cooperative, moderate distress Lungs: Clear, Other Abdomen: Normal bowel sounds, Soft, No tenderness, No hepatosplenomegaly, No masses Extremities: No clubbing, No cyanosis, No edema, Normal pulses, No tend erness/swelling Skin: No rashes, No breakdown, No significant lesion Labs Labs: Laboratory Tests Test 07/28/20 10:54 07/28/20 19:37 07/29/20 04:00 07/29/20 07:34 Glucose (Fingerstick) 114 mg/dL (70-99) 219 mg/dL (70-99) 493 mg/dL (70-99) White Blood Count 6.0 x10^3/uL (4.0-11.0) Red Blood Count 3.89 x10^6/uL (3.50-5.40) Hemoglobin 12.1 g/dL (12.0-15.5) Hematocrit 36.3 % (36.0-47.0) Mean Corpuscular Volume 93 fL (79-100) Mean Corpuscular Hemoglobin 31 pg (25-35) Mean Corpuscular Hemoglobin Concent 33 g/dL (31-37) Red Cell Distribution Width 13.2 % (11.5-14.5) Platelet Count 323 x10^3/uL (140-400) Neutrophils (%) (Auto) 37 % (31-73) Lymphocytes (%) (Auto) 53 % (24-48) Monocytes (%) (Auto) 6 % (0-9) Eosinophils (%) (Auto) 4 % (0-3) Basophils (%) (Auto) 1 % (0-3) Neutrophils # (Auto) 2.2 x10^3/uL (1.8-7.7) Lymphocytes # (Auto) 3.2 x10^3/uL (1.0-4.8) Monocytes # (Auto) 0.3 x10^3/uL (0.0-1.1) Eosinophils # (Auto) 0.2 x10^3/uL (0.0-0.7) Basophils # (Auto) 0.0 x10^3/uL (0.0-0.2) Sodium Level 133 mmol/L (136-145) Potassium Level 4.8 mmol/L (3.5-5.1) Chloride Level 103 mmol/L (98-107) Carbon Dioxide Level 23 mmol/L (21-32) Anion Gap 7 (6-14) Blood Urea Nitrogen 8 mg/dL (7-20) Creatinine 0.7 mg/dL (0.6-1.0) Estimated GFR (Cockcroft-Gault) 90.9 Glucose Level 380 mg/dL (70-99) Calcium Level 7.4 mg/dL (8.5-10.1) Comment Review of Relevant I have reviewed the following items sheryl (where applicable) has been applied. Medications: Current Medications Medications (Trade) Dose Ordered Sig/Lori Route PRN Reason Start Time Stop Time Status Last Admin Dose Admin Insulin Human Lispro (HumaLOG) 11 units TIDWMEALS SQ 07/28/20 12:00 07/28/20 16:30 Insulin Glargine (Lantus Syringe) 22 unit QHS SQ 07/28/20 21:00 07/28/20 22:16 Lansoprazole (Prevacid) 30 mg BIDBFRMEAL FT 4/29/21 16:30 07/29/20 08:12 Tramadol HCl (Ultram) 50 mg PRN Q6HRS PRN PO PAIN 07/28/20 13:15 07/28/20 19:28 Prochlorperazine Edisylate (Compazine) 10 mg 1X ONCE IV 07/28/20 13:15 07/28/20 13:16 DC 07/28/20 13:26 Bethanechol Chloride (Urecholine) 10 mg TIDAC PO 07/28/20 18:00 07/29/20 08:12 Insulin Human Lispro (HumaLOG) 27 units 1X ONCE SQ 07/29/20 08:15 07/29/20 08:17 DC 07/29/20 08:32 Justifications for Admission Other Justification MACK GUIDRY MD Jul 29, 2020 10:01
--- NOTE | 2020-07-29 10:04 | PDOC3 ---
Discharge Summary Visit Information Date of Admission: Jul 27, 2020 Date of Discharge: Jul 29, 2020 Admitting Diagnosis: HHNK Final Diagnosis HHNK Brief Hospital Course Allergies Allergies Coded Allergies Type Severity Reaction Last Updated Verified No Known Drug Allergies 12/25/18 No Vital Signs Vital Signs Date Time Temp Pulse Resp B/P (MAP) Pulse Ox O2 Delivery O2 Flow Rate FiO2 07/29/20 07:00 97.6 88 18 158/85 (109) 99 Room Air 97.6 Lab Results Laboratory Tests Test 07/28/20 03:18 07/28/20 07:08 07/28/20 09:40 07/28/20 10:54 Glucose (Fingerstick) 523 mg/dL (70-99) 165 mg/dL (70-99) 114 mg/dL (70-99) White Blood Count 6.5 x10^3/uL (4.0-11.0) Red Blood Count 4.16 x10^6/uL (3.50-5.40) Hemoglobin 13.1 g/dL (12.0-15.5) Hematocrit 37.7 % (36.0-47.0) Mean Corpuscular Volume 91 fL (79-100) Mean Corpuscular Hemoglobin 32 pg (25-35) Mean Corpuscular Hemoglobin Concent 35 g/dL (31-37) Red Cell Distribution Width 12.9 % (11.5-14.5) Platelet Count 370 x10^3/uL (140-400) Neutrophils (%) (Auto) 43 % (31-73) Lymphocytes (%) (Auto) 47 % (24-48) Monocytes (%) (Auto) 5 % (0-9) Eosinophils (%) (Auto) 3 % (0-3) Basophils (%) (Auto) 1 % (0-3) Neutrophils # (Auto) 2.8 x10^3/uL (1.8-7.7) Lymphocytes # (Auto) 3.1 x10^3/uL (1.0-4.8) Monocytes # (Auto) 0.3 x10^3/uL (0.0-1.1) Eosinophils # (Auto) 0.2 x10^3/uL (0.0-0.7) Basophils # (Auto) 0.0 x10^3/uL (0.0-0.2) Sodium Level 136 mmol/L (136-145) Potassium Level 4.6 mmol/L (3.5-5.1) Chloride Level 102 mmol/L (98-107) Carbon Dioxide Level 26 mmol/L (21-32) Anion Gap 8 (6-14) Blood Urea Nitrogen 14 mg/dL (7-20) Creatinine 0.8 mg/dL (0.6-1.0) Estimated GFR (Cockcroft-Gault) 77.9 BUN/Creatinine Ratio 18 (6-20) Glucose Level 143 mg/dL (70-99) Calcium Level 7.9 mg/dL (8.5-10.1) Total Bilirubin 0.3 mg/dL (0.2-1.0) Aspartate Amino Transf (AST/SGOT) 29 U/L (15-37) Alanine Aminotransferase (ALT/SGPT) 52 U/L (14-59) Alkaline Phosphatase 101 U/L (46-116) Troponin I Quantitative < 0.017 ng/mL (0.000-0.055) Total Protein 5.2 g/dL (6.4-8.2) Albumin 3.0 g/dL (3.4-5.0) Albumin/Globulin Ratio 1.4 (1.0-1.7) Test 07/28/20 19:37 07/29/20 04:00 07/29/20 07:34 07/29/20 09:56 Glucose (Fingerstick) 219 mg/dL (70-99) 493 mg/dL (70-99) 416 mg/dL (70-99) White Blood Count 6.0 x10^3/uL (4.0-11.0) Red Blood Count 3.89 x10^6/uL (3.50-5.40) Hemoglobin 12.1 g/dL (12.0-15.5) Hematocrit 36.3 % (36.0-47.0) Mean Corpuscular Volume 93 fL (79-100) Mean Corpuscular Hemoglobin 31 pg (25-35) Mean Corpuscular Hemoglobin Concent 33 g/dL (31-37) Red Cell Distribution Width 13.2 % (11.5-14.5) Platelet Count 323 x10^3/uL (140-400) Neutrophils (%) (Auto) 37 % (31-73) Lymphocytes (%) (Auto) 53 % (24-48) Monocytes (%) (Auto) 6 % (0-9) Eosinophils (%) (Auto) 4 % (0-3) Basophils (%) (Auto) 1 % (0-3) Neutrophils # (Auto) 2.2 x10^3/uL (1.8-7.7) Lymphocytes # (Auto) 3.2 x10^3/uL (1.0-4.8) Monocytes # (Auto) 0.3 x10^3/uL (0.0-1.1) Eosinophils # (Auto) 0.2 x10^3/uL (0.0-0.7) Basophils # (Auto) 0.0 x10^3/uL (0.0-0.2) Sodium Level 133 mmol/L (136-145) Potassium Level 4.8 mmol/L (3.5-5.1) Chloride Level 103 mmol/L (98-107) Carbon Dioxide Level 23 mmol/L (21-32) Anion Gap 7 (6-14) Blood Urea Nitrogen 8 mg/dL (7-20) Creatinine 0.7 mg/dL (0.6-1.0) Estimated GFR (Cockcroft-Gault) 90.9 Glucose Level 380 mg/dL (70-99) Calcium Level 7.4 mg/dL (8.5-10.1) Laboratory Tests Test 07/28/20 10:54 07/28/20 19:37 07/29/20 04:00 07/29/20 07:34 Glucose (Fingerstick) 114 mg/dL (70-99) 219 mg/dL (70-99) 493 mg/dL (70-99) White Blood Count 6.0 x10^3/uL (4.0-11.0) Red Blood Count 3.89 x10^6/uL (3.50-5.40) Hemoglobin 12.1 g/dL (12.0-15.5) Hematocrit 36.3 % (36.0-47.0) Mean Corpuscular Volume 93 fL (79-100) Mean Corpuscular Hemoglobin 31 pg (25-35) Mean Corpuscular Hemoglobin Concent 33 g/dL (31-37) Red Cell Distribution Width 13.2 % (11.5-14.5) Platelet Count 323 x10^3/uL (140-400) Neutrophils (%) (Auto) 37 % (31-73) Lymphocytes (%) (Auto) 53 % (24-48) Monocytes (%) (Auto) 6 % (0-9) Eosinophils (%) (Auto) 4 % (0-3) Basophils (%) (Auto) 1 % (0-3) Neutrophils # (Auto) 2.2 x10^3/uL (1.8-7.7) Lymphocytes # (Auto) 3.2 x10^3/uL (1.0-4.8) Monocytes # (Auto) 0.3 x10^3/uL (0.0-1.1) Eosinophils # (Auto) 0.2 x10^3/uL (0.0-0.7) Basophils # (Auto) 0.0 x10^3/uL (0.0-0.2) Sodium Level 133 mmol/L (136-145) Potassium Level 4.8 mmol/L (3.5-5.1) Chloride Level 103 mmol/L (98-107) Carbon Dioxide Level 23 mmol/L (21-32) Anion Gap 7 (6-14) Blood Urea Nitrogen 8 mg/dL (7-20) Creatinine 0.7 mg/dL (0.6-1.0) Estimated GFR (Cockcroft-Gault) 90.9 Glucose Level 380 mg/dL (70-99) Calcium Level 7.4 mg/dL (8.5-10.1) Test 07/29/20 09:56 Glucose (Fingerstick) 416 mg/dL (70-99) Brief Hospital Course Ms Garcia is a 43-year-old female w/ PMHx Anxiety, Cyclic Vomiting, Diabetes- Type I, High Cholesterol, gastroparesis presenting to [facility] with body aches, chest pain, sob since Saturday. She reports no known sick contacts, and reports on Saturday she presented to for evaluation. She reports that on this visit to all they did was give her some fluids and test her for covid. She reports that she had not been told what her COVID test results are. She presents today because her symptoms have continued to worsen. She reports that she has noted fevers of over 101F since her symptoms have began. Also reports she is nauseous and has vomited multiple times since her symptoms began, and is always nauseous. Does report a history of T1DM, but doesn't think her current symptoms are due to DM because her current symptoms are atypical for her normal DM symptoms. Does report taking her sugars at home and reports they have been in the 200s. Denies bloody emesis, hematemesis, bloody bowel movements, and sick contacts. She was hospitalized at [facility] a number of times for DKA 2 years ago and has been able to stay out of the hospital since. Gets her primary care at [facility], found that 22u Lantus and 11u lispro TID and staying away from healthcare providers has kept her out of the hospital until now. Labs with WBC 7.1, Hb 14.7, platelets 376, Na 124, K 5.7, BUN 13, Cr 1.1, glucose 728, AST 30, ALT 67, Alb 3.7, Alk phos 127, lactic acid 1.6, Trop 0 EKG sinus rhythm at 84 bpm, unremarkable intervals, no axis deviation, no acute ischemic findings, no STEMI Chest radiograph with no acute abnormalities Due to life-threatening hyperkalemia and possibility for need of GI or nephrology services patient transferred to [facility] for higher level of care. Seen bedside on arrival, given IV insulin and IVF, IV anti-emetics Glucose improved and feeling better with lansoprazole, bethanechol. Notably she is likely becoming more insulin resistant given there is no clear infectious etiology for her hyperglycemia. I have advised her to contact [facility] for a change in her insulin dosing will increase to 28 units Levemir and 13 units lispro 3 times daily plus sliding scale. Would likely be better off with Basaglar or Lantus Toujeo or Tresiba is a glargine possibly try Apidra. Problem list: Intractable nausea and vomiting - likely gastroparesis, glucose in 100s, increased once taking PO today Hyperkalemia - likely related to HHNK, will give IVF, telemetry, q6hr BMP Hyponatremia - likely related to hyperglycemia, will hydrate, IV insulin HHNK - insulin IV. Q6 hours BMP and phos, mag, replacement protocol. Gap closed. Ok to eat and get back on home insulin regimen Intractable headache - she takes excedrin migraine outpatient, denies migraines. Toradol and compazine helped. CT head for worst headache of life was negative. imitrex broke her headache ultimately, likely has complicated migraines, will f/u with neurology outpatient Chest pain - improved from prior. Now left shoulder pain, troponins negative Hx THC ABUSE - counseled cessation will help her cyclic vomiting Transaminitis - mild, notably recurrent. Normal lipids, TSH, ferritin Anemia - related to diabetes, will check iron Anxiety - previously on too much ativan, will start on prn buspar TID Greater than 30 minutes spent on d/c home with self care Discharge Information Condition at Discharge: Improved Follow Up: Weeks (1) Disposition/Orders: D/C to Home Scheduled Calcium Carbonate (Oyster Shell Calcium) 500 Mg Tablet, 500 MG PO TIDAFTMEAL for SUPPLEMENT for 30 Days, #90 Prescribed by: DEEPTI ZHAO MD on 05/14/19 1459 Insulin Aspart (Novolog) 100 Unit/1 Ml Cartridge, 13 UNIT SQ TIDAC for fsbs for 30 Days, #30 Prescribed by: MACK GUIDRY MD on 07/29/20 0951 Insulin Detemir (Levemir) 100 Unit/1 Ml Vial, 28 UNIT SQ QHS for fsbs for 30 Days, #1 Prescribed by: MACK GUIDRY MD on 07/29/20 0951 Lansoprazole (Prevacid) 30 Mg Tab.rap.dr, 30 MG FT BIDBFRMEAL for GERD for 30 Days, #60 Ref 5 Prescribed by: MACK GUIDRY MD on 07/29/20 0951 [Bethanechol Chloride] 10 MG TABLET, 10 MG PO TIDAC for Diabetic gastroparesis for 30 Days, #90 Ref 5 Prescribed by: MACK GUIDRY MD on 07/29/20 0951 Scheduled PRN Aspirin/Acetaminophen/Caffeine (Pain Reliever Plus Tablet) 1 Each Tablet, 2 TAB PO PRN Q6HRS PRN for MIGRAINE HEADACHE for 10 Days, #30 Prescribed by: DEEPTI ZHAO MD on 08/24/18 1249 Buspirone Hcl (Buspirone Hcl) 10 Mg Tablet, 10 MG PO PRN TID PRN for ANXIETY for 30 Days, #90 Ref 5 Prescribed by: MACK GUIDRY MD on 03/30/19 0847 Last Action: Continued on 07/28/20 0850 by MACK GUIDRY MD Ondansetron (Ondansetron Odt) 4 Mg Tab.rapdis, 8 MG PO PRN Q8HRS PRN for NAUSEA/VOMITING (1st Choice) for 28 Days, #60 Ref 5 Prescribed by: MACK GUIDRY MD on 07/29/20 0951 Polyethylene Glycol 3350 (Polyethylene Glycol 3350) 17 Gm Powd.pack, 17 GM PO PRN DAILY PRN for CONSTIPATION for 14 Days, #14 Prescribed by: DEEPTI ZHAO MD on 08/24/18 1249 Last Action: Continued on 07/28/20 0850 by MACK GUIDRY MD [Nicotine 21MG] 1 PATCH PATCH, 1 PATCH TD PRN DAILY PRN for SMOKING CESSATION for 28 Days, #30 Prescribed by: DEEPTI ZHAO MD on 12/29/18 1023 Last Action: Converted on 07/28/20 0850 by MACK GUIDRY MD Discontinued Medications Amlodipine Besylate (Norvasc) 5 Mg Tablet, 5 MG PO DAILY for BLOOD PRESSURE for 30 Days, #30 Prescribed by: DEEPTI ZHAO MD on 08/24/18 1250 Dicyclomine Hcl (Dicyclomine Hcl) 10 Mg Capsule, 10 MG PO QID PRN for abd pain for 30 Days, #120 Prescribed by: DEEPTI ZHAO MD on 12/29/18 1023 Ipratropium/Albuterol Sulfate (Duoneb 0.5-3(2.5) Mg/3 Ml) 3 Ml Ampul.neb, 3 ML NEB RTQID for pneumonia for 30 Days, #120 Prescribed by: DEEPTI ZHAO MD on 09/30/18 1217 Pantoprazole Sodium (Protonix) 20 Mg Tablet.dr, 20 MG PO DAILY for stomach, (Reported) Entered as Reported by: JAQUELIN VANG on 08/21/18 1704 Last Action: Converted on 07/28/2050 by MACK GUIDRY MD Promethazine Hcl (Promethazine Hcl) 12.5 Mg Tablet, 12.5 MG PO PRN Q6HRS PRN for NAUSEA/VOMITING (2nd Choice) for 14 Days, #60 Prescribed by: DEEPTI ZHAO MD on 05/14/19 1459 Sumatriptan Succinate (Imitrex) 100 Mg Tablet, 1 TAB PO UD for Migraine, #9 Ref 5 Prescribed by: MACK GUIDRY MD on 03/30/19 0847 Justicifation of Admission Dx: Justifications for Admission: Justification of Admission Dx: Yes MACK GUIDRY MD Jul 29, 2020 10:04
--- NOTE | 2020-07-29 11:24 | NUR ---
Discharge Note: LATHA CHAVEZ [address] Discharge instructions and discharge home medications reviewed with the patient and a copy given. All questions have been answered and understanding verbalized. The following instructions and handouts were given: Home meds as instructed, discussed insulin doses that has been adjusted. Watch out for hypo or hyperglycemia symptoms. Follow up with PCP in a week. Discontinued lines and drains: peripheral IV intact, patient tolerated removal, no complications noted. Patient discharged to home with self- care, ambulatory at 1023.
== END 2020-07-29 10:23 | disposition home or self-care (01) | DRG 74 ==
LOC: 6 SOUTH 21:46
PROVIDERS: ADMIT Internal Medicine; ATTEND Internal Medicine
DX: E10.43 Type 1 diabetes mellitus with diabetic autonomic (poly)neuropathy (principal); E87.1 Hypo-osmolality and hyponatremia; K31.84 Gastroparesis; E87.5 Hyperkalemia; D64.9 Anemia, unspecified; E78.00 Pure hypercholesterolemia, unspecified; E78.5 Hyperlipidemia, unspecified; F17.210 Nicotine dependence, cigarettes, uncomplicated; G43.109 Migraine with aura, not intractable, without status migrainosus; Z82.5 Family history of asthma and other chronic lower respiratory diseases; Z90.710 Acquired absence of both cervix and uterus; F12.10 Cannabis abuse, uncomplicated; F41.9 Anxiety disorder, unspecified; Z79.899 Other long term (current) drug therapy; Z90.49 Acquired absence of other specified parts of digestive tract; R74.01 Elevation of levels of liver transaminase levels; Z20.822 Contact with and (suspected) exposure to COVID-19; Z79.4 Long term (current) use of insulin
CPT/HCPCS: 36415; 80048; 80053; 82962; 84484; 85025; J0780; J1815; J2765; J3010; J7030; G0378